=== PATIENT | male | born 1945 | race Caucasian/White ===

== ENCOUNTER → 2018-12-14 08:38 | Outpatient (CLI) | payer MEDICARE, SELFPAY ==
[2018-12-04 07:38] VITALS: BMI 25.2
--- NOTE | 2018-12-14 08:39 | AAAS_ITS ---
Reason For Study: Pulsatile abdominal mass Aorta Measurements Aorta Doppler Measurements Proximal aorta measures1.9 x 1.8cm. in cross- Peak systolic flow velocities within the proximal sectional axis. aorta measure 66.6 cm/sec. Proximal aorta measures1.8cm. in longitudinal Peak systolic flow velocities within the mid aorta axis. measure 66.6 cm/sec. Mid aorta measures2.4 x 2.6cm. in cross-sectional Peak systolic flow velocities within the distal axis. aorta measure 45.2 cm/sec. Mid aorta measures2.6cm. in longitudinal axis. Distal aorta measures1.7 x 1.7cm. in cross- sectional axis. Distal aorta measures1.7cm. in longitudinal axis. Left Iliac Artery Left iliac artery measures .90 cm. in the longitudinal axis. Left iliac artery measures .83 x .83 cm. in the cross-sectional axis. Peak systolic velocity in the left iliac artery measures 116.0 cm/sec. Right Iliac Artery Right iliac artery measures .85 cm. in the longitudinal axis. Right iliac artery measures .87 x .83 cm. in the cross-sectional axis. Peak systolic velocity in the right iliac artery measures 124.0 cm/sec. Procedure Aorta IVC Iliac vasculature or bypass grafts [id number]. Exam performed in department. Interpretation Summary Maximal aortic diameter in the mid aorta at 2.4 x 2.6cm with normal flow. Right common iliac 0.87 x 0.83cm Left common iliac 0.83 x 0.83cm Ordering Physician: Yohan Canela Referring Physician: Yohan Canela Performed By: Ml Heredia RVT
== END ==
PROVIDERS: Family Provider Student in an Organized Health Care Education/Training Program; PCP Student in an Organized Health Care Education/Training Program; Referring Provider Surgery; Visit Provider Surgery
DX: R19.00 Intra-abdominal and pelvic swelling, mass and lump, unspecified site (principal); I10 Essential (primary) hypertension
CPT/HCPCS: 76706

== ENCOUNTER → 2018-12-16 14:01 | Outpatient (CLI) | payer MEDICARE, SELFPAY ==
[2018-12-16 12:52] VITALS: BMI 24.6
[2018-12-16 15:48] LABS: Absolute Lymphocyte Count 1.26 X10^3/ul (0.83-4.51); Absolute Neutrophil Count 3.5 X10^3/uL (2.0-7.7); Basophil# 0.02 X10^3/uL; Basophil% 0.4 % (0-1); Eosinophil# 0.11 X10^3/uL; Hematocrit 46.5 % (40-54); Hemoglobin 15.2 g/dl (13.0-16.5); Lymphocyte # 1.26 X10^3/ul (4.0); Lymphocyte % 23.4 % (19-41); Mean Corp Hgb Conc 32.7 g/gl (32-36); Mean Corpuscular Hgb 31.9 pg (27.0-32.0); Mean Corpuscular Volume 97.5 fL (80-94); Mean Platelet Vol. 12.1 fl (6.2-12.0); Monocyte# 0.48 X10^3/uL; Monocyte% 8.9 % (0-10); Neutrophil # 3.49 X10^3/uL (2.7-7.7); Neutrophil % 64.9 % (47-70); Platelet Count 194 K/mm3 (150-450); RBC Distribution Width CV 13.8 % (11.6-14.6); RBC Distribution Width SD 49.3 fl (35.1-43.9); Red Blood Count 4.77 M/mm3 (4.6-6.2); White Blood Count 5.4 K/mm3 (4.4-11.0)
[2018-12-16 15:52] LABS: POSITIVE COUNT NO; POSITIVE DIFFERENTIAL NO; POSITIVE MORPHOLOGY NO
[2018-12-16 16:10] LABS: Anion Gap 9 (5-15); BUN 12 mg/dL (7-18); BUN/Creat Ratio 10.3 RATIO (10-20); Calcium,Total 8.8 mg/dL (8.5-10.1); Chloride 110 mmol/L (98-107); Creatinine, Serum 1.17 mg/dL (0.70-1.30); EST Glomerular Filtration Rate 65 mL/min (>60); Est Glom Filt Rate - Afr Amer 79 mL/min (>60); Glucose 93 mg/dL (74-106); Potassium 4.2 mmol/L (3.5-5.1); Sodium Level 144 mmol/L (136-145)
== END ==
PROVIDERS: Family Provider Student in an Organized Health Care Education/Training Program; PCP Student in an Organized Health Care Education/Training Program; Referring Provider Internal Medicine Cardiovascular Disease; Visit Provider Internal Medicine Cardiovascular Disease
DX: I25.10 Atherosclerotic heart disease of native coronary artery without angina pectoris (principal); R07.9 Chest pain, unspecified; Z95.5 Presence of coronary angioplasty implant and graft
CPT/HCPCS: 36415; 80048; 85025

== ENCOUNTER 2018-12-22 06:53 | Day surgery (SDC) | payer MEDICARE, SELFPAY ==
[2018-12-16 12:52] VITALS: BMI 24.6
--- NOTE | 2018-12-18 08:00 | RAD_ITS ---
STUDY: X-RAY CHEST REASON FOR EXAM: Male, 73 years old. Chest pain TECHNIQUE: PA and lateral views of the chest. COMPARISON: None. FINDINGS: The lungs are clear and expanded. There is no demonstrated pleural abnormality. Normal size heart. Normal mediastinum and bishop. Normal visualized pulmonary arteries. There is atherosclerotic tortuosity of the aortic arch and descending thoracic aorta. There are mild degenerative changes of the visualized thoracic spine. Normal visualized ribs, clavicles, and shoulders. There is no demonstrated abnormality of the visualized soft tissue structures of the upper abdomen. RAD/Chest PA and Lateral IMPRESSION: No acute cardiopulmonary process. Electronically Signed: Kody Conklin MD at 6:55 EST , Service support ,
[2018-12-21 11:05] VITALS: BMI 24.6
--- NOTE | 2018-12-22 08:43 | CL.D_ITS ---
Patient Name: PORFIRIO NOWAK Study Date: 12/22/2018 Performing: Lenin Galeas MD Ht: 68.11 inches 173 cm : 1945 Wt: 160.94 lbs 73 kg Age: 73 Gender: male BSA: 1.87 PROCEDURE(S) PERFORMED [id number]/COR/LV CLINICAL PROFILE AND INDICATIONS Indications: Suspected CAD Heart Failure: None Stress/Imaging Stress Test w/SPECT MPI: Yes Result: NegativeStress Test with SPECT MPI: Negative CAD Presentations: Unstable angina. CONCLUSIONS Left main coronary artery with severe right coronary artery stenosis and depressed left ventricular f unction. RECOMMENDATIONS Surgery consult for coronary revascularization DESCRIPTION OF PROCEDURE The patient arrived to the procedure lab. The risks and benefits of the procedure as well as a full d escription of our services here and current unavailability of surgical backup were fully explained to the patient and/or their significant other prior to the catheterization. The Timeout was completed, verifying the correct patient and procedure. The patient's procedural site was prepped and draped in the usual fashion. Local anesthetic was given subcutaneously to right groin region with Lidocaine 2%. Using a modified Seldinger technique, arterial access was obtained via the right femoral artery, a 5 Fr sheath was inserted. Left Coronary Artery selective angiography was performed in multiple views u sing a 5 Fr. JL4 catheter. Right Coronary Artery selective angiography was then performed in multiple views using a 5 Fr. 3DRC (Fidencio) catheter. Left Ventriculography was performed in GIL projection using a 5 Fr. Pigtail catheter. LV to AO pullback pressures were then recorded.The arterial sheath was pulled and manual compression applied until hemostasis is achieved. CORONARY ANGIOGRAPHY DOMINANCE: Right Dominant LEFT HEART ASSESSMENT Left Ventricular Ejection Fraction: by LV Gram 40 % Global Hypokinesis - Moderate Depressed Left Ventricular systolic function LEFT MAIN: 60-70 % Stenosis LEFT ANTERIOR DECENDING ARTERY: Mild luminal irregularities DIAGONAL 1: Ostial - 70 % Stenosis CIRCUMFLEX ARTERY: Mild luminal irregularities less than 30% RIGHT CORONARY ARTERY: Eccentric 70% proximal stenosis, moderate mid segment disease, high-grade 90% stenosis before the bifurcation of the posterolateral and posterior descending arteries and a 90% lauren nosis noted in the posterolateral vessel. COMPLICATIONS No Complications PROCEDURE MEDICATIONS Versed 1 mg IV Oxygen: 2 L/min via nasal cannula SUMMARY OF HEMODYNAMIC DATA Time AIR REST ECG 07:12:51 AO 153/67 (98) SA 08:12:43 LV 153/0, 8 08:20:34 LV 155/-1, 10 08:20:41 LV 150/0, 9 08:22:32 LV 156/0, 10 08:22:38 LVp 170/-1, 27 08:22:44 AOp 167/69 (103) 08:22:49 Signed By Lenin Galeas MD On 12/22/2018 08:41:42 Lenin Galeas MD
== END 2018-12-22 15:35 | disposition short-term general hospital (02) ==
LOC: CLSP 06:54
PROVIDERS: Family Provider Student in an Organized Health Care Education/Training Program; PCP Student in an Organized Health Care Education/Training Program; Referring Provider Internal Medicine Cardiovascular Disease; Visit Provider Internal Medicine Cardiovascular Disease
DX: I25.10 Atherosclerotic heart disease of native coronary artery without angina pectoris (principal); I77.9 Disorder of arteries and arterioles, unspecified; I10 Essential (primary) hypertension; E78.2 Mixed hyperlipidemia; Z95.5 Presence of coronary angioplasty implant and graft; I25.2 Old myocardial infarction; I65.23 Occlusion and stenosis of bilateral carotid arteries; I73.9 Peripheral vascular disease, unspecified; Z79.82 Long term (current) use of aspirin; Z79.899 Other long term (current) drug therapy; Z87.891 Personal history of nicotine dependence
CPT/HCPCS: 71046; 93458; 99152; 99153; J7040; Q9967

== ENCOUNTER → 2019-02-04 11:50 | Outpatient (CLI) | payer MEDICARE, SELFPAY ==
[2018-12-21 11:05] VITALS: BMI 24.6
--- NOTE | 2019-02-04 12:15 | PCM.CR.ITP ---
General Information - General Information Admitting Diagnosis: CABG 12/28/18 - Education/Goals Barriers to Learning: None Individual Counseling: Initial Assessment: Abnormal Cholesterol Levels, High Blood Pressure, Hypertension, Sedentary Lifestyle, Family History of Heart Disease (under 65 years) Cardiac Rehabilitation Goals: 1. Maintain the individual as the primary focus of care. 2. To improve the patient's quality of life. 3. Identification of cardiac risk factors and provide cardiac risk factor management. 4. Enhance the psychosocial status of the patient. 5. Reconditioning enough to allow the patient to resume customary activities. 6. Control symptoms of cardiac disease Scale for measuring improvement of personal goals: Enter appropriate number in Comments. 2 = Unchanged. 3 = Slightly Better. 4 = Moderate Improvement. 5 = Met my Goal Personal Goals: Initial Assessment: Improve energy level, Get back to work, or to resume activities faster, Improve muscle strength and endurance, Improve diet and eating habits (eat healthier), Control risk factors (learn risk factor modification) Exercise - Initial Assessment - Visit Date of Eval: 02/04/19 - Stages of Change Stages of Change:: Action - Physician Prescribed Exercise Modalities: Treadmill, Biodyne, Rower, Airdyne, NuStep, SciFit Frequency (days/week): 3x/week for 12 weeks [36 sessions] Duration (Minutes):: 30 - Hypertension Do any of the following apply?: Yes, Medication, Diet - Intervention Home Exercise/Activity Goal:: Moderate Exercise 30 min/day x 5 days/wk - Education Goals:: Warm-up, RPE JAS Scale, S/S, Safe Exercise, Self-Monitoring - Exercise Program Goals Exercise Program Goals: Aerobic Activity >30 min Nutrition - Initial Assessment - Program Goals Nutrition Program Goals: LDL <70. Total Cholesterol <200. HDL >45. Triglycerides <150. HgbA1C <7%. BMI <25 - Visit Date of Assessment:: 02/04/19 - Stages of Change Stages of Change:: Action - Diabetes Diabetes:: No - Weight Management Height: 5 ft 8 in Weight:: 162 lb Body Fat %:: 24.6 - Intervention Referral to dietitian:: No Referral to Diabetic Clinic:: No Will attend diet classes:: Yes - Education Gave educational materials for:: Healthy eating Tobacco - Initial Assessment - Program Goals Tobacco Program Goals: Complete smoking cessation. Attend education classes. Improve Knowledge Test score - Stage of Change Stages of Change:: Action - Learning Barriers Learning Barriers: Vision - wears glasses, Ready to Learn Total Score:: 17 - Family Support Do you have family support?: Yes - Tobacco Use Tobacco Use: Cigarettes - quit 6 weeks ago How long ago did you quit using tobacco products?: Less than 6 months ago How many cigarettes do you smoke per day?: 10 Years Smokin Do you use smokeless tobacco?: No - Intervention Smoking Cessation Referral:: Yes Individual Education/Counseling:: Yes Education Schedule Given:: Yes - Education Gave educational material for:: Tobacco triggers, Coronary artery disease, Risk factors, Sexuality, Medical compliance, Cardiac A&P, Angina signs & symptoms Psychosocial - Initial Assess - Target Goals Target Goals: Assess presence or absence of depression. Using a valid screening tool, maximizes coping skills. Positive support system - Stages of Change Stages of Change:: Maintenance - Psychosocial Test Tool Used:: HANDS Depression Questionnaire Self-reported stress:: no Tests Completed: SF - 36 survey completed, Mood Scale Test Total Mood Screening Score:: 2 Self-Efficacy Score:: 8 - Intervention PS - Interventions: Yes Attend Stress Management Classes, Yes Uses Stress Management Skills, No Referral to Mental Health, No Referral to [facility] Case Management, No Referral to Physician - Education Gave educational materials for:: Coping techniques, Signs & symptoms of depression, Stress management, Relaxation techniques - Patient/Program Goal Preventative Medication(s):: Aspirin, CHUY inhibitor, Clopidogrel, Beta patricia, Statin/lipid - Assistive Devices Assistive Devices:: None Fall Risk Assessed:: Yes Patient Health Questionnaire Initial Assessment 1. Little interest or pleasure in doing things: Not at all 2. Feeling down, depressed, or hopeless: Not at all 3. Trouble falling or staying asleep, or sleeping too much: Several days 4. Feeling tired or having little energy: Not at all 5. Poor appetite or overeating: Several days 6. Feeling bad about yourself -- or that you are a failure or have let yourself or your family down: Not at all 7. Trouble concentrating on things, such as reading the newspaper or watching television: Not at all 8. Moving or speaking so slowly that other people could have noticed. Or the opposite - being so fidgety or restless that you have been moving around a lot more than usual: Not at all 9. Thoughts that you would be better off , or of hurting yourself in some way: Not at all How difficult have these problems made it for you to do your work, take care of things at home, or get along with other people?: Not difficult at all Total Score: 2 CYDNEY-Q SV Test - Statements CAD is a disease of the arteries in the heart: False Examples of risk factors for heart disease: True Angina is chest pain or discomfort: I Don't Know The benefits of resistance training include: True Eating more meat and dairy products: False Anti-platelet medications such as aspirin are important: True The only effective way to manage stress: False An exercise warm-up slowly increases heart rate: True Prepared, processed foods usually have high sodium: True Depression is common after a heart attack: True The statin medications lower cholesterol: True To control blood pressure, lower the amount of sodium: True If someone gets chest discomfort during walking: False Transfats are partially hydrogenated vegetable oils: True Sleep apnea that is not treated increases the risk: I Don't Know To control cholesterol, one should become a vegetarian: True Someone knows if he/she is exercising at the right level: True Diabetes cannot be prevented with exercise & health eating: False Stress is a large risk for heart attack: True A diet that can help lower blood pressure is rich in: True - Total Score Total Correct Responses: 17 Self-Efficacy Initial Assessment We would like to know how confident you are in doing certain activities. Please select your confidence level for:: Select your confidence level for the following using the scale 1-10 where 1 is not at all confident and 10 is totally confident. Your score is the average of all 6 responses. Fatigue: How confident are you that you can keep the fatigue caused by your disease from interfering with the things you want to do? Select Number: 8 Physical Discomfort or Pain: How confident are you that you can keep the physical discomfort or pain of your disease from interfering with the things you want to do? Select Number: 8 Emotional Distress: How confident are you that you can keep the emotional distress caused by your disease from interfering with the things you want to do? Select Number: 9 Other Symptoms or Health Problems: How confident are you that you can keep other symptoms or health problems from interfering with the things you want to do? Select Number: 8 Different Tasks and Activities: How confident are you that you can do the different tasks and activities needed to manage your health condition so as to reduce your need to see a doctor? Select Number: 8 Medication: How confident are you that you can do things other than just taking medication to reduce how much your illness affects your everyday life? Select Number: 8 Total Score:: 8 Nutrition Survey - Nutrition Survey Instructions Scoring Instructions: Scoring is as follows: Yes = 1 points. No = 0 point. Patient score that is >/=12 is considered to be at potential nutritional risk and could benefit from a referral to a registered dietitian. - Nutrition Survey Initial Have you lost >10 lbs over the past 2 months without trying?: Yes Are you following a special diet at home for diabetes, low fat, or low salt?: No Are you interested in meeting with a dietitian for help understanding your diet?: Yes Do you eat less than 3 meals a day?: Yes Do you eat fatty meats (wheeler, sausage, ribs, etc), fried foods, desserts, large amounts of salad dressings, margarine, butter, or cheese most days?: Yes Do you have food allergies? [Enter types in comment field]: No Do you eat in restaurants more than 3 times a week?: No Do you season food with salt, seasoning salt, or garlic salt?: No Do you used canned, boxed, frozen meals, or soups, seasoning packets?: No Total Score:: 4
--- NOTE | 2019-02-04 12:54 | CR.HP_ITS ---
CR - History & Physical - General Arrival date:: 02/04/19 Arrival time:: 12:50 Date of Referral:: 02/04/19 Date of CR Evaluation:: 02/04/19 Referring Physician: Dr. Kadi Galeas Primary Diagnosis: CABG x 3 12/28/18 - History of Present Cardiac Event Onset Date: Enter Onset Date of cardiac illnesses in Comment field below Current stable Angina Pectoris:: No Acute Myocardial Infarction within 12 months:: No Coronary Artery Bypass Graft:: Yes - 12/28/18 Heart valve replacement or repair:: No PTCA or coronary stenting:: No Heart or Heart-Lung Transplant:: No Heart Failure EF <35%:: No Type of Symptoms:: some left chest pain. Interventions with present event:: CABG Were there any complications?: no - Medications Home Medications: Ambulatory Orders Medication Instructions Recorded aspirin 81 mg tablet,delayed 81 mg PO DAILY 12/04/18 release ezetimibe 10 mg tablet 10 mg PO DAILY 12/04/18 folic acid 400 mcg tablet 0.4 mg PO DAILY 12/04/18 metoprolol succinate ER 25 mg 25 mg PO DAILY 12/04/18 tablet,extended release 24 hr gndebhqx-wep-wwpbg acid 300 1 tab PO DAILY 12/04/18 mcg-lycopene 600 mcg-lutein 300 mcg tablet perflutren lipid microspheres 1.1 1.3 mg .ROUTE . ml 12/04/18 mg/mL intravenous suspension ramipril 10 mg capsule 20 mg PO DAILY cap 12/04/18 albuterol sulfate HFA 90 2 puff INHALATION Q4H PRN g 12/15/18 mcg/actuation aerosol inhaler clopidogrel 75 mg tablet 75 mg PO DAILY #30 tab 12/16/18 hydrochlorothiazide 25 mg tablet 25 mg PO DAILY #90 tab 12/16/18 nitroglycerin 0.4 mg sublingual 0.4 mg SUBLINGUAL Q5-15M PRN #25 12/16/18 tablet tab Acetaminophen [Tylenol] 325 mg PO Q6H PRN PRN 02/04/19 Lopressor 50 mg PO BID 02/04/19 Melatonin/Pyridoxine HCl (B6) 1 each PO QHS PRN PRN 02/04/19 [Melatonin 3 mg Tablet] Polyethylene Glycol 3350 [Miralax] 17 gm PO DAILY PRN 02/04/19 Pravastatin Sodium 5 mg PO QHS 02/04/19 Sennosides/Docusate Sodium 1 each PO PRN PRN 02/04/19 [Senna-Docusate Sodium Tablet] - Allergies Allergies/Adverse Reactions: Allergies Penicillins Allergy (Mild, Verified 12/16/18 08:40) rash amlodipine Adverse Reaction (Mild, Verified 12/16/18 08:40) ED exacerbation Ybvxcfh-Hko-Mok Reductase Inhibitor Adverse Reaction (Verified 12/16/18 08:40) myalgias - Sleep Disorder Evaluation Hx of Sleep Apnea: No Do you snore loudly (louder than talking or can be heard through closed doors)?: No Do you often feel tired/ fatigued/ sleepy during daytime?: No Has anyone observed you stop breathing during sleep?: Yes History of Hypertension (for STOP score): Yes STOP Results: Positive Advanced Directives - Advanced Directives Power of Doper Operator: No Living Will: No Advance Directives Information Provided: Yes Advance Directives on File: No DNR Order?:: No Past Medical History - Past Medical Illness Medical History: Past Medical History (Last Updated 01/28/19 @ 17:17 by Wanda Martinez) Premature ventricular beat (Chronic) I49.3 Claudication (Chronic) I73.9 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 Arie Scott Research And Evaluation Analyst Myocardial infarction I21.9 Bradycardia (Inactive) R00.1 - Past Surgical History Surgical History: Past Surgical History (Last Updated 01/28/19 @ 17:17 by Wanda Martinez) H/O coronary artery bypass surgery (Resolved) Z95.1 History of coronary artery stent placement (Resolved) Onset Date: 05/2003 Z95.5 BMS-Mid RCA w/ 3.5 x 20 mm Express II Stent 05/28/2003 History of left heart catheterization Onset Date: 12/22/18 Z98.890 History of amputation of finger Z89.029 History of appendectomy Z90.49 History of cataract extraction Onset Date: ~2015 Z98.49 History of colonoscopy Onset Date: ~2015 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 - Family History Summary Family History: Family History (Last Reviewed 12/16/18 @ 13:19 by Lenin Galeas MD) Father Heart disease Hypertension Mother CVA (cerebral vascular accident) Brother Heart disease Hypertension Myocardial infarction Brother Hypertension Myocardial infarction Brother Heart disease Myocardial infarction Social History - Smoking History Smoking Status: Former smoker Years Smokin Packs Smoked per Day: 0.5 Hx Smoking Cessation Date: quit 6 weeks ago Hx Tobacco Use: Yes Hx Smoking Exposure: Yes - Alcohol Use Alcohol Usage: No - Substance Abuse Hx Substance Use: No - Occupation Occupation (List type of work in comments):: Retired - Hobbies, Recreation, Social Activities Hobbies: Other - 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 Left click = Reports ([place]) Review of Present Symptoms: Reports: PVD, Operative Discomfort, Wound Healing - dry brown scab remains on chest and leg incisions, Appetite - Special Diet - Cardiac and protein, Sleep - Normal. Denies: Shortness of Breath at Rest, Shortness of Breath with Exertion, Angina, Dizziness/Lightheadedness, Fatigue, Heart Arrhythmia/Irregularities, Appetite - Normal - appetite not as good as usual, Sexual Changes - Pain Is Patient Pain Free?: No Pain Location: chest Pain Level: 0/10 - states discomfort is a .2 Previous experience dealing with pain?: took 3 pain pills since post op Risk Factor Assessment - Vital Signs Pulse Ox: 94 - Pulse Pulse Rate: 65 Pulse Rhythm: Regular - Hypertension How long have you been treated?: 4 years On medication(s)?: yes Blood Pressure Sitting - Right Arm: 162/82 Blood Pressure Sitting - Left Arm: 148/90 - Blood Cholesterol/Lipids Total Cholesterol (mg/dL) Goal = less than 200 mg/dL: 142 HDL Cholesterol (mg/dL) Goal = less than 40 mg/dL: 38 LDL Cholesterol (mg/dL) Goal = less than 70 mg/dL: 88 Triglycerides (mg/dL) Goal = less than 150 mg/dL: 78 - Diabetes Nutrition Referral for Diabetes: No - Obesity Height: 5 ft 8 in Weight:: 162 lb Weight in Pounds: 162.0 lbs Body Mass Index (BMI): 24.6 Nutritional Referral for Obesity: Yes - Pt would possibly like dietary referral for weight loss(14) since surg - Physical Inactivity Physical Inactivity: None - Risk Stratification Risk Guidelines: Lowest Risk: Risk Factor for Dyslipidemia, Risk Factor for Diabetes, Risk Factor for Obesity, Risk Factor for Depression, Moderate Risk: Risk Factor for Hypertension, Highest Risk: Risk Factor for Smoking, Risk Factor for Sedentary Lifestyle - For Smoking Smoking Risk Guidelines: Smoking Low Risk: None or quit greater than 6 months ago. Smoking Moderate Risk: Smoker or quit 6 months or less ago. Smoking High Risk: Smoker - For Dyslipidemia Dyslipidemia Risk Guidelines: Low Risk: Moderate Risk: High Risk: 15-25% fat 25.1-29% fat >/= 30% fat. <7% sat fat 7-9% sat fat >9% sat fat. <150 mg chol 150-299 mg chol >/= 300 mg chol. LDL <100 LDL 100-129 LDL >/= 130. Chol/HDL ratio <5.0 Chol/HDL ratio 5.0-6.0 Chol/HDL ratio >6.0. Triglycerides <100 Triglycerides 100-149 Triglycerides >/= 150 - For Diabetes Mellitus Diabetes Risk Guidelines: Diabetes Low Risk: HgA1c <6.5% and/or FBG <120. Diabetes Moderate Risk: HgA1c 6.6-7.9% and/or FBG 120-180. Diabetes High Risk: HgA1c >/= 8% and/or FBG >180 - For Obesity/Overweight Obesity/Overweight Risk Guidelines: Obesity Low Risk: BMI <25.0. Obesity Moderate Risk: BMI 25-29.9. Obesity High Risk: BMI >/= 30.0 - For Hypertension Hypertension Risk Guidelines: Hypertension Low Risk: Systolic <120 and Diastolic <80. Hypertension Moderate Risk: Systolic 120-139 and Diastolic 80-89. Hypertension High Risk: Systolic >/= 140 and Diastolic >/= 90 - For Sedentary Lifestyle Sedentary Lifestyle Risk Guidelines: Sedentary Lifestyle Low Risk: >/= 1,500 kcal/week. Sedentary Lifestyle Moderate Risk: 700-1,499 kcal/week. Sedentary Lifestyle High Risk: < 700 kcal/week - For Depression Depression Risk Guidelines: Depression Low Risk: Not clinically depressed. Depression Moderate Risk: Mildly depressed. Depression High Risk: Clinically depressed - Family History Family History: Family History (Last Reviewed 12/16/18 @ 13:19 by Lenin Galeas MD) Father Heart disease Hypertension Mother CVA (cerebral vascular accident) Brother Heart disease Hypertension Myocardial infarction Brother Hypertension Myocardial infarction Brother Heart disease Myocardial infarction Motivation - Motivation to Participate On a scale of 1 to 10, how prepared are you to commit to attending program?: 1
[2019-02-04 13:38] VITALS: BP 148/90; BP 162/82; PULSE 65; O2SAT 94; BMI 24.6
== END ==
PROVIDERS: Family Provider Student in an Organized Health Care Education/Training Program; PCP Student in an Organized Health Care Education/Training Program; Referring Provider Internal Medicine Cardiovascular Disease; Visit Provider Internal Medicine Cardiovascular Disease
DX: Z95.1 Presence of aortocoronary bypass graft (principal)

== ENCOUNTER 2019-02-12 14:15 | Outpatient (RCR) | payer MEDICARE, SELFPAY ==
[2019-02-04 12:58] VITALS: BMI 24.6
== END 2019-02-14 23:59 ==
LOC: CR 14:15
PROVIDERS: Family Provider Student in an Organized Health Care Education/Training Program; PCP Student in an Organized Health Care Education/Training Program; Referring Provider Internal Medicine Cardiovascular Disease; Visit Provider Internal Medicine Cardiovascular Disease
DX: I25.10 Atherosclerotic heart disease of native coronary artery without angina pectoris (principal); I10 Essential (primary) hypertension; I25.2 Old myocardial infarction; Z95.5 Presence of coronary angioplasty implant and graft; Z95.1 Presence of aortocoronary bypass graft
CPT/HCPCS: 93798

== ENCOUNTER 2019-03-15 14:15 | Outpatient (RCR) | payer MEDICARE, SELFPAY ==
[2019-02-04 13:38] VITALS: BMI 24.6
[2019-03-05 07:42] VITALS: BP 156/84; BP 188/102
--- NOTE | 2019-03-05 07:42 | CR.ITP_ITS ---
General Information - General Information Admitting Diagnosis: CABG - Education/Goals Barriers to Learning: None Cardiac Rehabilitation Goals: 1. Maintain the individual as the primary focus of care. 2. To improve the patient's quality of life. 3. Identification of cardiac risk factors and provide cardiac risk factor management. 4. Enhance the psychosocial status of the patient. 5. Reconditioning enough to allow the patient to resume customary activities. 6. Control symptoms of cardiac disease Scale for measuring improvement of personal goals: Enter appropriate number in Comments. 2 = Unchanged. 3 = Slightly Better. 4 = Moderate Improvement. 5 = Met my Goal Exercise - 30-day Assessment - Visit Date of Eval: 03/05/19 Session #:: 10 - Stages of Change Stages of Change:: Action - Physician Prescribed Exercise Modalities: Airdyne, NuStep, SciFit Frequency (days/week): 3 Duration (Minutes):: 30-45 Intensity: 60-80% age predicted maximum heart rate reserve METs - Progression: 0.5-1.0 MET, RPE 11-14 WEEK: 3.7 Target Heart Rate:: 104-119 Max HR 111 - Hypertension Resting Blood Pressure:: 156/84 Peak Exercise Blood Pressure:: 188/102 Medication Changes:: No - Intervention Home Exercise/Activity Goal:: Moderate Exercise 30 min/day x 5 days/wk - Education Goals:: Warm-up, RPE JAS Scale, S/S, Safe Exercise, Self-Monitoring - Exercise Program Goals Exercise Program Goals: Aerobic Activity >30 min, B/P <130/80 Nutrition - 30-Day Assessment - Program Goals Nutrition Program Goals: LDL <70. Total Cholesterol <200. HDL >45. Triglycerides <150. HgbA1C <7%. BMI <25 - Visit Date of Eval: 03/05/19 - Stages of Change Stages of Change:: Action - Weight Management Weight:: 73.482 kg - Intervention Referral to dietitian:: No Referral to Diabetic Clinic:: No Will attend diet classes:: Yes - Education Attended class for:: Signs & symptoms of hypoglycemia, Signs & symptoms of hyperglycemia, Relate diabetes to coronary artery disease, Healthy eating Tobacco - Initial Assessment - Program Goals Tobacco Program Goals: Complete smoking cessation. Attend education classes. Improve Knowledge Test score - Learning Barriers Learning Barriers: Vision - wears glasses, Ready to Learn Tobacco - 30-Day Assessment - Program Goals Tobacco Program Goals: Complete smoking cessation. Attend education classes. Improve Knowledge Test score - Stage of Change Stages of Change:: Action - Learning Barriers Learning Barriers: Participates in education - Family Support Do you have family support?: Yes - Tobacco Use Tobacco Use: Non-smoker Do you use smokeless tobacco?: No - Intervention Smoking Cessation Referral:: No Individual Education/Counseling:: No Education Schedule Given:: Yes - Education Attended class for:: Tobacco triggers, Coronary artery disease, Risk factors, Sexuality, Medical compliance, Cardiac A&P, Angina signs & symptoms Psychosocial - Initial Assess - Target Goals Target Goals: Assess presence or absence of depression. Using a valid screening tool, maximizes coping skills. Positive support system - Psychosocial Test Tool Used:: HANDS Depression Questionnaire - Assistive Devices Fall Risk Assessed:: Yes Psychosocial - 30-Day Assess - Target Goals Target Goals: Assess presence or absence of depression. Using a valid screening tool, maximizes coping skills. Positive support system - Stages of Change Stages of Change:: Action - Psychosocial Test Tool Used:: HANDS Depression Questionnaire - Intervention PS - Interventions: Yes Attend Stress Management Classes, Yes Uses Stress Management Skills, No Referral to Mental Health, No Referral to [facility] Case Management, No Referral to Physician - Education Attended classes for:: Coping techniques, Signs & symptoms of depression, Stress management, Relaxation techniques - Assistive Devices Assistive Devices:: None Fall Risk Assessed:: Yes Patient Health Questionnaire 30-Day Re-eval Assessment 1. Little interest or pleasure in doing things: Not at all 2. Feeling down, depressed, or hopeless: Not at all 3. Trouble falling or staying asleep, or sleeping too much: Several days 4. Feeling tired or having little energy: Not at all 5. Poor appetite or overeating: Several days 6. Feeling bad about yourself -- or that you are a failure or have let yourself or your family down: Not at all 7. Trouble concentrating on things, such as reading the newspaper or watching television: Not at all 8. Moving or speaking so slowly that other people could have noticed. Or the opposite - being so fidgety or restless that you have been moving around a lot more than usual: Not at all 9. Thoughts that you would be better off , or of hurting yourself in some way: Not at all Total Score: 2 Self-Efficacy 30-Day Re-eval Assessment We would like to know how confident you are in doing certain activities. Please select your confidence level for:: Select your confidence level for the following using the scale 1-10 where 1 is not at all confident and 10 is totally confident. Your score is the average of all 6 responses. Fatigue: How confident are you that you can keep the fatigue caused by your disease from interfering with the things you want to do? Select Number: 8 Physical Discomfort or Pain: How confident are you that you can keep the physical discomfort or pain of your disease from interfering with the things you want to do? Select Number: 8 Emotional Distress: How confident are you that you can keep the emotional distress caused by your disease from interfering with the things you want to do? Select Number: 9 Other Symptoms or Health Problems: How confident are you that you can keep other symptoms or health problems from interfering with the things you want to do? Select Number: 8 Different Tasks and Activities: How confident are you that you can do the different tasks and activities needed to manage your health condition so as to reduce your need to see a doctor? Select Number: 8 Medication: How confident are you that you can do things other than just taking medication to reduce how much your illness affects your everyday life? Select Number: 8 Total Score:: 8
== END 2019-03-16 23:59 ==
LOC: CR 14:15
PROVIDERS: Family Provider Student in an Organized Health Care Education/Training Program; PCP Student in an Organized Health Care Education/Training Program; Referring Provider Internal Medicine Cardiovascular Disease; Visit Provider Internal Medicine Cardiovascular Disease
DX: I25.10 Atherosclerotic heart disease of native coronary artery without angina pectoris (principal); I10 Essential (primary) hypertension; I25.2 Old myocardial infarction; Z95.5 Presence of coronary angioplasty implant and graft; Z95.1 Presence of aortocoronary bypass graft
CPT/HCPCS: 93798

== ENCOUNTER 2019-04-06 06:39 | Day surgery (SDC) | payer MEDICARE, SELFPAY ==
[2019-03-09 14:06] VITALS: BMI 24.3
--- NOTE | 2019-03-10 16:17 | HP_ITS ---
Intake Vital Signs 03/09/19 Body Mass Index (BMI) 24.3 03/09/19 Height 5 ft 8 in 03/09/19 Weight: 160 lb 03/09/19 Body Mass Index (BMI) 24.3 03/09/19 Blood Pressure 110/61 03/09/19 Blood Pressure Location Lt brachial 03/09/19 Blood Pressure Position Sitting 03/09/19 Respiratory Rate 18 03/09/19 Pulse Rate 65 03/09/19 Pulse Ox 94 03/09/19 Oxygen Delivery Method room air Intake Visit Reasons: Update H/P L APLL Adal will fax clearance Chief Complaint: Initial visit Manager Culinary Required: No Is patient in pain?: No Allergies Penicillins Allergy (Mild, Verified 03/09/19 14:05) rash amlodipine Adverse Reaction (Mild, Verified 03/09/19 14:05) ED exacerbation Drzbylm-Yfw-Tsy Reductase Inhibitor Adverse Reaction (Verified 03/09/19 14:05) myalgias Medications aspirin 81 mg tablet,delayed release 81 mg PO DAILY 12/04/18 [History Confirmed 03/09/19] ezetimibe 10 mg tablet 10 mg PO DAILY 12/04/18 [History Confirmed 03/09/19] ybvislzo-sou-qxefc acid 300 mcg-lycopene 600 mcg-lutein 300 mcg tablet 1 tab PO DAILY 12/04/18 [History Confirmed 03/09/19] nitroglycerin 0.4 mg sublingual tablet 0.4 mg SUBLINGUAL Q5-15M PRN #25 tab 12/16/18 [Rx Confirmed 03/09/19] Melatonin/Pyridoxine HCl (B6) [Melatonin 3 mg Tablet] 1 ea PO QHS PRN PRN 02/04/19 [History Confirmed 03/09/19] Sennosides/Docusate Sodium [Senna-Docusate Sodium Tablet] 1 ea PO PRN PRN 02/04/19 [History Confirmed 03/09/19] acetaminophen 325 mg capsule 650 mg PO Q6H PRN PRN cap 03/05/19 [History Confirmed 03/09/19] amlodipine 10 mg tablet 10 mg PO DAILY #90 tab 03/05/19 [Rx Confirmed 03/09/19] clopidogrel 75 mg tablet 75 mg PO DAILY #90 tab 03/05/19 [Rx Confirmed 03/09/19] metoprolol tartrate 100 mg tablet 50 mg PO BID 30 Days #30 tab 03/05/19 [History Confirmed 03/09/19] pravastatin 10 mg tablet 10 mg PO .COMPLEX tab 03/05/19 [History Confirmed 03/09/19] ramipril 10 mg capsule 10 mg PO DAILY cap 03/05/19 [History Confirmed 03/09/19] [facility] Medical History Premature ventricular beat (Chronic) Claudication (Chronic) Old inferior wall myocardial infarction (Chronic) Essential (primary) hypertension (Chronic) Mixed hyperlipidemia (Chronic) Atherosclerosis of [place] coronary artery of [place] heart without angina pectoris (Chronic) Carotid stenosis, bilateral (Chronic) Peripheral arterial occlusive disease (Chronic) Basal cell carcinoma (Chronic) Bilateral carotid artery stenosis (Chronic) Malignant melanoma (Chronic) Stenosis of both subclavian arteries (Chronic) Myocardial infarction (Resolved) Thrombocytopenia (Resolved) Bradycardia (Inactive) Palpitations (Inactive) Surgical History H/O coronary artery bypass surgery (Resolved 12/28/18) History of coronary artery stent placement (Resolved 05/2003) History of left heart catheterization (Chronic 12/22/18) History of amputation of finger (Resolved) History of appendectomy (Resolved) History of cataract extraction (Resolved ~2015) History of colonoscopy (Resolved ~2015) history of melanoma removal (Resolved) Family History Father Heart disease Hypertension Mother CVA (cerebral vascular accident) Brother Heart disease Hypertension Myocardial infarction Brother Hypertension Myocardial infarction Brother Heart disease Myocardial infarction Social History Smoking Status: Former smoker HPI HPI HPI: PORFIRIO NOWAK, is a 73 M who presents to the office today for HPI HPI Surgical H&P: Yes HPI: PORFIRIO NOWAK, is a 73 M who presents to the office today for an update history and physical for an upcoming procedure. He has recently had a triple bypass surgery at [place] in December 2018. Patient follows with Dr. 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 He has recently been cleared to have the vascular procedure. Patient is currently maintained on ASA and Plavix. Patient denies current chest pain or shortness of breath. he notes since his bypass surgery, his leg fatigue has improved, however still limiting. Patient had an aortic duplex on 12/14/18 which demonstrated maximal aortic diameter mid aorta at 2.4 x 2.6 cm with normal flow. Patient's previous history per Dr. Canela: PORFIRIO NOWAK, is a 73 M who presents to the office today for vascular surgical consultation regarding left lower recurrent extremity calf claudication. The patient is referred by his radio division lieutenant Dr Norbert Rehman because of his desire to stay in [place] to have treatment locally. A written copy of my surgical consult recommendations will be returned to and forwarded also to Dr Smiley.. Patient is 73 years of age. For the last 2-3 months he has had problems with left calf aching and pain with attempts to walk. He has a very long driveway of at least 50 yards. He has to stop 3 times within that. Because of extreme fatigue of the left calf. On November 25, 2018 at the [facility] the patient had PVRs. The right BRIAN was 1.04 and 1.09 for the DP and PT at rest. The left DP and PT ABIs were 0.59 and 0.65. Small vessel disease was also suspected. It is of additional note that November 25, 2018 carotid duplex imaging was performed because of left arm paresthesias the right internal carotid had peak systolic velocity of 98 cm second peak systolic flow felt to be consistent with 20-39% stenosis. The right subclavian artery has elevated velocity of 290 cm/s. [place] to be consistent with 50-99% stenosis. The left internal carotid artery has a peak systolic velocity of 204 cm/s with an end-diastolic velocity of 57. This was felt to be consistent with 60-79% stenosis. The left subclavian artery has an elevated peak systolic velocity of 323 cm/s felt to be consistent with 50-99% stenosis. The patient currently is not complaining of any arm pain. He denies chest pain. He denies previous history of stroke. On December 02, 2018 at the [facility] he had a nuclear medicine stress test. This was negative for inducible ischemia. There was a 10-20% fixed perfusion deficit in the right coronary artery distribution likely consistent with the patient's remote myocardial infarction. Patient also had an echocardiogram. Mild concentric left ventricular hypertrophy. Ejection fraction 48%. No significant valvular abnormalities Patient has been a long-term cigarette smoker. He quit approximately 1 year ago. He had a myocardial infarction in 2002 with what sounds like bare-metal stenting at that time. He was maintained on clopidogrel for multiple years. More recently he had that medication discontinued and he is maintained currently on low-dose aspirin. ROS General General: No weight change, appetite, fatigue, colon cancer, breast cancer or weakness HEENT HEENT: Yes eye surgery; no difficulty swallowing, eye injury, swollen glands or hoarseness Endo Endocrine: No thyroid disease, diabetes mellitus, thyroid cancer, Hair loss, heat intolerance or cold intolerance Musc Musculoskeletal: Yes arthritis; no back problems, rheumatoid arthritis, gout or joint pain Cardio Cardiovascular: Yes heart disease, high blood pressure, heart attack and heart stent; no murmur, pacemaker, atrial fibrillation, palpitations, shortness of breat with exertion or chest pain Resp Respiratory: No shortness of breath, No sleep apnea, Yes cough, No COPD, No asthma, No emphysema, No wheezing Gastro Gastrointestinal: No abdominal pain, No nausea or vomiting, No diarrhea, No constipation, No blood in stool, No acid reflux, No hemorrhoids, No ulcers, No gallbladder problem, No black,tarry stools Cecilio Hematologic: Yes blood thinners, No blood disorders, Yes bleeding, No anemia, No blood clots Additional Details: ASA Neuro Neurologic: No weakness Exam Const General: cooperative, healthy appearing, comfortable, no acute distress HENMT Head: normal to inspection Eyes General: appearance normal, both eyes and all related structures Neck Neck: normal visual inspection Neck mass: No Resp Effort & Inspection: normal respiratory effort Auscultation: clear to auscultation bilaterally Cardio Rate: regular rate Rhythm: regular rhythm Heart Sounds: no murmurs GI Inspection: normal to inspection Palpation: soft Auscultation: normal bowel sounds Musc Cervical Spine: normal cervical lordosis Skin General: no rashes or lesions noted Neuro General: no focal motor deficits Extrem Other: lower extremities- pulses: bilateral femoral- 3+, left popliteal, DP, and PT- 0. Right popliteal 3+, Right PT 3+. Psych Appearance: grossly normal Affect: normal affect Assessment & Plan Problems 1. Peripheral arterial occlusive disease I77.9 Left BRIAN 0.65 in November 2018; Plan Dr. Canela will plan to perform an abdominal pelvic left lower extremity arteriogram with possible endovascular intervention. Procedure details, risks and benefits have been explained to the patient. Patient and his have had the opportunity to ask and have questions answered. Patient verbally understands and agrees with the plan. Patient will obtain CBC and BMP today. Patient will continue on Plavix and ASA considering his very recent bypass surgery 3 months ago. Patient is to also have a short 6 month bilateral carotid duplex due to the left carotid velocity is close to 70%. Orders Orders: Basic Metabolic Profile (BMP) 03/09/19 I77.9 CBC W/Diff, Automated 03/09/19 I77.9 Coding Level of Care Code No Charge Diagnoses Peripheral arterial occlusive disease I77.9 Comment Update H&P
[2019-03-17 01:40] VITALS: BMI 24.6
[2019-03-29 13:32] LABS: Absolute Lymphocyte Count 1.18 X10^3/ul (0.83-4.51); Absolute Neutrophil Count 3.3 X10^3/uL (2.0-7.7); Basophil# 0.03 X10^3/uL; Basophil% 0.6 % (0-1); Eosinophil# 0.19 X10^3/uL; Eosinophils% 3.6 % (0-5); Hematocrit 40.4 % (40-54); Hemoglobin 13.2 g/dl (13.0-16.5); Lymphocyte # 1.18 X10^3/ul (4.0); Lymphocyte % 22.6 % (19-41); Mean Corp Hgb Conc 32.7 g/gl (32-36); Mean Corpuscular Hgb 30.1 pg (27.0-32.0); Mean Platelet Vol. 10.9 fl (6.2-12.0); Monocyte# 0.57 X10^3/uL; Monocyte% 10.9 % (0-10); Neutrophil # 3.25 X10^3/uL (2.7-7.7); Neutrophil % 62.1 % (47-70); POSITIVE COUNT NO; POSITIVE DIFFERENTIAL NO; POSITIVE MORPHOLOGY NO; Platelet Count 211 K/mm3 (150-450); RBC Distribution Width CV 14.1 % (11.6-14.6); RBC Distribution Width SD 47.6 fl (35.1-43.9); Red Blood Count 4.39 M/mm3 (4.6-6.2); White Blood Count 5.2 K/mm3 (4.4-11.0)
[2019-03-29 14:11] LABS: Anion Gap 4 (5-15); BUN 15 mg/dL (7-18); BUN/Creat Ratio 14.4 RATIO (10-20); Calcium,Total 8.5 mg/dL (8.5-10.1); Chloride 112 mmol/L (98-107); Creatinine, Serum 1.04 mg/dL (0.70-1.30); EST Glomerular Filtration Rate 75 mL/min (>60); Est Glom Filt Rate - Afr Amer 90 mL/min (>60); Glucose 80 mg/dL (74-106); Sodium Level 142 mmol/L (136-145)
[2019-04-05 14:01] VITALS: BMI 24.3
--- NOTE | 2019-04-06 06:12 | HP.PCM_ITS ---
Problem List (1) Peripheral arterial occlusive disease Status: Chronic Comment: Left BRIAN 0.65 in November 2018; History and Physical Date of Admission: 04/06/19 Intake Vital Signs 03/09/19 Body Mass Index (BMI) 24.3 03/09/19 Height 5 ft 8 in 03/09/19 Weight: 160 lb 03/09/19 Body Mass Index (BMI) 24.3 03/09/19 Blood Pressure 110/61 03/09/19 Blood Pressure Location Lt brachial 03/09/19 Blood Pressure Position Sitting 03/09/19 Respiratory Rate 18 03/09/19 Pulse Rate 65 03/09/19 Pulse Ox 94 03/09/19 Oxygen Delivery Method room air Intake Visit Reasons: Update H/P L APLL Adal will fax clearance Chief Complaint: Initial visit 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 Required: No Is patient in pain?: No Allergies Penicillins Allergy (Mild, Verified 03/09/19 14:05) rash amlodipine Adverse Reaction (Mild, Verified 03/09/19 14:05) ED exacerbation Fuozwvl-Wip-Krr Reductase Inhibitor Adverse Reaction (Verified 03/09/19 14:05) myalgias Medications aspirin 81 mg tablet,delayed release 81 mg PO DAILY 12/04/18 [History Confirmed 03/09/19] ezetimibe 10 mg tablet 10 mg PO DAILY 12/04/18 [History Confirmed 03/09/19] osjjzydu-pqz-ahmlb acid 300 mcg-lycopene 600 mcg-lutein 300 mcg tablet 1 tab PO DAILY 12/04/18 [History Confirmed 03/09/19] nitroglycerin 0.4 mg sublingual tablet 0.4 mg SUBLINGUAL Q5-15M PRN #25 tab 12/16/18 [Rx Confirmed 03/09/19] Melatonin/Pyridoxine HCl (B6) [Melatonin 3 mg Tablet] 1 ea PO QHS PRN PRN 02/04/19 [History Confirmed 03/09/19] Sennosides/Docusate Sodium [Senna-Docusate Sodium Tablet] 1 ea PO PRN PRN 02/04/19 [History Confirmed 03/09/19] acetaminophen 325 mg capsule 650 mg PO Q6H PRN PRN cap 03/05/19 [History Confirmed 03/09/19] amlodipine 10 mg tablet 10 mg PO DAILY #90 tab 03/05/19 [Rx Confirmed 03/09/19] clopidogrel 75 mg tablet 75 mg PO DAILY #90 tab 03/05/19 [Rx Confirmed 03/09/19] metoprolol tartrate 100 mg tablet 50 mg PO BID 30 Days #30 tab 03/05/19 [History Confirmed 03/09/19] pravastatin 10 mg tablet 10 mg PO .COMPLEX tab 03/05/19 [History Confirmed 03/09/19] ramipril 10 mg capsule 10 mg PO DAILY cap 03/05/19 [History Confirmed 03/09/19] [facility] Medical History Premature ventricular beat (Chronic) Claudication (Chronic) Old inferior wall myocardial infarction (Chronic) Essential (primary) hypertension (Chronic) Mixed hyperlipidemia (Chronic) Atherosclerosis of [place] coronary artery of [place] heart without angina pectoris (Chronic) Carotid stenosis, bilateral (Chronic) Peripheral arterial occlusive disease (Chronic) Basal cell carcinoma (Chronic) Bilateral carotid artery stenosis (Chronic) Malignant melanoma (Chronic) Stenosis of both subclavian arteries (Chronic) Myocardial infarction (Resolved) Thrombocytopenia (Resolved) Bradycardia (Inactive) Palpitations (Inactive) Surgical History H/O coronary artery bypass surgery (Resolved 12/28/18) History of coronary artery stent placement (Resolved 05/2003) History of left heart catheterization (Chronic 12/22/18) History of amputation of finger (Resolved) History of appendectomy (Resolved) History of cataract extraction (Resolved ~2015) History of colonoscopy (Resolved ~2015) history of melanoma removal (Resolved) Family History Father Heart disease Hypertension Mother CVA (cerebral vascular accident) Brother Heart disease Hypertension Myocardial infarction Brother Hypertension Myocardial infarction Brother Heart disease Myocardial infarction Social History Smoking Status: Former smoker HPI HPI HPI: PORFIRIO NOWAK, is a 73 M who presents to the office today for HPI HPI Surgical H&P: Yes HPI: PORFIRIO NOWAK, is a 73 M who presents to the office today for an update history and physical for an upcoming procedure. He has recently had a triple bypass surgery at [place] in December 2018. 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 He has recently been cleared to have the vascular procedure. Patient is currently maintained on ASA and Plavix. Patient denies current chest pain or shortness of breath. he notes since his bypass surgery, his leg fatigue has improved, however still limiting. Patient had an aortic duplex on 12/14/18 which demonstrated maximal aortic diameter mid aorta at 2.4 x 2.6 cm with normal flow. Patient's previous history per Dr. Canela: PORFIRIO NOWAK, is a 73 M who presents to the office today for vascular surgical consultation regarding left lower recurrent extremity calf claudication. The patient is referred by his gut carrier Dr Norbert Rehman because of his desire to [facility] to have treatment locally. A written copy of my surgical consult recommendations will be returned to and forwarded also to Dr Smiley.. Patient is 73 years of age. For the last 2-3 months he has had problems with left calf aching and pain with attempts to walk. He has a very long driveway of at least 50 yards. He has to stop 3 times within that. Because of extreme fatigue of the left calf. On November 25, 2018 at the [facility] the patient had PVRs. The right BRIAN was 1.04 and 1.09 for the DP and PT at rest. The left DP and PT ABIs were 0.59 and 0.65. Small vessel disease was also suspected. It is of additional note that November 25, 2018 carotid duplex imaging was performed because of left arm paresthesias the right internal carotid had peak systolic velocity of 98 cm second peak systolic flow felt to be consistent with 20-39% stenosis. The right subclavian artery has elevated velocity of 290 cm/s. [place] to be consistent with 50-99% stenosis. The left internal carotid artery has a peak systolic velocity of 204 cm/s with an end-diastolic velocity of 57. This was felt to be consistent with 60-79% stenosis. The left subclavian artery has an elevated peak systolic velocity of 323 cm/s felt to be consistent with 50-99% stenosis. The patient currently is not complaining of any arm pain. He denies chest pain. He denies previous history of stroke. On December 02, 2018 at the [facility] he had a nuclear medicine stress test. This was negative for inducible ischemia. There was a 10-20% fixed perfusion deficit in the right coronary artery distribution likely consistent with the patient's remote myocardial infarction. Patient also had an echocardiogram. Mild concentric left ventricular hypertrophy. Ejection fraction 48%. No significant valvular abnormalities Patient has been a long-term cigarette smoker. He quit approximately 1 year ago. He had a myocardial infarction in 2002 with what sounds like bare-metal stenting at that time. He was maintained on clopidogrel for multiple years. More recently he had that medication discontinued and he is maintained currently on low-dose aspirin. ROS General General: No weight change, appetite, fatigue, colon cancer, breast cancer or weakness HEENT HEENT: Yes eye surgery; no difficulty swallowing, eye injury, swollen glands or hoarseness Endo Endocrine: No thyroid disease, diabetes mellitus, thyroid cancer, Hair loss, heat intolerance or cold intolerance Musc Musculoskeletal: Yes arthritis; no back problems, rheumatoid arthritis, gout or joint pain Cardio Cardiovascular: Yes heart disease, high blood pressure, heart attack and heart stent; no murmur, pacemaker, atrial fibrillation, palpitations, shortness of breat with exertion or chest pain Resp Respiratory: No shortness of breath, No sleep apnea, Yes cough, No COPD, No asthma, No emphysema, No wheezing Gastro Gastrointestinal: No abdominal pain, No nausea or vomiting, No diarrhea, No con stipation, No blood in stool, No acid reflux, No hemorrhoids, No ulcers, No gallbladder problem, No black,tarry stools Cecilio Hematologic: Yes blood thinners, No blood disorders, Yes bleeding, No anemia, No blood clots Additional Details: ASA Neuro Neurologic: No weakness Exam Const General: cooperative, healthy appearing, comfortable, no acute distress [facility] Head: normal to inspection Eyes General: appearance normal, both eyes and all related structures Neck Neck: normal visual inspection Neck mass: No Resp Effort & Inspection: normal respiratory effort Auscultation: clear to auscultation bilaterally Cardio Rate: regular rate Rhythm: regular rhythm Heart Sounds: no murmurs GI Inspection: normal to inspection Palpation: soft Auscultation: normal bowel sounds Musc Cervical Spine: normal cervical lordosis Skin General: no rashes or lesions noted Neuro General: no focal motor deficits Extrem Other: lower extremities- pulses: bilateral femoral- 3+, left popliteal, DP, and PT- 0. Right popliteal 3+, Right PT 3+. Psych Appearance: grossly normal Affect: normal affect Assessment & Plan Problems 1. Peripheral arterial occlusive disease I77.9 Left BRIAN 0.65 in November 2018; Plan Dr. Canela will plan to perform an abdominal pelvic left lower extremity arteriogram with possible endovascular intervention. Procedure details, risks and benefits have been explained to the patient. Patient and his have had the opportunity to ask and have questions answered. Patient verbally understands and agrees with the plan. Patient will obtain CBC and BMP today. Patient will continue on Plavix and ASA considering his very recent bypass surgery 3 months ago. Patient is to also have a short 6 month bilateral carotid duplex due to the left carotid velocity is close to 70%. Orders Orders: Basic Metabolic Profile (BMP) 03/09/19 I77.9 CBC W/Diff, Automated 03/09/19 I77.9 Coding Level of Care Code No Charge Diagnoses Peripheral arterial occlusive disease I77.9 Comment Update H&P 03/16/19 1015 <Electronically signed by Laurel Youssef PA-C> Date: Time: I have re-examined the patient. There are no clinical changes since date of exam.
[2019-04-06 12:31] LABS: ACT Activated Clotting Time 136 sec (74-137)
[2019-04-06 12:31] LABS: ACT Activated Clotting Time 208 sec (74-137)
[2019-04-06 12:31] LABS: ACT Activated Clotting Time 213 sec (74-137)
[2019-04-06 12:31] LABS: ACT Activated Clotting Time 213 sec (74-137)
--- NOTE | 2019-04-06 12:34 | OP.PCM_ITS ---
Problem List (1) Peripheral arterial occlusive disease Status: Chronic Comment: Left BRIAN 0.65 in November 2018; Report of Operation Date of Procedure: 04/06/19 Pre-Operative Diagnosis: Clinically significant left lower extremity vascular cl audication Post-Operative Diagnosis: Long segment left superficial femoral artery occlusion. Infrarenal abdominal aortic aneurysm Surgery/Procedure Performed:: Abdominal pelvic left lower extremity arteriogram. Left superficial femoral 6 x 200 mm ever cross angioplasty. Left superficial femoral 7 x 200 mm protege stenting x2 Description of Surgical Findings:: Timeout and informed consent was obtained. 73-year-old gent was taken to the special procedure lab placed on the table. Throughout the procedure he received 100 mcg of fentanyl 3 mg of Versed as intravenous sedation. The lateral groins were sterilely prepped draped. Ultrasound was used to identify the right common femoral artery separate from the superficial femoral artery and profundofemoral artery. Under ultrasound guidance 2% lidocaine was instilled as a local anesthetic. Then under ultrasound guidance micropuncture neck needle used to gain access to the right common femoral artery. Micropuncture needle inserted micropuncture wire inserted then a micropuncture sheath inserted an 035 J-wire was inserted a 5 Tongan short sheath dilator was inserted. Using a 05 angled Glidewire 5 Tongan universal flush catheter placed into the abdominal aorta. Using Visipaque contrast a AP aortogram was obtained. The catheter was withdrawn the left common iliac and utilizing an 035 stiff angle Glidewire was able to gain access to the left profundofemoral artery. I then was able to exchange out and place an 035 quick cross catheter. Static views of the lower extremity were obtained of the left groin and far. I then placed an 035 Magic wire into the left profundofemoral artery. I remove the 5 Tongan sheath and placed a 7 Tongan destination sheath. At this time the patient received 7000 units of heparin. Based upon constant ACT measurements the patient and aliquots received an additional 2000 units of heparin throughout the procedure. With the destination sheath in place I was able to engage the stab of the left superficial femoral artery initially with a 018 quick cross catheter and a connect wire. However it became apparent the connect wire did not want to stay true lumen so I exchanged that equipment for an 035 quick cross catheter and an 035 stiff Glidewire gave some intimal access and was able to the gain access down to the refill of the superficial femoral artery at [facility]. Took some effort but I was able to get true lumen access back. Hand-injection view demonstrated true lumen had been achieved. I then reinserted the 035 angled stiff Glidewire. I performed balloon angioplasty of the entire length of the left superficial femoral artery and very superior portion of the popliteal with the 6 x 200 mm ever cross balloon. Completion views however failed to demonstrate complete resolution there were area of dissection. So then I placed a 7 x 200 mm prot?g? stent distally and after measurements I placed an additional 1 more proximally. I post treated those with the 6 x 200 mm ever cross balloon. Final imaging now demonstrates reestablishment of in-line flow. There are 2 areas of residual stenosis of approximately 20% in the mid thigh and the proximal thigh. I then remove the sheath and dilator I placed a minx device in the right groin hemostasis was nicely achieved. At this point the patient was complaining of some left lower quadrant pain. He was not able to urinate so we placed a Pratt catheter. He has had some trouble with constipation and gas pain. My anticipation was if his pain does not improve I will proceed with a noncontrasted CT. Vital signs the patient is very stable. I then gave the patient 20 mg of protamine IV as well. He was taken to a monitored recovery area. Imaging demonstrates a small distal infrarenal abdominal aortic aneurysm. Bilateral common iliac internal iliac and external iliacs are patent. There is complete occlusion of the left superficial femoral artery with a very small stab at the origin and there is a patent left profundofemoral artery. There is refill of the left superficial femoral artery just proximal to Ton's canal there is mild diffuse disease involving the left popliteal there is three-vessel runoff to the left lower extremity with the anterior tibial being dominant. Subsequent to the angioplasty and stenting there is now in-line flow throughout the entire length of the left superficial femoral artery with as noted 2 areas of mild residual 20% stenosis in the proximal and mid superficial femoral artery. There is mild diffuse disease of the left popliteal and three-vessel runoff. The small distal infrarenal abdominal aortic aneurysm noted Yohan Canela MD Type of Anesthesia:: IV Sedation, Local
== END 2019-04-06 16:15 | disposition home or self-care (01) ==
LOC: CLSP 06:40
PROVIDERS: Physician Assistant; Family Provider Student in an Organized Health Care Education/Training Program; PCP Student in an Organized Health Care Education/Training Program; Referring Provider Surgery; Visit Provider Surgery
DX: I74.3 Embolism and thrombosis of arteries of the lower extremities (principal); I71.4 Abdominal aortic aneurysm, without rupture; I73.9 Peripheral vascular disease, unspecified; I25.10 Atherosclerotic heart disease of native coronary artery without angina pectoris; I25.2 Old myocardial infarction; I10 Essential (primary) hypertension; I65.23 Occlusion and stenosis of bilateral carotid arteries; K59.00 Constipation, unspecified; E78.2 Mixed hyperlipidemia; Z95.1 Presence of aortocoronary bypass graft; Z79.02 Long term (current) use of antithrombotics/antiplatelets; Z79.82 Long term (current) use of aspirin; Z79.899 Other long term (current) drug therapy; Z87.891 Personal history of nicotine dependence
CPT/HCPCS: 36200; 36245; 36415; 37226; 75625; 75710; 76937; 80048; 85025; 85347; 99152; 99153; C1760; J7030; J7040; Q9967; C1725; C1769; C1876; C1887; C1894

== ENCOUNTER 2019-04-16 14:15 | Outpatient (RCR) | payer MEDICARE, SELFPAY ==
[2019-03-17 01:40] VITALS: BP 156/84; BP 188/102; BMI 24.6
[2019-04-05 08:11] VITALS: BP 150/90; BP 88/60
--- NOTE | 2019-04-05 08:12 | CR.ITP_ITS ---
Exercise - 60-Day Assessment - Visit Date of Eval: 04/05/19 Session #:: 22 - Stages of Change Stages of Change:: Action - Physician Prescribed Exercise Modalities: Treadmill, Airdyne, NuStep Frequency (days/week): 3 Duration (Minutes):: 30-45 Intensity: 60-80% age predicted maximum heart rate reserve METs - Progression: 0.5-1.0 MET, RPE 11-14 WEEK: 4.2 Target Heart Rate:: 104-119 - Hypertension Resting Blood Pressure:: 88/60 Peak Exercise Blood Pressure:: 150/90 Medication Changes:: No - Intervention Home Exercise/Activity Goal:: Moderate Exercise 30 min/day x 5 days/wk - Education Goals:: Warm-up, RPE JAS Scale, S/S, Safe Exercise, Self-Monitoring - Exercise Program Goals Exercise Program Goals: Aerobic Activity >30 min Nutrition - 60-Day Assessment - Program Goals Nutrition Program Goals: LDL <70. Total Cholesterol <200. HDL >45. Triglycerides <150. HgbA1C <7%. BMI <25 - Visit Date of Eval: 04/05/19 - Stages of Change Stages of Change:: Action - Lipids Has the patient seen the dietitian?: No - Diabetes Diabetes:: No - Weight Management Weight:: 162 lb - stable - Intervention Referral to dietitian:: No Referral to Diabetic Clinic:: No Will attend diet classes:: Yes - Education Attended class for:: Healthy eating Tobacco - Initial Assessment - Program Goals Tobacco Program Goals: Complete smoking cessation. Attend education classes. Improve Knowledge Test score - Learning Barriers Learning Barriers: Vision - wears glasses, Ready to Learn Tobacco - 60-Day Assessment - Program Goals Tobacco Program Goals: Complete smoking cessation. Attend education classes. Improve Knowledge Test score - Stage of Change Stages of Change:: Action - Learning Barriers Learning Barriers: Participates in education - Family Support Do you have family support?: Yes - Tobacco Use Tobacco Use: Non-smoker Do you use smokeless tobacco?: No - Intervention Smoking Cessation Referral:: No Individual Education/Counseling:: No Education Schedule Given:: Yes - Education Attended class for:: Coronary artery disease, Risk factors, Sexuality, Medical compliance, Cardiac A&P, Angina signs & symptoms Psychosocial - Initial Assess - Target Goals Target Goals: Assess presence or absence of depression. Using a valid screening tool, maximizes coping skills. Positive support system - Psychosocial Test Tool Used:: HANDS Depression Questionnaire - Assistive Devices Fall Risk Assessed:: Yes Psychosocial - 60-Day Assess - Target Goals Target Goals: Assess presence or absence of depression. Using a valid screening tool, maximizes coping skills. Positive support system - Stages of Change Stages of Change:: Action - Psychosocial Test Tool Used:: HANDS Depression Questionnaire - Intervention PS - Interventions: Yes Attend Stress Management Classes, Yes Uses Stress Management Skills, No Referral to Mental Health, No Referral to [facility] Case Management, No Referral to Physician - Education Attended classes for:: Coping techniques, Signs & symptoms of depression, Stress management, Relaxation techniques - Patient/Program Goal Preventative Medication(s):: Aspirin, Clopidogrel, Beta patricia, Statin/lipid - Assistive Devices Assistive Devices:: None Fall Risk Assessed:: Yes Patient Health Questionnaire 60-Day Re-eval Assessment 1. Little interest or pleasure in doing things: Not at all 2. Feeling down, depressed, or hopeless: Several days 3. Trouble falling or staying asleep, or sleeping too much: Several days 4. Feeling tired or having little energy: Not at all 5. Poor appetite or overeating: Not at all 6. Feeling bad about yourself -- or that you are a failure or have let yourself or your family down: Not at all 7. Trouble concentrating on things, such as reading the newspaper or watching television: Not at all 8. Moving or speaking so slowly that other people could have noticed. Or the opposite - being so fidgety or restless that you have been moving around a lot more than usual: Not at all 9. Thoughts that you would be better off , or of hurting yourself in some way: Not at all How difficult have these problems made it for you to do your work, take care of things at home, or get along with other people?: Not difficult at all Total Score: 2 Self-Efficacy 60-Day Re-eval Assessment We would like to know how confident you are in doing certain activities. Please select your confidence level for:: Select your confidence level for the following using the scale 1-10 where 1 is not at all confident and 10 is totally confident. Your score is the average of all 6 responses. Fatigue: How confident are you that you can keep the fatigue caused by your disease from interfering with the things you want to do? Select Number: 10 Physical Discomfort or Pain: How confident are you that you can keep the physical discomfort or pain of your disease from interfering with the things you want to do? Select Number: 9 Emotional Distress: How confident are you that you can keep the emotional distress caused by your disease from interfering with the things you want to do? Select Number: 10 Other Symptoms or Health Problems: How confident are you that you can keep other symptoms or health problems from interfering with the things you want to do? Select Number: 10 Different Tasks and Activities: How confident are you that you can do the different tasks and activities needed to manage your health condition so as to reduce your need to see a doctor? Select Number: 10 Medication: How confident are you that you can do things other than just taking medication to reduce how much your illness affects your everyday life? Select Number: 10 Total Score:: 9
== END 2019-04-16 23:59 ==
LOC: CR 14:15
PROVIDERS: Family Provider Student in an Organized Health Care Education/Training Program; PCP Student in an Organized Health Care Education/Training Program; Referring Provider Internal Medicine Cardiovascular Disease; Visit Provider Internal Medicine Cardiovascular Disease
DX: I25.10 Atherosclerotic heart disease of native coronary artery without angina pectoris (principal); I10 Essential (primary) hypertension; Z95.5 Presence of coronary angioplasty implant and graft; I25.2 Old myocardial infarction; Z95.1 Presence of aortocoronary bypass graft
CPT/HCPCS: 93798

== ENCOUNTER → 2019-05-03 12:52 | Outpatient (CLI) | payer MEDICARE, SELFPAY ==
[2019-04-05 14:01] VITALS: BMI 24.3
--- NOTE | 2019-05-03 12:54 | ART_ITS ---
Reason For Study: PVD Procedure A bilateral lower extremity continuous wave Doppler with analog waveform analysis,segmental pressures,and ankle brachial indexes with exercise. Left Segmental Pressures Left brachial= 116mmHg. Left posterior tibial artery = 122mmHg. Left dorsalis pedis artery = 126mmHg. Right Segmental Pressures Right brachial= 111mmHg. Right thigh = 104mmHg. Right calf = 135mmHg. Right posterior tibial artery = 121mmHg. Right dorsalis pedis artery = 112mmHg. Indices The right ankle brachial index by the posterior tibial artery is 1.04. The right ankle brachial index by the dorsalis pedis is 0.97. The right post exercise ankle brachial index is 0.92. The left ankle brachial index by the posterior tibial artery is 1.05. The left ankle brachial index by the dorsalis pedis is 1.09. The left post exercise ankle brachial index is 0.99. Interpretation Summary Normal bilateral lower extremity resting indices with findings suggestive of mild disease of the right anterior tibial artery. Exercise indices demonstrate brief decline bilaterally with recovery by 3 minutes suggesting mild disease in the range of early bilateral vascular claudication slightly worse on the right. Previous examinations are not available. Ordering Physician: Yohan Canela Referring Physician: Yohan Canela Performed By: Meryl Muniz RDCS/RVT
== END ==
PROVIDERS: Family Provider Student in an Organized Health Care Education/Training Program; PCP Student in an Organized Health Care Education/Training Program; Referring Provider Surgery; Visit Provider Surgery
DX: I73.9 Peripheral vascular disease, unspecified (principal)
CPT/HCPCS: 93924

== ENCOUNTER 2019-05-12 14:15 | Outpatient (RCR) | payer MEDICARE, SELFPAY ==
[2019-04-05 14:01] VITALS: BMI 24.3
[2019-04-17 01:03] VITALS: BP 150/90; BP 88/60
--- NOTE | 2019-05-05 09:48 | CR.ITP_ITS ---
Exercise - 90-Day Assessment - Visit Date of Eval: 05/05/19 Session #:: 32 - Stages of Change Stages of Change:: Action - Physician Prescribed Exercise Modalities: Treadmill, Rower, Airdyne, NuStep Frequency (days/week): 3 Duration (Minutes):: 30-45 Intensity: 60-80% age predicted maximum heart rate reserve METs - Progression: 0.5-1.0 MET, RPE 11-14 WEEK: 4.5 Target Heart Rate:: 104-119 - Hypertension Resting Blood Pressure:: 138/78 Peak Exercise Blood Pressure:: 138/78 Medication Changes:: No - Patient had procedure to open lower extremity blockage leg. - Intervention Home Exercise/Activity Goal:: Moderate Exercise 30 min/day x 5 days/wk - Education Goals:: Warm-up, RPE JAS Scale, S/S, Safe Exercise, Self-Monitoring - Exercise Program Goals Exercise Program Goals: Aerobic Activity >30 min Nutrition - 90-Day Assessment - Program Goals Nutrition Program Goals: LDL <70. Total Cholesterol <200. HDL >45. Triglycerides <150. HgbA1C <7%. BMI <25 - Visit Date of Eval: 05/05/19 - Stages of Change Stages of Change:: Action - Lipids Has the patient seen the dietitian?: No - Diabetes Diabetes:: No Insulin: No Non-Insulin Dependent?: No - Weight Management Weight:: 166 lb - Intervention Referral to dietitian:: No Referral to Diabetic Clinic:: No Will attend diet classes:: Yes - Education Attended class for:: Healthy eating Tobacco - Initial Assessment - Program Goals Tobacco Program Goals: Complete smoking cessation. Attend education classes. Improve Knowledge Test score - Learning Barriers Learning Barriers: Vision - wears glasses, Ready to Learn Tobacco - 90-Day Assessment - Program Goals Tobacco Program Goals: Complete smoking cessation. Attend education classes. Improve Knowledge Test score - Stage of Change Stages of Change:: Action - Learning Barriers Learning Barriers: Participates in education, Change in behavior - Family Support Do you have family support?: Yes - Tobacco Use Tobacco Use: Non-smoker Do you use smokeless tobacco?: No - Intervention Education Schedule Given:: Yes - Education Attended class for:: Coronary artery disease, Risk factors, Sexuality, Medical compliance, Cardiac A&P, Angina signs & symptoms Psychosocial - Initial Assess - Target Goals Target Goals: Assess presence or absence of depression. Using a valid screening tool, maximizes coping skills. Positive support system - Psychosocial Test Tool Used:: HANDS Depression Questionnaire - Assistive Devices Fall Risk Assessed:: Yes Psychosocial - 90-Day Assess - Target Goals Target Goals: Assess presence or absence of depression. Using a valid screening tool, maximizes coping skills. Positive support system - Stages of Change Stages of Change:: Action - Psychosocial Test Tool Used:: HANDS Depression Questionnaire - Intervention PS - Interventions: Yes Attend Stress Management Classes, Yes Uses Stress Management Skills, No Referral to Mental Health, No Referral to [facility] Case Management, No Referral to Physician - Education Attended classes for:: Coping techniques, Signs & symptoms of depression, Stress management, Relaxation techniques - Patient/Program Goal Preventative Medication(s):: Aspirin, Clopidogrel, Beta patricia, Statin/lipid - Assistive Devices Assistive Devices:: None Fall Risk Assessed:: Yes Patient Health Questionnaire 90-Day Re-eval Assessment 1. Little interest or pleasure in doing things: Not at all 2. Feeling down, depressed, or hopeless: Not at all 3. Trouble falling or staying asleep, or sleeping too much: Not at all 4. Feeling tired or having little energy: Not at all 5. Poor appetite or overeating: Not at all 6. Feeling bad about yourself -- or that you are a failure or have let yourself or your family down: Not at all 7. Trouble concentrating on things, such as reading the newspaper or watching television: Not at all 8. Moving or speaking so slowly that other people could have noticed. Or the opposite - being so fidgety or restless that you have been moving around a lot more than usual: Not at all 9. Thoughts that you would be better off , or of hurting yourself in some way: Not at all How difficult have these problems made it for you to do your work, take care of things at home, or get along with other people?: Not difficult at all Total Score: 0 Self-Efficacy 90-Day Re-eval Assessment We would like to know how confident you are in doing certain activities. Please select your confidence level for:: Select your confidence level for the following using the scale 1-10 where 1 is not at all confident and 10 is totally confident. Your score is the average of all 6 responses. Fatigue: How confident are you that you can keep the fatigue caused by your disease from interfering with the things you want to do? Select Number: 10 Physical Discomfort or Pain: How confident are you that you can keep the physical discomfort or pain of your disease from interfering with the things you want to do? Select Number: 10 Emotional Distress: How confident are you that you can keep the emotional distress caused by your disease from interfering with the things you want to do? Select Number: 10 Other Symptoms or Health Problems: How confident are you that you can keep other symptoms or health problems from interfering with the things you want to do? Select Number: 10 Different Tasks and Activities: How confident are you that you can do the different tasks and activities needed to manage your health condition so as to reduce your need to see a doctor? Select Number: 10 Medication: How confident are you that you can do things other than just taking medication to reduce how much your illness affects your everyday life? Select Number: 10 Total Score:: 10
[2019-05-05 09:51] VITALS: BP 138/78
== END 2019-05-16 23:59 ==
LOC: CR 14:15
PROVIDERS: Family Provider Student in an Organized Health Care Education/Training Program; PCP Student in an Organized Health Care Education/Training Program; Referring Provider Internal Medicine Cardiovascular Disease; Visit Provider Internal Medicine Cardiovascular Disease
DX: I25.10 Atherosclerotic heart disease of native coronary artery without angina pectoris (principal); I10 Essential (primary) hypertension; I25.5 Ischemic cardiomyopathy; Z95.5 Presence of coronary angioplasty implant and graft; Z95.1 Presence of aortocoronary bypass graft
CPT/HCPCS: 93798

== ENCOUNTER → 2019-06-28 08:58 | Outpatient (CLI) | payer MEDICARE, SELFPAY ==
[2019-04-05 14:01] VITALS: BMI 24.3
--- NOTE | 2019-06-28 09:03 | ADUL_ITS ---
Reason For Study: PAD Left Velocities Ext Iliac Artery, dist = 109.7 cm./sec. Common Femoral Artery, mid = 81.8 cm./sec. Supf. Femoral Artery, prox = 100.1 cm./sec. Supf. Femoral Artery, mid = 53.0 cm./sec. Supf. Femoral Artery, dist = 65.2 cm./sec. Profunda Femoral Artery = 205.8 cm./sec. Popliteal Artery, proximal, = 63.2 cm./sec. Popliteal Artery, mid = 65.2 cm./sec. Popliteal Artery, distal = 69.2 cm./sec. Post. Tibial Artery, prox = 57.0 cm./sec. Post Tibial Artery, mid = 49.8 cm./sec. Post Tibial Artery, dist. = 66.2 cm./sec. Peroneal Artery, prox = 73.3 cm./sec. Peroneal Artery, mid = 37.6 cm./sec. Peroneal Artery,dist. = 44.7 cm./sec. Ant.Tibial Artery, prox = 111.0 cm./sec. Ant Tibial Artery, mid = 52.0 cm./sec. Ant. Tibial Artery, distal = 58.3 cm./sec. Procedure Exam performed in department. Interpretation Summary Patent left external iliac and common femoral arteries. 50-99% stenosis left profunda femoral artery origin Patent left superficial femoral artery stent. 20-49% left proximal anterior tibial artery Patent left posterior tibial and peroneal arteries Ordering Physician: Yohan Canela Referring Physician: Andrea Lr Performed By: Essence Block, RDCS, RVT
--- NOTE | 2019-06-28 09:03 | ART_ITS ---
Reason For Study: PAOD Procedure A bilateral lower extremity continuous wave Doppler with analog waveform analysis,segmental pressures,and ankle brachial indexes with exercise. Left Segmental Pressures Left brachial= 151mmHg. Left posterior tibial artery = 149mmHg. Left dorsalis pedis artery = 150mmHg. Left digit = 138 mmHg. The left dorsalis pedis waveforms are triphasic. The left posterior tibial artery waveforms are triphasic. Right Segmental Pressures Right brachial= 150mmHg. Right calf = 160mmHg. Right posterior tibial artery = 138mmHg. Right dorsalis pedis artery = 138mmHg. Right digit = 105 mmHg. The right dorsalis pedis waveforms are triphasic. The right posterior tibial artery waveforms are triphasic. Indices The right ankle brachial index by the dorsalis pedis is 0.91. The right ankle brachial index by the posterior tibial artery is 0.91. The right post exercise ankle brachial index is 0.72. The left ankle brachial index by the dorsalis pedis is 0.99. The left ankle brachial index by the posterior tibial artery is 0.99. The left post exercise ankle brachial index is 1.01. Interpretation Summary PT exercised for 5 minutes at 2.7 MPH & 5% incline. NO complaints/sypmtoms. Minimal occlusive disease right lower extremity at rest and occlusive disease is highlighted with an abnormal exercise index. Minimal occlusvie disease left lower extremity at rest with normal response to exercise. Ordering Physician: Yohan Canela Referring Physician: Andrea Lr Performed By: Essence Block RVT, RDCS
--- NOTE | 2019-06-28 09:13 | CDU_ITS ---
Reason For Study: carotid stenosis Rt. Velocities/BP Lt. Velocities/BP Prox CCA 84.2/15.1 cm/sec. Prox CCA 62.9/15.7 cm/sec. Mid CCA 63.4/15.1 cm/sec. Mid CCA 59.1/14.7 cm/sec. Dist CCA 75.1/20.3 cm/sec. Dist CCA 76.1/22.3 cm/sec. Prox ICA 69.5/25.3 cm/sec. Prox ICA 147.1/44.9 cm/sec. Mid ICA 69.5/22.8 cm/sec. Mid ICA 103.8/21.7 cm/sec. Dist ICA 75.6/20.4 cm/sec. Dist ICA 87.4/29.0 cm/sec. Rt. ICA/CCA = 75.6/75.1=1.0. Lt. ICA/CCA = 147.1/76.1=1.9. Prox ECA 205.3/18.9 cm/sec. Prox ECA 124.7/15.2 cm/sec. Rt. Vert. 97.7/25.3 cm/sec. Lt. Vert. 39.2/10.9 cm/sec. Right Extracranial There is heterogeneous, irregular atherosclerotic plaque noted in the right common carotid artery. There is heterogeneous, irregular atherosclerotic plaque noted in the right internal carotid artery. The atherosclerotic plaque causes acoustic shadowing. There is heterogeneous, smooth atherosclerotic plaque noted in the right external carotid artery. Antegrade flow is noted in the right vertebral artery. There is heterogeneous, irregular atherosclerotic plaque noted in the right bulb. Left Extracranial There is heterogeneous, irregular atherosclerotic plaque noted in the left common carotid artery. There is homogeneous, smooth atherosclerotic plaque noted in the left internal carotid artery. There is homogeneous, smooth atherosclerotic plaque noted in the left external carotid artery. Antegrade flow is noted in the left vertebral artery. There is heterogeneous, irregular atherosclerotic plaque noted in the left bulb. Interpretation Summary Calcific plague with shadowing at the proximal right internal and external carotid arteries. <50% stenosis right internal carotid >50% stenosis right external carotid Calcific irregular plague at the proximal left internal and external carotids 50-69% stenosis left internal carotid <50% stenosis left external carotid Patent and antegrade vertebrals bilaterally with <50% stenosis. Ordering Physician: Yohan Canela Referring Physician: Andrea Lr Performed By: Essence Block RDCS, RVT
== END ==
PROVIDERS: Family Provider Student in an Organized Health Care Education/Training Program; PCP Student in an Organized Health Care Education/Training Program; Referring Provider Surgery; Visit Provider Surgery
DX: I65.23 Occlusion and stenosis of bilateral carotid arteries (principal); I73.9 Peripheral vascular disease, unspecified; I77.811 Abdominal aortic ectasia
CPT/HCPCS: 93880; 93924; 93926

== ENCOUNTER → 2019-08-23 11:45 | Outpatient (CLI) | payer MEDICARE, SELFPAY ==
[2019-08-20 11:51] VITALS: BMI 26.3
[2019-08-23 16:49] LABS: AST(SGOT) 23 U/L (15-37); Alanine Aminotransfer ALT/SGPT 35 U/L (16-61); Albumin, Serum 3.5 g/dL (3.2-5.0); Alkaline Phosphatase 58 U/L (45-117); Bilirubin, Direct < 0.05 mg/dL (0.00-0.30); Cholesterol 162 mg/dL (200); Globulin 3.3 g/dL (2.2-4.2); High Density Lipoprotein 41 mg/dL; Protein, Total 6.8 g/dL (6.4-8.2); Triglycerides 125 mg/dL; Very Low Density Lipoprotein 25 mg/dL (5-40)
== END ==
PROVIDERS: Family Provider Student in an Organized Health Care Education/Training Program; PCP Student in an Organized Health Care Education/Training Program; Referring Provider Internal Medicine Cardiovascular Disease; Visit Provider Internal Medicine Cardiovascular Disease
DX: I77.9 Disorder of arteries and arterioles, unspecified (principal); E78.2 Mixed hyperlipidemia; Z95.1 Presence of aortocoronary bypass graft
CPT/HCPCS: 36415; 80061; 80076

== ENCOUNTER → 2020-03-30 09:00 | Outpatient (CLI) | payer MEDICARE, SELFPAY ==
[2019-08-20 11:51] VITALS: BMI 26.3
--- NOTE | 2020-03-30 09:03 | ADUL_ITS ---
Reason For Study: PAOD Left Velocities Ext Iliac Artery, dist = 49.5 cm./sec. Common Femoral Artery, mid = 49.7. cm./sec. Left SFA prox, proximal stent, 123.5 cm/sec. Left SFA prox, distal to prox stent, no flow noted. Left SFA mid-distal, no flow noted. Profunda Femoral Artery = 453.3 cm./sec. Left Maria Eugenia prox-mid, no flow noted. Left Maria Eugenia distal, 4.8 cm/sec. Post. Tibial Artery, prox = 5.8 cm./sec. Post Tibial Artery, mid = 10.9 cm./sec. Post Tibial Artery, dist. = 12.5 cm./sec. Peroneal Artery, prox = 11.8 cm./sec. Peroneal Artery, mid = 9.3 cm./sec. Peroneal Artery,dist. = 6.2 cm./sec. Ant.Tibial Artery, prox = 13.1 cm./sec. Ant Tibial Artery, mid = 10.6 cm./sec. Ant. Tibial Artery, distal = 9.3 cm./sec. Procedure Prelim to Tracie. Exam performed in department. Interpretation Summary Irregular but patent left external iliac artery Calcific plaque with shadowing left common femoral artery 50 to 99% stenosis left profundofemoral artery Occlusion left superficial femoral artery Occluded left proximal to mid popliteal artery Diminished flow infrageniculate vessels Ordering Physician: Yohan Canela Referring Physician: Andrea Smiley Performed By: Delaney Hutson RVT
--- NOTE | 2020-03-30 09:03 | ART_ITS ---
Reason For Study: Claudication Procedure A bilateral lower extremity continuous wave Doppler with analog waveform analysis,segmental pressures,and ankle brachial indexes without exercise. Left Segmental Pressures Left brachial= 123mmHg. Left thigh = 62mmHg. Left calf = 62mmHg. Left posterior tibial artery = 59mmHg. Left dorsalis pedis artery = 57mmHg. The left dorsalis pedis waveforms are monophasic. The left posterior tibial artery waveforms are monophasic. Right Segmental Pressures Right brachial= 126mmHg. Right thigh = 113mmHg. Right calf = 77mmHg. Right posterior tibial artery = 81mmHg. Right dorsalis pedis artery = 75mmHg. The right dorsalis pedis waveforms are monophasic. The right posterior tibial artery waveforms are monophasic. Indices The right ankle brachial index by the dorsalis pedis is 0.60. The right ankle brachial index by the posterior tibial artery is 0.64. The left ankle brachial index by the dorsalis pedis is 0.45. The left ankle brachial index by the posterior tibial artery is 0.47. Interpretation Summary Moderately severe right lower extremity arterial occlusive disease with findings suggesting possible severe stenosis or occlusion of the right superficial femoral artery/popliteal Severe left lower extremity arterial occlusive disease with suspected occlusion of the superficial femoral artery. Ordering Physician: Yohan Canela Referring Physician: Andrea Smiley Performed By: Delaney Hutson RVT
== END ==
PROVIDERS: PCP Student in an Organized Health Care Education/Training Program; Referring Provider Surgery; Visit Provider Surgery
DX: I73.9 Peripheral vascular disease, unspecified (principal); I77.9 Disorder of arteries and arterioles, unspecified
CPT/HCPCS: 93923; 93926

== ENCOUNTER → 2020-03-31 08:20 | Outpatient (CLI) | payer MEDICARE, SELFPAY ==
[2020-03-31 07:43] VITALS: BMI 24.6
[2020-03-31 08:56] LABS: Anion Gap 6 (5-15); BUN 14 mg/dL (7-18); BUN/Creat Ratio 10.9 RATIO (10-20); Calcium,Total 8.8 mg/dL (8.5-10.1); Chloride 112 mmol/L (98-107); Creatinine, Serum 1.29 mg/dL (0.70-1.30); EST Glomerular Filtration Rate 58 mL/min (>60); Est Glom Filt Rate - Afr Amer 70 mL/min (>60); Glucose 111 mg/dL (74-106); Potassium 3.8 mmol/L (3.5-5.1); Sodium Level 141 mmol/L (136-145)
== END ==
PROVIDERS: PCP Student in an Organized Health Care Education/Training Program; Referring Provider Surgery; Visit Provider Surgery
DX: I77.9 Disorder of arteries and arterioles, unspecified (principal); M79.604 Pain in right leg; M79.605 Pain in left leg
CPT/HCPCS: 36415; 80048

== ENCOUNTER → 2020-04-04 13:51 | Outpatient (CLI) | payer MEDICARE, SELFPAY ==
[2020-03-31 07:43] VITALS: BMI 24.6
--- NOTE | 2020-04-04 13:56 | VDLE_ITS ---
Reason For Study: Leg pain RIGHT LEFT GSV prox thigh, 0.27 x 0.26 cm. GSV prox thigh, 0.39 x 0.36 cm. GSV mid thigh, 0.24 x 0.25 cm. GSV mid thigh, 0.30 x 0.31 cm. GSV distal thigh, 0.33 x 0.34 cm. GSV distal thigh, 0.31 x 0.30 cm. GSV knee, 0.24 x 0.24 cm. GSV knee, 0.18 x 0.17 cm. GSV prox calf, 0.22 x 0.22 cm. GSV prox calf, 0.10 x 0.10 cm. GSV mid calf, 0.27 x 0.30 cm. GSV mid calf, 0.16 x 0.17 cm. Branch mid calf, 0.20 x 0.19 cm. Branch mid calf, 0.15 x 0.17 cm. GSV distal calf, 0.27 x 0.31 cm. GSV distal calf, 0.18 x 0.18 cm. SSV prox, 0.29 x 0.33 cm. SSV prox, 0.22 x 0.24 cm. SSV mid, 0.31 x 0.32 cm. SSV mid, 0.19 x 0.19 cm. SSV distal, 0.21 x 0.23 cm. SSV distal, 0.22 x 0.26 cm. Procedure Exam performed in department. Interpretation Summary Patent and compressible right great saphenous vein throughout although borderline in dimension. Patent and compressible right small saphenous vein Patent and compressible left great saphenous vein of the thigh. Diminutive left great saphenous vein of the calf Borderline small left small saphenous vein Ordering Physician: Yohan Canela Referring Physician: Andrea Smiley Performed By: Delaney Hutson RVT
== END ==
PROVIDERS: PCP Student in an Organized Health Care Education/Training Program; Referring Provider Surgery; Visit Provider Surgery
DX: M79.604 Pain in right leg (principal); I73.9 Peripheral vascular disease, unspecified
CPT/HCPCS: 93970

== ENCOUNTER → 2020-04-05 07:51 | Outpatient (CLI) | payer MEDICARE, SELFPAY ==
[2020-03-31 07:43] VITALS: BMI 24.6
--- NOTE | 2020-04-05 07:52 | CT_ITS ---
ACR Level 3 findings have been noted. An addendum which confirms receipt of the report will follow. STUDY: CTA OF THE ABDOMINAL AORTA AND BILATERAL LOWER EXTREMITIES REASON FOR EXAM: Male, 74 years old. BILAT LOWER LEG PAIN -- SURG-LEFT FEMORAL ILIAC STENT, CABG X3 RADIATION DOSAGE (If Supplied By Facility): CTDIvol = ( 7.34 ) mGy, DLP = ( 1012.08 ) mGycm TECHNIQUE: Axial CT angiography multi-detector data acquisition was obtained from the upper abdomen to the ankles following intravenous administration of 100 mL of Isovue-370. Axial images and MIP images were reconstructed from the axial data set. Post-processing of the angiographic images was performed, with multiplanar reformation and 3D reconstruction. Individualized dose optimization techniques were used for this CT. TECHNICAL QUALITY: Good COMPARISON: None. Descriptors of Narrowing: None (0%) Mild (< 50%) Moderate (50-70%) Severe (70-90%) Subtotal/Total Occlusion (90-100%) Non-Evaluable (technically non-diagnostic FINDINGS: Abdominal aorta: Mild aneurysmal dilatation of the infrarenal abdominal aorta measuring 3 x 2.9 cm at the L3 vertebral body level. No demonstrated narrowing. There are calcified and noncalcified plaques. 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 Widely patent SMA. Inferior mesenteric artery: High-grade stenosis at its origin. Right renal arteries: Suspicious high-grade stenosis at the origins of the 2 renal arteries. Left renal arteries: Suspicious high-grade stenosis of the 2 left renal arteries appear Right common iliac artery: Nonocclusive calcified plaques. Right external iliac artery: Nonocclusive calcified plaques. Right internal iliac artery: Multiple calcified plaques with distal high-grade stenosis. Left common iliac artery: Nonocclusive calcified plaques. Left external iliac artery: Nonocclusive plaques. Left internal iliac artery: Minimal occlusive calcified plaques. RIGHT LOWER EXTREMITY Right common femoral artery: Minimal occlusive the calcified plaques and noncalcified plaques. Right profundus femoris: Minimal occlusive calcified and noncalcified plaques. This provides collateral flow down to the right lateral geniculate artery. Right superficial femoral: Multisegmental high-grade stenosis with complete occlusion distally. Right popliteal artery: Occluded. Right tibioperoneal trunk: Occluded. Right anterior tibial artery: Occluded. Right posterior tibial artery: Occluded. Right peroneal artery: Occluded. LEFT LOWER EXTREMITY Left common femoral artery: Nonocclusive calcified and noncalcified plaques. Occluded left common femoral artery bypass graft down to the popliteal artery. Left profundus femoris: Minimal occlusive calcified and noncalcified plaques. This provides collateral flow to the lateral geniculate artery and the popliteal artery distal to the occluded graft. Left superficial femoral: Occluded. Left popliteal artery: Occluded. Left tibioperoneal trunk: Occluded. Left anterior tibial artery: Multisegmental high-grade stenosis and occlusion. Left posterior tibial artery: Multisegmental high-grade stenosis and occlusion. Left peroneal artery: Multisegmental high-grade stenosis and occlusion. CT/CTA Abd w/Runoff W/WO Contrast IMPRESSION: 1. Mild aneurysmal dilatation of the infrarenal abdominal aorta measuring 3 x 2.9 cm at the L3 vertebral body level. 2. 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 3. Widely patent SMA. 4. Suspicious stenosis of the superior segment of bilateral renal arteries but the severity of the stenosis is difficult to determine due to the interslice gap in between the slices. 5. Complete occlusion of the entire left common femoral artery bypass graft. 6. Complete occlusion of the runoffs of the bilateral lower extremities. Only the bilateral profunda femoris provides minimal collateral flow reaching the lateral geniculate arteries. Electronically Signed: Raoul Dykes MD at 9:58 EDT , Service support ,
== END ==
PROVIDERS: PCP Student in an Organized Health Care Education/Training Program; Referring Provider Surgery; Visit Provider Surgery
DX: M79.604 Pain in right leg (principal); M79.605 Pain in left leg; I77.9 Disorder of arteries and arterioles, unspecified
CPT/HCPCS: 75635; Q9967

== ENCOUNTER → 2020-09-15 10:57 | Outpatient (CLI) | payer MEDICARE, SELFPAY ==
[2020-08-24 11:24] VITALS: BMI 25.8
--- NOTE | 2020-09-15 10:59 | ECHOD_ITS ---
Reason For Study: Isch CMP Procedure This was a 2D Doppler, Color Flow transthoracic echocardiogram. Exam performed in department. Left Ventricle Normal LV size. Left ventricular systolic function is lower limits of normal. The estimated ejection fraction is 50 %. Stage 1 diastolic dysfunction. Compared to previous study, the left ventricular systolic function has improved.. Mid-Inferior: Hypokinetic. Infero-Basal: Akinetic. Mid-Posterior: Akinetic. Right Ventricle Normal RV size. Normal systolic function. Atria The left atrium is mildly enlarged. Normal right atrium. Mitral Valve Normal mitral valve. Tricuspid Valve Normal tricuspid valve. Mild tricuspid valve insufficiency. Pulmonary artery systolic pressure is 26 mmHg. Aortic Valve Trisinus/trileaflet aortic valve. Mild focal aortic valve calcification. Pulmonic Valve The pulmonic valve is not well visualized. Great Vessels Mildly dilated aortic root. The pulmonary artery is normal size. Inferior vena cava collapse with respiration. Pericardium/Pleural No pericardial effusion. MMode/2D Measurements & Calculations LVIDd: 4.2 cm IVSd: 1.3 cm Ao root diam: 3.9 cm LVIDs: 3.2 cm LVPWd: 1.1 cm LA dimension: 4.2 cm FS: 25.4 % LAV(MOD-bp): 64.3 ml LA A4 area: 21.3 cm2 RA A4 area: 14.8 cm2 LAV(MOD-bp) Indexed: 34.2 ml/m2 LAV(MOD-sp2): 58.0 ml LAV(MOD-sp4): 64.2 ml Time Measurements MV dec time: 0.46 sec Doppler Measurements & Calculations MV E max ta: 49.5 cm/sec Lat Peak E' Ta: 11.7 cm/sec Med Peak E' Ta: 7.1 cm/sec MV A max ta: 62.4 cm/sec E/E' lat: 4.2 E/E' med: 7.0 MV E/A: 0.79 MV V2 max: 73.3 cm/sec MV P1/2t max ta: 62.6 cm/sec Ao V2 max: 120.8 cm/sec MV max P.2 mmHg MV P1/2t: 78.0 msec Ao max P.8 mmHg MV V2 mean: 37.6 cm/sec MV dec slope: 235.0 cm/sec2 MV mean P.67 mmHg MVA(P1/2t): 2.8 cm2 MV V2 VTI: 27.9 cm LV V1 max: 93.2 cm/sec PA V2 max: 74.2 cm/sec TR max ta: 236.6 cm/sec LV V1 max P.5 mmHg TR max P.4 mmHg Interpretation Summary Normal LV size. Left ventricular systolic function is lower limits of normal. The estimated ejection fraction is 50 %. Stage 1 diastolic dysfunction. Compared to previous study, the left ventricular systolic function has improved.. Ordering Physician: Lenin Galeas Referring Physician: Andrea Smiley Performed By: Cash Dinh RCS
== END ==
PROVIDERS: PCP Student in an Organized Health Care Education/Training Program; Referring Provider Internal Medicine Cardiovascular Disease; Visit Provider Internal Medicine Cardiovascular Disease
DX: I25.5 Ischemic cardiomyopathy (principal); I73.9 Peripheral vascular disease, unspecified; I25.10 Atherosclerotic heart disease of native coronary artery without angina pectoris; I25.2 Old myocardial infarction; I65.23 Occlusion and stenosis of bilateral carotid arteries; I70.8 Atherosclerosis of other arteries; I77.9 Disorder of arteries and arterioles, unspecified; I10 Essential (primary) hypertension; E78.2 Mixed hyperlipidemia; D69.6 Thrombocytopenia, unspecified; C43.9 Malignant melanoma of skin, unspecified; Z95.1 Presence of aortocoronary bypass graft; Z95.5 Presence of coronary angioplasty implant and graft
CPT/HCPCS: 93306

== ENCOUNTER 2021-01-18 16:27 | Outpatient (RCR) | payer MEDICARE, SELFPAY ==
[2020-08-24 11:24] VITALS: BMI 25.8
[2021-01-18] MEDS: COVID-19 VACC, MRNA(PFIZER)/PF 30 MCG/0.3 ML SYRINGE IM (08:58)
[2021-02-08] MEDS: COVID-19 VACC, MRNA(PFIZER)/PF 30 MCG/0.3 ML SYRINGE IM (09:00)
== END 2021-01-18 23:59 ==
LOC: IMMUN 16:27
PROVIDERS: PCP Student in an Organized Health Care Education/Training Program; Visit Provider Family Medicine
DX: Z23 Encounter for immunization (principal)
CPT/HCPCS: 0001A; 0002A

== ENCOUNTER → 2021-09-20 10:19 | Outpatient (CLI) | payer MEDICARE, SELFPAY ==
[2021-09-20 11:28] LABS: Hematocrit 43.9 % (40-54); Hemoglobin 14.4 g/dL (13.0-16.5); Mean Corp Hgb Conc 32.8 g/dL (32-36); Mean Corpuscular Hgb 32.1 pg (27.0-32.0); Mean Corpuscular Volume 97.8 fL (80-94); Mean Platelet Vol. 12.2 fl (6.2-12.0); Platelet Count 168 K/mm3 (150-450); RBC Distribution Width CV 13.9 % (11.6-14.6); RBC Distribution Width SD 49.6 fl (35.1-43.9); Red Blood Count 4.49 M/mm3 (4.6-6.2); White Blood Count 9.5 K/mm3 (4.4-11.0)
[2021-09-20 12:00] LABS: Anion Gap 7 (5-15); BUN 20 mg/dL (7-18); BUN/Creat Ratio 13.7 RATIO (10-20); Calcium,Total 8.5 mg/dL (8.5-10.1); Chloride 106 mmol/L (98-107); Creatinine, Serum 1.46 mg/dL (0.70-1.30); EST Glomerular Filtration Rate 50 mL/min (>60); Est Glom Filt Rate - Afr Amer 61 mL/min (>60); Glucose 106 mg/dL (74-106); Potassium 3.6 mmol/L (3.5-5.1); Sodium Level 139 mmol/L (136-145)
[2021-09-20 12:14] LABS: BNP,B-Type NATRIURETIC PEPTIDE 50.2 pg/mL (0-100)
== END ==
PROVIDERS: Nurse Practitioner Gerontology; PCP Student in an Organized Health Care Education/Training Program; Referring Provider Internal Medicine Cardiovascular Disease; Visit Provider Internal Medicine Cardiovascular Disease
DX: R06.02 Shortness of breath (principal); R60.9 Edema, unspecified; R05.8 Other specified cough; I25.5 Ischemic cardiomyopathy; I25.10 Atherosclerotic heart disease of native coronary artery without angina pectoris
CPT/HCPCS: 36415; 80048; 83880; 85027

== ENCOUNTER 2023-12-09 14:46 | Emergency (ER) | payer MEDICARE, SELFPAY ==
[2023-12-09 14:48] VITALS: BP 141/68; PULSE 83; RESP 24; TEMP 36.5; O2SAT 96; BMI 27.4
--- NOTE | 2023-12-09 15:23 | EX.ED.DYSGE1 ---
HPI History of Present Illness Chief Complaint: Weakness Informant: patient and spouse/S.O. Onset/Context/Timing Onset: Hours (2) Context: Sudden Onset Timing: - (one episode, lasted about 20 min) Quality: palpitations/skipping Location: chest Current Severity: Gone Maximum Severity: Moderate Worsened by: n/a Relieved by: n/a Associated Symptoms Associated Symptoms: none Narrative Narrative: Patient states she was at rest couple hours ago when he had about a 20-minute episode of significant palpitations. He has a history of stents and CABG in the past, he takes clopidogrel no anticoagulants or aspirin, has had no medication changes recently, and states he frequently has PVCs and feels them from time to time but they are relatively brief and do not give him any other symptoms. Today was different. He states it was skipping and rapid while beating hard. He did not feel lightheaded or have syncopal episode. He denies any chest discomfort otherwise or dyspnea. He denies sweating, nausea, or any other symptoms. He states he feels fine now. He states he is here out of precaution. 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) Palpitations Peripheral arterial occlusive disease Peripheral vascular disease of extremity with claudication Premature ventricular beat Stenosis of both subclavian arteries Thrombocytopenia Home Medications ezetimibe 10 mg tablet 10 mg PO DAILY 12/04/18 [History Last Taken Unknown] aclxyjpt-ff-hzjiz 300 mcg-K 60 mcg-lycop 600 mcg-lutein 300 mcg tablet (Centrum Silver Ultra Men's) 1 tab PO DAILY 12/04/18 [History Last Taken Unknown] clopidogrel 75 mg tablet 75 mg PO DAILY #90 tabs 04/03/20 [Rx Last Taken Unknown] amlodipine 10 mg tablet 10 mg PO DAILY #90 tabs 06/06/20 [Rx Last Taken Unknown] cilostazol 100 mg tablet 100 mg PO BID 08/24/20 [History Last Taken Unknown] pravastatin 10 mg tablet 10 mg PO QHS #90 tabs 05/03/21 [Rx Last Taken Unknown] nitroglycerin 0.4 mg sublingual tablet 0.4 mg sublingual Q5-15M PRN chest pain #25 tabs 02/10/23 [Rx Last Taken Unknown] metoprolol tartrate 100 mg tablet 25 mg PO BID 30 days #15 tabs 08/14/23 [History Last Taken Unknown] Allergy/AdvReac Type Severity Reaction Status Date / Time Penicillins Allergy Mild rash Verified 12/09/23 14:47 amlodipine AdvReac Mild ED Verified 12/09/23 14:47 exacerbation ramipril AdvReac cough Verified 12/09/23 14:47 Gdmqhjy-Ine-Cmz Reductase AdvReac myalgias Verified 12/09/23 14:47 Inhibitor Family History Father Heart disease Hypertension Mother CVA (cerebral vascular accident) Brother Heart disease Hypertension Myocardial infarction Brother Hypertension Myocardial infarction Brother Heart disease Myocardial infarction Surgical History H/O coronary artery bypass surgery (12/28/18) History of amputation of finger History of angioplasty of peripheral vessel (03/2019) History of appendectomy History of cataract extraction (2015) History of colonoscopy (2015) History of coronary artery stent placement (05/2003) History of left heart catheterization (12/22/18) history of melanoma removal hx of APLL Social History Smoking Status: Former smoker ROS ROS ED Constitutional Constitutional ED: Denies chills or fever(s) Eyes Eyes: Denies change in vision or diplopia ENT ENT ED: Denies rhinorrhea or sore throat Cardiovascular Cardiovascular: Reports palpitations; Denies chest pain Respiratory/Chest Respiratory/Chest: Denies cough or dyspnea Gastrointestinal Gastrointestinal: Denies abdominal pain, diarrhea, nausea or vomiting Genitourinary Genitourinary ED: Denies dysuria or hematuria Musculoskeletal Musculoskeletal: Denies back pain or neck pain Integumentary Denies abscess or rash Neurologic Neurologic: Denies headache(s), paresthesias or weakness Psychiatric Psychiatric: Denies anxiety or suicidal thoughts EXAM Physical Exam Const Vital Signs: 12/09/23 14:48 12/09/23 14:52 12/09/23 15:46 Temperature 97.7 F L Temperature Source Oral Pulse Rate 83 71 Respiratory Rate 24 H 16 Respiratory Effort Short of Breath Respiratory Pattern Normal Blood Pressure 141/68 H 116/76 Blood Pressure Mean 92 89 Pulse Ox 96 95 Oxygen Delivery Method Room Air Room Air Positive well nourished and well developed General Appearance ED: well developed and NAD HEENT Reports moist mucous membranes normocephalic and atraumatic Eyes PERRL and EOMs intact bilaterally Neck full ROM and supple Resp normal respiratory effort and clear to auscultation bilaterally Cardio regular rate, regular rhythm and no murmurs GI non-tender and non-distended Auscultation: normoactive bowel sounds Palpation: soft Back/Spine no CVA tenderness General Back: other FROM Extremity normal to inspection General Extremety ED: Negative for edema, pulses abnormal or tenderness General Extremity: Negative for edema or pulses abnormal Neuro oriented x3, CN's II-XII intact bilaterally and no sensory deficits noted Sensorium / Orientation: awake and alert Motor Exam: strength 5/5 throughout Skin no rashes or lesions noted and no wounds MDM MDM MDM Narrative Medical decision making narrative: Patient remained having sometimes occasional, other times frequent PVCs but asymptomatic with all of them. Symptoms suggest that he had a tachydysrhythmia for 20 minutes, but it did not recur while he was being observed in the emergency department on the monitor. Freq PVCs with tachycardia also in the DDx. His potassium is little low so we replaced that but otherwise I am comfortable with him being discharged, encouraged to return and call EMS if it happens again. Vital signs including BP are normal. I do not think he is having acute coronary syndrome or unstable angina, his EKG is normal except for the ectopy, so no need to check a troponin here. Although transient atrial fibrillation is in the differential, since we have no evidence of that I would not put him on anticoagulants at this time, but I do recommend discussing with cardiology as an outpatient. Lab Data Attestation: I reviewed the patient's lab results. Labs: Laboratory Results - last 24 hr 12/09/23 14:52 WBC 8.3 RBC 4.56 L Hgb 14.8 Hct 44.4 MCV 97.4 H MCH 32.5 H MCHC 33.3 RDW Std Deviation 46.5 H RDW Coeff of [place] 12.9 Plt Count 202 MPV 11.6 Immature Gran % (Auto) 0.400 Neut % (Auto) 67.0 Lymph % (Auto) 21.1 Miller % (Auto) 9.0 Eos % (Auto) 2.1 Baso % (Auto) 0.4 Absolute Neuts (auto) 5.6 Absolute Lymphs (auto) 1.74 Nucleated RBC % 0 Sodium 142 Potassium 3.3 L Chloride 112 H Carbon Dioxide 24.0 Anion Gap 6 BUN 15 Creatinine 1.33 H Estim Creat Clear Calc 46.20 Est GFR (MDRD) Af Amer 67 Est GFR (MDRD) Non-Af 56 L BUN/Creatinine Ratio 11.3 Glucose 129 H Calcium 9.1 Rhythm Strip Rhythm Strip: Sinus Rhythm Rate: 75 Ectopy: PVC(s) EKG Initial EKG: Attestation: I personally reviewed and interpreted this EKG as follows: Interpretation: Sinus Rhythm (71) and No Acute Injury Pattern Comments: Ventricular bigeminy on EKG. Same morphology as old EKG. Prior EKG tracings: available for review Prior: Unchanged Discharge Plan Triage Chief Complaint: Weakness ED Provider: Baldev Burch Dx/Rx/DC Orders Clinical Impression: Ventricular ectopy, Rapid palpitations, Hypokalemia Instructions: Premature Ventricular Contract Tx, ED Palpitations Prescriptions: No Action ezetimibe 10 mg tablet 10 mg PO DAILY Centrum Silver Ultra Men's 300-600-300 mcg tablet 1 tab PO DAILY metoprolol tartrate 100 mg tablet 25 mg PO BID 30 Days Qty: 15 cilostazol 100 mg tablet 100 mg PO BID Patient Comments: TAKE 1 TABLET BY MOUTH TWICE DAILY nitroglycerin 0.4 mg tablet, sublingual 0.4 mg SUBLINGUAL Q5-15M PRN (Reason: chest pain) Qty: 25 7RF Rx Instructions: one tablet under tongue every 5-15 minutes for chest pain up to 3 doses clopidogrel 75 mg tablet 75 mg PO DAILY Qty: 90 3RF amlodipine 10 mg tablet 10 mg PO DAILY Qty: 90 3RF pravastatin 10 mg tablet 10 mg PO QHS Qty: 90 3RF Primary Care Provider: Andrea Smiley Referrals: Andrea Smiley DO [Primary Care Provider] - 3-5 Days if not improving (Or your heart doctor) Disposition Disposition: Home, Self Care
[2023-12-09 15:41] LABS: Absolute Lymphocyte Count 1.74 X10^3/uL (0.83-4.51); Absolute Neutrophil Count 5.6 X10^3/uL (2.0-7.7); Basophil# 0.03 X10^3/uL; Basophil% 0.4 % (0-1); Eosinophil# 0.17 X10^3/uL; Eosinophils% 2.1 % (0-5); Hematocrit 44.4 % (40-54); Hemoglobin 14.8 g/dL (13.0-16.5); Lymphocyte # 1.74 X10^3/ul (0.83-4.51); Lymphocyte % 21.1 % (19-41); Mean Corp Hgb Conc 33.3 g/dL (32-36); Mean Corpuscular Hgb 32.5 pg (27.0-32.0); Mean Corpuscular Volume 97.4 fL (80-94); Mean Platelet Vol. 11.6 fl (6.2-12.0); Monocyte# 0.74 X10^3/uL; NRBC Flagged by Analyzer 0 % (0-5); Neutrophil # 5.55 X10^3/uL (2.7-7.7); Platelet Count 202 K/mm3 (150-450); RBC Distribution Width CV 12.9 % (11.6-14.6); RBC Distribution Width SD 46.5 fl (35.1-43.9); Red Blood Count 4.56 M/mm3 (4.6-6.2); White Blood Count 8.3 K/mm3 (4.4-11.0)
[2023-12-09 15:46] VITALS: BP 116/76; PULSE 71; RESP 16; O2SAT 95
--- OUTSIDE RECORDS SUMMARY | 2023-12-09 15:47 | XMS RPT_ITS | CCD ---
Author Name Unknown Address [address] [place] [address] Organization [facility] Care Team Providers Care Corrections Corporal Name Role Phone SUE ANDRADE Attending Unavailable SUE ANDRADE Referring Unavailable ANDREA BISHOP Primary Care Unavailable AARON HUIZAR Admitting Unavail able ADAL, LENIN S Referring Unavailable ANDREA BISHOP Primary Care Unavailable RANJAN LOPES Consulting Unavailable LORENZO SHIPLEY Attending Unavailable DANYA BLACKBURN Consulting Unavailable LORENZO SHIPLEY Consulting Unavailable CONNER CURRAN Consulting Unavailable LINETTE MCCLURE Attending Unavailable ANDREA BISHOP Referring Unavailable ANDREA BISHOP Primary Care Unavailable ANDREA BISHOP Referring Unavailable ANDREA BISHOP Primary Care Unavailable KAMRON HERNÁNDEZ Attending Unavailable LINETTE MCCLURE Referring Unavailable ANDREA BISHOP Primary Care Unavailable Andrea Bishop DO Primary Care Provider Adal, Lenin S Unavailable Yohan Canela MD Unavailable Andrea Bishop DO Primary Care Provider Adal, [place] S Unavailable Yohan Canela MD Unavailable Andrea Bishop DO Primary Care Provider Adal, Lenin S Unavailable Andrea Bishop DO Primary Care Provider Adal, [place] S Unavailable Yohan Canela MD Unavailable Adal, Lenin S Unavailable Lenin Galeas MD S Unavailable DANYA BLACKBURN Attending Unavailable BISHOP, ANDREA L Referring Unavailable BISHOP, ANDREA L Primary Care Unavailable BISHOP, ANDREA L Primary Care Unavailable BISHOP, ANDREA L Attending Unavailable BISHOP, ANDREA L Referring Unavailable BISHOP, ANDREA L Primary Care Unavailable BISHOP, ANDREA L Primary Care Unavailable ETHEL, NAIMA Referring Unavailable BISHOP, ANDREA L Primary Care Unavailable NAIMA LUU Attending Unavailable BISHOP, ANDREA L Primary Care Unavailable BISHOP, ANDREA L Attending Unavailable BISHOP, ANDREA L Primary Care Unavailable BISHOP, ANDREA L Referring Unavailable LYNCH, RA Referring Unavailable BISHOP, ANDREA L Primary Care Unavailable LYNCH, RA Referring Unavailable BISHOP, ANDREA L Primary Care Unavailable BISHOP, ANDREA L Primary Care Unavailable Allergies Allergy Classification Reported Allergen(s) Allergy Type Date of Onset Reaction(s) Facility (20 sources) atorvastatin; Translations: [ATORVASTATIN CALCIUM] Drug Allergy 8 Myalgia [facility] Repository (20 sources) Codeine; Translations: [CODEINE] Drug Allergy 7 Other: See Comments [facility] Repository (20 sources) Hmg-Coa Reductase Inhibitors (Statins); Translations: [[id number] A REDUCTASE INHIBITORS] Propensity to adverse reactions (disorder) 8 Myalgia [facility] Repository (20 sources) Penicillins; Translations: [PENICILLINS] Propensity to adverse reactions (disorder) 4 Hives, Itching [facility] Rep[facility] Medications Current Medications Medication Drug Class(es) Dates Sig (Normalized) Sig (Original) cephalexin 500 mg oral capsule (2 sources) Cephalosporin Antibacterial Start: 03-16-2022 End: 03-26-2022 take 1 capsule by mouth four times daily cephALEXin (KEFLEX) 500 mg capsule Take 1 capsule by mouth four times daily for 10 days. 40 capsule 0 03/16/2022 03/26/2022 Active Completed/Discontinued Medications Medication Drug Class(es) Dates Sig (Normalized) Sig (Original) acetaminophen 325 mg oral tablet (17 sources) Start: 01-02-2019 take 2 tablets by mouth every six hours as needed acetaminophen (TYLENOL) 325 mg tablet Take 2 tablets by mouth every 6 hours as needed. 0 01/02/2019 Active Problems Active Problems Problem Classification Problem Date Documented Date Episodic/Chronic Aortic; peripheral; and visceral artery aneurysms (11 sources) Abdominal aortic aneurysm without rupture; Translations: [Abdominal aortic aneurysm, without rupture] Onset: 10-24-2022 Chronic Coronary atherosclerosis and other heart disease (20 sources) Coronary arteriosclerosis; Translations: [Atherosclerotic heart disease of [place] coronary artery without angina pectoris] Onset: 12-22-2018 12-22-2018 Chronic Disorders of lipid metabolism (20 sources) Hypercholesterolemia; Translations: [Pure hypercholesterolemia, unspecified] Onset: 11-28-2014 11-28-2014 Chronic Essential hypertension (20 sources) Essential hypertension; Translations: [Essential (primary) hypertension] Onset: 12-05-2015 12-22-2018 Chronic Hyperplasia of prostate (18 sources) Benign prostatic hyperplasia; Translations: [Benign prostatic hyperplasia with lower urinary tract symptoms] Onset: 05-23-2014 05-29-2021 Chronic Nutritional deficiencies (20 sources) Vitamin D deficiency; Translations: [Vitamin D deficiency, unspecified] Onset: 11-28-2021 11-28-2021 Chronic Occlusion or stenosis of precerebral arteries (20 sources) Atherosclerosis of right carotid artery; Translations: [Occlusion and stenosis of right carotid artery] Onset: 11-27-2018 11-27-2018 Chronic Other circulatory disease (18 sources) Subclavian artery stenosis; Translations: [Stricture of artery] Onset: 11-27-2018 05-24-2020 Chronic Other lower respiratory disease (2 sources) Cough; Translations: [Acute cough] 05-27-2023 Episodic Other screening for suspected conditions (not mental disorders or infectious disease) (3 sources) Patient encounter status; Translations: [Encounter for screening for malignant neoplasm of prostate] Onset: 11-28-2023 Episodic Peripheral and visceral atherosclerosis (20 sources) Peripheral vascular disease, unspecified; Translations: [Peripheral vascular disease, unspecified] Onset: 11-28-2014 11-28-2021 Chronic Unclassified (2 sources) Atherosclerotic heart disease of [place] coronary artery with unspecified angina pectoris Onset: 12-22-2018 Unclassified (1 source) Abdominal aortic aneurysm (AAA) without rupture, unspecified part (HCC); Translations: [Abdominal aortic aneurysm (AAA) without rupture, unspecified part (HCC)] Onset: 10-24-2022 Unclassified (1 source) Acute cough; Translations: [Acute cough] Onset: 05-27-2023 Past or Other Problems Problem Classification Problem Date Documented Date Episodic/Chronic Coronary atherosclerosis and other heart disease (17 sources) Stent in branch of right coronary artery; Translations: [Presence of coronary angioplasty implant and graft] Onset: 11-28-2014 11-28-2014 Episodic Diabetes mellitus without complication (2 sources) Hyperglycemia; Translations: [Hyperglycemia, unspecified] Onset: 05-27-2023 Episodic Inflammatory conditions of male genital organs (17 sources) Epididymitis; Translations: [Epididymitis] Onset: 05-23-2014 05-23-2014 Episodic Malaise and fatigue (19 sources) Fatigue; Translations: [Other fatigue] Onset: 11-28-2021 11-28-2021 Episodic Melanomas of skin (17 sources) H/O Malignant melanoma; Translations: [Personal history of malignant melanoma of skin] Onset: 11-28-2014 05-24-2020 Episodic Other connective tissue disease (17 sources) Muscle pain; Translations: [Myalgia, unspecified site] Onset: 11-28-2017 11-28-2017 Episodic Other connective tissue disease (11 sources) Weakness of left leg; Translations: [Other symptoms and signs involving the musculoskeletal system] Onset: 05-29-2021 05-29-2021 Episodic Other connective tissue disease (7 sources) Other symptoms and signs involving the musculoskeletal system; Translations: [Other musculoskeletal symptoms referable to limbs] Onset: 05-29-2021 05-29-2021 Episodic Other male genital disorders (17 sources) Scrotal mass; Translations: [Other specified disorders of the male genital organs] Onset: 05-23-2014 05-23-2014 Episodic Other non-traumatic joint disorders (17 sources) Multiple joint pain; Translations: [Pain in unspecified joint] Onset: 11-28-2017 11-28-2017 Episodic Residual codes; unclassified (17 sources) Tobacco user; Translations: [Tobacco use] Onset: 11-28-2014 12-22-2018 Episodic Residual codes; unclassified (17 sources) Finding of systemic arterial pressure; Translations: [Other general symptoms and signs] Onset: 11-27-2018 11-27-2018 Episodic Residual codes; unclassified (17 sources) Edema of foot; Translations: [Localized edema] Onset: 11-28-2021 11-28-2021 Episodic Results Test Name Value Interpretation Reference Range Facil ity Vital Signs Date Time Vital Sign Value Performing Clinician Facility 06-05-2023 09:39-0400 Body height 170.2 cm Danya Blackburn MD Work Phone: [facility] 06-05-2023 09:39-0400 Body weight 73.48 kg Danya Blackburn MD Work Phone: [facility] 06-05-2023 09:39-0400 Diastolic blood pressure 64 mm[Hg] Danya Blackburn MD Work Phone: [facility] 06-05-2023 09:39-0400 Heart rate 62 /min Danya Blackburn MD Work Phone: [facility] 06-05-2023 09:39-0400 Respiratory rate 16 /min Danya Blackburn MD Work Phone: [facility] 06-05-2023 09:39-0400 Systolic blood pressure 104 mm[Hg] Danya Blackburn MD Work Phone: [facility] 06-02-2023 09:13-0400 Body temperature 97 [degF] Andrea Bishop DO Work Phone: [facility] 06-02-2023 09:13-0400 Body weight 74.39 kg Andrea Bishop DO Work Phone: [facility] 06-02-2023 09:13-0400 Diastolic blood pressure 60 mm[Hg] Andrea Bishop DO Work Phone: [facility] 06-02-2023 09:13-0400 Heart rate 56 /min Andrea Bishop DO Work Phone: [facility] 06-02-2023 09:13-0400 Respiratory rate 16 /min Andrea Bishop DO Work Phone: [facility] 06-02-2023 09:13-0400 Systolic blood pressure 100 mm[Hg] Andrea Bishop DO Work Phone: [facility] 05-27-2023 15:24-0400 Body temperature 98.49 [degF] Naima Haagen CUSTODIAL OFFICER.WAREHOUSE SUPERVISOR [employer] Work Phone: [facility] 05-27-2023 15:24-0400 Diastolic blood pressure 68 mm[Hg] Naima Haagen CUSTODIAL OFFICER.WAREHOUSE SUPERVISOR [employer] Work Phone: [facility] 05-27-2023 15:24-0400 Heart rate 60 /min Naima Haagen CUSTODIAL OFFICER.WAREHOUSE SUPERVISOR [employer]RD [employer] Work Phone: [facility] 05-27-2023 15:24-0400 Respiratory rate 18 /min Naima Haagen CUSTODIAL OFFICER.WAREHOUSE SUPERVISOR [employer]RD [employer] Work Phone: [facility] 05-27-2023 15:24-0400 SaO2% (BldA) [Mass fraction] 96 % Naima Haagen CUSTODIAL OFFICER.WAREHOUSE SUPERVISOR [employer]RD [employer] Work Phone: [facility] 05-27-2023 15:24-0400 Systolic blood pressure 110 mm[Hg] Naima Haagen CUSTODIAL OFFICER.WAREHOUSE SUPERVISOR [employer]RD [employer] Work Phone: [facility] 11-29-2022 09:01-0500 Body temperature 98.01 [degF] Andrea Bishop DO Work Phone: [facility] 11-29-2022 09:01-0500 Body weight 74.84 kg Andrea Bishop DO Work Phone: [facility] 11-29-2022 09:01-0500 Diastolic blood pressure 60 mm[Hg] Andrea Bishop DO Work Phone: [facility] 11-29-2022 09:01-0500 Heart rate 60 /min Andrea Bishop DO Work Phone: [facility] 11-29-2022 09:01-0500 Respiratory rate 16 /min Andrea Bishop DO Work Phone: [facility] 11-29-2022 09:01-0500 Systolic blood pressure 110 mm[Hg] Andrea Bishop DO Work Phone: [facility] 10-24-2022 09:41-0500 Body height 167.6 cm Danya Blackburn MD Work Phone: [facility] 10-24-2022 09:41-0500 Body weight 73.75 kg Danya Blackburn MD Work Phone: [facility] 10-24-2022 09:41-0500 Diastolic blood pressure 68 mm[Hg] Danya Blackburn MD Work Phone: [facility] 10-24-2022 09:41-0500 Heart rate 66 /min Danya Blackburn MD Work Phone: [facility] 10-24-2022 09:41-0500 Respiratory rate 16 /min Danya Blackburn MD Work Phone: [facility] 10-24-2022 09:41-0500 Systolic blood pressure 112 mm[Hg] Danya Blackburn MD Work Phone: [facility] 05-28-2022 09:18-0400 Body temperature 96.4 [degF] Andrea Bishop DO Work Phone: [facility] 05-28-2022 09:18-0400 Body weight 75.75 kg Andrea Bishop DO Work Phone: [facility] 05-28-2022 09:18-0400 Diastolic blood pressure 78 mm[Hg] Andrea Bishop DO Work Phone: [facility] 05-28-2022 09:18-0400 Heart rate 60 /min Andrea Bishop DO Work Phone: [facility] 05-28-2022 09:18-0400 Respiratory rate 16 /min Andrea Bishop DO Work Phone: [facility] 05-28-2022 09:18-0400 Systolic blood pressure 106 mm[Hg] Andrea Bishop DO Work Phone: [facility] 04-11-2022 10:28-0400 Body height 167.6 cm Danya Blackburn MD Work Phone: [facility] 04-11-2022 10:28-0400 Body weight 73.48 kg Danya Blackburn MD Work Phone: [facility] 04-11-2022 10:28-0400 Diastolic blood pressure 70 mm[Hg] Danya Blackburn MD Work Phone: [facility] 04-11-2022 [id number] Heart rate 68 /min Danya Blackburn MD Work Phone: [facility] 04-11-2022 [id number] Respiratory rate 16 /min Danya Blackburn MD Work Phone: [facility] 04-11-2022 10:28-0400 Systolic blood pressure 112 mm[Hg] Danya Blackburn MD Work Phone: [facility] 12-28-2018 17:24-0500 Body temperature 36.0 SUE ANDRADE [facility] Encounters Encounter Date Encounter Type Care Provider Facility Start: 12-02-2023 End: 12-02-2023 ambulatory ANDREA L BISHOP Facility:[facility] Start: 11-28-2023 End: 11-29-2023 ambulatory ANDREA L BISHOP Facility:[facility] Start: 10-04-2023 Refphuong tamayo CUSTODIAL OFFICER.WAREHOUSE SUPERVISOR 3RD [employer] Work Phone: [facility] Procedures Date Procedure Procedure Detail Performing Clinician Start: 08-21-2022 INFLUENZA SEASONAL QUADRIVALENT HIGH DOSE AGE 65+ Andrea L Bishop DO Work Phone: Start: 05-29-2021 Adult depression scr eening assessment Andrea Bishop DO Work Phone: Start: 03-20-2021 Colonoscopy Andrea Gar rison DO Work Phone: Start: 01-01-2019 History of coronary artery bypass grafting S/P CABG x 3 Andrea Bishop DO Work Phone: Start: 12-26-2018 Antibody screen SUE ANDRADE Plan of Treatment Date Care Activity Detail Author Start: 11-21-2027 LIPID SCREEN LIPID SCREEN [facility] Start: 11-28-2026 LIPID SCREEN LIPID SCREEN [facility] Start: 05-27-2026 DIABETES SCREEN DIABETES SCREEN [facility] Start: 05-27-2026 Diabetes Screening Diabetes Screenin g [facility] Start: 03-20-2026 Colonoscopy COLONOSCOPY [facility] Start: 03-20-2026 COLORECTAL CANCER SCREENING COLORECTAL CANCER SCREENING [facility] Start: 11-21-2025 DIABETES SCREEN DIABETES SCREEN [facility] Start: 04-11-2025 US ABD AORTA COMPLET E VAS LAB US ABD AORTA COMPLETE VAS LAB Vascular Lab Routine AAA (abdominal aortic aneurysm) without rupture (HCC) Expected: 04/11/2025 [facility] Work Phone: Immunizations Immunization Date Immunization Notes Care Provider Yrn whitman 08-15-2023 influenza (HD-IIV4) vaccine, age 65+ yr, high dose, quadrivalent, PF (FLUZONE HIGH-DOSE) aR Lynch CUSTODIAL OFFICER.WAREHOUSE SUPERVISOR 3RD SHIFT Work Phone: [facility] Work Phone: 08-21-2022 influenza, high-dose , quadrivalent vaccine (FLUZONE HIGH DOSE QUADRIVALENT) Mi Nurse Work Phone: [facility] Work Phone: 08-11-2021 influenza, high-dose , quadrivalent vaccine (FLUZONE HIGH DOSE QUADRIVALENT) Andrea Bishop DO Work Phone: [facility] 09-09-2020 influenza, high-dose , quadrivalent vaccine (FLUZONE HIGH DOSE QUADRIVALENT) Andrea Bishop DO Work Phone: [facility] 11-05-2019 influenza, high dose seasonal, preservative-free Andrea Bishop DO Work Phone: [facility] Work Phone: 09-28-2018 influenza, high dose seasonal, preservative-free Andrea Bishop DO Work Phone: [facility] Work Phone: 01-07-2018 influenza, high dose seasonal, preservative-free Andrea Bishop DO Work Phone: [facility] Work Phone: 05-26-2017 pneumococcal polysaccharide vaccine, 23 valent Andrea Bishop DO Work Phone: [facility] 08-17-2016 influenza, injectabl e, quadrivalent, contains preservative Andrea Bishop DO Work Phone: [facility] 11-15-2015 pneumococcal conjuga te vaccine, 13 valent Andrea Bishop DO Work Phone: [facility] Work Phone: 08-31-2015 influenza, high dose seasonal, preservative-free Andrea Bishop DO Work Phone: [facility] Work Phone: 09-05-2014 influenza, seasonal, injectable Andrea Bishop DO Work Phone: [facility] Work Phone: 08-31-2010 pneumococcal polysaccharide vaccine, 23 valent Andrea Bishop DO Work Phone: [facility] Work Phone: Payers Date Payer Category Payer Medicare [id number] 2016 Medicare MEDICARE MEDICAR E A AND B [id number] 2016-Present [phone] [place] [address] Medicare [id number] 2016 Medicare MEDICARE MEDICAR E A AND B [id number] 2016-Present [phone] [place] [address] Medicare [id number] 1945 Unknown [id number] 1945 Unknown [id number] 1945 Unknown [id number] 1945 Unknown [id number] 1945 Unknown [id number] Medicare [id number] Social History Date Type Detail Facility Start: 11-28-2017 End: 10-24-2022 Tobacco smoking status NHIS Ex-smoker [facility] Work Phone: End: 04-17-2017 History of tobacco use Current smoker [facility] Work Phone: End: 04-17-2017 History of tobacco use Cigarette Smoker [facility] Work Phone: Start: 11-28-2017 End: 06-02-2023 Cigarettes smoked current (pack per day) - Reported 1 [facility] Start: 11-28-2017 End: 10-24-2022 Tobacco use and exposure Smokeless tobacco non-user [facility] Work Phone: Start: 01-28-2022 End: 06-05-2023 Alcohol intake Current non-drinker of alcohol (finding) [facility] Start: 11-27-2020 History SDOH Housing Unable to Pay 3 [facility] Start: 1945 Sex Assigned At Not on file C [facility] Start: 04-01-2022 End: 08-19-2022 Exposure to SARS-CoV-2 (event) Not sure [facility] Start: 11-27-2020 End: 06-02-2023 Social connection and isolation panel [facility] In a typical week, h ow many times do you talk on the telephone with family, friends, or neighbors? Patient refused [facility] Are you now , , , , never or living with a partner? Refused [facility] (I/We) worried lucia er (my/our) food would run out before (I/we) got money to buy more. DK or Refused [facility] Clinical Notes 05-10-2019 to 12-02-2023 Danya Blackburn MD - 06/05/2023 9:39 AM Andrea Stevens DO - 06/03/2023 6:01 AM EDTPatient InstructionsPatient Naima Maciel APRN.WAREHOUSE SUPERVISOR 3RD SHIFT - 05/27/2023 3:30 PM EDT Note Date & Type Note Facility 12-02-2023 Note HNO ID: [id number] Author: EDNA ANDREA, DO Service: ? Author Type: Physician Type: Progress Notes Filed: 12/02/2023 09:40 Note Text: CC: Porfirio Devi is a 78 year old male who presents to the office for follow up HPI: Significant peripheral arterial disease. Has been seen in the past by Dr. Canela for stent procedure to left leg (more significant disease than right leg) and also been seen by Dr. Blackburn, whom is a vascular surgeon at [facility] and is seeing her upcoming in May for further follow up She states that he doesn't currently have a lot of surgical options to help with the distal occlusive disease in his left leg arteries since the stent was placed above the bifurcation of the lower limb arteries. She started him on Pletal for his leg cramping with ambulation and he is taking plavix. Medications have been tolerated and he does feel the Pletal has helped his leg cramping with exertional symptoms. 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 Blackburn CAD, no recent chest pressure or pain or dyspnea or palpitations, taking his medications as prescribed Dyslipidemia, tolerating statin therapy Will have follow up dermatology appt with Dr. Scott PAST MEDICAL HISTORY Diagnosis Date AAA (abdominal aortic aneurysm) (HCC) Arthritis Basal cell carcinoma of neck Dr. Arie Scott [employer] Carotid artery stenosis Coronary artery disease stent, Dr. Andrade Lifestyle Director Heart attack ([facility]) Hyperlipemia Hypertension Malignant melanoma of chest wall (HCC) Dr. Arie Scott [employer] Peripheral arterial disease (HCC) S/P CABG x 3 12/28/2018 Sleep apnea PAST SURGICAL HISTORY Procedure Laterality Date APPENDECTOMY APPENDECTOMY HX CABG (3) VEIN GRAFTS AND ARTERIAL GRAFT(S) 12/28/2018 COLONOSCOPY 11/2016 tubulovillous adenoma- Dr. Canela COLONOSCOPY FLX DX W/COLLJ SPEC WHEN PFRMD 12/26/2017 Colonoscopy COLONOSCOPY FLX DX W/COLLJ SPEC WHEN PFRMD 03/20/2021 EYE SURGERY HX cataracts bilateral eyes HEART SURGERY HX PAST SURGICAL HISTORY OF 2009 malignant tumor pectoral muscle left side PAST SURGICAL HISTORY OF 2009 Basal cell right neck PAST SURGICAL HISTORY OF 1977 amputated index finger left hand PAST SURGICAL HISTORY OF Left 04/06/2019 Dr. Pam Canela; Abd pelvic LLE arteriogram. L superficial femoral cros angioplasty. L superficial femoral stenting x2 SKIN BIOPSY HX STENT PLACEMENT 2003 heart VASCULAR SURGERY PROCEDURE Current Outpatient Medications Medication Sig cilostazol (PLETAL) 100 mg tablet Take 1 tablet by mouth two times a day. amLODIPine (NORVASC) 10 mg tablet Take 1 tablet by mouth once daily. clopidogrel (PLAVIX) 75 mg tablet Take 1 tablet by mouth once daily. ezetimibe (ZETIA) 10 mg tablet Take 1 tablet by mouth once daily. pravastatin (PRAVACHOL) 10 mg tablet Take 1 tablet by mouth daily at bedtime. metoprolol tartrate, short acting, (LOPRESSOR) 50 mg tablet Take 0.5 tablets by mouth twice daily. acetaminophen (TYLENOL) 325 mg tablet Take 2 tablets by mouth every 6 hours as needed. MULTIVITAMIN/IRON/FOLIC ACID (CENTRUM COMPLETE ORAL) Take by mouth. aspirin, enteric coated (ASPIRIN, ENTERIC COATED) 81 mg EC tablet Take 81 mg by mouth once daily. No current facility-administered medications for this visit. ALLERGIES Allergen Reactions Codeine Other: See Comments Disturbing dreams Lipitor [Atorvastat* Myalgia Severe arthralgias or myalgia Penicillins Hives, Itching Sweats-severe Vpztcvl-Qht-Luy Red* Myalgia Severe myalgia Social History Tobacco Use Smoking status: Former Packs/day: 1 Types: Cigarettes Quit date: 04/17/2017 Years since quittin.6 Smokeless tobacco: Never Vaping Use Vaping Use: Never used Substance Use Topics Alcohol use: No Drug use: No ROS: See HPI PE: BP 120/70 Pulse 64 Temp (Src) 96.7 (Left Tympanic) Resp 16 Wt 169 lb (76.7kg) Gen: AANDO, NAD, non-toxic appearing, Pleasant, cooperative HEENT: NT/AC, PERRLA, EOMs intact b/l, wearing mask secondary to covid 19 pandemic, EACs without erythema or debris. TMs pearly magana with intact landmarks b/l. Neck: supple, No cervical LAD, no thyromegaly, no carotid bruits CV: RRR, normal S1 and S2, no murmurs, no gallops, no rubs, Pulses diminished to 1+ and symmetric in UE and LE b/l Lungs: normal respiratory effort, CTA b/l, no wheezing or rhonchi or rales Abd: soft, NT, ND, +BS, no (more content not included)... [facility] 06-05-2023 Note HNO ID: [id number] Author: Danya Blackburn MD Service: ? Author Type: Physician Type: Progress Notes Filed: 06/05/2023 9:58 AM Note Text: Porfirio Devi is a 78 year old male here for follow up evaluation of his peripheral vascular disease. He was last seen 10/2022. He is also seen for carotid stenosis and AAA. Pts history includes: Dr Canela placed 7x200 stents x 2 from the L [employer] through the L popliteal artery on 03/2019. This was done for claudication. The pt had a pre-procedure RITA of 0.65. While this initially improved his symptoms and he was able to walk his normal 1-3 miles at a time, his stents have gone down within a year and his symptoms have returned. unfortunately his L stent covers both his profunda as well as his popliteal. He understands that if the profunda occludes, he could be at risk for limb loss. The pt has had his L gsv harvested for a CABG. He does have claudication symptoms that have been stable. 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 He states he can walk 1/4-3/8 mile before his claudication forces him to stop for 2-3 min. We again reviewed that as long as he has claudication alone, there is really no indication for surgery and intervention now would increase risk of subsequent amputation. Discussed indications including rest pain, non healing wounds, and severe claudication that is lifestyle limiting. He states he still heals wounds fairly quickly. He is due for all of his screening tests (carotid, and PVR) the end of 2022. And his AAA US the end of 2023. He is on asa, statin, pletal, plavix. He states that his renal function is declining. 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 His only CT A/P was from 2019. There isn't significant stenosis at that scan. 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 He has low BP. If there is concern, renal artery US would be the initial step to consider. His symptoms include: Claudication Yes: Location: Distance: Rest pain No Tissue loss No Location: The patient is following the walking program. We again reviewed the walking program and the importance of it. The pt was instructed to walk at least 30-50 min 3-5 times a week, to walk until the pain is too severe, to rest, and then to continue. They understand that following this can significantly increase their walking distance. We discussed the importance of good foot care, examining feet, keeping them clean and dry, and wearing good shoes. The patient understands that development of sores or lesions could put the limb at risk for amputation. We again discussed the nature of the disease, natural history, risk of amputation, and importance of preventative measures. His prior surgery includes: PAST SURGICAL HISTORY Procedure Laterality Date APPENDECTOMY APPENDECTOMY HX CABG (3) VEIN GRAFTS AND ARTERIAL GRAFT(S) 12/28/2018 COLONOSCOPY 11/2016 tubulovillous adenoma- Dr. Canela COLONOSCOPY FLX DX W/COLLJ SPEC WHEN PFRMD 12/26/2017 Colonoscopy COLONOSCOPY FLX DX W/COLLJ SPEC WHEN PFRMD 03/20/2021 EYE SURGERY HX cataracts bilateral eyes HEART SURGERY HX PAST SURGICAL HISTORY OF 2009 malignant tumor pectoral muscle left side PAST SURGICAL HISTORY OF 2009 Basal cell right neck PAST SURGICAL HISTORY OF 1977 amputated index finger left hand PAST SURGICAL HISTORY OF Left 04/06/2019 Dr. Pam Canela; Abd pelvic LLE arteriogram. L superficial femoral cros angioplasty. L superficial femoral stenting x2 SKIN BIOPSY HX STENT PLACEMENT 2003 heart VASCULAR SURGERY PROCEDURE HISTORIES: PAST MEDICAL HISTORY Diagnosis Date AAA (abdominal aortic aneurysm) (HCC) Arthritis Basal cell carcinoma of neck Dr. Arie Scott [employer] Carotid artery stenosis Coronary artery disease stent, Dr. Andrade Lifestyle Director Heart attack (HCC) Hyperlipemia Hypertension Malignant melanoma of chest wall (HCC) Dr. Arie Scott [employer] Peripheral arterial disease (HCC) S/P CABG x 3 12/28/2018 Sleep apnea PAST SURGICAL HISTORY Procedure Laterality Date APPENDECTOMY APPENDECTOMY HX CABG (3) VEIN GRAFTS AND ARTERIAL GRAFT(S) 12/28/2018 COLONOSCOPY 11/2016 tubulovillous adenoma- Dr. Canela COLONOSCOPY FLX DX W/COLLJ SPEC WHEN PFRMD 12/26/2017 Colonoscopy COLONOSCOPY FLX DX W/COLLJ SPEC WHEN PFRMD 03/20/2021 EYE SURGERY HX cataracts bilateral eyes HEART SURGERY HX PAST SURGICAL HISTORY OF 2009 malignant tumor pectoral muscle left side PAST SURGICAL HISTORY OF 2009 Basal cell right neck PAST SURGICAL HISTORY OF 1977 amputated index finger left hand PAST SURGICAL HISTORY OF Left 04/06/2019 Dr. Pam Canela; Abd pelvic LLE arteriogram. L superficial femoral cros angioplasty. L superficial femoral stenting x2 SKIN BIOPSY HX STENT PLACEMENT 2003 heart VASCULAR SURGERY PROCEDURE Social History Tobacco Use Smoking status: Former Packs/day: 1.00 (more content not included)... [facility] 06-05-2023 History of Present illness Narrative Porfirio Devi is a 78 year old male here for follow up evaluation of his peripheral vascular disease. He was last seen 10/2022. He is also seen for carotid stenosis and AAA. Pts history includes: Dr Canela placed 7x200 stents x 2 from the L [employer] through the L popliteal artery on 03/2019. This was done for claudication. The pt had a pre-procedure RITA of 0.65. While this initially improved his symptoms and he was able to walk his normal 1-3 miles at a time, his stents have gone down within a year and his symptoms have returned. unfortunately his L stent covers both his profunda as well as his popliteal. He understands that if the profunda occludes, he could be at risk for limb loss. The pt has had his L gsv harvested for a CABG. He does have claudication symptoms that have been stable. 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 He states he can walk 1/4-3/8 mile before his claudication forces him to stop for 2-3 min. We again reviewed that as long as he has claudication alone, there is really no indication for surgery and intervention now would increase risk of subsequent amputation. Discussed indications including rest pain, non healing wounds, and severe claudication that is lifestyle limiting. He states he still heals wounds fairly quickly. He is due for all of his screening tests (carotid, and PVR) the end of 2022. And his AAA US the end of 2023. He is on asa, statin, pletal, plavix. He states that his renal function is declining. 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 His only CT A/P was from 2019. There isn't significant stenosis at that scan. 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 He has low BP. If there is concern, renal artery US would be the initial step to consider. His symptoms include: Claudication Yes: Location: Distance: Rest pain No Tissue loss No Location: The patient is following the walking program. We again reviewed the walking program and the importance of it. The pt was instructed to walk at least 30-50 min 3-5 times a week, to walk until the pain is too severe, to rest, and then to continue. They understand that following this can significantly increase their walking distance. We discussed the importance of good foot care, examining feet, keeping them clean and dry, and wearing good shoes. The patient understands that development of sores or lesions could put the limb at risk for amputation. We again discussed the nature of the disease, natural history, risk of amputation, and importance of preventative measures. His prior surgery includes: PAST SURGICAL HISTORY Procedure Laterality Date APPENDECTOMY APPENDECTOMY HX CABG (3) VEIN GRAFTS & ARTERIAL GRAFT(S) 12/28/2018 COLONOSCOPY 11/2016 tubulovillous adenoma- Dr. Canela COLONOSCOPY FLX DX W/COLLJ SPEC WHEN PFRMD 12/26/2017 Colonoscopy COLONOSCOPY FLX DX W/COLLJ SPEC WHEN PFRMD 03/20/2021 EYE SURGERY HX cataracts bilateral eyes HEART SURGERY HX PAST SURGICAL HISTORY OF 2009 malignant tumor pectoral muscle left side PAST SURGICAL HISTORY OF 2009 Basal cell right neck PAST SURGICAL HISTORY OF 1977 amputated index finger left hand PAST SURGICAL HISTORY OF Left 04/06/2019 Dr. Pam Canela; Abd pelvic LLE arteriogram. L superficial femoral cros angioplasty. L superficial femoral stenting x2 SKIN BIOPSY HX STENT PLACEMENT 2003 heart VASCULAR SURGERY PROCEDURE HISTORIES: PAST MEDICAL HISTORY Diagnosis Date AAA (abdominal aortic aneurysm) (HCC) Arthritis Basal cell carcinoma of neck Dr. Arie Scott [employer] Carotid artery stenosis Coronary artery disease stent, Dr. Andrade Lifestyle Director Heart attack (HCC) Hyperlipemia Hypertension Malignant melanoma of chest wall (HCC) Dr. Arei Scott [employer] Peripheral arterial disease (HCC) S/P CABG x 3 12/28/2018 Sleep apnea PAST SURGICAL HISTORY Procedure Laterality Date APPENDECTOMY APPENDECTOMY HX CABG (3) VEIN GRAFTS & ARTERIAL GRAFT(S) 12/28/2018 COLONOSCOPY 11/2016 tubulovillous adenoma- Dr. Canela COLONOSCOPY FLX DX W/COLLJ SPEC WHEN PFRMD 12/26/2017 Colonoscopy COLONOSCOPY FLX DX W/COLLJ SPEC WHEN PFRMD 03/20/2021 EYE SURGERY HX cataracts bilateral eyes HEART SURGERY HX PAST SURGICAL HISTORY OF 2009 malignant tumor pectoral muscle left side PAST SURGICAL HISTORY OF 2009 Basal cell right neck PAST SURGICAL HISTORY OF 1977 amputated index finger left hand PAST SURGICAL HISTORY OF Left 04/06/2019 Dr. Pam Canela; Abd pelvic LLE arteriogram. L superficial femoral cros angioplasty. L superficial femoral stenting x2 SKIN BIOPSY HX STENT PLACEMENT 2003 heart VASCULAR SURGERY PROCEDURE Social History Tobacco Use Smoking status: Former Packs/day: 1.00 Types: Cigarettes Quit date: 04/17/2017 Years since quittin.1 Smokeless tobacco: Never Vaping Use Vaping Use: Never used Substance Use Topics Alcohol use: No Drug use: No MEDICATIONS: Current Outpatient Medications Medication Sig Dispense Refill clopidogrel (PLAVIX) 75 mg tablet Take 1 tablet by mouth once daily. 90 tablet 3 ezetimibe (ZETIA) 10 mg tablet Take 1 tablet by mouth once daily. 90 tablet 3 pravastatin (PRAVACHOL) 10 mg tablet Take 1 tablet by mouth daily at bedtime. 90 tablet 3 amLODIPine (NORVASC) 10 mg tablet Take 1 tablet by mouth once daily. 90 tablet 3 metoprolol tartrate, short acting, (LOPRESSOR) 50 mg tablet Take 0.5 tablets by mouth twice daily. 60 tablet 5 doxycycline (VIBRA-TABS) 100 mg tablet Take 1 tablet by mouth twice daily for 10 days. 20 tablet 0 predniSONE (DELTASONE) 20 mg tablet Take 2 tablets by mouth once daily for 7 days. 14 tablet 0 cilostazol (PLETAL) 100 mg tablet Take 1 tablet by mouth twice daily. 60 tablet 5 aspirin, enteric coated (ASPIRIN, ENTERIC COATED) 81 mg EC tablet Take 81 mg by mouth once daily. acetaminophen (TYLENOL) 325 mg tablet Take 2 tablets by mouth every 6 hours as needed. MULTIVITAMIN/IRON/FOLIC ACID (CENTRUM COMPLETE ORAL) Take by mouth. No current facility-administered medications for this visit. ALLERGIES: ALLERGIES Allergen Reactions Codeine Other: See Comments Disturbing dreams Lipitor [Atorvastat* Myalgia Severe arthralgias or myalgia Penicillins Hives, Itching Sweats-severe Pbrrodx-Zpl-Cai Red* Myalgia Severe myalgia PHYSICAL EXAM: PHYSICAL EXAMINATION: General appearance: Well appearing, alert, in no acute distress, well-hydrated, well nourished. Skin: Skin color, texture, turgor normal, no suspicious rashes or lesions Head: Normocephalic, no abnormalities Lungs: Breathing unlabored on RA Heart: Abdomen: Negative Extremities: No deformities, edema, skin discoloration, clubbing or cyanosis. Good capillary refill. Musculoskeletal: No joint swelling, deformity, or tenderness Peripheral pulses: not palpable B Neuro: Gait normal, sensation grossly in tact Tissue loss: none ASSESSMENT: Peripheral Vascular Occlusive Disease, FCO, AAA: Porfirio is having optimal management of their atherosclerotic disease including antiplatelet therapy and statin therapy and if he is not we are recommending that he be seen by his primary care doctor for addition of appropriate therapy. The patient has a full discussion of the risks, benefits, and alternatives, as well as medical management versus interventional management versus open surgical management of their disease. At this point in time, given Porfirio's symptoms all of these are discussed with regard to their appropriateness in this setting. R.The patient and his family were asked if they had any questions and the questions were answered to the patient and his family's satisfaction. PLAN: Continue asa, statin, pletal, plavix Carotid US and pvr with exercise in 6 months Aortic US end of 2023 The pt will continue to practice good foot care. The patient will attempt to adhere to an exercise program. Could consider Renal artery US if there is significant concern for VISH. FOLLOW UP: 6 months Danya Blackburn MD I spent 25 minutes in the visit, with more than 50% of the total [id number] time of the visit in counseling / coordination of care. documented in this encounter [facility] 06-03-2023 Note HNO ID: [id number] Author: Andrea Bishop, DO Service: ? Author Type: Physician Type: Progress Notes Filed: 06/03/2023 6:07 AM Note Text: CC: Porfirio Devi is a 78 year old male who presents to the office for follow up HPI: Significant peripheral arterial disease. Has been seen in the past by Dr. Canela for stent procedure to left leg (more significant disease than right leg) and also been seen by Dr. Blackburn, whom is a vascular surgeon at [facility] and is seeing her upcoming in May for further follow up She states that he doesn't currently have a lot of surgical options to help with the distal occlusive disease in his left leg arteries since the stent was placed above the bifurcation of the lower limb arteries. She started him on Pletal for his leg cramping with ambulation and he is taking plavix. Medications have been tolerated and he does feel the Pletal has helped his leg cramping with exertional symptoms. 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 Blackburn vascular surgeon Recently had covid 19 and influenza infection back to back in Oct, symptoms mostly resolved. Again with cough and chest congestion symptoms that started in early May. Was seen by VIDEO PRODUCTION ASSISTANT, started on antibiotic medication. Feels the symptoms are improving and mostly resolved Will have follow up dermatology appt with Dr. Scott upcoming PAST MEDICAL HISTORY Diagnosis Date AAA (abdominal aortic aneurysm) (HCC) Arthritis Basal cell carcinoma of neck Dr. Arie Scott [employer] Carotid artery stenosis Coronary artery disease stent, Dr. Andrade Lifestyle Director Heart attack ([facility]) Hyperlipemia Hypertension Malignant melanoma of chest wall ([facility]) Dr. Arie Scott [employer] Peripheral arterial disease ([facility]) S/P CABG x 3 12/28/2018 Sleep apnea PAST SURGICAL HISTORY Procedure Laterality Date APPENDECTOMY APPENDECTOMY HX CABG (3) VEIN GRAFTS AND ARTERIAL GRAFT(S) 12/28/2018 COLONOSCOPY 11/2016 tubulovillous adenoma- Dr. Canela COLONOSCOPY FLX DX W/COLLJ SPEC WHEN PFRMD 12/26/2017 Colonoscopy COLONOSCOPY FLX DX W/COLLJ SPEC WHEN PFRMD 03/20/2021 EYE SURGERY HX cataracts bilateral eyes HEART SURGERY HX PAST SURGICAL HISTORY OF 2009 malignant tumor pectoral muscle left side PAST SURGICAL HISTORY OF 2009 Basal cell right neck PAST SURGICAL HISTORY OF 1977 amputated index finger left hand PAST SURGICAL HISTORY OF Left 04/06/2019 Dr. Pam Canela; Abd pelvic LLE arteriogram. L superficial femoral cros angioplasty. L superficial femoral stenting x2 SKIN BIOPSY HX STENT PLACEMENT 2003 heart VASCULAR SURGERY PROCEDURE Current Outpatient Medications Medication Sig cilostazol (PLETAL) 100 mg tablet Take 1 tablet by mouth twice daily. acetaminophen (TYLENOL) 325 mg tablet Take 2 tablets by mouth every 6 hours as needed. MULTIVITAMIN/IRON/FOLIC ACID (CENTRUM COMPLETE ORAL) Take by mouth. clopidogrel (PLAVIX) 75 mg tablet Take 1 tablet by mouth once daily. ezetimibe (ZETIA) 10 mg tablet Take 1 tablet by mouth once daily. pravastatin (PRAVACHOL) 10 mg tablet Take 1 tablet by mouth daily at bedtime. amLODIPine (NORVASC) 10 mg tablet Take 1 tablet by mouth once daily. metoprolol tartrate, short acting, (LOPRESSOR) 50 mg tablet Take 0.5 tablets by mouth twice daily. doxycycline (VIBRA-TABS) 100 mg tablet Take 1 tablet by mouth twice daily for 10 days. predniSONE (DELTASONE) 20 mg tablet Take 2 tablets by mouth once daily for 7 days. aspirin, enteric coated (ASPIRIN, ENTERIC COATED) 81 mg EC tablet Take 81 mg by mouth once daily. No current facility-administered medications for this visit. ALLERGIES Allergen Reactions Codeine Other: See Comments Disturbing dreams Lipitor [Atorvastat* Myalgia Severe arthralgias or myalgia Penicillins Hives, Itching Sweats-severe Ozqszac-Hwc-Ihq Red* Myalgia Severe myalgia Social History Tobacco Use Smoking status: Former Packs/day: 1.00 Types: Cigarettes Quit date: 04/17/2017 Years since quittin.1 Smokeless tobacco: Never Vaping Use Vaping Use: Never used Substance Use Topics Alcohol use: No Drug use: No ROS: See HPI. PE: BP 100/60 Pulse 56 Temp (Src) 97 (Left Tympanic) Resp 16 Wt 164 lb (74.4kg) Gen: AANDO, NAD, non-toxic appearing, Pleasant, cooperative HEENT: NT/AC, PERRLA, EOMs intact b/l, wearing mask secondary to covid 19 pandemic, EACs without erythema or debris. TM (more content not included)... [facility] 06-03-2023 History of Present illness Narrative CC: Porfirio Devi is a 78 year old male who presents to the office for follow up HPI: Significant peripheral arterial disease. Has been seen in the past by Dr. Canela for stent procedure to left leg (more significant disease than right leg) and also been seen by Dr. Blackburn, whom is a vascular surgeon at [facility] and is seeing her upcoming in May for further follow up She states that he doesn't currently have a lot of surgical options to help with the distal occlusive disease in his left leg arteries since the stent was placed above the bifurcation of the lower limb arteries. She started him on Pletal for his leg cramping with ambulation and he is taking plavix. Medications have been tolerated and he does feel the Pletal has helped his leg cramping with exertional symptoms. 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 Blackburn vascular surgeon Recently had covid 19 and influenza infection back to back in Oct, symptoms mostly resolved. Again with cough and chest congestion symptoms that started in early May. Was seen by VIDEO PRODUCTION ASSISTANT, started on antibiotic medication. Feels the symptoms are improving and mostly resolved Will have follow up dermatology appt with Dr. Scott upcoming PAST MEDICAL HISTORY Diagnosis Date AAA (abdominal aortic aneurysm) (HCC) Arthritis Basal cell carcinoma of neck Dr. Arie Scott [employer] Carotid artery stenosis Coronary artery disease stent, Dr. Andrade Lifestyle Director Heart attack ([facility]) Hyperlipemia Hypertension Malignant melanoma of chest wall (HCC) Dr. 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 Canela COLONOSCOPY FLX DX W/COLLJ SPEC WHEN PFRMD 12/26/2017 Colonoscopy COLONOSCOPY FLX DX W/COLLJ SPEC WHEN PFRMD 03/20/2021 EYE SURGERY HX cataracts bilateral eyes HEART SURGERY HX PAST SURGICAL HISTORY OF 2009 malignant tumor pectoral muscle left side PAST SURGICAL HISTORY OF 2009 Basal cell right neck PAST SURGICAL HISTORY OF 1977 amputated index finger left hand PAST SURGICAL HISTORY OF Left 04/06/2019 Dr. Pam Canela; Abd pelvic LLE arteriogram. L superficial femoral cros angioplasty. L superficial femoral stenting x2 SKIN BIOPSY HX STENT PLACEMENT 2003 heart VASCULAR SURGERY PROCEDURE Current Outpatient Medications Medication Sig cilostazol (PLETAL) 100 mg tablet Take 1 tablet by mouth twice daily. acetaminophen (TYLENOL) 325 mg tablet Take 2 tablets by mouth every 6 hours as needed. MULTIVITAMIN/IRON/FOLIC ACID (CENTRUM COMPLETE ORAL) Take by mouth. clopidogrel (PLAVIX) 75 mg tablet Take 1 tablet by mouth once daily. ezetimibe (ZETIA) 10 mg tablet Take 1 tablet by mouth once daily. pravastatin (PRAVACHOL) 10 mg tablet Take 1 tablet by mouth daily at bedtime. amLODIPine (NORVASC) 10 mg tablet Take 1 tablet by mouth once daily. metoprolol tartrate, short acting, (LOPRESSOR) 50 mg tablet Take 0.5 tablets by mouth twice daily. doxycycline (VIBRA-TABS) 100 mg tablet Take 1 tablet by mouth twice daily for 10 days. predniSONE (DELTASONE) 20 mg tablet Take 2 tablets by mouth once daily for 7 days. aspirin, enteric coated (ASPIRIN, ENTERIC COATED) 81 mg EC tablet Take 81 mg by mouth once daily. No current facility-administered medications for this visit. ALLERGIES Allergen Reactions Codeine Other: See Comments Disturbing dreams Lipitor [Atorvastat* Myalgia Severe arthralgias or myalgia Penicillins Hives, Itching Sweats-severe Mcvamyb-Fqx-Dtk Red* Myalgia Severe myalgia Social History Tobacco Use Smoking status: Former Packs/day: 1.00 Types: Cigarettes Quit date: 04/17/2017 Years since quittin.1 Smokeless tobacco: Never Vaping Use Vaping Use: Never used Substance Use Topics Alcohol use: No Drug use: No ROS: See HPI. PE: BP 100/60 Pulse 56 Temp (Src) 97 (Left Tympanic) Resp 16 Wt 164 lb (74.4kg) Gen: A&O, NAD, non-toxic appearing, Pleasant, cooperative HEENT: NT/AC, PERRLA, EOMs intact b/l, wearing mask secondary to covid 19 pandemic, EACs without erythema or debris. TMs pearly magana with intact landmarks b/l. Neck: supple, No cervical LAD, no thyromegaly, no carotid bruits CV: RRR, normal S1 and S2, no murmurs, no gallops, no rubs, Pulses diminished to 1+ and symmetric in UE and LE b/l Lungs: normal respiratory effort, CTA b/l, no wheezing or rhonchi or rales Abd: soft, NT, ND, +BS, no hepatosplenomegaly MS: FROM all 4 extremities Neuro: CN II-XII intact b/l, strength 5/5 b/l UE and LE, DTRs 2/4 UE and LE, sensation intact. Skin: warm, dry, intact, No rashes or lesions on exposed skin. No edema ASSESSMENT/PLAN: 1. Dyslipidemia - ICD9: 272.4, ICD10: E78.5 (primary diagnosis) - Controlled - Continue current medications - Counseled on healthy diet and regular exercise - LIPID PANEL BASIC 2. PAD (peripheral artery disease) (HCC) - ICD9: 443.9, ICD10: I73.9 Stable symptoms, f/u with vascular surgery Consider renal artery testing due to slightly elevated serum creatinine - EZETIMIBE 10 MG TABLET 3. Hypercholesterolemia - ICD9: 272.0, ICD10: E78.00 Stable symptoms, f/u with vascular surgery Consider renal artery testing due to slightly elevated serum creatinine - EZETIMIBE 10 MG TABLET - LIPID PANEL BASIC 4. Atherosclerosis of [place] coronary artery of [place] heart with angina pectoris (HCC) - ICD9: 414.01, 413.9, ICD10: I25.119 Stable, no new symptoms, f/u with vascular specaislit - EZETIMIBE 10 MG TABLET 5. Acute cough - ICD9: 786.2, ICD10: R05.1 rx refilled in case residual symptoms don't resolve, seem to be improving. No distress in office - DOXYCYCLINE HYCLATE 100 MG TABLET 6. Essential hypertension - ICD9: 401.9, ICD10: I10 - Controlled - Decrease metoprolol tartrate - Recommend home blood pressure monitoring, to bring results to next visit - Encouraged sodium restriction, DASH or Mediterranean diet - Recommend regular aerobic exercise 7. Peripheral artery disease (HCC) - ICD9: 443.9, ICD10: I73.9 Stable symptoms, f/u with vascular surgery Consider renal artery testing due to slightly elevated serum creatinine 8. Vitamin D deficiency - ICD9: 268.9, ICD10: E55.9 Continue supplement, stable 9. Screening for prostate cancer - ICD9: V76.44, ICD10: Z12.5 - Counseled on healthy diet and regular exercise - PSA/PROSTSPECAG SCRN 10. Fatigue, unspecified type - ICD9: 780.79, ICD10: R53.83 - COMP METABOLIC PANEL - CBC - VITAMIN B12 BLOOD Andrea Bishop DO Return if no improvement. Follow up with Andrea Bishop DO. To ER if develops chest pain, shortness of breath Discussed risks, benefits, alternatives, and potential side effects of medications. Patient/Guardian expressed understanding and agreed with the plan. See patient instructions. Andrea Bishop DO [address] [place] [address] documented in this encounter [facility] 06-02-2023 Instructions Andrea Bishop DO - 06/02/2023 9:39 AM EDT Ask about if need to do any kidney artery testing due to slightly elevated serum creatinine Ask Dr. Blackburn about the possibility of stopping statin Pravastatin documented in this encounter [facility] 05-27-2023 Note HNO ID: [id number] Author: RT Evangelista(R) Service: Nuclear Medicine Author Type: Technologist Type: Progress Notes Filed: 05/27/2023 3:51 PM Note Text: Radiology Service Progress Note PATIENT NAME: Porfirio Devi DATE OF SERVICE: May 27, 2023 TIME: 3:45 PM PATIENT IDENTITY VERIFICATION COMPLETED USING TWO (2) IDENTIFIERS: Name and Date of confirmed by patient verbally. FALL SCREENING: Has the patient had 2 falls in the last year or 1 fall with injury or currently using an Ambulatory Assistive Device (Walker, Cane, Wheelchair, Crutches, etc.)? No PATIENT GENDER DATA: Male PATIENT RELEVANT IMPLANT DATA REVIEWED: Not Applicable RADIOLOGY DEPARTMENT: General X-ray: Exam(s) Completed: Chest X-Ray PERIPHERAL IV DATA: Not applicable SIGNED BY: RT Evangelista(R) May 27, 2023 3:45 PM [facility] 05-27-2023 Note HNO ID: [id number] Author: Naima Luu APRN.WAREHOUSE SUPERVISOR 3RD SHIFT Service: ? Author Type: Nurse Practitioner Type: Progress Notes Filed: 05/27/2023 3:43 PM Note Text: 78 year old male with c/o URI sx over the last 3 days with: Sore throat: Yes. Runny/stuffy nose: No. Postnasal drip: No. Throat clearing: Yes. Sinus pain/ pressure: No. Teeth pain: No. Headache occasionally. Body aches No. Ear pain: No. Cough: Yes. Production: Yes. -- yellow-green. Fever: No. Hx asthma No. Hx pneumonia Yes. Smoker: Yes. OTC meds tried: coricidin. ACTIVE PROBLEM LIST Scrotal Mass Benign Prostatic Hyperplasia With Lower Urinary Tract Symptoms Epididymitis Presence of Bare Metal Stent in Right Coronary Artery Pad (Peripheral Artery Disease) (Hcc) Hypercholesterolemia Tobacco Abuse History of Melanoma Essential Hypertension Pain, Joint, Multiple Sites Myalgia Abnormal Ankle Brachial Index (Rita) Subclavian Artery Stenosis (Hcc) Atherosclerosis of Right Carotid Artery Atherosclerosis of Left Carotid Artery Cad (Coronary Artery Disease) S/P Cabg X 3 Bilateral Carotid Artery Stenosis Atherosclerosis of [place] Coronary Artery of [place] Heart With Angina Pectoris (Hcc) Peripheral Artery Disease (Hcc) Mild Atherosclerosis of Carotid Artery, Bilateral Weakness of Left Leg Edema of Foot Fatigue Vitamin D Deficiency Dyslipidemia Abdominal Aortic Aneurysm (Aaa) Without Rupture (Hcc) Current Outpatient Medications Medication Sig Dispense Refill cilostazol (PLETAL) 100 mg tablet Take 1 tablet by mouth twice daily. 60 tablet 5 metoprolol tartrate, short acting, (LOPRESSOR) 100 mg tablet Take 0.5 tablets by mouth twice daily. 60 tablet 3 pravastatin (PRAVACHOL) 10 mg tablet Take 1 tablet by mouth daily at bedtime. 90 tablet 2 clopidogrel (PLAVIX) 75 mg tablet Take 1 tablet by mouth once daily. 90 tablet 3 ezetimibe (ZETIA) 10 mg tablet Take 1 tablet by mouth once daily. 90 tablet 3 amLODIPine (NORVASC) 10 mg tablet Take 1 tablet by mouth once daily. 90 tablet 3 aspirin, enteric coated (ASPIRIN, ENTERIC COATED) 81 mg EC tablet Take 81 mg by mouth once daily. acetaminophen (TYLENOL) 325 mg tablet Take 2 tablets by mouth every 6 hours as needed. MULTIVITAMIN/IRON/FOLIC ACID (CENTRUM COMPLETE ORAL) Take by mouth. No current facility-administered medications for this visit. OBJECTIVE: BP 110/68 Pulse 60 Temp 36.9 ?C (98.5 ?F) Resp 18 SpO2 96% General Appearance: Well appearing, alert, in no acute distress, well-hydrated, well nourished.. Skin: Skin color, texture, turgor normal, no suspicious rashes or lesions. Head: Normocephalic, no masses, lesions, tenderness or abnormalities. Eyes: Anicteric sclera. Pupils are equally round and reactive to light. Extraocular movements are intact. . Ears: External ears normal, canals clear. Normal TMs bilaterally. Nose/Sinuses: Nares normal, septum midline, mucosa normal, no drainage or sinus tenderness. Oropharynx: Lips, mucosa, and tongue normal, teeth and gums normal, oropharynx normal. Neck: Supple, no adenopathy; thyroid symmetric, normal size, no bruits. Lungs: coarse rales left base. Heart: RRR without murmur, gallop, or rubs. No ectopy. Neurologic: Gait normal. ASSESSMENT/PLAN: 1. Acute cough - ICD9: 786.2, ICD10: R05.1 Concern for possible LLL pneumonia. Will start doxy and get chest xray. Continue coricidin or mucinex. Stay well hydrated. - XR CHEST 2V FRONTAL/LAT - DOXYCYCLINE HYCLATE 100 MG TABLET Discussed treatment plan and patient voices understanding. Patient's questions answered appropriately. Medications and potential side effects were discussed and patient voices understanding. Return to the office as scheduled or as needed for worsening/no improvement. Naima Luu APRN.JOHN [facility] 05-27-2023 Instructions Naima Luu APRN.JOHN - 05/27/2023 3:40 PM EDT Get the xray. Start the doxycycline -- one pill twice daily X 10 days. Stay well hydrated. Home going instructions for Viral Upper Respiratory Infections In General: - Drink lots of fluids - at least one gallon of non-caffeinated liquids per day - Make sure you are eating well - Get plenty of rest - at least 8 hours of sleep per night for adults - ibuprofen 600mg every 8 hours as needed for discomfort - acetaminophen 500mg every 4-6 hours as needed for fever and discomfort. - may alternate ibuprofen and acetaminophen For nasal congestion try: -Vaporizers, Neti Pot, humidifiers, hot showers, and hot fluids help open respiratory and sinus passages. - [place] Nasal [place] may offer relief of nasal and head congestion 2-3 times per day as needed. - Sudafed is a safe and effective decongestant for people who do not have high blood pressure. Do not take Sudafed if you have ever been told that you have high blood pressure or hypertension. General dosing guidelines: Immediate release: 60 mg every 4-6 hours; Extended release: 120 mg every 12 hours or 240 mg every 24 hours; maximum: 240 mg/24 hours. For Sore Throat try: - Salt water gargles every 2-3 hours as needed for discomfort - Chloraceptic spray or throat lozenges (Cepacol) For Cough and chest congestion try one of the following: - Mucinex or Robitussin are expectorants. You may take 200-400 mg every 4 hours to a not to exceed 2,400 mg/day OR Extended release tablet: 600-1200 mg every 12 hours, not to exceed 2,400 mg/day - Delsym is a cough suppressant: Oral: 10-20 mg every 4 hours or 30 mg every 6-8 hours OR Extended release: 60 mg twice daily; maximum: 120 mg/day - If you have high blood pressure or hypertension it is safe to take Coricidin HBP Cough & Cold. If you smoke it is advised that you quit smoking. CONTACT YOUR DOCTOR IF: You have fevers for longer than five days or a fever more than 102 degrees You are still sick after 10 days After several days you are getting worse rather than better 4. You develop nausea, vomiting, diarrhea, or a rash. Go to the ER if you - experience pressure or pain in your chest - experience difficulty swallowing - experience difficulty breathing Follow up in 7-10 days or before if your symptoms get worse. documented in this encounter [facility] 05-27-2023 History of Present illness Narrative 78 year old male with c/o URI sx over the last 3 days with: Sore throat: Yes. Runny/stuffy nose: No. Postnasal drip: No. Throat clearing: Yes. Sinus pain/ pressure: No. Teeth pain: No. Headache occasionally. Body aches No. Ear pain: No. Cough: Yes. Production: Yes. -- yellow-green. Fever: No. Hx asthma No. Hx pneumonia Yes. Smoker: Yes. OTC meds tried: coricidin. ACTIVE PROBLEM LIST Scrotal Mass Benign Prostatic Hyperplasia With Lower Urinary Tract Symptoms Epididymitis Presence of Bare Metal Stent in Right Coronary Artery Pad (Peripheral Artery Disease) (Hcc) Hypercholesterolemia Tobacco Abuse History of Melanoma Essential Hypertension Pain, Joint, Multiple Sites Myalgia Abnormal Ankle Brachial Index (Rita) Subclavian Artery Stenosis (Hcc) Atherosclerosis of Right Carotid Artery Atherosclerosis of Left Carotid Artery Cad (Coronary Artery Disease) S/P Cabg X 3 Bilateral Carotid Artery Stenosis Atherosclerosis of [place] Coronary Artery of [place] Heart With Angina Pectoris (Hcc) Peripheral Artery Disease (Hcc) Mild Atherosclerosis of Carotid Artery, Bilateral Weakness of Left Leg Edema of Foot Fatigue Vitamin D Deficiency Dyslipidemia Abdominal Aortic Aneurysm (Aaa) Without Rupture (Hcc) Current Outpatient Medications Medication Sig Dispense Refill cilostazol (PLETAL) 100 mg tablet Take 1 tablet by mouth twice daily. 60 tablet 5 metoprolol tartrate, short acting, (LOPRESSOR) 100 mg tablet Take 0.5 tablets by mouth twice daily. 60 tablet 3 pravastatin (PRAVACHOL) 10 mg tablet Take 1 tablet by mouth daily at bedtime. 90 tablet 2 clopidogrel (PLAVIX) 75 mg tablet Take 1 tablet by mouth once daily. 90 tablet 3 ezetimibe (ZETIA) 10 mg tablet Take 1 tablet by mouth once daily. 90 tablet 3 amLODIPine (NORVASC) 10 mg tablet Take 1 tablet by mouth once daily. 90 tablet 3 aspirin, enteric coated (ASPIRIN, ENTERIC COATED) 81 mg EC tablet Take 81 mg by mouth once daily. acetaminophen (TYLENOL) 325 mg tablet Take 2 tablets by mouth every 6 hours as needed. MULTIVITAMIN/IRON/FOLIC ACID (CENTRUM COMPLETE ORAL) Take by mouth. No current facility-administered medications for this visit. OBJECTIVE: BP 110/68 Pulse 60 Temp 36.9 C (98.5 F) Resp 18 SpO2 96% General Appearance: Well appearing, alert, in no acute distress, well-hydrated, well nourished.. Skin: Skin color, texture, turgor normal, no suspicious rashes or lesions. Head: Normocephalic, no masses, lesions, tenderness or abnormalities. Eyes: Anicteric sclera. Pupils are equally round and reactive to light. Extraocular movements are intact. . Ears: External ears normal, canals clear. Normal TMs bilaterally. Nose/Sinuses: Nares normal, septum midline, mucosa normal, no drainage or sinus tenderness. Oropharynx: Lips, mucosa, and tongue normal, teeth and gums normal, oropharynx normal. Neck: Supple, no adenopathy; thyroid symmetric, normal size, no bruits. Lungs: coarse rales left base. Heart: RRR without murmur, gallop, or rubs. No ectopy. Neurologic: Gait normal. ASSESSMENT/PLAN: 1. Acute cough - ICD9: 786.2, ICD10: R05.1 Concern for possible LLL pneumonia. Will start doxy and get chest xray. Continue coricidin or mucinex. Stay well hydrated. - XR CHEST 2V FRONTAL/LAT - DOXYCYCLINE HYCLATE 100 MG TABLET Discussed treatment plan and patient voices understanding. Patient's questions answered appropriately. Medications and potential side effects were discussed and patient voices understanding. Return to the office as scheduled or as needed for worsening/no improvement. Naima Luu APRN.JOHN documented in this encounter [facility] 04-24-2023 Miscellaneous Notes Left VM to re-schedule. Offer to move appt from 07/03/23 back to 06/05/23. 9:30 am if agreeable. documented in this encounter [facility] 01-14-2023 Miscellaneous Notes Patient has been identified by name and date of : Yes Requested Prescriptions Pending Prescriptions Disp Refills metoprolol tartrate, short acting, (LOPRESSOR) 100 mg tablet 60 tablet 3 Sig: Take 0.5 tablets by mouth twice daily. pravastatin (PRAVACHOL) 10 mg tablet 90 tablet 2 Sig: Take 1 tablet by mouth daily at bedtime. LAMAR-11/29/22 Labs-11/21/22 NOV-06/02/23 Patient asking for 90 days refill. RX INSTRUCTIONS: Patient aware RX will be sent to pharmacy. No need to notify patient. Adriane Fernandes documented in this encounter [facility] 11-29-2022 History of Present illness Narrative CC: Porfirio Devi is a 77 year old male who presents to the office for 6 months follow up HPI: Significant peripheral arterial disease. Has been seen in the past by Dr. Canela for stent procedure to left leg (more significant disease than right leg) and also been seen by Dr. Blackburn, whom is a vascular surgeon at [facility] and is seeing her every 3-6 months for testing and follow up- recently seen in Oct 2022 and had repeat US testing- no changes made. She states that he doesn't currently have a lot of surgical options to help with the distal occlusive disease in his left leg arteries since the stent was placed above the bifurcation of the lower limb arteries. She started him on Pletal for his leg cramping with ambulation and he is taking plavix. Medications have been tolerated and he does feel the Pletal has helped his leg cramping with exertional symptoms. 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 Blackburn vascular surgeon Recently had covid 19 and influenza infection back to back in Oct, symptoms mostly resolved other than mild fatigue and mild clear sputum production. No fevers or chills, no new dyspnea. PAST MEDICAL HISTORY Diagnosis Date AAA (abdominal aortic aneurysm) Arthritis Basal cell carcinoma of neck Dr. Arie Scott [employer] Operator Carotid artery stenosis Coronary artery disease stent, Dr. Andrade Lifestyle Director Heart attack (HCC) Hyperlipemia Hypertension Malignant melanoma of chest wall (HCC) Dr. 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 Canela COLONOSCOPY FLX DX W/COLLJ SPEC WHEN PFRMD 12/26/2017 Colonoscopy COLONOSCOPY FLX DX W/COLLJ SPEC WHEN PFRMD 03/20/2021 EYE SURGERY HX cataracts bilateral eyes HEART SURGERY HX PAST SURGICAL HISTORY OF 2009 malignant tumor pectoral muscle left side PAST SURGICAL HISTORY OF 2010 Basal cell right neck PAST SURGICAL HISTORY OF 1977 amputated index finger left hand PAST SURGICAL HISTORY OF Left 04/06/2019 Dr. Pam Canela; Abd pelvic LLE arteriogram. L superficial femoral cros angioplasty. L superficial femoral stenting x2 SKIN BIOPSY HX STENT PLACEMENT 2003 heart VASCULAR SURGERY PROCEDURE Current Outpatient Medications Medication Sig cilostazol (PLETAL) 100 mg tablet Take 1 tablet by mouth twice daily. clopidogrel (PLAVIX) 75 mg tablet Take 1 tablet by mouth once daily. ezetimibe (ZETIA) 10 mg tablet Take 1 tablet by mouth once daily. amLODIPine (NORVASC) 10 mg tablet Take 1 tablet by mouth once daily. pravastatin (PRAVACHOL) 10 mg tablet Take 1 tablet by mouth daily at bedtime. metoprolol tartrate, short acting, (LOPRESSOR) 100 mg tablet Take 0.5 tablets by mouth twice daily. acetaminophen (TYLENOL) 325 mg tablet Take 2 tablets by mouth every 6 hours as needed. MULTIVITAMIN/IRON/FOLIC ACID (CENTRUM COMPLETE ORAL) Take by mouth. aspirin, enteric coated (ASPIRIN, ENTERIC COATED) 81 mg EC tablet Take 81 mg by mouth once daily. No current facility-administered medications for this visit. ALLERGIES Allergen Reactions Codeine Other: See Comments Disturbing dreams Lipitor [Atorvastat* Myalgia Severe arthralgias or myalgia Penicillins Hives, Itching Sweats-severe Bhqfwkv-Kvw-Vgl Red* Myalgia Severe myalgia Social History Tobacco Use Smoking status: Former Packs/day: 1.00 Types: Cigarettes Quit date: 04/17/2017 Years since quittin.6 Smokeless tobacco: Never Vaping Use Vaping Use: Never used Substance Use Topics Alcohol use: No Drug use: No ROS: See HPI PE: BP 110/60 Pulse 60 Temp (Src) 98 (Left Tympanic) Resp 16 Wt 165 lb (74.8kg) Gen: A&O, NAD, non-toxic appearing, Pleasant, cooperative HEENT: NT/AC, PERRLA, EOMs intact b/l, wearing mask secondary to covid 19 pandemic, EACs without erythema or debris. TMs pearly magana with intact landmarks b/l. Neck: supple, No cervical LAD, no thyromegaly, no carotid bruits CV: RRR, normal S1 and S2, no murmurs, no gallops, no rubs, Pulses diminished to 1+ and symmetric in UE and LE b/l Lungs: normal respiratory effort, CTA b/l, no wheezing or rhonchi or rales Abd: soft, NT, ND, +BS, no hepatosplenomegaly MS: FROM all 4 extremities Neuro: CN II-XII intact b/l, strength 5/5 b/l UE and LE, DTRs 2/4 UE and LE, sensation intact. Skin: warm, dry, intact, No rashes or lesions on exposed skin. No edema ASSESSMENT/PLAN: 1. PAD (peripheral artery disease) (HCC) - ICD9: 443.9, ICD10: I73.9 (primary diagnosis) Stable, lipids are much improved with zetia and statin therapy, continue same exercise and follow up with Vascular it operations specialist 2. Subclavian artery stenosis (HCC) - ICD9: 447.1, ICD10: I77.1 Stable, lipids are much improved with zetia and statin therapy, continue same exercise and follow up with Vascular it operations specialist 3. Peripheral artery disease (HCC) - ICD9: 443.9, ICD10: I73.9 Stable, lipids are much improved with zetia and statin therapy, continue same exercise and follow up with Vascular it operations specialist 4. Atherosclerosis of [place] coronary artery of [place] heart with angina pectoris (HCC) - ICD9: 414.01, 413.9, ICD10: I25.119 Stable, lipids are much improved with zetia and statin therapy, continue same exercise and follow up with Vascular it operations specialist 5. Hypercholesterolemia - ICD9: 272.0, ICD10: E78.00 Stable, lipids are much improved with zetia and statin therapy, continue same exercise and follow up with Vascular it operations specialist 6. Dyslipidemia - ICD9: 272.4, ICD10: E78.5 - good control - Continue current medication. - Encouraged following a low fat, low cholesterol diet. - Discussed the benefits of regular aerobic exercise and weight loss. 7. Essential hypertension - ICD9: 401.9, ICD10: I10 - good control - Continue current medication(s) - Encouraged dietary sodium restriction/DASH diet - Recommended regular aerobic exercise. - Recommend home blood pressure monitoring, to bring results in on next visit - Goal of BP <130/80 8. Vitamin D deficiency - ICD9: 268.9, ICD10: E55.9 Continue supplement Andrea Bishop DO Return if no improvement. Follow up with Andrea Bishop DO. To ER if develops chest pain, shortness of breath Discussed risks, benefits, alternatives, and potential side effects of medications. Patient/Guardian expressed understanding and agreed with the plan. See patient instructions. Andrea Bishop DO [address] [place] [address] documented in this encounter [facility] 10-24-2022 History of Present illness Narrative Porfirio Devi is a 77 year old male here for follow up evaluation of his peripheral vascular disease. He was last seen 04/11/2022. He is also seen for carotid stenosis and AAA. Pts history includes: Dr Canela placed 7x200 stents x 2 from the L [employer] through the L popliteal artery on 03/2019. This was done for claudication. The pt had a pre-procedure RITA of 0.65. While this initially improved his symptoms and he was able to walk his normal 1-3 miles at a time, his stents have gone down within a year and his symptoms have returned. unfortunately his L stent covers both his profunda as well as his popliteal. He understands that if the profunda occludes, he could be at risk for limb loss. The pt has had his L gsv harvested for a CABG. He had a pvr 10/16/22 that showed: R 0.69 that drops to 0.42 with exercise and L 0.66 that drops to 0 with exercise. A year ago his R was 0.82 that dropped to 0.34 with exercise and his L was essentially the same. He continues to have symptoms of claudication, but they are relatively unchanged. He denies rest pain and tissue loss. 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 He recently had covid and then the flu, so he hasn't been out much, but plans to resume soon. He did not have a repeat US, but his last US showed AAA to be 3.2 cm, so he doesn't need one for another year or two. His carotid US showed R 40-59% stenosis and L 60-79% stenosis. This is similar to the year prior. He denies sx of tia or stroke which were again reviewed. He knows to call or go to the ED should he develop these, or it could lead to stroke. The patient is following the walking program. We again reviewed the walking program and the importance of it. The pt was instructed to walk at least 30-50 min 3-5 times a week, to walk until the pain is too severe, to rest, and then to continue. They understand that following this can significantly increase their walking distance. We discussed the importance of good foot care, examining feet, keeping them clean and dry, and wearing good shoes. The patient understands that development of sores or lesions could put the limb at risk for amputation. We again discussed the nature of the disease, natural history, risk of amputation, and importance of preventative measures. His prior surgery includes: PAST SURGICAL HISTORY Procedure Laterality Date APPENDECTOMY APPENDECTOMY HX CABG (3) VEIN GRAFTS & ARTERIAL GRAFT(S) 12/28/2018 COLONOSCOPY 11/2016 tubulovillous adenoma- Dr. Canela COLONOSCOPY FLX DX W/COLLJ SPEC WHEN PFRMD 12/26/2017 Colonoscopy COLONOSCOPY FLX DX W/COLLJ SPEC WHEN PFRMD 03/20/2021 EYE SURGERY HX cataracts bilateral eyes HEART SURGERY HX PAST SURGICAL HISTORY OF 2009 malignant tumor pectoral muscle left side PAST SURGICAL HISTORY OF 2009 Basal cell right neck PAST SURGICAL HISTORY OF 1977 amputated index finger left hand PAST SURGICAL HISTORY OF Left 04/06/2019 Dr. Pam Canela; Abd pelvic LLE arteriogram. L superficial femoral cros angioplasty. L superficial femoral stenting x2 SKIN BIOPSY HX STENT PLACEMENT 2003 heart VASCULAR SURGERY PROCEDURE HISTORIES: PAST MEDICAL HISTORY Diagnosis Date AAA (abdominal aortic aneurysm) Arthritis Basal cell carcinoma of neck Dr. Arie Scott [employer] Press Operator Carotid artery stenosis Coronary artery disease stent, Dr. Andrade Lifestyle Director Heart attack (HCC) Hyperlipemia Hypertension Malignant melanoma of chest wall (HCC) Dr. Arie Scott [employer] Press Operator Peripheral arterial disease (HCC) S/P CABG x 3 12/28/2018 Sleep apnea PAST SURGICAL HISTORY Procedure Laterality Date APPENDECTOMY APPENDECTOMY HX CABG (3) VEIN GRAFTS & ARTERIAL GRAFT(S) 12/28/2018 COLONOSCOPY 11/2016 tubulovillous adenoma- Dr. Canela COLONOSCOPY FLX DX W/COLLJ SPEC WHEN PFRMD 12/26/2017 Colonoscopy COLONOSCOPY FLX DX W/COLLJ SPEC WHEN PFRMD 03/20/2021 EYE SURGERY HX cataracts bilateral eyes HEART SURGERY HX PAST SURGICAL HISTORY OF 2009 malignant tumor pectoral muscle left side PAST SURGICAL HISTORY OF 2009 Basal cell right neck PAST SURGICAL HISTORY OF 1977 amputated index finger left hand PAST SURGICAL HISTORY OF Left 04/06/2019 Dr. Pam Canela; Abd pelvic LLE arteriogram. L superficial femoral cros angioplasty. L superficial femoral stenting x2 SKIN BIOPSY HX STENT PLACEMENT 2004 heart VASCULAR SURGERY PROCEDURE Social History Tobacco Use Smoking status: Former Packs/day: 1.00 Types: Cigarettes Quit date: 04/17/2017 Years since quittin.5 Smokeless tobacco: Never Vaping Use Vaping Use: Never used Substance Use Topics Alcohol use: No Drug use: No MEDICATIONS: Current Outpatient Medications Medication Sig Dispense Refill cilostazol (PLETAL) 100 mg tablet Take 1 tablet by mouth twice daily. 60 tablet 5 clopidogrel (PLAVIX) 75 mg tablet Take 1 tablet by mouth once daily. 90 tablet 3 ezetimibe (ZETIA) 10 mg tablet Take 1 tablet by mouth once daily. 90 tablet 3 amLODIPine (NORVASC) 10 mg tablet Take 1 tablet by mouth once daily. 90 tablet 3 pravastatin (PRAVACHOL) 10 mg tablet Take 1 tablet by mouth daily at bedtime. 90 tablet 2 metoprolol tartrate, short acting, (LOPRESSOR) 100 mg tablet Take 0.5 tablets by mouth twice daily. 60 tablet 3 aspirin, enteric coated (ASPIRIN, ENTERIC COATED) 81 mg EC tablet Take 81 mg by mouth once daily. acetaminophen (TYLENOL) 325 mg tablet Take 2 tablets by mouth every 6 hours as needed. MULTIVITAMIN/IRON/FOLIC ACID (CENTRUM COMPLETE ORAL) Take by mouth. No current facility-administered medications for this visit. ALLERGIES: ALLERGIES Allergen Reactions Codeine Other: See Comments Disturbing dreams Lipitor [Atorvastat* Myalgia Severe arthralgias or myalgia Penicillins Hives, Itching Sweats-severe Szltujr-Htj-Tfy Red* Myalgia Severe myalgia PHYSICAL EXAM: PHYSICAL EXAMINATION: General appearance: Well appearing, alert, in no acute distress, well-hydrated, well nourished. Skin: Skin color, texture, turgor normal, no suspicious rashes or lesions Head: Normocephalic, no abnormalities Lungs: Breathing unlabored on RA Heart: Abdomen: Extremities: No deformities, edema, skin discoloration, clubbing or cyanosis. No palpable mass or aneurysm in popliteal fossa. Good capillary refill. Musculoskeletal: No joint swelling, deformity, or tenderness Peripheral pulses: not palpable Neuro: Gait normal, sensation grossly in tact Tissue loss: none ASSESSMENT: Peripheral Vascular Occlusive Disease: Porfirio is having optimal management of their atherosclerotic disease including antiplatelet therapy and statin therapy and if he is not we are recommending that he be seen by his primary care doctor for addition of appropriate therapy. The patient and his family were asked if they had any questions and the questions were answered to the patient and his family's satisfaction. PLAN: Asa, statin, pletal, plavix Repeat carotid US in 1 year Repeat aortic US in 2 years. The pt will continue to practice good foot care. The patient will attempt to adhere to an exercise program. FOLLOW UP: 6 months Danya Blackburn MD I spent 25 minutes in the visit, with more than 50% of the total cqrl-fb-rauc time of the visit in counseling / coordination of care. documented in this encounter [facility] 05-29-2022 History of Present illness Narrative CC: Porfirio Devi is a 77 year old male who presents to the office for follow up HPI: Significant peripheral arterial disease. Has been seen by Dr. Canela for stent procedure to left leg (more significant disease than right leg) and also been seen by Dr. Blackburn, whom is a vascular surgeon at [facility] and is seeing her every 3-6 months for testing and follow up. She states that he doesn't currently have a lot of surgical options to help with the distal occlusive disease in his left leg arteries since the stent was placed above the bifurcation of the lower limb arteries. She started him on Pletal for his leg cramping with ambulation and he is taking plavix. Has had some mild bruising of skin of forearms, otherwise no large bruises or bleeding episodes. Medications have been tolerated and he does feel the Pletal has helped his leg cramping with exertional symptoms. 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 CAD, no recent chest pressure or pain or dyspnea or palpitations, taking his medications as prescribed Dyslipidemia, tolerating statin therapy Carotid artery stenosis, continues follow up with Dr. Blackburn vascular surgeon PAST MEDICAL HISTORY Diagnosis Date Arthritis Basal cell carcinoma of neck Dr. Arie Scott [employer] Carotid artery stenosis Coronary artery disease stent, Dr. Andrade Lifestyle Director Heart attack (HCC) Hyperlipemia Hypertension Malignant melanoma of chest wall (HCC) Dr. Arie Scott [employer] Operator Peripheral arterial disease (HCC) S/P CABG x 3 12/28/2018 Sleep apnea PAST SURGICAL HISTORY Procedure Laterality Date APPENDECTOMY APPENDECTOMY HX CABG (3) VEIN GRAFTS & ARTERIAL GRAFT(S) 12/28/2018 COLONOSCOPY 11/2016 tubulovillous adenoma- Dr. Canela COLONOSCOPY FLX DX W/COLLJ SPEC WHEN PFRMD 12/26/2017 Colonoscopy COLONOSCOPY FLX DX W/COLLJ SPEC WHEN PFRMD 03/20/2021 EYE SURGERY HX cataracts bilateral eyes HEART SURGERY HX PAST SURGICAL HISTORY OF 2009 malignant tumor pectoral muscle left side PAST SURGICAL HISTORY OF 2009 Basal cell right neck PAST SURGICAL HISTORY OF 1977 amputated index finger left hand PAST SURGICAL HISTORY OF Left 04/06/2019 Dr. Pam Canela; Abd pelvic LLE arteriogram. L superficial femoral cros angioplasty. L superficial femoral stenting x2 SKIN BIOPSY HX STENT PLACEMENT 2003 heart VASCULAR SURGERY PROCEDURE Current Outpatient Medications Medication Sig clopidogrel (PLAVIX) 75 mg tablet Take 1 tablet by mouth once daily. ezetimibe (ZETIA) 10 mg tablet Take 1 tablet by mouth once daily. amLODIPine (NORVASC) 10 mg tablet Take 1 tablet by mouth once daily. pravastatin (PRAVACHOL) 10 mg tablet Take 1 tablet by mouth daily at bedtime. metoprolol tartrate, short acting, (LOPRESSOR) 100 mg tablet Take 0.5 tablets by mouth twice daily. aspirin, enteric coated (ASPIRIN, ENTERIC COATED) 81 mg EC tablet Take 81 mg by mouth once daily. cilostazol (PLETAL) 100 mg tablet Take 1 tablet by mouth twice daily. acetaminophen (TYLENOL) 325 mg tablet Take 2 tablets by mouth every 6 hours as needed. MULTIVITAMIN/IRON/FOLIC ACID (CENTRUM COMPLETE ORAL) Take by mouth. No current facility-administered medications for this visit. ALLERGIES Allergen Reactions Codeine Other: See Comments Disturbing dreams Lipitor [Atorvastat* Myalgia Severe arthralgias or myalgia Penicillins Hives, Itching Sweats-severe Qengdjb-Cgi-Bal Red* Myalgia Severe myalgia Social History Tobacco Use Smoking status: Former Smoker Packs/day: 1.00 Types: Cigarettes Quit date: 04/17/2017 Years since quittin.1 Smokeless tobacco: Never Used Vaping Use Vaping Use: Never used Substance Use Topics Alcohol use: No Drug use: No ROS: See HPI PE: BP 106/78 Pulse 60 Temp (Src) 96.4 (Left Tympanic) Resp 16 Wt 167 lb (75.8kg) Gen: A&O, NAD, non-toxic appearing, Pleasant, cooperative HEENT: NT/AC, PERRLA, EOMs intact b/l, wearing mask secondary to covid 19 pandemic, EACs without erythema or debris. TMs pearly magana with intact landmarks b/l. Neck: supple, No cervical LAD, no thyromegaly, no carotid bruits CV: RRR, normal S1 and S2, no murmurs, no gallops, no rubs, Pulses diminished to 1+ and symmetric in UE and LE b/l Lungs: normal respiratory effort, CTA b/l, no wheezing or rhonchi or rales Abd: soft, NT, ND, +BS, no hepatosplenomegaly MS: FROM all 4 extremities Neuro: CN II-XII intact b/l, strength 5/5 b/l UE and LE, DTRs 2/4 UE and LE, sensation intact. Skin: warm, dry, intact, No rashes or lesions on exposed skin. No edema ASSESSMENT/PLAN: 1. Dyslipidemia - ICD9: 272.4, ICD10: E78.5 (primary diagnosis) - to be determined upon return of lab results - Continue current medication. - Encouraged following a low fat, low cholesterol diet. - Discussed the benefits of regular aerobic exercise and weight loss. - LIPID PANEL BASIC - COMP METABOLIC PANEL - CBC 2. PAD (peripheral artery disease) (HCC) - ICD9: 443.9, ICD10: I73.9 - rx refilled, stable - EZETIMIBE 10 MG TABLET - PARKING FOR HANDICAPPED 3. Hypercholesterolemia - ICD9: 272.0, ICD10: E78.00 - rx refilled, stable, recheck labs as ordered, f/u with vascular surgeon - EZETIMIBE 10 MG TABLET - PARKING FOR HANDICAPPED 4. Atherosclerosis of [place] coronary artery of [place] heart with angina pectoris (HCC) - ICD9: 414.01, 413.9, ICD10: I25.119 - rx refilled, stable, recheck labs as ordered, f/u with vascular surgeon - EZETIMIBE 10 MG TABLET - PARKING FOR HANDICAPPED 5. Weakness of left leg - ICD9: 729.89, ICD10: R29.898 - rx refilled, stable, recheck labs as ordered, f/u with vascular surgeon - EZETIMIBE 10 MG TABLET - PARKING FOR HANDICAPPED 6. Vitamin D deficiency - ICD9: 268.9, ICD10: E55.9 Continue supplement - VITAMIN D 25 HYDROXY 7. Essential hypertension - ICD9: 401.9, ICD10: I10 - good control - Continue current medication(s) - Encouraged dietary sodium restriction/DASH diet - Recommended regular aerobic exercise. - Recommend home blood pressure monitoring, to bring results in on next visit - Goal of BP <130/80 - COMP METABOLIC PANEL - CBC 8. Screening for prostate cancer - ICD9: V76.44, ICD10: Z12.5 - Counseled on healthy diet and regular exercise - PSA/PROSTSPECAG SCRN 9. Benign prostatic hyperplasia with lower urinary tract symptoms, symptom details unspecified - ICD9: 600.01, ICD10: N40.1 - PSA/PROSTSPECAG SCRN Andrea Bishop DO Return if no improvement. Follow up with Andrea Bishop DO. To ER if develops chest pain, shortness of breath Discussed risks, benefits, alternatives, and potential side effects of medications. Patient/Guardian expressed understanding and agreed with the plan. See patient instructions. Andrea Bishop DO [address] [place] [address] documented in this encounter [facility] 05-21-2022 Miscellaneous Notes Patient has been identified by name and date of : Yes Pending Prescriptions Disp Refills PRAVASTATIN 10 MG TABLET Sig: Take 1 tablet by mouth daily at bedtime. DARA: No LAMAR-11/28/21 Labs-11/28/21 NOV-05/28/22 RX INSTRUCTIONS: patient completely out last dose 05/19 Patient aware RX will be sent to pharmacy. No need to notify patient. Maryam Mcgowan Pss documented in this encounter [facility] 05-16-2022 Miscellaneous Notes Patient has been identified by name and date of : Yes Pending Prescriptions Disp Refills METOPROLOL TARTRATE 100 MG TABLET 60 tablet 3 Sig: Take 0.5 tablets by mouth twice daily. DARA: No LAMAR-11/28/21 Labs-11/28/21 NOV-05/28/22 RX INSTRUCTIONS: Patient aware RX will be sent to pharmacy. No need to notify patient. Airam Sánchez Pss documented in this encounter [facility] 04-11-2022 History of Present illness Narrative Porfirio Devi is a 76 year old male here for follow up evaluation of his peripheral vascular disease. He was last seen 09/28/2021. He is also seen for carotid disease. Pts history includes: Dr Canela placed 7x200 stents x 2 from the L [employer] through the L popliteal artery on 03/2019. This was done for claudication. The pt had a pre-procedure RITA of 0.65. While this initially improved his symptoms and he was able to walk his normal 1-3 miles at a time, his stents have gone down within a year and his symptoms have returned. unfortunately his L stent covers both his profunda as well as his popliteal. He understands that if the profunda occludes, he could be at risk for limb loss. The pt has had his L gsv harvested for a CABG. The pt is referred back for claudication. 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 He doesn't smoke. The plan at our last visit was for PVR, pletal, asa, statin, carotid US and abdominal US. He had a carotid US done 10/10/21 that showed: R 40-59% stenosis, L 60-79% stenosis His abdominal US showed aorta of 3.2 cm done on 10/10/21. His PVR done 10/10/21 showed: R 0.82 that dropped to 0.34 and L 0.66 that dropped to 0. Today, he is doing about the same. 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 He is still on the pletal. His symptoms haven't changed a ton since the initial improvement. He still has claudication in his L calf at 50-75 yards that resolves relatively quickly in a few minutes. He has no wounds or rest pain. I am seeing his tomorrow for an iliac stent. We again reviewed the walking program and the importance of it. The pt was instructed to walk at least 30-50 min 3-5 times a week, to walk until the pain is too severe, to rest, and then to continue. They understand that following this can significantly increase their walking distance. We discussed the importance of good foot care, examining feet, keeping them clean and dry, and wearing good shoes. The patient understands that development of sores or lesions could put the limb at risk for amputation. We again discussed the nature of the disease, natural history, risk of amputation, and importance of preventative measures. In addition, he denies s/sx of tia or stroke which were reviewed. He understands he should call or go to the ED should he develop s/sx of tia or stroke. His prior surgery includes: PAST SURGICAL HISTORY Procedure Laterality Date APPENDECTOMY APPENDECTOMY HX CABG (3) VEIN GRAFTS & ARTERIAL GRAFT(S) 12/28/2018 COLONOSCOPY 11/2016 tubulovillous adenoma- Dr. Canela COLONOSCOPY FLX DX W/COLLJ SPEC WHEN PFRMD 12/26/2017 Colonoscopy COLONOSCOPY FLX DX W/COLLJ SPEC WHEN PFRMD 03/20/2021 EYE SURGERY HX cataracts bilateral eyes HEART SURGERY HX PAST SURGICAL HISTORY OF 2009 malignant tumor pectoral muscle left side PAST SURGICAL HISTORY OF 2009 Basal cell right neck PAST SURGICAL HISTORY OF 1977 amputated index finger left hand PAST SURGICAL HISTORY OF Left 04/06/2019 Dr. aPm Canela; Abd pelvic LLE arteriogram. L superficial femoral cros angioplasty. L superficial femoral stenting x2 SKIN BIOPSY HX STENT PLACEMENT 2003 heart VASCULAR SURGERY PROCEDURE HISTORIES: PAST MEDICAL HISTORY Diagnosis Date Arthritis Basal cell carcinoma of neck Dr. Arie Scott [employer] Carotid artery stenosis Coronary artery disease stent, Dr. Andrade Lifestyle Director Heart attack (HCC) Hyperlipemia Hypertension Malignant melanoma of chest wall (HCC) Dr. Arie Scott [employer] Operator Peripheral arterial disease (HCC) S/P CABG x 3 12/28/2018 Sleep apnea PAST SURGICAL HISTORY Procedure Laterality Date APPENDECTOMY APPENDECTOMY HX CABG (3) VEIN GRAFTS & ARTERIAL GRAFT(S) 12/28/2018 COLONOSCOPY 11/2016 tubulovillous adenoma- Dr. Canela COLONOSCOPY FLX DX W/COLLJ SPEC WHEN PFRMD 12/26/2017 Colonoscopy COLONOSCOPY FLX DX W/COLLJ SPEC WHEN PFRMD 03/20/2021 EYE SURGERY HX cataracts bilateral eyes HEART SURGERY HX PAST SURGICAL HISTORY OF 2009 malignant tumor pectoral muscle left side PAST SURGICAL HISTORY OF 2009 Basal cell right neck PAST SURGICAL HISTORY OF 1977 amputated index finger left hand PAST SURGICAL HISTORY OF Left 04/06/2019 Dr. Pam Canela; Abd pelvic LLE arteriogram. L superficial femoral cros angioplasty. L superficial femoral stenting x2 SKIN BIOPSY HX STENT PLACEMENT 2003 heart VASCULAR SURGERY PROCEDURE Social History Tobacco Use Smoking status: Former Smoker Packs/day: 1.00 Types: Cigarettes Quit date: 04/17/2017 Years since quittin.9 Smokeless tobacco: Never Used Vaping Use Vaping Use: Never used Substance Use Topics Alcohol use: No Drug use: No MEDICATIONS: Current Outpatient Medications Medication Sig Dispense Refill aspirin, enteric coated (ASPIRIN, ENTERIC COATED) 81 mg EC tablet Take 81 mg by mouth once daily. cilostazol (PLETAL) 100 mg tablet Take 1 tablet by mouth twice daily. 180 tablet 3 metoprolol tartrate, short acting, (LOPRESSOR) 100 mg tablet Take 0.5 tablets by mouth twice daily. 60 tablet 3 clopidogrel (PLAVIX) 75 mg tablet Take 1 tablet by mouth once daily. 90 tablet 3 ezetimibe (ZETIA) 10 mg tablet Take 1 tablet by mouth once daily. 90 tablet 3 amLODIPine (NORVASC) 10 mg tablet Take 1 tablet by mouth once daily. 90 tablet 3 pravastatin (PRAVACHOL) 10 mg tablet Take 1 tablet by mouth daily at bedtime. acetaminophen (TYLENOL) 325 mg tablet Take 2 tablets by mouth every 6 hours as needed. MULTIVITAMIN/IRON/FOLIC ACID (CENTRUM COMPLETE ORAL) Take by mouth. No current facility-administered medications for this visit. ALLERGIES: ALLERGIES Allergen Reactions Codeine Other: See Comments Disturbing dreams Lipitor [Atorvastat* Myalgia Severe arthralgias or myalgia Penicillins Hives, Itching Sweats-severe Kafbrvh-Eyg-Mda Red* Myalgia Severe myalgia PHYSICAL EXAM: PHYSICAL EXAMINATION: General appearance: Well appearing, alert, in no acute distress, well-hydrated, well nourished. Skin: Skin color, texture, turgor normal, no suspicious rashes or lesions Head: Normocephalic, no abnormalities Lungs: Breathing unlabored on RA Heart: RRR Abdomen: Extremities: No deformities, edema, skin discoloration, clubbing or cyanosis. Good capillary refill. Musculoskeletal: No joint swelling, deformity, or tenderness Peripheral pulses: decreased Neuro: Gait normal, sensation grossly in tact Pulses: R DP weakly audible PT audible L DP audible PT very weakly audible Tissue loss: none ASSESSMENT: Peripheral Vascular Occlusive Disease, AAA, carotid senosis: Porfirio is having optimal management of their atherosclerotic disease including antiplatelet therapy and statin therapy and if he is not we are recommending that he be seen by his primary care doctor for addition of appropriate therapy. The patient has a full discussion of the risks, benefits, and alternatives, as well as medical management versus interventional management versus open surgical management of their disease. At this point in time, given Porfirio's symptoms all of these are discussed with regard to their appropriateness in this setting. The patient and his family were asked if they had any questions and the questions were answered to the patient and his family's satisfaction. PLAN: Continue asa, statin, pletal Walking program The pt will continue to practice good foot care. The patient will attempt to adhere to an exercise program. Repeat carotid US in 6 months with office visit Repeat aortic US in 3-5 years Will follow pvr based on sx at this time Call or return if a wound develops FOLLOW UP: 6 months Danya Blackburn MD The patient is currently taking a statin: Yes The patient is currently taking aspirin: Yes I spent 25 minutes in the visit, with more than 50% of the total eyke-hp-rcnt time of the visit in counseling / coordination of care. documented in this encounter [facility] 03-16-2022 Miscellaneous Notes Pt notified and verbalized understanding. Dominique Read Ma Please have him start on Keflex as below, if pain worsens or redness worsens or loses sensation to toe etc, he needs to go to the EMERGENCY DEPARTMENT Andrea Bishop DO The following approved medication requests have been transmitted electronically. Signed Prescriptions Disp Refills cephALEXin (KEFLEX) 500 mg capsule 40 capsule 0 Sig: Take 1 capsule by mouth four times daily for 10 days. DARA: No Authorizing Provider: ANDREA BISHOP DO Patient calling he said he has PAD and having issues with his left great toe red, swollen and tender. got on the phone and said his PCP usually gives him an antibiotic rx to clear this up. Patient [facility] his [facility]. Please advise documented in this encounter [facility] documented as of this encounter (statuses as of 03/16/2022) [facility] History of Past illness Narrative* Problem Noted Date Resolved Date Acute renal insufficiency 05/10/20192021 Atherosclerosis of [place] co ronary artery of [place] heart with angina pectoris 05/10/2019 05/24/2020 Malnutrition of moderate degree 12/29/2018 05/24/2020 Peripheral artery disease 11/27/20182019 Atherosclerosis of coronary artery of [place] heart with angina pectoris 11/28/2017 05/24/2020 Hypertension 11/28/2014 12/05/2015 documented as of this encounter (statuses as of 03/20/2022) [facility] History of Past illness Narrative* Problem Noted Date Resolved Date Acute renal insufficiency 05/10/20192021 Atherosclerosis of [place] co ronary artery of [place] heart with angina pectoris 05/10/2019 05/24/2020 Malnutrition of moderate degree 12/29/2018 05/24/2020 Peripheral artery disease 11/27/20182019 Atherosclerosis of coronary artery of [place] heart with angina pectoris 11/28/2017 05/24/2020 Hypertension 11/28/2014 12/05/2015 documented as of this encounter (statuses as of 04/11/2022) [facility] History of Past illness Narrative* Problem Noted Date Resolved Date Acute renal insufficiency 05/10/20192021 Atherosclerosis of [place] co ronary artery of [place] heart with angina pectoris 05/10/2019 05/24/2020 Malnutrition of moderate degree 12/29/2018 05/24/2020 Peripheral artery disease 11/27/20182019 Atherosclerosis of coronary artery of [place] heart with angina pectoris 11/28/2017 05/24/2020 Hypertension 11/28/2014 12/05/2015 documented as of this encounter (statuses as of 05/16/2022) [facility] History of Past illness Narrative* Problem Noted Date Resolved Date Acute renal insufficiency 05/10/20192021 Atherosclerosis of [place] co ronary artery of [place] heart with angina pectoris 05/10/2019 05/24/2020 Malnutrition of moderate degree 12/29/2018 05/24/2020 Peripheral artery disease 11/27/20182019 Atherosclerosis of coronary artery of [place] heart with angina pectoris 11/28/2017 05/24/2020 Hypertension 11/28/2014 12/05/2015 documented as of this encounter (statuses as of 05/22/2022) [facility] of Past illness Narrative* Problem Noted Date Resolved Date Acute renal insufficiency 05/10/20192021 Atherosclerosis of [place] co ronary artery of [place] heart with angina pectoris 05/10/2019 05/24/2020 Malnutrition of moderate degree 12/29/2018 05/24/2020 Peripheral artery disease 11/27/20182019 Atherosclerosis of coronary artery of [place] heart with angina pectoris 11/28/2017 05/24/2020 Hypertension 11/28/2014 12/05/2015 documented as of this encounter (statuses as of 05/29/2022) [facility] of Past illness Narrative* Problem Noted Date Resolved Date Acute renal insufficiency 05/10/20192021 Atherosclerosis of [place] co ronary artery of [place] heart with angina pectoris 05/10/2019 05/24/2020 Malnutrition of moderate degree 12/29/2018 05/24/2020 Peripheral artery disease 11/27/20182019 Atherosclerosis of coronary artery of [place] heart with angina pectoris 11/28/2017 05/24/2020 Hypertension 11/28/2014 12/05/2015 documented as of this encounter (statuses as of 08/01/2022) [facility] of Past illness Narrative* Problem Noted Date Resolved Date Acute renal insufficiency 05/10/20192021 Atherosclerosis of [place] co ronary artery of [place] heart with angina pectoris 05/10/2019 05/24/2020 Malnutrition of moderate degree 12/29/2018 05/24/2020 Peripheral artery disease 11/27/20182019 Atherosclerosis of coronary artery of [place] heart with angina pectoris 11/28/2017 05/24/2020 Hypertension 11/28/2014 12/05/2015 documented as of this encounter (statuses as of 08/21/2022) [facility] of Past illness Narrative* Problem Noted Date Resolved Date Acute renal insufficiency 05/10/20192021 Atherosclerosis of [place] co ronary artery of [place] heart with angina pectoris 05/10/2019 05/24/2020 Malnutrition of moderate degree 12/29/2018 05/24/2020 Peripheral artery disease 11/27/20182019 Atherosclerosis of coronary artery of [place] heart with angina pectoris 11/28/2017 05/24/2020 Hypertension 11/28/2014 12/05/2015 documented as of this encounter (statuses as of 10/01/2022) [facility] History of Past illness Narrative* Problem Noted Date Resolved Date Acute renal insufficiency 05/10/20192021 Atherosclerosis of [place] co ronary artery of [place] heart with angina pectoris 05/10/2019 05/24/2020 Malnutrition of moderate degree 12/29/2018 05/24/2020 Peripheral artery disease 11/27/20182019 Atherosclerosis of coronary artery of [place] heart with angina pectoris 11/28/2017 05/24/2020 Hypertension 11/28/2014 12/05/2015 documented as of this encounter (statuses as of 10/24/2022) [facility] History of Past illness Narrative* Problem Noted Date Resolved Date Acute renal insufficiency 05/10/20192021 Atherosclerosis of [place] co ronary artery of [place] heart with angina pectoris 05/10/2019 05/24/2020 Malnutrition of moderate degree 12/29/2018 05/24/2020 Peripheral artery disease 11/27/20182019 Atherosclerosis of coronary artery of [place] heart with angina pectoris 11/28/2017 05/24/2020 Hypertension 11/28/2014 12/05/2015 documented as of this encounter (statuses as of 11/29/2022) [facility] History of Past illness Narrative* Problem Noted Date Resolved Date Acute renal insufficiency 05/10/20192021 Atherosclerosis of [place] co ronary artery of [place] heart with angina pectoris 05/10/2019 05/24/2020 Malnutrition of moderate degree 12/29/2018 05/24/2020 Peripheral artery disease 11/27/20182019 Atherosclerosis of coronary artery of [place] heart with angina pectoris 11/28/2017 05/24/2020 Hypertension 11/28/2014 12/05/2015 documented as of this encounter (statuses as of 01/15/2023) [facility] History of Past illness Narrative* Problem Noted Date Resolved Date Acute renal insufficiency 05/10/20192021 Atherosclerosis of [place] co ronary artery of [place] heart with angina pectoris 05/10/2019 05/24/2020 Malnutrition of moderate degree 12/29/2018 05/24/2020 Peripheral artery disease 11/27/20182019 Atherosclerosis of coronary artery of [place] heart with angina pectoris 11/28/2017 05/24/2020 Hypertension 11/28/2014 12/05/2015 documented as of this encounter (statuses as of 04/24/2023) [facility] of Past illness Narrative* Problem Noted Date Diagnosed Date Resolved Date Acute renal insufficiency 05/10/2019 Atherosclerosis of [place] co ronary artery of [place] heart with angina pectoris 05/10/20192019 Malnutrition of moderate degree 12/29/2018 05/24/2020 Peripheral artery disease 11/27/2018 Atherosclerosis of coronary artery of [place] heart with angina pectoris 11/28/2017 05/24/2020 Hypertension 11/28/2014 12/05/2015 documented as of this encounter (statuses as of 05/28/2023) [facility] of Past illness Narrative* Problem Noted Date Diagnosed Date Resolved Date Acute renal insufficiency 05/10/2019 Atherosclerosis of [place] co ronary artery of [place] heart with angina pectoris 05/10/20192019 Malnutrition of moderate degree 12/29/2018 05/24/2020 Peripheral artery disease 11/27/2018 Atherosclerosis of coronary artery of [place] heart with angina pectoris 11/28/2017 05/24/2020 Hypertension 11/28/2014 12/05/2015 documented as of this encounter (statuses as of 06/03/2023) [facility] of Past illness Narrative* Problem Noted Date Diagnosed Date Resolved Date Acute renal insufficiency 05/10/2019 Atherosclerosis of [place] co ronary artery of [place] heart with angina pectoris 05/10/20192019 Malnutrition of moderate degree 12/29/2018 05/24/2020 Peripheral artery disease 11/27/2018 Atherosclerosis of coronary artery of [place] heart with angina pectoris 11/28/2017 05/24/2020 Hypertension 11/28/2014 12/05/2015 documented as of this encounter (statuses as of 06/05/2023) [facility] of Past illness Narrative* Problem Noted Date Diagnosed Date Resolved Date Acute renal insufficiency 05/10/2019 Atherosclerosis of [place] co ronary artery of [place] heart with angina pectoris 05/10/20192019 Malnutrition of moderate degree 12/29/2018 05/24/2020 Peripheral artery disease 11/27/2018 Atherosclerosis of coronary artery of [place] heart with angina pectoris 11/28/2017 05/24/2020 Hypertension 11/28/2014 12/05/2015 documented as of this encounter (statuses as of 10/06/2023) [facility] Diagnosis PAD (peripheral artery disease) (HCC)- Primary Peripheral vascular disease, unspecified Atherosclerosis of [place] artery of both lower extremities with intermittent claudication (HCC) Atherosclerosis of [place] arteries of the extremities with intermittent claudication Carotid stenosis, asymptomatic, bilateral AAA (abdominal aortic aneurysm) without rupture (HCC) Abdominal aneurysm without mention of rupture [facility] Diagnosis Dyslipidemia- Primary Other and unspecified hyperlipidemia PAD (peripheral artery disease) (HCC) Peripheral vascular disease, unspecified Hypercholesterolemia Pure hypercholesterolemia Atherosclerosis of [place] coronary artery of [place] heart with angina pectoris (HCC) Weakness of left leg Other musculoskeletal symptoms referable to limbs Vitamin D deficiency Unspecified vitamin D deficiency Essential hypertension Unspecified essential hypertension Screening for prostate cancer Special screening for malignant neoplasm of prostate Benign prostatic hyperplasia with lower urinary tract symptoms, symptom details unspecified [facility] Diagnosis PAD (peripheral artery disease) (HCC)- Primary Peripheral vascular disease, unspecified Atherosclerosis of [place] artery of both lower extremities with intermittent claudication (HCC) Atherosclerosis of [place] arteries of the extremities with intermittent claudication [facility] Diagnosis PAD (peripheral artery disease) (HCC)- Primary Peripheral vascular disease, unspecified Atherosclerosis of [place] artery of both lower extremities with intermittent claudication (HCC) Atherosclerosis of [place] arteries of the extremities with intermittent claudication [facility] Diagnosis PVD (peripheral vascular disease) (HCC)- Primary Peripheral vascular disease, unspecified Abdominal aortic aneurysm (AAA) without rupture, unspecified part Carotid stenosis, asymptomatic, bilateral [facility] Diagnosis PAD (peripheral artery disease) (HCC)- Primary Peripheral vascular disease, unspecified Subclavian artery stenosis (HCC) Stricture of artery Peripheral artery disease (HCC) Peripheral vascular disease, unspecified Atherosclerosis of [place] coronary artery of [place] heart with angina pectoris (HCC) Hypercholesterolemia Pure hypercholesterolemia Dyslipidemia Other and unspecified hyperlipidemia Essential hypertension Unspecified essential hypertension Vitamin D deficiency Unspecified vitamin D deficiency Hyperglycemia Other abnormal glucose [facility] Acute cough- Primary [facility] Diagnosis Dyslipidemia- Primary Other and unspecified hyperlipidemia PAD (peripheral artery disease) (HCC) Peripheral vascular disease, unspecified Hypercholesterolemia Pure hypercholesterolemia Atherosclerosis of [place] coronary artery of [place] heart with angina pectoris (HCC) Acute cough Essential hypertension Unspecified essential hypertension Peripheral artery disease (HCC) Peripheral vascular disease, unspecified Vitamin D deficiency Unspecified vitamin D deficiency Screening for prostate cancer Special screening for malignant neoplasm of prostate Fatigue, unspecified type [facility] Diagnosis Atherosclerosis of [place] artery of both lower extremities with intermittent claudication (HCC)- Primary Atherosclerosis of [place] arteries of the extremities with intermittent claudication Abdominal aortic aneurysm (AAA) without rupture, unspecified part (HCC) PVD (peripheral vascular disease) (HCC) Peripheral vascular disease, unspecified Carotid stenosis, asymptomatic, bilateral PAD (peripheral artery disease) (HCC) Peripheral vascular disease, unspecified documented in this encounter [facility] for referral (narrative)* Outpatient Procedure (Routine) - Pending Review Specialty Diagnoses / Procedures Referred By Contac t Referred To Contact [facility] Diagnoses Carotid stenosis, asymptomatic, bilateral Procedures US CAROTID ARTERIES MEÑO VAS LAB DUPLEX SCAN EXTRACRANIAL ART COMPL BI STUDY Danya Blackburn MD [address] [facility] [address] [place] [address] [facility] [address] [address] Referral ID Status Reason Start Date Expiration Date Visits Requested Visits Authorized [id number] Pending Review Auto-Generat ed Referral 04/11/2023 1 1 * Outpatient Procedure (Routine) - Pending Review Specialty Diagnoses / Procedures Referred By Contac t Referred To Contact [facility] Diagnoses AAA (abdominal aortic aneurysm) without rupture ([facility]) Procedures US ABD AORTA COMPLETE VAS LAB DUP-SCAN AORTA IVC ILIAC VASCL/BPGS COMPLETE Danya Blackburn MD [facility] [address] [place] [address] [facility] [address] [address] Referral ID Status Reason Start Date Expiration Date Visits Requested Visits Authorized [id number] Pending Review Auto-Generat ed Referral 04/11/2022 04/11/2023 1 1 [facility] for referral (narrative)* Outpatient Procedure (Routine) - Pending Review Specialty Diagnoses / Procedures Referred By Contac t Referred To Contact [facility] Diagnoses PAD (peripheral artery disease) (HCC) Atherosclerosis of [place] artery of both lower extremities with intermittent claudication (HCC) Procedures PVR LEG MEÑO VAS LAB NON-INVASIVE PHYSIOLOGIC STUDY EXTREMITY 3 Ra 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 [address] [place] [address] [facility] [place] [address] Referral ID Status Reason Start Date Expiration Date Visits Requested Visits Authorized [id number] Pending Review Auto-Generat ed Referral 2 09/30/2023 1 1 [facility] Summary Purpose Family History No Family History Records FoundNo Family History Records FoundNo Family History Records Found Advance Directives No Advanced Directives Records FoundDocuments on File Type Date Recorded Patient Education Manager Expl anation Advance Directive(s) 03/20/2021 6:52 AM Advance Directive(s) 03/06/2021 9:27 AM Advance Directive(s) 12/24/2018 2:41 PM Advance Directive(s) 12/26/2017 9:08 AM Advance Directive(s) 12/11/2016 12:56 PM Latest Code Status on File Code Status Date Activated Date Inactivated Comments Full Code 12/28/2018 3:38 PM 01/02/2019 3:17 PM Full Code Order Discussed With: Patient Full Code 12/22/2018 8:18 PM 12/28/2018 3:09 PM Documents on File Type Date Recorded Patient Education Manager Expl anation Advance Directive(s) 03/20/2021 6:52 AM Advance Directive(s) 03/06/2021 9:27 AM Advance Directive(s) 12/24/2018 2:41 PM Advance Directive(s) 12/26/2017 9:08 AM Advance Directive(s) 12/11/2016 12:56 PM Latest Code Status on File Code Status Date Activated Date Inactivated Comments Full Code 12/28/2018 3:38 PM 01/02/2019 3:17 PM Full Code 12/22/2018 8:18 PM 12/28/2018 3:09 PM Latest Code Status on File Code Status Date Activated Date Inactivated Comments Full Code 12/28/2018 3:38 PM 01/02/2019 3:17 PM Question Answer Comments Full Code Order Discussed With: Patient Code Status History Code Status Date Activated Date Inactivated Comments Full Code 12/22/2018 8:18 PM 12/28/2018 3:09 PM Question Answer Comments Full Code Order Discussed With: Patient Additional Source Comments (unrecognized sect ion and content) No Status Records FoundNo Status Records FoundNo Status Records Found INFORMATION SOURCE (unrecogn ized section and content) DATE CREATED AUTHOR AUTHOR'S ORGANIZ ATION 10/26/2023 [facility] DATE CREATED AUTHOR AUTHOR'S ORGANIZ ATION 12/03/2023 [facility] Source Comments (unrecognize d section and content) In the event this informatio n is protected by the Federal Confidentiality of Alcohol and Drug Abuse Patient Records regulations: The Federal rules restrict any use of the information to criminally investigate or prosecute any alcohol or drug abuse patient.[facility] the event this information is protected by the Federal Confidentiality of Alcohol and Drug Abuse Patient Records regulations: The Federal rules restrict any use of the information to criminally investigate or prosecute any alcohol or drug abuse patient.[facility] the event this information is protected by the Federal Confidentiality of Alcohol and Drug Abuse Patient Records regulations: The Federal rules restrict any use of the information to criminally investigate or prosecute any alcohol or drug abuse patient.[facility] the event this information is protected by the Federal Confidentiality of Alcohol and Drug Abuse Patient Records regulations: The Federal rules restrict any use of the information to criminally investigate or prosecute any alcohol or drug abuse patient.[facility] the event this information is protected by the Federal Confidentiality of Alcohol and Drug Abuse Patient Records regulations: The Federal rules restrict any use of the information to criminally investigate or prosecute any alcohol or drug abuse patient.[facility] the event this information is protected by the Federal Confidentiality of Alcohol and Drug Abuse Patient Records regulations: The Federal rules restrict any use of the information to criminally investigate or prosecute any alcohol or drug abuse patient.[facility] the event this information is protected by the Federal Confidentiality of Alcohol and Drug Abuse Patient Records regulations: The Federal rules restrict any use of the information to criminally investigate or prosecute any alcohol or drug abuse patient.[facility] the event this information is protected by the Federal Confidentiality of Alcohol and Drug Abuse Patient Records regulations: The Federal rules restrict any use of the information to criminally investigate or prosecute any alcohol or drug abuse patient.[facility] the event this information is protected by the Federal Confidentiality of Alcohol and Drug Abuse Patient Records regulations: The Federal rules restrict any use of the information to criminally investigate or prosecute any alcohol or drug abuse patient.[facility] the event this information is protected by the Federal Confidentiality of Alcohol and Drug Abuse Patient Records regulations: The Federal rules restrict any use of the information to criminally investigate or prosecute any alcohol or drug abuse patient.[facility] the event this information is protected by the Federal Confidentiality of Alcohol and Drug Abuse Patient Records regulations: The Federal rules restrict any use of the information to criminally investigate or prosecute any alcohol or drug abuse patient.[facility] the event this information is protected by the Federal Confidentiality of Alcohol and Drug Abuse Patient Records regulations: The Federal rules restrict any use of the information to criminally investigate or prosecute any alcohol or drug abuse patient.[facility] Center[facility] the event this information is protected by the Federal Confidentiality of Alcohol and Drug Abuse Patient Records regulations: The Federal rules restrict any use of the information to criminally investigate or prosecute any alcohol or drug abuse patient.[facility] the event this information is protected by the Federal Confidentiality of Alcohol and Drug Abuse Patient Records regulations: The Federal rules restrict any use of the information to criminally investigate or prosecute any alcohol or drug abuse patient.[facility] the event this information is protected by the Federal Confidentiality of Alcohol and Drug Abuse Patient Records regulations: The Federal rules restrict any use of the information to criminally investigate or prosecute any alcohol or drug abuse patient.[facility] the event this information is protected by the Federal Confidentiality of Alcohol and Drug Abuse Patient Records regulations: The Federal rules restrict any use of the information to criminally investigate or prosecute any alcohol or drug abuse patient.[facility] Center[facility] the event this information is protected by the Federal Confidentiality of Alcohol and Drug Abuse Patient Records regulations: The Federal rules restrict any use of the information to criminally investigate or prosecute any alcohol or drug abuse patient.[facility] Reason for Visit (unrecogniz ed section and content) Reason Comments Peripheral Vascular Disease (PVD) Porfirio is here for 3 month follow up Carotid artery stenosis Reason Onset Date Comments Refill Request 05/16/2022 Reason Onset Date Comments Refill Request 05/21/2022 Reason Comments 6 Month Exam Reason Comments Peripheral Vascular Disease (PVD) Aneurysm Carotid artery stenosis Don is here to r eview testing Reason Onset Date Comments Refill Request 01/14/2023 Reason Comments Appointment Appointment Reason Comments Acute Visit Sore throat, chest c ongestion, productive cough, chills (no fever per pt) x2-3 days Reason Comments Peripheral Vascular Disease (PVD) Porfirio is here for follow up Reason Onset Date Comments Refill Request 10/04/2023 Care Teams (unrecognized sec tion and content) Corrections Corporal Relationship Specialty Start Date End Date Andrea Bishop DO [address] [place] [address] PCP - General Family Practice 11/16/14 Adal, Lenin S [address] [place] [address] Cardiology 01/07/19 Yohan Canela MD [address] [place] [address] General Surgery 04/14/20 Corrections Corporal Relationship Specialty Start Date End Date Andrea Bishop, DO [address] [place] [address] PCP - General Family Practice 11/16/14 Adal, Lenin S [address] [place] [address] Cardiology 01/07/19 Yohan Canela MD [address] [place] [address] General Surgery 04/14/20 Corrections Corporal Relationship Specialty Start Date End Date Andrea Bishop, DO [address] [place] [address] PCP - General Family Practice 11/16/14 Adal, Smithton S [address] [place] [address] Cardiology 01/07/19 Yohan Canela MD [address] [place] [address] General Surgery 04/14/20 Corrections Corporal Relationship Specialty Start Date End Date Andrea iBshop, DO [address] [place] [address] PCP - General Family Practice 11/16/14 Adal, Lenin S [address] [place] [address] Cardiology 01/07/19 Yohan Canela MD [address] [place] [address] General Surgery 04/14/20 Corrections Corporal Relationship Specialty Start Date End Date Andrea Bishop, DO [address] [place] [address] PCP - General Family Practice 11/16/14 Adal, Lenin S [address] [place] [address] Cardiology 01/07/19 Yohan Canela MD [address] [place] [address] General Surgery 04/14/20 Corrections Corporal Relationship Specialty Start Date End Date Andrea Bishop, DO [address] [place] [address] PCP - General Family Medicine 11/16/14 Adal, Smith[place] S [address] [place] [address] Cardiology 01/07/19 Yohan Canela MD [address] [place] [address] General Surgery 04/14/20 Corrections Corporal Relationship Specialty Start Date End Date Andrea Bishop, DO [address] [place] [address] PCP - General Family Medicine 11/16/14 Adal, Lenin S [address] [place] [address] Cardiology 01/07/19 Yohan Canela MD [address] [place] [address] General Surgery 04/14/20 Corrections Corporal Relationship Specialty Start Date End Date Andrea Bishop, DO [address] [place] [address] PCP - General Family Medicine 11/16/14 Adal, Smith[place] S [address] [place] [address] Cardiology 01/07/19 Yohan Canela MD [address] [place] [address] General Surgery 04/14/20 Corrections Corporal Relationship Specialty Start Date End Date Andrea Bishop, DO [address] [place] [address] PCP - General Family Medicine 11/16/14 Adal, Lenin S [address] [place] [address] Cardiology 01/07/19 Yohan Canela MD [address] [place] [address] General Surgery 04/14/20 Corrections Corporal Relationship Specialty Start Date End Date Andrea Bishop, DO [address] [place] [address] PCP - General Family Medicine 11/16/14 Adal, Smith[place] S [address] [place] [address] Cardiology 01/07/19 Yohan Canela MD [address] [place] [address] General Surgery 04/14/20 Corrections Corporal Relationship Specialty Start Date End Date Andrea Bishop DO [address] [facility] [place] [address] PCP - General Family Medicine 11/16/14 Lenin Galeas [address] [place] [address] Cardiology 01/07/19 Yohan Canela MD [address] [place] [address] General Surgery 04/14/20 Corrections Corporal Relationship Specialty Start Date End Date Andrea Bishop DO [address] [facility] [place] [address] PCP - General Family Medicine 11/16/14 Lenin Galeas [address] [place] [address] Cardiology 01/07/19 Yohan Canela MD [address] [place] [address] General Surgery 04/14/20 Corrections Corporal Relationship Specialty Start Date End Date Andrea Bishop DO [address] [facility] [place] [address] PCP - General Family Medicine 11/16/14 Lenin Galeas MD [address] [place] [address] Cardiology 01/07/19 Yohan Canela MD [address] [place] [address] General Surgery 04/14/20 FOR RECORDS PERTAINING TO PATIENTS WHO ARE OR HAVE BEEN ENROLLED IN A CHEMICAL DEPENDENCY/SUBSTANCEABUSE PROGRAM, SOME INFORMATION MAY BE OMITTED. This clinical summary was aggregated from multiple sources. Caution should be exercised in using it in the provision of clinical care. This summary normalizes information from multiple sources, and as a consequence, information in this document may materially change the coding, format and clinical context of patient data. In addition, data may be omitted in some cases. CLINICAL DECISIONS SHOULD BE BASED ON THE PRIMARY CLINICAL RECORDS. [employer] provides no warranty or guarantee of the accuracy or completeness of information in this document.
[2023-12-09 15:51] LABS: Anion Gap 6 (5-15); BUN 15 mg/dL (7-18); BUN/Creat Ratio 11.3 RATIO (10-20); Calcium,Total 9.1 mg/dL (8.5-10.1); Chloride 112 mmol/L (98-107); Creatinine, Serum 1.33 mg/dL (0.70-1.30); EST Glomerular Filtration Rate 56 mL/min (>60); Est Glom Filt Rate - Afr Amer 67 mL/min (>60); Glucose 129 mg/dL (74-106); Potassium 3.3 mmol/L (3.5-5.1); Sodium Level 142 mmol/L (136-145)
[2023-12-09] MEDS: Potassium Chloride Oral Tablet 20 MEQ 40 MEQ PO (16:17)
[2023-12-09 16:29] VITALS: BP 121/74; PULSE 73; RESP 16; O2SAT 97
== END 2023-12-09 16:30 | disposition home or self-care (01) ==
PROVIDERS: Emergency Provider Emergency Medicine; PCP Student in an Organized Health Care Education/Training Program; Visit Provider Emergency Medicine
DX: R00.2 Palpitations (principal); E87.6 Hypokalemia; I25.2 Old myocardial infarction; Z87.891 Personal history of nicotine dependence; Z95.5 Presence of coronary angioplasty implant and graft; Z95.1 Presence of aortocoronary bypass graft
CPT/HCPCS: 80048; 85025; 93005; 99284; A4216

== ENCOUNTER → 2024-08-25 | Outpatient (CLI) | payer MEDICARE, SELFPAY ==
--- NOTE | 2024-08-25 16:24 | STRESSREP ---
Stress Test Report Pharmacologic myocardial perfusion stress test. 79-year-old man with a history of coronary artery disease Resting EKG demonstrates sinus bradycardia with a rate of 58 bpm. Resting blood pressure is 118/70 mmHg. 0.4 mg of regadenoson was infused per usual protocol followed by rapid intravenous saline flush injection. Continuous EKG monitoring was performed. The maximum heart rate was 85 bpm which was 59% of max impacted heart rate the maximum workload was 1 metabolic equivalent. At rest there were no ST or T wave changes noted to suggest ischemia and at peak infusion nonspecific ST changes were noted which did not meet the criteria for ischemia. No clinical angina is noted. The final blood pressure was 112/62 mmHg. Myocardial perfusion protocol. 11.3 mCi of technetium 99m sestamibi was injected at rest. 0.4 mg of regadenoson was infused per usual protocol. At peak infusion 33.9 mCi of technetium 99m sestamibi was injected stress images were obtained stress and rest images were reconstructed and compared in the short axis vertical long and horizontal long axis. Gated images were also obtained. Perfusion SPECT analysis: Review of the stress images demonstrate normal uptake of tracer noted in all areas of the myocardium. The resting images similar demonstrated normal uptake of tracer noted in all areas of the myocardium. No areas of reversibility are noted to suggest ischemia and no previous infarct is noted. Gated SPECT analysis: The gated ejection fraction is 62%. Conclusion: Normal pharmacologic myocardial perfusion stress test. Preserved ejection fraction.
== END | disposition home or self-care (01) ==
PROVIDERS: PCP Student in an Organized Health Care Education/Training Program; Referring Provider Nurse Practitioner Gerontology; Visit Provider Nurse Practitioner Gerontology
DX: I25.10 Atherosclerotic heart disease of native coronary artery without angina pectoris (principal); Z95.1 Presence of aortocoronary bypass graft
CPT/HCPCS: 78452; 93017; A9500; A4216; J2785

== ENCOUNTER 2024-09-17 11:02 | Emergency (ER) | payer MEDICARE, SELFPAY ==
[2024-09-17] VITALS (9 sets, daily range): BP systolic 117–140; BP diastolic 68–85; PULSE 63–73; RESP 16–42; TEMP 35.9–36.6; O2SAT 92–99; BMI 26.1
--- NOTE | 2024-09-17 11:16 | EKG12_ITS ---
Test Reason : SOB Blood Pressure : */* mmHG Vent. Rate : 59 BPM Atrial Rate : 59 BPM P-R Int : 164 ms QRS Dur : 78 ms QT Int : 424 ms P-R-T Axes : 28 10 60 degrees QTcB Int : 419 ms Sinus bradycardia with occasional Premature ventricular complexes Otherwise normal ECG Confirmed by ANABELA SIDDIQUI MD ([id number]), staff editor KAREL HASSAN ([id number]) on 09/20/2024 9:28:22 AM Also confirmed by ANABELA SIDDIQUI MD ([id number]), staff editor KAREL HASSAN ([id number]) on 09/20/2024 9:33:03 AM Referred By: Dakota Sheridan Confirmed By: ANABELA SIDDIQUI MD
--- NOTE | 2024-09-17 11:16 | RAD_ITS ---
STUDY: X-RAY CHEST REASON FOR EXAM: Male, 79 years old. Cough and shortness of breath. TECHNIQUE: PA and lateral views of the chest. COMPARISON: Comparison is made with prior study of December 18, 2018. FINDINGS: EKG electrodes are seen. Hyperinflation. There is no demonstrated pleural abnormality. Sternal cerclage wires and vascular clips are present from a prior sternotomy and coronary artery bypass graft procedure (CABG). Normal mediastinum and bishop. Normal visualized pulmonary arteries. Normal visualized aortic arch and descending thoracic aorta. Normal visualized thoracic spine. There is degenerative osteoarthritis of the bilateral shoulders. There is no demonstrated abnormality of the visualized soft tissue structures of the upper abdomen. RAD/Chest PA and Lateral IMPRESSION: Hyperinflation. The lungs are clear. Electronically Signed: Saad Rosenberg MD at 12:36 EDT ,
--- NOTE | 2024-09-17 11:18 | EX.ED.DYSGE1 ---
HPI <FREDIS Pennington - Last Filed: 09/17/24 14:07> History of Present Illness Chief Complaint: Shortness of Breath Narrative Narrative: Patient is a 79-year-old male with history of CAD, history of SD who presents to the emergency department for 7 days of worsening cough and shortness of breath. Patient states over the last 2 to 3 days, has been fevered, chilled, he states that he went to the clinic today, and secondary to his tachypnea, he was referred to the emergency department. Patient states that he does bring up some white foamy sputum. Patient complains of pain all over. 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) Essential (primary) hypertension Bradycardia Mixed hyperlipidemia Atherosclerosis of [place] coronary artery of [place] heart without angina pectoris Palpitations Peripheral arterial occlusive disease Malignant melanoma Basal cell carcinoma Home Medications ?Medication ?Instructions ?Recorded ?Last Taken ?Type ezetimibe 10 mg tablet 10 mg PO DAILY 12/04/18 Unknown History safyaqoa-ea-roiyw 300 mcg-K 60 1 tab PO DAILY 12/04/18 Unknown History mcg-lycop 600 mcg-lutein 300 mcg tablet (Centrum Silver Ultra Men's) clopidogrel 75 mg tablet 75 mg PO DAILY #90 tabs 04/03/20 Unknown Rx amlodipine 10 mg tablet 10 mg PO DAILY #90 tabs 06/06/20 Unknown Rx cilostazol 100 mg tablet 100 mg PO BID 08/24/20 Unknown History pravastatin 10 mg tablet 10 mg PO QHS #90 tabs 05/03/21 Unknown Rx metoprolol tartrate 100 mg tablet 25 mg PO BID 30 days #15 tabs 08/14/23 Unknown History nitroglycerin 0.4 mg sublingual 0.4 mg sublingual Q5-15M PRN chest 08/12/24 Unknown Rx tablet pain #25 tabs albuterol sulfate 2.5 mg/0.5 mL 2.5 mg (0.5 mL) inhalation Q4H PRN 09/17/24 Unknown Rx solution for nebulization shortness of breath or wheezing #30 ea albuterol sulfate 90 mcg/actuation 1 - 2 puff inhalation Q4H PRN PRN 09/17/24 Unknown Rx aerosol inhaler (Ventolin HFA) Wheezing 2 weeks #6.7 grams Allergy/AdvReac Type Severity Reaction Status Date / Time Penicillins Allergy Mild rash Verified 08/12/24 10:15 amlodipine AdvReac Mild ED Verified 08/12/24 10:15 exacerbation ramipril AdvReac cough Verified 08/12/24 10:15 [id number]-RUN-[id number] Reductase AdvReac myalgias Verified 08/12/24 10:15 Inhibitor (Jvlynrm-Txe-Ubv Reductase Inhibitor) Family History (Reviewed 08/12/24 @ 10:11 by Radha Ruiz FOREIGN COLLECTION CLERK, FOREIGN COLLECTION CLERK-C) Father Heart disease Hypertension Mother CVA (cerebral vascular accident) Brother Heart disease Hypertension Myocardial infarction Brother Hypertension Myocardial infarction Brother Heart disease Myocardial infarction Surgical History History of angioplasty of peripheral vessel (03/2019) hx of APLL H/O coronary artery bypass surgery (12/28/18) History of left heart catheterization (12/22/18) History of coronary artery stent placement (05/2003) History of cataract extraction (2015) history of melanoma removal History of amputation of finger History of colonoscopy (2015) History of appendectomy Social History Smoking Status: Former smoker ROS <RFEDIS Pennington - Last Filed: 09/17/24 14:07> ROS ED ROS Narrative Constitutional: Negative for weight loss, weakness. Positive fever and chills Eyes: Negative for vision loss, vision change, double vision ENT: Negative for any sore throat, ear pain, congestion Cardiovascular: Negative for any chest pain, tightness, palpitations Respiratory: Negative for any hemoptysis. Positive for cough, white sputum production, dyspnea, dyspnea on exertion, Gastrointestinal: Negative for any abdominal pain, nausea, vomiting, diarrhea, constipation, blood in stool, blood in vomit : Negative for any urinary frequency, dysuria, retention, blood in urine Muscle skeletal: Negative for any neck pain, back pain Neurological: Negative for any headache, syncope, dizziness Skin: Negative for any rashes, itching, abrasions, lacerations Psychiatric: Negative for any depression, anxiety, stress, suicidal ideation, homicidal ideation Hematologic: Negative for any excessive bruising, easy bleeding EXAM <FREDIS Pennington - Last Filed: 09/17/24 14:07> Physical Exam Narrative Exam Narrative: Vital signs reviewed. Patient looks slightly uncomfortable, tachypneic, harsh cough. Patient is nontoxic looking, vital signs are stable. HEET: Head normocephalic atraumatic, TMs clear bilaterally. Posterior pharynx is clear, dry mucous membranes. Nares clear bilaterally. Neck: Supple with no lymphadenopathy or tenderness. No signs of meningismus. Cardiac: Regular rate and rhythm no murmurs gallops or rubs, equal peripheral pulses bilaterally. Respiratory: Patient has diminished lung sounds of the right lower lobe, rhonchorous breath sounds the left lower lobe.. No chest tenderness. Abdomen: Soft, nontender, nondistended. No abdominal bruit or pulsatile masses. No hepatosplenomegaly Extremities: No peripheral edema, no signs of gross trauma or deformity. Active full range of motion of all extremities. Neuro: Cranial nerves II through XII intact, no focal neurological deficits. Skin: Clean dry and intact with no rash, purpura, petechiae, vesicles or pustules. Backs/flank: No CVA tenderness, no midline spinal tenderness, no deformity. Psych: Normal mood and affect. No SI, HI or acute psychosis. Const Vital Signs: 09/17/24 11:03 09/17/24 11:05 09/17/24 11:13 Temperature 96.6 F L 97.8 F Temperature Source Temporal Oral Pulse Rate 66 68 Respiratory Rate 42 H 25 H Respiratory Effort Short of Breath Respiratory Depth Shallow Respiratory Pattern Tachypnea Blood Pressure 140/68 H 131/71 H Blood Pressure Mean 92 91 Pulse Ox 94 94 Oxygen Delivery Method Room Air Room Air Room Air 09/17/24 11:16 09/17/24 11:37 09/17/24 12:03 Temperature Temperature Source Pulse Rate 63 73 Respiratory Rate 36 H 20 H Respiratory Effort Respiratory Depth Respiratory Pattern Blood Pressure 117/76 Blood Pressure Mean 89 Pulse Ox 96 93 Oxygen Delivery Method Room Air Room Air 09/17/24 14:00 09/17/24 14:13 Temperature 98 F Temperature Source Pulse Rate 73 64 Respiratory Rate 20 H 16 Respiratory Effort Respiratory Depth Respiratory Pattern Blood Pressure 128/72 H 140/85 H Blood Pressure Mean 90 103 Pulse Ox 93 99 Oxygen Delivery Method Room Air <Dr. Dakota Sheridan MD - Last Filed: 09/17/24 16:12> Physical Exam Const Vital Signs: 09/17/24 11:03 09/17/24 11:05 09/17/24 11:13 Temperature 96.6 F L 97.8 F Temperature Source Temporal Oral Pulse Rate 66 68 Respiratory Rate 42 H 25 H Respiratory Effort Short of Breath Respiratory Depth Shallow Respiratory Pattern Tachypnea Blood Pressure 140/68 H 131/71 H Blood Pressure Mean 92 91 Pulse Ox 94 94 Oxygen Delivery Method Room Air Room Air Room Air 09/17/24 11:16 09/17/24 11:37 09/17/24 12:03 Temperature Temperature Source Pulse Rate 63 73 Respiratory Rate 36 H 20 H Respiratory Effort Respiratory Depth Respiratory Pattern Blood Pressure 117/76 Blood Pressure Mean 89 Pulse Ox 96 93 Oxygen Delivery Method Room Air Room Air 09/17/24 14:00 09/17/24 14:13 Temperature 98 F Temperature Source Pulse Rate 73 64 Respiratory Rate 20 H 16 Respiratory Effort Respiratory Depth Respiratory Pattern Blood Pressure 128/72 H 140/85 H Blood Pressure Mean 90 103 Pulse Ox 93 99 Oxygen Delivery Method Room Air [facility] <FREDIS Pennington - Last Filed: 09/17/24 14:07> [facility] Lab Data Labs: Laboratory Results - last 24 hr 09/17/24 11:10 WBC 4.2 L RBC 4.35 L Hgb 13.8 Hct 42.0 MCV 96.6 H MCH 31.7 MCHC 32.9 RDW Std Deviation 46.9 H RDW Coeff of [place] 13.1 Plt Count 191 MPV 10.9 Immature Gran % (Auto) 0.500 Neut % (Auto) 56.5 Lymph % (Auto) 26.6 [place] % (Auto) 13.3 H Eos % (Auto) 2.9 Baso % (Auto) 0.2 Absolute Neuts (auto) 2.4 Absolute Lymphs (auto) 1.12 Nucleated RBC % 0 Sodium 142 Potassium 3.7 Chloride 113 H Carbon Dioxide 24.0 Anion Gap 5 BUN 15 Creatinine 1.26 Estim Creat Clear Calc 44.31 Est GFR (MDRD) Af Amer 71 Est GFR (MDRD) Non-Af 59 L BUN/Creatinine Ratio 11.9 Glucose 101 Calcium 8.9 Troponin I High Sens 12 B-Natriuretic Peptide 49.2 Radiography Diagnostic Testing: Clinical Impression(s) from Imaging Studies Chest X-Ray 09/17/24 11:16 IMPRESSION: Hyperinflation. The lungs are clear. Electronically Signed: Saad Rosenberg MD at 12:36 EDT , Treatment and Re-Evaluation :: Differential diagnosis includes however is not limited to: COVID-19, influenza, RSV, community-acquired pneumonia, CHF Patient appears slight tachypnea, however his vital signs are stable, he is nontoxic-appearing. Presenting to the emergency department for cough, shortness of breath has been ongoing for the last 6 to 7 days. Physical examination does show some adventitious lung sounds, two-view chest x-ray will be obtained. Patient received basic laboratory values include troponin, BNP. Breathing treatments will be administered. Patient will be reevaluated. All radiologic examinations were read, reviewed by the emergency department attending. From these reads, a plan of care will be put in place. Patient's CBC shows a leukopenia with a white blood cell count of 4.2, hemoglobin 13.8 which is stable. Patient's chemistries show chloride at 113, kidney function 1.26 which is baseline. Troponin was negative, BNP was negative. Patient's chest x-ray shows hyperinflation, the lungs are clear. Patient's COVID-19 influenza RSV was negative. Patient only took one of the treatments, he did not want all 3 of them. Patient respiratory is now 20, he is 93% on room air. Patient will need to ambulate with a heart rate and pulse ox. Patient was able to ambulate, patient did well, patient's heart rate was 80, the patient got to 90% on room air, patient merely went back up to 94%. I spoke with the patient regarding admission discharge, patient like to be discharged. Patient at this time shows no signs or symptoms of any pneumonia, patient likely have another viral like illness. Patient will be given albuterol inhaler as well as a butyryl nebulizers. He will follow-up closely with his PCP. All questions were answered, patient stable for discharge. <Dr. Dakota Sheridan MD - Last Filed: 09/17/24 16:12> MDM MDM Narrative Medical decision making narrative: I have personally performed a face to face assessment of the patient and have reviewed the BISHOP Note. I performed a substantive portion of the visit including all aspects of the following. My rock findings include: History is remarkable for respiratory distress. Patient was seen at [facility] facility and sent to ER because of tachypnea. He refused ambulance transport. Patient normally has a heart rate in the 70s. His heart rate is in the 50s which concerned the practitioner at [facility]. Patient and became ill this past Friday. He endorses congestion, cough which is productive. He denies chest discomfort. [place] history of VTE. Has no risk factors for VTE. He does have known coronary artery disease with ischemic cardiomyopathy. He has multiple stents. There is also history of abdominal aortic aneurysm. Patient does endorse increased shortness of breath with walking compared to normal. Patient denies orthopnea or PND. Patient [place] black or maroon-colored stool. Exam is vital signs were remarkable initially for respirate 42. He was not hypoxic on room air. He is not febrile. His voice is slightly hoarse. HEENT exam is otherwise unremarkable. There is no tenderness over the maxillary, frontal or ethmoid sinuses. Neck is supple. Trachea is midline. There is no inspiratory stridor. Lungs reveal abnormal breath sounds right compared to left. Heart is regular without murmur, gallop or rub. As benign. Lower extremity exam reveals no abnormality. Insert lower extremity exam alert oriented x 3. Medical Decision Making patient had slight wheezing on my exam. Patient initially refused aerosol treatments. Differential is viral illness, bronchitis with bronchospasm, pneumonia with bronchospasm. Other additions or changes: Patient is neutropenic which raises concern for viral infection. Rapid antigen for influenza, RSV and COVID were all negative. Patient's vital signs improved with respirate of 16. He was discharged to home with prescription for albuterol MDI. Lab Data Attestation: I reviewed the patient's lab results. Lab results narrative: Patient is neutropenic. Differential is unremarkable. Basic metabolic panel is unremarkable. First troponin is 12. BNP is 49.2, which is normal. Labs: Laboratory Results - last 24 hr 09/17/24 11:10 WBC 4.2 L RBC 4.35 L Hgb 13.8 Hct 42.0 MCV 96.6 H MCH 31.7 MCHC 32.9 RDW Std Deviation 46.9 H RDW Coeff of [place] 13.1 Plt Count 191 MPV 10.9 Immature Gran % (Auto) 0.500 Neut % (Auto) 56.5 Lymph % (Auto) 26.6 [place] % (Auto) 13.3 H Eos % (Auto) 2.9 Baso % (Auto) 0.2 Absolute Neuts (auto) 2.4 Absolute Lymphs (auto) 1.12 Nucleated RBC % 0 Sodium 142 Potassium 3.7 Chloride 113 H Carbon Dioxide 24.0 Anion Gap 5 BUN 15 Creatinine 1.26 Estim Creat Clear Calc 44.31 Est GFR (MDRD) Af Amer 71 Est GFR (MDRD) Non-Af 59 L BUN/Creatinine Ratio 11.9 Glucose 101 Calcium 8.9 Troponin I High Sens 12 B-Natriuretic Peptide 49.2 Radiography Chest X-Ray - ED: 1 View and Read by ED Physician (Independently reviewed interpreted by me at 1234 is negative for acute process. Patient does have evidence of hyperaeration. Cardiac silhouette and size normal. Lung parenchyma reveals minimal chronic changes. [place] is normal. [place] structures are unremarkable.) Diagnostic Testing: Clinical Impression(s) from Imaging Studies Chest X-Ray 09/17/24 11:16 IMPRESSION: Hyperinflation. The lungs are clear. Electronically Signed: Saad Rosenberg MD at 12:36 EDT Reading Location ID and State: [facility] / [place] , Service support , Discharge Plan Triage Chief Complaint: Shortness of Breath ED Midlevel Provider: Popeye Hernandez ED Provider: Dakota Sheridan Dx/Rx/DC Orders Clinical Impression: Viral syndrome, Cough, Atherosclerosis of [place] coronary artery of [place] heart without angina pectoris, Mixed hyperlipidemia, Essential (primary) hypertension, AAA (abdominal aortic aneurysm), Acute bronchospasm, Acute respiratory distress Instructions: ED Cough Chronic Uncertain Cause Adult, ED URI, Viral, No Abx (Adult) Prescriptions: New albuterol sulfate [Ventolin HFA] 90 mcg/actuation HFA aerosol inhaler 1 - 2 puff inhalation Q4H PRN PRN (Reason: Wheezing) 14 Days Qty: 6.7 0RF albuterol sulfate 2.5 mg/0.5 mL solution for nebulization 2.5 mg inhalation Q4H PRN (Reason: shortness of breath or wheezing) Qty: 30 0RF Rx Instructions: for up to 3 doses No Action ezetimibe 10 mg tablet 10 mg PO DAILY Centrum Silver Ultra Men's 300-600-300 mcg tablet 1 tab PO DAILY metoprolol tartrate 100 mg tablet 25 mg PO BID 30 Days Qty: 15 cilostazol 100 mg tablet 100 mg PO BID Patient Comments: TAKE 1 TABLET BY MOUTH TWICE DAILY nitroglycerin 0.4 mg tablet, sublingual 0.4 mg SUBLINGUAL Q5-15M PRN (Reason: chest pain) Qty: 25 7RF Rx Instructions: one tablet under tongue every 5-15 minutes for chest pain up to 3 doses clopidogrel 75 mg tablet 75 mg PO DAILY Qty: 90 3RF amlodipine 10 mg tablet 10 mg PO DAILY Qty: 90 3RF pravastatin 10 mg tablet 10 mg PO QHS Qty: 90 3RF Primary Care Provider: Andrea Smiley Referrals: Andrea Smiley DO [Primary Care Provider] - Print Language: Mosotho Disposition Disposition: Home, Self Care Discharge Date/Time: 09/17/24 14:20
[2024-09-17 11:33] LABS: Absolute Lymphocyte Count 1.12 X10^3/uL (0.83-4.51); Absolute Neutrophil Count 2.4 X10^3/uL (2.0-7.7); Basophil# 0.01 X10^3/uL; Basophil% 0.2 % (0-1); Eosinophil# 0.12 X10^3/uL; Eosinophils% 2.9 % (0-5); Hemoglobin 13.8 g/dL (13.0-16.5); Lymphocyte # 1.12 X10^3/ul (0.83-4.51); Lymphocyte % 26.6 % (19-41); Mean Corp Hgb Conc 32.9 g/dL (32-36); Mean Corpuscular Hgb 31.7 pg (27.0-32.0); Mean Corpuscular Volume 96.6 fL (80-94); Mean Platelet Vol. 10.9 fl (6.2-12.0); Monocyte# 0.56 X10^3/uL; Monocyte% 13.3 % (0-10); NRBC Flagged by Analyzer 0 % (0-5); Neutrophil # 2.38 X10^3/uL (2.7-7.7); Neutrophil % 56.5 % (47-70); Platelet Count 191 K/mm3 (150-450); RBC Distribution Width CV 13.1 % (11.6-14.6); RBC Distribution Width SD 46.9 fl (35.1-43.9); Red Blood Count 4.35 M/mm3 (4.6-6.2); White Blood Count 4.2 K/mm3 (4.4-11.0)
[2024-09-17] MEDS: Ipratropium/Albuterol Sulfate 3 ML AMPUL.NEB INHALATION (11:34)
[2024-09-17 11:49] LABS: Anion Gap 5 (5-15); BUN 15 mg/dL (7-18); BUN/Creat Ratio 11.9 RATIO (10-20); Calcium,Total 8.9 mg/dL (8.5-10.1); Chloride 113 mmol/L (98-107); Creatinine, Serum 1.26 mg/dL (0.70-1.30); EST Glomerular Filtration Rate 59 mL/min (>60); Est Glom Filt Rate - Afr Amer 71 mL/min (>60); Estimated Creatinine Clearance 44.31 ml/min; Glucose 101 mg/dL (74-106); Potassium 3.7 mmol/L (3.5-5.1); Sodium Level 142 mmol/L (136-145); Troponin-I HS 12 pg/mL (3.0-78.0)
[2024-09-17 11:58] LABS: BNP,B-Type NATRIURETIC PEPTIDE 49.2 pg/mL (0-100)
== END 2024-09-17 14:20 | disposition home or self-care (01) ==
PROVIDERS: Nurse Practitioner; Emergency Provider Emergency Medicine; PCP Student in an Organized Health Care Education/Training Program; Referring Provider Emergency Medicine; Visit Provider Emergency Medicine
DX: B34.9 Viral infection, unspecified (principal); I71.40 Abdominal aortic aneurysm, without rupture, unspecified; E78.2 Mixed hyperlipidemia; I25.10 Atherosclerotic heart disease of native coronary artery without angina pectoris; J98.01 Acute bronchospasm; R06.03 Acute respiratory distress; I10 Essential (primary) hypertension; I25.2 Old myocardial infarction; Z95.1 Presence of aortocoronary bypass graft; Z95.5 Presence of coronary angioplasty implant and graft; Z79.02 Long term (current) use of antithrombotics/antiplatelets; Z79.899 Other long term (current) drug therapy; Z87.891 Personal history of nicotine dependence
CPT/HCPCS: 71046; 80048; 83880; 84484; 85025; 87631; 93005; 94640; 94668; 99284

== ENCOUNTER 2024-09-20 14:26 | Emergency (ER) | payer MEDICARE, SELFPAY ==
[2024-09-20] VITALS (8 sets, daily range): BP systolic 117–124; BP diastolic 69–71; PULSE 68–78; RESP 26–40; TEMP 36.6; O2SAT 92–95; BMI 25.6
--- NOTE | 2024-09-20 14:40 | ED.RN ---
Mary WALKER bedside
--- NOTE | 2024-09-20 14:49 | EDS_ITS ---
HPI <DENISE Arellano - Last Filed: 09/20/24 15:47> History of Present Illness Chief Complaint: Shortness of Breath Narrative Narrative: 79-year-old male with past medical history of HTN, HLD, CAD, CABG presents with 1 week of productive cough. He states he had chills at the onset and has been coughing all week long. His was sick with similar symptoms. He was seen here on September 17 and had a normal chest x-ray and a negative viral swab. He was prescribed an inhaler and medication for nebulizer machine. He states he tries to use the nebulizer treatments but he coughed so much during it that he ends up taking it off. He states his chest feels tight with coughing but he is not having exertional chest pain. He does feel short of breath with walking. He denies a history of asthma or COPD and states he has a nebulizer that his primary care doctor gave him a couple years ago when he had pneumonia. He is a former smoker and quit in 2002. 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) Essential (primary) hypertension Bradycardia Mixed hyperlipidemia Atherosclerosis of [place] coronary artery of [place] heart without angina pectoris Palpitations Peripheral arterial occlusive disease Malignant melanoma Basal cell carcinoma Home Medications ?Medication ?Instructions ?Recorded ?Last Taken ?Type ezetimibe 10 mg tablet 10 mg PO DAILY 12/04/18 Unknown History emnjpkle-lo-[id number] 300 mcg-K 60 1 tab PO DAILY 12/04/18 Unknown History mcg-lycop 600 mcg-lutein 300 mcg tablet (Centrum Silver Ultra Men's) clopidogrel 75 mg tablet 75 mg PO DAILY #90 tabs 04/03/20 Unknown Rx amlodipine 10 mg tablet 10 mg PO DAILY #90 tabs 06/06/20 Unknown Rx cilostazol 100 mg tablet 100 mg PO BID 08/24/20 Unknown History pravastatin 10 mg tablet 10 mg PO QHS #90 tabs 05/03/21 Unknown Rx nitroglycerin 0.4 mg sublingual 0.4 mg sublingual Q5-15M PRN chest 08/12/24 Unknown Rx tablet pain #25 tabs albuterol sulfate 2.5 mg/0.5 mL 2.5 mg (0.5 mL) inhalation Q4H PRN 09/17/24 Unknown Rx solution for nebulization shortness of breath or wheezing #30 ea albuterol sulfate 90 mcg/actuation 1 - 2 puff inhalation Q4H PRN PRN 09/17/24 Unknown Rx aerosol inhaler (Ventolin HFA) Wheezing 2 weeks #6.7 grams albuterol sulfate 2.5 mg/3 mL 1 inhalation wheezing 09/20/24 Unknown History (0.083 %) solution for nebulization levofloxacin 750 mg tablet 750 mg PO DAILY 5 days #5 tabs 09/20/24 Unknown Rx metoprolol tartrate 50 mg tablet 25 mg PO BID 09/20/24 Unknown History prednisone 20 mg tablet 40 mg (2 x 20 mg) PO DAILY 5 days 09/20/24 Unknown Rx #10 tabs Allergy/AdvReac Type Severity Reaction Status Date / Time Penicillins Allergy Mild rash Verified 09/20/24 14:26 amlodipine AdvReac Mild ED Verified 09/20/24 14:26 exacerbation ramipril AdvReac cough Verified 09/20/24 14:26 Iyhwqnr-GVN-IhD Reductase AdvReac myalgias Verified 09/20/24 14:26 Inhibitor (Qawmoot-Bqt-Cvp Reductase Inhibitor) Family History Father Heart disease Hypertension Mother CVA (cerebral vascular accident) Brother Heart disease Hypertension Myocardial infarction Brother Hypertension Myocardial infarction Brother Heart disease Myocardial infarction Surgical History History of angioplasty of peripheral vessel (03/2019) hx of APLL H/O coronary artery bypass surgery (12/28/18) History of left heart catheterization (12/22/18) History of coronary artery stent placement (05/2003) History of cataract extraction (2015) history of melanoma removal History of amputation of finger History of colonoscopy (2015) History of appendectomy Social History Smoking Status: Former smoker ROS <DENISE Arellano - Last Filed: 09/20/24 15:47> ROS ED ROS Narrative Constitutional: Positive for chills. Negative for fever.. CVS: Negative for chest pain. Respiratory: Positive for shortness of breath, cough. GI: Negative for abdominal pain, nausea, vomiting, diarrhea. EXAM <DENISE Arellano - Last Filed: 09/20/24 15:47> Physical Exam Narrative Exam Narrative: CONST: Patient sitting in no acute distress. EYES: Normal inspection. ENT: Normal inspection, moist mucous membranes. NECK: Normal inspection. RESP: Tachypneic at 30/minute, significant cough with breathing, expiratory wheezing in both bases. CVS: Regular rate and rhythm, no murmur, no gallop. ABD: Soft and nontender, no guarding or rebound, nondistended. SKIN: Color normal, no rash, warm, dry, intact. EXTREMITIES: Normal appearance, no pedal edema. NEURO: Alert and answering questions appropriately. PSYCH: Normal affect. Const Vital Signs: 09/20/24 14:26 09/20/24 14:36 09/20/24 14:37 Temperature 97.8 F Temperature Source Temporal Pulse Rate 73 77 78 Respiratory Rate 28 H 40 H Respiratory Effort Respiratory Depth Respiratory Pattern Blood Pressure 124/69 H Blood Pressure Mean 87 Pulse Ox 95 92 95 Oxygen Delivery Method Room Air Room Air Nasal Cannula Oxygen Flow Rate (L/min) 2 09/20/24 14:39 09/20/24 14:46 09/20/24 15:00 Temperature Temperature Source Pulse Rate 68 Respiratory Rate 34 H Respiratory Effort Short of Breath Labored Respiratory Depth Shallow Respiratory Pattern Tachypnea Blood Pressure 117/71 Blood Pressure Mean 86 Pulse Ox 95 92 Oxygen Delivery Method Nasal Cannula Nasal Cannula Nasal Cannula Oxygen Flow Rate (L/min) 2 2 1 09/20/24 15:00 Temperature Temperature Source Pulse Rate 72 Respiratory Rate 26 H Respiratory Effort Respiratory Depth Respiratory Pattern Blood Pressure Blood Pressure Mean Pulse Ox Oxygen Delivery Method Oxygen Flow Rate (L/min) <Dr. Negro Tavares DO - Last Filed: 09/20/24 15:44> Physical Exam Const Vital Signs: 09/20/24 14:26 09/20/24 14:36 09/20/24 14:37 Temperature 97.8 F Temperature Source Temporal Pulse Rate 73 77 78 Respiratory Rate 28 H 40 H Respiratory Effort Respiratory Depth Respiratory Pattern Blood Pressure 124/69 H Blood Pressure Mean 87 Pulse Ox 95 92 95 Oxygen Delivery Method Room Air Room Air Nasal Cannula Oxygen Flow Rate (L/min) 2 09/20/24 14:39 09/20/24 14:46 09/20/24 15:00 Temperature Temperature Source Pulse Rate 68 Respiratory Rate 34 H Respiratory Effort Short of Breath Labored Respiratory Depth Shallow Respiratory Pattern Tachypnea Blood Pressure 117/71 Blood Pressure Mean 86 Pulse Ox 95 92 Oxygen Delivery Method Nasal Cannula Nasal Cannula Nasal Cannula Oxygen Flow Rate (L/min) 2 2 1 09/20/24 15:00 Temperature Temperature Source Pulse Rate 72 Respiratory Rate 26 H Respiratory Effort Respiratory Depth Respiratory Pattern Blood Pressure Blood Pressure Mean Pulse Ox Oxygen Delivery Method Oxygen Flow Rate (L/min) MDM <DENISE Arellano - Last Filed: 09/20/24 15:47> [facility] Narrative Medical decision making narrative: History gathered from: Patient and spouse Differential included but not limited to viral upper respiratory infection, asthma exacerbation, pneumonia I have personally performed a face to face assessment of the patient and have reviewed the BISHPO Note. I performed a substantive portion of the visit including all aspects of the following. My rock findings include: History is [patient presents with cough and shortness of breath that started about 8 days ago. He was seen in the emergency department 3 days ago and sent home with nebulizers. Patient states that he and his got sick about the same time and she is feeling better but she got antibiotics and he did not. He continues to bring up some white to torres-colored phlegm. He complains of feeling short of breath with activity and exertion. Denies recent travel or surgery. He has history of coronary artery disease as well as peripheral artery disease with prior CABG. He denies any significant chest pain.] Exam is [HEENT-PERRLA, EOMI. Cranial nerves II through XII grossly intact. TMs clear. Mucous membranes moist. No adenopathy. Cardiovascular-regular rate and rhythm without murmur or ectopy Lungs-coarse breath sounds with rales in both bases. Expiratory wheezes bilaterally and tachypnea. Mild conversational dyspnea. Abdomen-normoactive bowel sounds, soft, nontender, no rebound or rigidity, no peritoneal signs. Extremities-intact ?4, normal range of motion, normal pulses, atraumatic] Medical Decison Making patient presents with ongoing cough and shortness of breath. Patient seen recently in the emergency department and started on nebulizers but no steroids and no antibiotics. His got sick about the same time was placed on antibiotics apparently and she is better. EKG obtained arrival showed a sinus rhythm with PACs and nonspecific ST changes. CBC with differential showed a white count 4.9 with hemoglobin 13.5 and platelet count of of 205. Chemistries unremarkable. Troponin normal at 9. Chest x-ray without evidence of pneumonia or acute infiltrate. While in the department he received DuoNeb aerosol and steroids. Ambulated in department without oxygen and maintained above 92% on room air. On repeat exam he has decreased wheezing and is feeling improved. Respiratory rates improved. He is comfortable going home. Will discharge to home with prescription for prednisone and Levaquin. Advised to return if increasing shortness of breath or condition should worsen anyway. [ ] Other additions or changes: [None] Lab Data Labs: Laboratory Results - last 24 hr 09/20/24 15:00 WBC 4.9 RBC 4.19 L Hgb 13.5 Hct 39.7 L MCV 94.7 H MCH 32.2 H MCHC 34.0 RDW Std Deviation 45.4 H RDW Coeff of [place] 13.1 Plt Count 205 MPV 11.0 Immature Gran % (Auto) 0.400 Neut % (Auto) 62.2 Lymph % (Auto) 22.7 Campbell % (Auto) 11.5 H Eos % (Auto) 2.8 Baso % (Auto) 0.4 Absolute Neuts (auto) 3.1 Absolute Lymphs (auto) 1.12 Nucleated RBC % 0 Sodium 144 Potassium 3.7 Chloride 113 H Carbon Dioxide 23.0 Anion Gap 8 BUN 14 Creatinine 1.38 H Estim Creat Clear Calc 41.91 Est GFR (MDRD) Af Amer 64 Est GFR (MDRD) Non-Af 53 L BUN/Creatinine Ratio 10.1 Glucose 92 Calcium 8.9 Troponin I High Sens 9 Radiography Diagnostic Testing: Clinical Impression(s) from Imaging Studies Chest X-Ray 09/20/24 15:05 IMPRESSION: No acute abnormality is seen. Hyperinflation. Electronically Signed: Saad Rosenberg MD at 15:32 EST , EKG Initial EKG: Attestation: I personally reviewed and interpreted this EKG as follows: Interpretation: Sinus Rhythm and No Acute Injury Pattern Comments: Sinus rhythm at 69 bpm Premature atrial complexes with variable induction Nonspecific T wave abnormality <Dr. Negro Tavares, DO - Last Filed: 09/20/24 15:44> [facility] MDM Narrative Medical decision making narrative: I have personally performed a face to face assessment of the patient and have re viewed the BISHOP Note. I performed a substantive portion of the visit including all aspects of the following. My rock findings include: History is [patient presents with cough and shortness of breath that started about 8 days ago. He was seen in the emergency department 3 days ago and sent home with nebulizers. Patient states that he and his got sick about the same time and she is feeling better but she got antibiotics and he did not. He continues to bring up some white to torres-colored phlegm. He complains of feeling short of breath with activity and exertion. Denies recent travel or surgery. He has history of coronary artery disease as well as peripheral artery disease with prior CABG. He denies any significant chest pain.] Exam is [HEENT-PERRLA, EOMI. Cranial nerves II through XII grossly intact. TMs clear. Mucous membranes moist. No adenopathy. Cardiovascular-regular rate and rhythm without murmur or ectopy Lungs-coarse breath sounds with rales in both bases. Expiratory wheezes bilaterally and tachypnea. Mild conversational dyspnea. Abdomen-normoactive bowel sounds, soft, nontender, no rebound or rigidity, no peritoneal signs. Extremities-intact ?4, normal range of motion, normal pulses, atraumatic] Medical Decison Making patient presents with ongoing cough and shortness of breath. Patient seen recently in the emergency department and started on nebulizers but no steroids and no antibiotics. His got sick about the same time was placed on antibiotics apparently and she is better. EKG obtained arrival showed a sinus rhythm with PACs and nonspecific ST changes. CBC with differential showed a white count 4.9 with hemoglobin 13.5 and platelet count of of 205. Chemistries unremarkable. Troponin normal at 9. Chest x-ray without evidence of pneumonia or acute infiltrate. While in the department he received DuoNeb aerosol and steroids. Ambulated in department without oxygen and maintained above 92% on room air. On repeat exam he has decreased wheezing and is feeling improved. Respiratory rates improved. He is comfortable going home. Will discharge to home with prescription for prednisone and Levaquin. Advised to return if increasing shortness of breath or condition should worsen anyway. [ ] Other additions or changes: [None] Lab Data Attestation: I reviewed the patient's lab results. Labs: Laboratory Results - last 24 hr 09/20/24 15:00 WBC 4.9 RBC 4.19 L Hgb 13.5 Hct 39.7 L MCV 94.7 H MCH 32.2 H MCHC 34.0 RDW Std Deviation 45.4 H RDW Coeff of [place] 13.1 Plt Count 205 MPV 11.0 Immature Gran % (Auto) 0.400 Neut % (Auto) 62.2 Lymph % (Auto) 22.7 Campbell % (Auto) 11.5 H Eos % (Auto) 2.8 Baso % (Auto) 0.4 Absolute Neuts (auto) 3.1 Absolute Lymphs (auto) 1.12 Nucleated RBC % 0 Sodium 144 Potassium 3.7 Chloride 113 H Carbon Dioxide 23.0 Anion Gap 8 BUN 14 Creatinine 1.38 H Estim Creat Clear Calc 41.91 Est GFR (MDRD) Af Amer 64 Est GFR (MDRD) Non-Af 53 L BUN/Creatinine Ratio 10.1 Glucose 92 Calcium 8.9 Troponin I High Sens 9 Radiography Diagnostic Testing: Clinical Impression(s) from Imaging Studies Chest X-Ray 09/20/24 15:05 IMPRESSION: No acute abnormality is seen. Hyperinflation. Electronically Signed: Saad Rosenberg MD at 15:32 EST , Discharge Plan Triage Chief Complaint: Shortness of Breath ED Midlevel Provider: Mary Muller ED Provider: Negro Tavares Dx/Rx/DC Orders Clinical Impression: URI (upper respiratory infection), Acute asthmatic bronchitis, Asthmatic bronchitis Instructions: ED URI, Viral W/ Wheezing (Adult) Prescriptions: New prednisone 20 mg tablet 40 mg PO DAILY 5 Days Qty: 10 0RF levofloxacin 750 mg tablet 750 mg PO DAILY 5 Days Qty: 5 0RF No Action ezetimibe 10 mg tablet 10 mg PO DAILY Centrum Silver Ultra Men's 300-600-300 mcg tablet 1 tab PO DAILY cilostazol 100 mg tablet 100 mg PO BID Patient Comments: TAKE 1 TABLET BY MOUTH TWICE DAILY nitroglycerin 0.4 mg tablet, sublingual 0.4 mg SUBLINGUAL Q5-15M PRN (Reason: chest pain) Qty: 25 7RF Rx Instructions: one tablet under tongue every 5-15 minutes for chest pain up to 3 doses albuterol sulfate [Ventolin HFA] 90 mcg/actuation HFA aerosol inhaler 1 - 2 puff inhalation Q4H PRN PRN (Reason: Wheezing) 14 Days Qty: 6.7 0RF albuterol sulfate 2.5 mg/0.5 mL solution for nebulization 2.5 mg inhalation Q4H PRN (Reason: shortness of breath or wheezing) Qty: 30 0RF Rx Instructions: for up to 3 doses albuterol sulfate 2.5 mg /3 mL (0.083 %) solution for nebulization 1 inhalation metoprolol tartrate 50 mg tablet 25 mg PO BID clopidogrel 75 mg tablet 75 mg PO DAILY Qty: 90 3RF amlodipine 10 mg tablet 10 mg PO DAILY Qty: 90 3RF pravastatin 10 mg tablet 10 mg PO QHS Qty: 90 3RF Primary Care Provider: Andrea Smiley Referrals: Andrea Smiley DO [Primary Care Provider] - Activity Restrictions/Additional Instructions: Continue nebulizer treatments as needed as well as the new prescriptions for steroids and antibiotics. Return to ER if symptoms worsen. Print Language: Japanese Disposition Disposition: Home, Self Care
--- NOTE | 2024-09-20 14:50 | EKG12_ITS ---
Test Reason : SOB Blood Pressure : */* mmHG Vent. Rate : 69 BPM Atrial Rate : 69 BPM P-R Int : 168 ms QRS Dur : 80 ms QT Int : 408 ms P-R-T Axes : 24 26 46 degrees QTcB Int : 437 ms Sinus rhythm with Premature atrial complexes with Aberrant conduction Nonspecific T wave abnormality Abnormal ECG Confirmed by Oskar Huff ([id number]), commercial production editor KAREL HASSAN ([id number]) on 09/21/2024 9:19:04 AM Referred By: Negro Tavares Confirmed By: Oskar Huff
[2024-09-20] MEDS: Ipratropium/Albuterol Sulfate 3 ML AMPUL.NEB INHALATION (14:59)
[2024-09-20] MEDS: MethylPREDNISolone 125 MG/2 ML Vial IV (14:59)
--- NOTE | 2024-09-20 15:05 | RAD_ITS ---
STUDY: X-RAY CHEST REASON FOR EXAM: Male, 79 years old. One-week history of cough and shortness of breath. TECHNIQUE: PA and lateral views of the chest. COMPARISON: Comparison is made with prior study September 17, 2024. FINDINGS: EKG electrodes are seen. There is hyperinflation of the lungs consistent with chronic obstructive lung disease (COPD). There is no demonstrated pleural abnormality. Sternal cerclage wires and vascular clips are present from a prior sternotomy and coronary artery bypass graft procedure (CABG). Normal mediastinum and bishop. Normal visualized pulmonary arteries. There is atherosclerotic tortuosity of the aortic arch and descending thoracic aorta. Normal visualized thoracic spine. Normal visualized ribs, clavicles, and shoulders. There is no demonstrated abnormality of the visualized soft tissue structures of the upper abdomen. RAD/Chest PA and Lateral IMPRESSION: No acute abnormality is seen. Hyperinflation. Electronically Signed: Saad Rosenberg MD at 15:32 EST ,
--- NOTE | 2024-09-20 15:07 | ED.RN ---
Patient transported to radiology
[2024-09-20 15:17] LABS: Absolute Lymphocyte Count 1.12 X10^3/uL (0.83-4.51); Absolute Neutrophil Count 3.1 X10^3/uL (2.0-7.7); Basophil# 0.02 X10^3/uL; Basophil% 0.4 % (0-1); Eosinophil# 0.14 X10^3/uL; Eosinophils% 2.8 % (0-5); Hematocrit 39.7 % (40-54); Hemoglobin 13.5 g/dL (13.0-16.5); Lymphocyte # 1.12 X10^3/ul (0.83-4.51); Lymphocyte % 22.7 % (19-41); Mean Corpuscular Hgb 32.2 pg (27.0-32.0); Mean Corpuscular Volume 94.7 fL (80-94); Monocyte# 0.57 X10^3/uL; Monocyte% 11.5 % (0-10); NRBC Flagged by Analyzer 0 % (0-5); Neutrophil # 3.07 X10^3/uL (2.7-7.7); Neutrophil % 62.2 % (47-70); Platelet Count 205 K/mm3 (150-450); RBC Distribution Width CV 13.1 % (11.6-14.6); RBC Distribution Width SD 45.4 fl (35.1-43.9); Red Blood Count 4.19 M/mm3 (4.6-6.2); White Blood Count 4.9 K/mm3 (4.4-11.0)
[2024-09-20 15:39] LABS: Anion Gap 8 (5-15); BUN 14 mg/dL (7-18); BUN/Creat Ratio 10.1 RATIO (10-20); Calcium,Total 8.9 mg/dL (8.5-10.1); Chloride 113 mmol/L (98-107); Creatinine, Serum 1.38 mg/dL (0.70-1.30); EST Glomerular Filtration Rate 53 mL/min (>60); Est Glom Filt Rate - Afr Amer 64 mL/min (>60); Estimated Creatinine Clearance 41.91 ml/min; Glucose 92 mg/dL (74-106); Potassium 3.7 mmol/L (3.5-5.1); Sodium Level 144 mmol/L (136-145); Troponin-I HS 9 pg/mL (3.0-78.0)
== END 2024-09-20 15:53 | disposition home or self-care (01) ==
PROVIDERS: Physician Assistant; Emergency Provider Emergency Medicine; PCP Student in an Organized Health Care Education/Training Program; Referring Provider Emergency Medicine; Visit Provider Emergency Medicine
DX: J06.9 Acute upper respiratory infection, unspecified (principal); J45.909 Unspecified asthma, uncomplicated; I25.10 Atherosclerotic heart disease of native coronary artery without angina pectoris; I10 Essential (primary) hypertension; I25.2 Old myocardial infarction; Z95.1 Presence of aortocoronary bypass graft; Z95.5 Presence of coronary angioplasty implant and graft; Z79.02 Long term (current) use of antithrombotics/antiplatelets; Z79.899 Other long term (current) drug therapy; Z87.891 Personal history of nicotine dependence
CPT/HCPCS: 71046; 80048; 84484; 85025; 93005; 94640; 96374; 99282; A4216

== ENCOUNTER 2025-08-06 17:12 | Emergency (ER) | payer MEDICARE, SELFPAY ==
[2025-08-06 17:13] VITALS: BP 158/82; PULSE 83; RESP 20; TEMP 36.8; O2SAT 95
[2025-08-06] MEDS: Lidocaine 1% (20 ml mdv) 20 ML Vial INFILT (17:46)
--- NOTE | 2025-08-06 17:46 | EX.ED.GENINJ ---
HPI History of Present Illness Chief Complaint: Laceration Detail of Chief Complaint: Laceration dorsum left hand over the extensor commonness tendon of the left Informant: patient Onset/Context/Timing Onset: Today and Hours Mechanism/Context: Work Related (Cut with saw) Location of pain/injuries: Left hand (Dorsal surface over the extensor commonness tendon of the left long finger.) Quality of Pain: - (Not applicable) Current Severity: Gone Maximum Severity: Mild Worsened by: Initial injury Relieved by: Not applicable Associated Symptoms Associated Symptoms: Negative for Parasthesias, Weakness, Loss of function, Inability to ambulate, Loss of consciousness or Amnesia Narrative Narrative: Patient is a 80-year-old [id number]-wyjhwlhi male who presents with laceration dorsum of the left hand. This occurred over the extensor, tendon of the left long finger. He denies paresthesia, anesthesia or inability to move his fingers. 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 He had a crush injury that is remote. Had multiple stitches placed. Developed gangrene and resultant amputation. 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) Essential (primary) hypertension Bradycardia Mixed hyperlipidemia Atherosclerosis of [place] coronary artery of [place] heart without angina pectoris Palpitations Peripheral arterial occlusive disease Malignant melanoma Basal cell carcinoma Home Medications ?Medication ?Instructions ?Recorded ?Last Taken ?Type ezetimibe 10 mg tablet 10 mg PO DAILY 12/04/18 Unknown History [id number]-[id number] 300 mcg-K 60 1 tab PO DAILY 12/04/18 Unknown History mcg-lycop 600 mcg-lutein 300 mcg tablet (Centrum Silver Ultra Men's) clopidogrel 75 mg tablet 75 mg PO DAILY #90 tabs 04/03/20 Unknown Rx amlodipine 10 mg tablet 10 mg PO DAILY #90 tabs 06/06/20 Unknown Rx cilostazol 100 mg tablet 100 mg PO BID 08/24/20 Unknown History pravastatin 10 mg tablet 10 mg PO QHS #90 tabs 05/03/21 Unknown Rx nitroglycerin 0.4 mg sublingual 0.4 mg sublingual Q5-15M PRN chest 08/12/24 Unknown Rx tablet pain #25 tabs albuterol sulfate 2.5 mg/0.5 mL 2.5 mg (0.5 mL) inhalation Q4H PRN 09/17/24 Unknown Rx solution for nebulization shortness of breath or wheezing #30 ea albuterol sulfate 90 mcg/actuation 1 - 2 puff inhalation Q4H PRN PRN 09/17/24 Unknown Rx aerosol inhaler (Ventolin HFA) Wheezing 2 weeks #6.7 grams albuterol sulfate 2.5 mg/3 mL 1 inhalation wheezing 09/20/24 Unknown History (0.083 %) solution for nebulization levofloxacin 750 mg tablet 750 mg PO DAILY 5 days #5 tabs 09/20/24 Unknown Rx metoprolol tartrate 50 mg tablet 25 mg PO BID 09/20/24 Unknown History prednisone 20 mg tablet 40 mg (2 x 20 mg) PO DAILY 5 days 09/20/24 Unknown Rx #10 tabs Allergy/AdvReac Type Severity Reaction Status Date / Time Penicillins Allergy Mild rash Verified 08/06/25 17:14 amlodipine AdvReac Mild ED Verified 08/06/25 17:14 exacerbation ramipril AdvReac cough Verified 08/06/25 17:14 Gdyerfz-[id number] Reductase AdvReac myalgias Verified 08/06/25 17:14 Inhibitor (Gmcwjqa-Sts-Dlu Reductase Inhibitor) Family History Father Heart disease Hypertension Mother CVA (cerebral vascular accident) Brother Heart disease Hypertension Myocardial infarction Brother Hypertension Myocardial infarction Brother Heart disease Myocardial infarction Surgical History History of angioplasty of peripheral vessel (03/2019) hx of APLL H/O coronary artery bypass surgery (12/28/18) History of left heart catheterization (12/22/18) History of coronary artery stent placement (05/2003) History of cataract extraction (2015) history of melanoma removal History of amputation of finger History of colonoscopy (2015) History of appendectomy Social History Smoking Status: Former smoker ROS ROS ED Constitutional Constitutional ED: Denies chills, fever(s) or subjective Neurologic Neurologic: Denies paresthesias or weakness Psychiatric Psychiatric: Denies anxiety or depression Hematologic/Lymphatic Hematologic/Lymphatic: Denies easy bleeding or easy bruising EXAM Physical Exam Const Vital Signs: 08/06/25 17:13 Temperature 98.2 F Temperature Source Oral Pulse Rate 83 Respiratory Rate 20 H Blood Pressure 158/82 H Blood Pressure Mean 107 Pulse Ox 95 Oxygen Delivery Method Room Air Positive well nourished and well developed General Appearance ED: well developed and NAD HEENT atraumatic Eyes PERRL and EOMs intact bilaterally Resp normal respiratory effort Cardio regular rhythm Rate: regular rate Extremity full ROM; Negative for normal to inspection Extremity Narrative: Laceration as previously described dorsum of left hand. The extensor, tendon is functionally intact. Normal sensation. Normal cap refill. Will describe wound after the areas been anesthetized and cleaned Neuro oriented x3, CN's II-XII intact bilaterally, moves all extremities, no focal motor deficits and no sensory deficits noted Psych mental status grossly normal and thought process normal Skin Skin Narrative: Laceration dorsum left hand MDM MDM MDM Narrative Medical decision making narrative: Patient's laceration is 3 send meters length. The extensor tendon was not seen. Patient was prepped. Sterile manner. The area anesthetized 1% lidocaine. Wound was irrigated with 2 and 50 cc of normal saline. Using 5-0 Ethilon a total of 6 stitches placed with good cosmesis hemostasis. There is a area of devitalized tissue that was removed. Patient also had injury to the nail of his thumb. It does not appear to involve the nailbed and did not get the tip of the thumb. There was no suture needed. Discharge Plan Triage Chief Complaint: Laceration ED Provider: Dakota Sheridan Dx/Rx/DC Orders Clinical Impression: Laceration of hand, left, Essential (primary) hypertension, Mixed hyperlipidemia, Peripheral arterial occlusive disease Instructions: ED Laceration Extremity Prescriptions: No Action ezetimibe 10 mg tablet 10 mg PO DAILY Centrum Silver Ultra Men's 300-600-300 mcg tablet 1 tab PO DAILY cilostazol 100 mg tablet 100 mg PO BID Patient Comments: TAKE 1 TABLET BY MOUTH TWICE DAILY nitroglycerin 0.4 mg tablet, sublingual 0.4 mg SUBLINGUAL Q5-15M PRN (Reason: chest pain) Qty: 25 7RF Rx Instructions: one tablet under tongue every 5-15 minutes for chest pain up to 3 doses albuterol sulfate [Ventolin HFA] 90 mcg/actuation HFA aerosol inhaler 1 - 2 puff inhalation Q4H PRN PRN (Reason: Wheezing) 14 Days Qty: 6.7 0RF albuterol sulfate 2.5 mg/0.5 mL solution for nebulization 2.5 mg inhalation Q4H PRN (Reason: shortness of breath or wheezing) Qty: 30 0RF Rx Instructions: for up to 3 doses albuterol sulfate 2.5 mg /3 mL (0.083 %) solution for nebulization 1 inhalation metoprolol tartrate 50 mg tablet 25 mg PO BID prednisone 20 mg tablet 40 mg PO DAILY 5 Days Qty: 10 0RF levofloxacin 750 mg tablet 750 mg PO DAILY 5 Days Qty: 5 0RF clopidogrel 75 mg tablet 75 mg PO DAILY Qty: 90 3RF amlodipine 10 mg tablet 10 mg PO DAILY Qty: 90 3RF pravastatin 10 mg tablet 10 mg PO QHS Qty: 90 3RF Primary Care Provider: Andrea Smiley Referrals: Andrea Smiley DO [Primary Care Provider, Medical] - 1 Week Activity Restrictions/Additional Instructions: 1. Keep wound clean and dry for the next 48 hours. 2. Apply bacitracin ointment 3 times a day Print Language: [place]ian Disposition Disposition: Home, Self Care
--- OUTSIDE RECORDS SUMMARY | 2025-08-06 17:51 | XMS RPT_ITS | CCD ---
Author Organization [facility] Care Team Providers Care Electronics Research Engineer Name Role Phone SUE ANDRADE Attending Unavailable SUE ANDRADE Referring Unavailable ANDREA SMILEY Primary Care Unavailable AARON HUIZAR Admitting Unavail able ADAL, LENIN S Referring Unavailable BALJIT, ANDREA Deon Primary Care Unavailable RANJAN LOPES Consulting Unavailable LORENZO SHIPLEY Attending Unavailable DANYA IRVING Consulting Unavailable LORENZO SHIPLEY Consulting Unavailable CONNER CURRAN Consulting Unavailable LINETTE MCCLURE Attending Unavailable BALJIT ANDREA L Referring Unavailable SMILEY, ANDREA L Primary Care Unavailable SMILEY, ANDREA L Referring Unavailable SMILEY, ANDREA L Primary Care Unavailable KAMRON HERNÁNDEZ Attending Unavailable LINETTE MCCLURE Referring Unavailable SMILEYANDREA Primary Care Unavailable Baljit GALINDO Andrea Deon Primary Care Provider Adal, Golden S Unavailable Yohan Canela MD Unavailable Andrea Smiley DO Primary Care Provider Adal, Lenin S Unavailable Yoahn Canela MD Unavailable Andrea Smiley DO Primary Care Provider Adal, Golden S Unavailable Andrea Smiley DO Primary Care Provider Adal, Golden S Unavailable Yohan Canela MD Unavailable Adal, Golden S Unavailable Kj Galeas MDril S Unavailable Dr. Andrea Smiley Primary Care Provider Dr. Andrea Smiley Referring Provider Dr. Lenin Galeas Attending Provider Andrea Smiley DO L Primary Care Provider Joseph ENGLISH ADJUNCT FACULTY, Radha Referring Unavailable Smiley, Andrea Primary Care Unavailable Joseph ENGLISH ADJUNCT FACULTY, Radha Attending Unavailable Baldev Burch Attending Unavailable Smiley, Andrea Primary Care Unavailable Ungur, Remus Attending Unavailable Ungur, Remus Referring Unavailable Smiley, Andrea Primary Care Unavailable Smiley, Andrea Primary Care Unavailable Sheridan, Dakota Attending Unavailable Sheridan, Dakota Referring Unavailable Smiley, Andrea Primary Care Unavailable Joseph ENGLISH ADJUNCT FACULTY, Radha Attending Unavailable Joseph ENGLISH ADJUNCT FACULTY, Radha Referring Unavailable Lenin Galeas Attending Unavailable Smiley, Andrea Primary Care Unavailable Joseph ENGLISH ADJUNCT FACULTY, Radha Consulting Unavailable Joseph ENGLISH ADJUNCT FACULTY, Radha Attending Unavailable Smiley, Andrea Primary Care Unavailable Smiley, Andrea Referring Unavailable Chneg MONORAIL HOOKER.LOSS PREVENTION AND SAFETY MANAGER, Mami Weir Unavailable Alysia MONORAIL HOOKER.LOSS PREVENTION AND SAFETY MANAGER, Chelsea Unavailable MAGGIE YOUNG Attending Unavailable SMILEY, ANDREA L Primary Care Unavailable Shalom MONORAIL HOOKER.LOSS PREVENTION AND SAFETY MANAGER, Saige Ramirez Unavailable SMILEY, ANDREA L Attending Unavailable SMILEY, ANDREA L Primary Care Unavailable SMILEY, ANDREA L Referring Unavailable SMILEY, ANDREA L Primary Care Unavailable SMILEY, ANDREA L Attending Unavailable SMILEY, ANDREA L Primary Care Unavailable SMILEY, ANDREA L Attending Unavailable SMILEY, ANDREA L Primary Care Unavailable SMILEY, ANDREA L Referring Unavailable SMILEY, ANDREA L Primary Care Unavailable SMILEY, ANDREA L Attending Unavailable SMILEY, ANDREA L Primary Care Unavailable SMILEY, ANDREA L Primary Care Unavailable CRIS, MAGGIE Referring Unavailable SMILEY, ANDREA L Primary Care Unavailable CRIS, MAGGIE Referring Unavailable SMILEY, ANDREA L Primary Care Unavailable YOUNG, MAGGIE Referring Unavailable SMILEY, ANDREA L Referring Unavailable SMILEY, ANDREA L Primary Care Unavailable SMILEY, ANDREA L Primary Care Unavailable SMILEY, ANDREA L Attending Unavailable SMILEY, ANDREA L Primary Care Unavailable SMILEY, ANDREA L Primary Care Unavailable DERICK YUEN Attending Unavailable Allergies Allergy Classification Reported Allergen(s) Allergy Type Date of Onset Reaction(s) Facility (20 sources) atorvastatin; Translations: [ATORVASTATIN CALCIUM] Drug Allergy 8 Myalgia [facility] (20 sources) Codeine; Translations: [CODEINE] Drug Allergy 7 Other: See Comments [facility] (20 sources) Hmg-Coa Reductase Inhibitors (Statins); Translations: [[id number] A REDUCTASE INHIBITORS] Propensity to adverse reactions (disorder) 8 Myalgia [facility] (20 sources) Penicillins; Translations: [PENICILLINS] Propensity to adverse reactions (disorder) 4 Hives, Itching [facility] (1 source) amLODIPine Drug Allergy 4 ED exacerbation [facility] (1 source) Ramipril Drug Allergy 4 cough [facility] (1 source) Anfzvax-Ypc-Xfa Reductase Inhibitor Propensity to adverse reactions 4 myalgias [facility] (1 source) amLODIPine Drug Allergy 4 [facility] (1 source) Ramipril Drug Allergy 4 [facility] (1 source) Eeniqof-Fyp-Mke Reductase Inhibitor Drug allergy (disorder) 4 [facility] Rep[facility] Medications Current Medications Medication Drug Class(es) Dates Sig (Normalized) Sig (Original) [id number] 200 actuat albuterol 0.09 mg/actuat metered dose inhaler (20 sources) beta2-Adrenergic Agonist Start: 11-01-2024 End: 05-31-2025 take 2 puff(s) by inhalation every four hours as needed for wheezing albuterol HFA (PROVENTIL HFA, VENTOLIN HFA) 90 mcg/actuation inhaler Inhale 2 puffs as instructed every 4 hours as needed for wheezing/shortnes s of breath. 2 each 3 05/31/2025 Active Start: 09-28-2024 End: 10-19-2024 albuterol (PROVENTIL) 2.5 mg /3 mL (0.083 %) nebulizer solution Indications: Community acquired bacterial pneumonia , Rhonchi at left lung base Use 3 mL via nebulizer every 4 hours as needed for wheezing/shortness of breath. Use over 5-15minutes. 90 mL 2 10/19/2024 Active Start: 09-21-2021 End: 08-14-2023 Albuterol Sulfate Discontinu ed 2 INH INHALATION EVERY 6 HOURS September 20, 2021 11:00pm August 14, 2023 9:38am Start: 09-05-2021 End: 01-28-2022 take 2 puff(s) by inhalation every four hours as needed for wheezing albuterol HFA (PROVENTIL HFA, VENTOLIN HFA) 90 mcg/actuation inhaler Indications: Cough , SOB (shortness of breath) , Tachypnea Inhale 2 Puffs as instructed every 4 hours as needed for wheezing/shortness of breath. 8 g 1 09/05/2021 01/28/2022 Discontinued Start: 12-15-2018 End: 03-05-2019 take 1 puff(s) by inhalation every four hours Albuterol Sulfate (Ventolin Hfa) 90 mcg/actuation HFA aerosol inhaler Discontinued 2 PUFF INHALATION Q4H December 15, 2018 12:00am March 05, 2019 12:16pm amLODIPine 10 mg oral tablet (20 sources) Dihydropyridine Calcium Channel Robert Start: 06-16-2023 End: 05-31-2025 take 1 tablet by mouth once daily amLODIPine (NORVASC) 10 mg tablet Take 1 tablet by mouth once daily. 90 tablet 3 05/31/2025 Active Start: 03-05-2019 End: 06-02-2023 take 1 tablet by mouth once daily amLODIPine (NORVASC) 10 mg tablet Take 1 tablet by mouth once daily. 90 tablet 3 05/29/2021 05/28/2022 Discontinued Comment on above: Take 1 tablet by beni once daily. budesonide 0.25 mg/ml inhalation suspension (12 sources) Corticosteroid Start: 4 End: budesonide (PULMICORT) 0.5 mg/2 mL nebulizer solution Indications: Community acquired bacterial pneumonia , Rhonchi at left lung base Use 2 mL via nebulizer once daily. 60 mL 10/19/2024 Active cefdinir 300 mg oral capsule (5 sources) Cephalosporin Antibacterial Start: 4 End: take 1 capsule by mouth twice daily cefdinir (OMNICEF) 300 mg capsule Indications: Community acquired bacterial pneumonia , Rhonchi at left lung base Take 1 capsule by mouth two times a day for 14 days. 28 capsule 10/19/2024 11/02/2024 Active Start: 09-28-2024 End: 10-08-2024 take 1 capsule by mouth twice daily cefdinir (OMNICEF) 300 mg capsule Indications: Rhonchi at both lung bases , Community acquired bacterial pneumonia Take 1 capsule by mouth two times a day for 10 days. 20 capsule 09/28/2024 10/08/2024 Active cephalexin 500 mg oral capsule (2 sources) Cephalosporin Antibacterial Start: 03-16-2022 End: 03-26-2022 take 1 capsule by mouth four times daily cephALEXin (KEFLEX) 500 mg capsule Take 1 capsule by mouth four times daily for 10 days. 40 capsule 0 03/16/2022 03/26/2022 Active Comment on above: Take 1 capsule by mo [facility] four times daily for 10 days. cilostazol 100 mg oral tablet (20 sources) Phosphodiesterase 3 Inhibitor Start: 11-18-2024 End: 11-18-2025 take 1 tablet by mouth twice daily cilostazol (PLETAL) 100 mg tablet Take 1 tablet by mouth two times a day. 180 tablet 3 11/18/2024 11/18/2025 Active Start: 08-24-2020 End: 10-13-2024 take 1 tablet by mouth twice daily cilostazol (PLETAL) 100 mg tablet Take 1 tablet by mouth two times a day. 180 tablet 3 10/14/2023 10/13/2024 Active Comment on above: Take 1 tablet by beni th twice daily. Take 1 tablet by beni th two times a day. clopidogrel 75 mg oral tablet (20 sources) P2Y12 Platelet Inhibitor Start: End: take 1 tablet by mouth once daily clopidogrel (PLAVIX) 75 mg tablet Take 1 tablet by mouth once daily. 90 tablet 3 05/31/2025 05/26/2026 Active Comment on above: Take 1 tablet by beni th once daily. ezetimibe 10 mg oral tablet (20 sources) Dietary Cholesterol Absorption Inhibitor Start: End: take 1 tablet by mouth once daily ezetimibe (ZETIA) 10 mg tablet Indications: PAD (peripheral artery disease) , Hypercholesterolemia , Atherosclerosis of [place] coronary artery of [place] heart with angina pectoris Take 1 tablet by mouth once daily. 90 tablet 3 05/31/2025 Active Comment on above: Take 1 tablet by beni th once daily. levoFLOXacin 500 mg oral tablet (8 sources) Quinolone Antimicrobial Start: End: take 1 tablet by mouth once daily levoFLOXacin (LEVAQUIN) 500 mg tablet Take 1 tablet by mouth once daily for 14 days. 14 tablet 05/31/2025 06/14/2025 Active Start: 11-30-2024 End: 12-14-2024 take 1 tablet by mouth once daily levoFLOXacin (LEVAQUIN) 500 mg tablet Take 1 tablet by mouth once daily for 14 days. 14 tablet 11/30/2024 12/14/2024 Active Start: 10-19-2024 End: 11-15-2024 take 1 tablet by mouth once daily levoFLOXacin (LEVAQUIN) 500 mg tablet Indications: Community acquired bacterial pneumonia , Rhonchi at left lung base Take 1 tablet by mouth once daily for 14 days. 14 tablet 11/01/2024 11/15/2024 Active Start: 09-28-2024 End: 10-08-2024 take 1 tablet by mouth once daily levoFLOXacin (LEVAQUIN) 500 mg tablet Indications: Rhonchi at both lung bases , Community acquired bacterial pneumonia Take 1 tablet by mouth once daily for 10 days. 10 tablet 09/28/2024 10/08/2024 Active metoprolol tartrate 50 mg oral tablet (20 sources) beta-Adrenergic Robert Start: 08-14-2023 take 25 mg by mouth twice daily Metoprolol Tartrate Active 25 MG PO TWICE A DAY August 14, 2023 9:39am Start: 06-02-2023 End: 05-31-2025 take 0.5 tablet by mouth twice daily metoprolol tartrate, short acting, (LOPRESSOR) 50 mg tablet Take 0.5 tablets by mouth two times a day. 60 tablet 5 05/31/2025 Active Start: 09-03-2021 End: 06-02-2023 take 0.5 tablet by mouth twice daily metoprolol tartrate, short acting, (LOPRESSOR) 100 mg tablet Take 0.5 tablets by mouth twice daily. 60 tablet 3 09/03/2021 05/16/2022 Discontinued Start: 03-05-2019 End: 08-14-2023 take 50 mg by mouth twice daily Metoprolol Tartrate Di scontinued 50 MG PO TWICE A DAY March 04, 2019 11:00pm August 14, 2023 9:39am Start: 02-04-2019 End: 03-05-2019 take 50 mg by mouth twice daily Metoprolol Tartrate Di scontinued 50 MG PO TWICE A DAY March 04, 2019 11:00pm March 05, 2019 12:14pm Start: 12-04-2018 End: 03-05-2019 take 25 mg by mouth once daily Metoprolol Succinate Di scontinued 25 MG PO DAILY December 04, 2018 12:00am March 05, 2019 8:05am Comment on above: Take 0.5 tablets by mouth twice daily. MULTIVITAMIN/IRON/FOLIC ACID (CENTRUM COMPLETE ORAL) (20 sources) MULTIVITAMIN/IRO N/FOLIC ACID (CENTRUM COMPLETE ORAL) Take by mouth. Active MULTIVITAMIN/IRO N/FOLIC ACID (CENTRUM COMPLETE ORAL) Take by mouth. 0 Active Comment on above: Take by mouth. Ln-Pjp-Qofrk-K1-Lycope n-Lutein (Centrum Silver Ultra Men's) 300-600-300 mcg tablet (1 source) Start: 12-04-19 take 300-600 tablets by mouth once daily Vs-Diy-Fcwlx-K1-Lycop en-Lutein (Centrum Silver Ultra Men's) 300-600-300 mcg tablet Active 1 TABLET PO DAILY December 04, 2018 12:00am nitroglycerin 0.4 mg sublingual tablet (3 sources) Nitrate Vasodilator Start: 12-04-19 End: 02-11-20 Nitroglycerin Active 0.4 MG SL every 5 to 15 minutes February 10, 2023 8:09am one tablet under tongue every 5-15 minutes for chest pain up to 3 doses pravastatin sodium 10 mg oral tablet (20 sources) HMG-CoA Reductase Inhibitor Start: 11-05-20 End: 05-26-20 take 1 tablet by mouth once daily at bedtime pravastatin (PRAVACHOL) 10 mg tablet Take 1 tablet by mouth daily at bedtime. 90 tablet 3 05/31/2025 05/26/2026 Active Start: 03-05-2019 End: 05-09-2020 take 0.5 tablet by mouth at bedtime Pravastatin Discontinued 10 MG PO AT BEDTIME 90 April 29, 2019 3:42pm May 09, 2020 9:35am 10 mg PO 0.5 tablet (5 mg) at bedtime; Start: 02-04-2019 End: 03-05-2019 take 5 mg by mouth at bedtime Pravastatin Discontinued 5 MG PO AT BEDTIME February 03, 2019 11:00pm March 05, 2019 8:10am Comment on above: Take 1 tablet by beni daily at bedtime. predniSONE 20 mg oral tablet (4 sources) Start: 05-31-2025 End: 06-07-2025 take 2 tablets by mouth once daily predniSONE (DELTASONE) 20 mg tablet Take 2 tablets by mouth once daily for 7 days. 14 tablet 05/31/2025 06/07/2025 Active Start: 11-30-2024 End: 12-07-2024 take 2 tablets by mouth once daily predniSONE (DELTASONE) 20 mg tablet Take 2 tablets by mouth once daily for 7 days. 14 tablet 11/30/2024 12/07/2024 Active Start: 06-02-2023 End: 06-09-2023 take 2 tablets by mouth once daily predniSONE (DELTASONE) 20 mg tablet Take 2 tablets by mouth once daily for 7 days. 14 tablet 0 06/02/2023 06/09/2023 Active Comment on above: Take 2 tablets by mo [facility] once daily for 7 days. Completed/Discontinued Medications Medication Drug Class(es) Dates Sig (Normalized) Sig (Original) acetaminophen 325 mg oral capsule (20 sources) Start: 03-05-2019 End: 09-21-2021 take 650 mg by mouth every six hours as needed Acetaminophen Discontinued 650 MG PO EVERY 6 HOURS NEEDED March 05, 2019 8:05am September 21, 2021 9:35am Start: 02-04-2019 End: 03-05-2019 take 325 mg by mouth every six hours as needed Acetaminophen Discontinued 325 MG PO EVERY 6 HOURS NEEDED February 03, 2019 11:00pm March 05, 2019 8:10am Start: 01-02-2019 take 2 tablets by mo uth every six hours as needed acetaminophen (TYLENOL) 325 mg tablet Take 2 tablets by mouth every 6 hours as needed. 01/02/2019 Active Comment on above: Take 2 tablets by [facility] every 6 hours as needed. aspirin 81 mg delayed release oral tablet (19 sources) Platelet Aggregation Inhibitor, Nonsteroidal Anti-inflammatory Drug Start: 9 End: 4 take 1 tablet by mouth once daily Aspirin (Adult Aspirin Regimen) 81 mg tablet,delayed release (DR/EC) Discontinued 81 MG PO DAILY December 04, 2018 12:00am August 13, 2022 8:09am Comment on above: Take 81 mg by mouth once daily. benzonatate 100 mg oral capsule (2 sources) Non-narcotic Antitussive Start: 1 End: 2 take 100 mg by mouth twice daily Benzonatate Discontinued 100 MG PO TWICE A DAY September 20, 2021 11:00pm January 31, 2022 9:37am Start: 09-05-2021 End: 01-28-2022 take 1 capsule by mouth three times daily as needed for cough benzonatate (TESSALON PERLES) 100 mg capsule Indications: Cough , SOB (shortness of breath) , Tachypnea Take 1 capsule by mouth three times daily as needed for cough. Mild to moderate cough. 30 capsule 1 09/05/2021 01/28/2022 Discontinued dexamethasone 6 mg oral tablet (1 source) Corticosteroid Start: 09-05-2021 End: 01-28-2022 take 1 tablet by mouth once daily at breakfast dexAMETHasone (DECADRON) 6 mg tablet Indications: Cough , SOB (shortness of breath) , Tachypnea Take 1 tablet by mouth daily with breakfast. 10 tablet 09/05/2021 01/28/2022 Discontinued docusate sodium 50 mg / sennosides, assisted 8.6 mg oral tablet (2 sources) Start: 02-04-2019 End: 09-21-2021 Sennosides-Docusate Sodium Discontinued 1 EACH PO NEEDED February 03, 2019 11:00pm September 21, 2021 9:35am Start: 01-02-2019 End: 01-28-2022 take 1 tablet by mouth twice daily senna-docusate (SENNA-S) 8.6-50 mg per tablet Take 1 tablet by mouth twice daily. Take daily while taking oxycodone pain medication. 60 tablet 01/02/2019 01/28/2022 Discontinued doxycycline hyclate 100 mg oral tablet (5 sources) Tetracycline-class Drug Start: 05-27-2023 End: 06-12-2023 take 1 tablet by mouth twice daily doxycycline (VIBRA-TABS) 100 mg tablet Indications: Acute cough Take 1 tablet by mouth twice daily for 10 days. 20 tablet 05/27/2023 06/02/2023 Discontinued Comment on above: Take 1 tablet by beni twice daily for 10 days. folic acid 0.4 mg oral tablet (1 source) Start: 12-04-2018 End: 03-05-2019 take 0.4 mg by mouth once daily Folic Acid Discontinued 0.4 MG PO DAILY December 04, 2018 12:00am March 05, 2019 12:15pm 12 hr guaiFENesin 600 mg extended release oral tablet (2 sources) Start: 09-05-2021 End: 01-31-2022 take 1 tablet by mouth twice daily, then take 1 tablet by mouth every twelve hours Guaifenesin (Mucinex) 600 mg tablet extended release 12hr Discontinued 600 MG PO TWICE A DAY September 20, 2021 11:00pm January 31, 2022 9:38am hydroCHLOROthiazide 25 mg oral tablet (1 source) Thiazide Diuretic Start: 12-16-2018 End: 03-05-2019 take 25 mg by mouth once daily Hydrochlorothiazide Discontinued 25 MG PO DAILY 90 December 16, 2018 12:00am March 05, 2019 8:10am Inhalational Spacing Device (1 source) Start: 09-05-2021 End: 09-05-2021 Inhalational Spacing Device Indications: Cough , SOB (shortness of breath) , Tachypnea 1 Device one time only for 1 dose. 1 Each 09/05/2021 09/05/2021 loratadine 10 mg oral tablet (1 source) End: 01-28-2022 take 1 tablet by mouth once daily loratadine (CLARITIN) 10 mg tablet Take 10 mg by mouth once daily. 01/28/2022 Discontinued melatonin 3 mg oral tablet (1 source) Start: 01-02-2019 End: 01-28-2022 take 1 tablet by mouth every twenty-fo ur hours as needed melatonin 3 mg tablet Take 1 tablet by mouth at bedtime as needed (insomnia). 01/02/2019 01/28/2022 Discontinued melatonin 3 mg / vitamin b6 10 mg oral tablet (1 source) Start: 02-04-2019 End: 08-20-2019 Melatonin-Pyridoxine Hcl (B6) Discontinued 1 EACH PO AT BEDTIME NEEDED February 03, 2019 11:00pm August 20, 2019 10:57am oxyCODONE hydrochloride 5 mg oral tablet (1 source) Opioid Agonist Start: 03-05-2019 End: 03-05-2019 take 1 tablet by mouth every six hours Oxycodone (Roxicodone) 5 mg tablet Discontinued 5 MG PO .every 6 hours March 04, 2019 11:00pm March 05, 2019 12:15pm Perflutren Lipid Microspheres (Definity) 1.1 mg/mL suspension (1 source) Start: 12-04-2018 End: 03-05-2019 Perflutren Lipid Microspheres (Definity) 1.1 mg/mL suspension Discontinued 1.3 MG .Route . December 04, 2018 12:00am March 05, 2019 8:10am as directed polyethylene glycol 3350 17451 mg powder for oral solution (2 sources) Osmotic Laxative Start: 01-02-2019 End: 01-28-2022 take 17 g by mouth once daily Polyethylene Glycol 3350 Discontinued 17 GM PO DAILY February 03, 2019 11:00pm March 05, 2019 12:15pm ramipril 10 mg oral capsule (3 sources) Angiotensin Converting Enzyme Inhibitor Start: 03-05-2019 End: 01-28-2022 take 1 capsule by mouth once daily ramipril (ALTACE) 10 mg capsule Indications: Essential hypertension Take 1 capsule by mouth once daily. 180 capsule 3 07/10/2020 01/28/2022 Discontinued Start: 12-04-2018 End: 03-05-2019 take 20 mg by mouth once daily Ramipril Discontinued 2 0 MG PO DAILY December 04, 2018 12:00am March 05, 2019 8:10am triamcinolone acetonide 1 mg/ml topical cream (1 source) Corticosteroid Start: 05-29-2021 End: 01-28-2022 triamcinolone acetonide (KENALOG) 0.1 % cream Apply 1 application to affected area three times daily. On scar incision rash, Apply sparingly to area for rash/itching. 30 g 1 05/29/2021 01/28/2022 Discontinued Problems Active Problems Problem Classification Problem Date Documented Date Episodic/Chronic Aortic; peripheral; and visceral artery aneurysms (20 sources) Abdominal aortic aneurysm without rupture; Translations: [Abdominal aortic aneurysm, without rupture] Onset: 10-24-2022 Chronic Cardiac dysrhythmias (1 source) Ventricular arrhythmia; Translations: [Ventricular premature depolarization] 12-09-2023 Chronic Cardiac dysrhythmias (3 sources) Palpitations; Translations: [Palpitations] 04-06-2019 Episodic Coagulation and hemorrhagic disorders (1 source) Thrombocytopenic disorder; Translations: [Thrombocytopenia, unspecified] 05-31-2021 Chronic Conditions associated with dizziness or vertigo (1 source) Lightheadedness; Translations: [Dizziness and giddiness] 04-06-2019 Episodic Coronary atherosclerosis and other heart disease (20 sources) Coronary arteriosclerosis; Translations: [Atherosclerotic heart disease of [place] coronary artery without angina pectoris] Onset: 05-17-2003 Resolved: 05-24-2020 12-22-2018 Chronic Diabetes mellitus without complication (4 sources) Hyperglycemia; Translations: [Hyperglycemia, unspecified] Onset: 05-26-2025 Episodic Disorders of lipid metabolism (20 sources) Hypercholesterolemia; Translations: [Pure hypercholesterolemia, unspecified] Onset: 11-28-2014 11-28-2014 Chronic Essential hypertension (20 sources) Essential hypertension; Translations: [Essential (primary) hypertension] Onset: 11-28-2014 Resolved: 12-05-2015 12-22-2018 Chronic Fluid and electrolyte disorders (1 source) Hypokalemia; Translations: [Hypokalemia] 12-09-2023 Episodic Hyperplasia of prostate (20 sources) Benign prostatic hyperplasia; Translations: [Benign prostatic hyperplasia with lower urinary tract symptoms] Onset: 05-23-2014 05-29-2021 Chronic Melanomas of skin (1 source) Malignant melanoma; Translations: [Malignant melanoma of skin, unspecified] 04-15-2019 Chronic Nutritional deficiencies (20 sources) Vitamin D deficiency; Translations: [Vitamin D deficiency, unspecified] Onset: 12-29-2018 Resolved: 05-24-2020 11-28-2021 Chronic Occlusion or stenosis of precerebral arteries (20 sources) Atherosclerosis of right carotid artery; Translations: [Occlusion and stenosis of right carotid artery] Onset: 11-27-2018 11-27-2018 Chronic Other circulatory disease (20 sources) Subclavian artery stenosis; Translations: [Stricture of artery] Onset: 11-27-2018 05-24-2020 Chronic Other circulatory disease (1 source) Bilateral subclavian artery stenosis; Translations: [Stricture of artery] 04-15-2019 Chronic Other circulatory disease (1 source) Peripheral arterial occlusive disease; Translations: [Disorder of arteries and arterioles, unspecified] 09-21-2021 Chronic Other circulatory disease (1 source) Disorder of arteries and arterioles, unspecified; Translations: [Arterial embolism and thrombosis of lower extremity] 08-14-2023 Chronic Other circulatory disease (3 sources) Wheeze - rhonchi; Translations: [Other specified symptoms and signs involving the circulatory and respiratory systems] 09-28-2024 Episodic Other lower respiratory disease (4 sources) Cough; Translations: [Acute cough] 05-27-2023 Episodic Other lower respiratory disease (4 sources) Dyspnea; Translations: [Shortness of breath] 09-20-2021 Episodic Other lower respiratory disease (3 sources) Tachypnea; Translations: [Tachypnea, not elsewhere classified] 09-21-2021 Episodic Other lower respiratory disease (1 source) Productive cough -clear sputum; Translations: [Cough productive of clear sputum] 01-30-2022 Episodic Other lower respiratory disease (1 source) Cough; Translations: [Acute cough] 09-17-2024 Episodic Peripheral and visceral atherosclerosis (20 sources) Peripheral vascular disease, unspecified; Translations: [Peripheral vascular disease, unspecified] Onset: 11-28-2014 Resolved: 05-24-2020 11-28-2021 Chronic Residual codes; unclassified (1 source) Edema; Translations: [Edema, unspecified] 09-20-2021 Episodic Unclassified (2 sources) Atherosclerotic heart disease of [place] coronary artery with unspecified angina pectoris Onset: 12-22-2018 Unclassified (1 source) Abdominal aortic aneurysm (AAA) without rupture, unspecified part (HCC); Translations: [Abdominal aortic aneurysm (AAA) without rupture, unspecified part (HCC)] Onset: 10-24-2022 Unclassified (1 source) Infrarenal abdominal aortic aneurysm (AAA) without rupture (HCC); Translations: [Infrarenal abdominal aortic aneurysm (AAA) without rupture (HCC)] Onset: 10-24-2022 Unclassified (1 source) Acute cough; Translations: [Acute cough] Onset: 09-17-2024 Past or Other Problems Problem Classification Problem Date Documented Date Episodic/Chronic Coronary atherosclerosis and other heart disease (20 sources) Stent in branch of right coronary artery; Translations: [Presence of coronary angioplasty implant and graft] Onset: 11-28-2014 11-28-2014 Episodic Inflammatory conditions of male genital organs (20 sources) Epididymitis; Translations: [Epididymitis] Onset: 05-23-2014 05-23-2014 Episodic Malaise and fatigue (20 sources) Fatigue; Translations: [Other fatigue] Onset: 11-28-2021 11-28-2021 Episodic Melanomas of skin (20 sources) H/O Malignant melanoma; Translations: [Personal history of malignant melanoma of skin] Onset: 11-28-2014 05-24-2020 Episodic Nutritional deficiencies (4 sources) Cobalamin deficiency; Translations: [Deficiency of other specified B group vitamins] Onset: 11-23-2024 06-02-2024 Episodic Other circulatory disease (2 sources) Other specified symptoms and signs involving the circulatory and respiratory systems; Translations: [Rhonchi at left lung base] Onset: 09-28-2024 Episodic Other connective tissue disease (20 sources) Muscle pain; Translations: [Myalgia, unspecified site] Onset: 11-28-2017 11-28-2017 Episodic Other connective tissue disease (11 sources) Weakness of left leg; Translations: [Other symptoms and signs involving the musculoskeletal system] Onset: 05-29-2021 05-29-2021 Episodic Other connective tissue disease (20 sources) Other symptoms and signs involving the musculoskeletal system; Translations: [Other musculoskeletal symptoms referable to limbs] Onset: 05-29-2021 05-29-2021 Episodic Other diseases of kidney and ureters (17 sources) Acute renal insufficiency; Translations: [Disorder of kidney and ureter, unspecified] Onset: 05-10-2019 Resolved: 11-26-2021 11-26-2021 Episodic Other lower respiratory disease (2 sources) Shortness of breath; Translations: [Shortness of breath] Onset: 09-17-2024 Episodic Other lower respiratory disease (1 source) Tachypnea, not elsewhere classified; Translations: [Tachypnea] Onset: 09-17-2024 Episodic Other male genital disorders (20 sources) Scrotal mass; Translations: [Other specified disorders of the male genital organs] Onset: 05-23-2014 05-23-2014 Episodic Other non-traumatic joint disorders (20 sources) Multiple joint pain; Translations: [Pain in unspecified joint] Onset: 11-28-2017 11-28-2017 Episodic Other screening for suspected conditions (not mental disorders or infectious disease) (5 sources) Patient encounter status; Translations: [Encounter for screening for malignant neoplasm of prostate] Onset: 11-23-2024 Episodic Pneumonia (except that caused by tuberculosis or sexually transmitted disease) (3 sources) Community acquired pneumonia; Translations: [Unspecified bacterial pneumonia] Onset: 10-19-2024 09-28-2024 Episodic Residual codes; unclassified (20 sources) Tobacco user; Translations: [Tobacco use] Onset: 11-28-2014 12-22-2018 Episodic Residual codes; unclassified (20 sources) Finding of systemic arterial pressure; Translations: [Other general symptoms and signs] Onset: 11-27-2018 11-27-2018 Episodic Residual codes; unclassified (20 sources) Edema of foot; Translations: [Localized edema] Onset: 11-28-2021 11-28-2021 Episodic Unclassified (1 source) PAD (peripheral artery disease) ([facility]) 01-14-2025 Results Test Name Value Interpretation Reference Range Facility [facility] 05-31-2025 CNOV Office Visit (FAMPWS ) PORFIRIO DEVI ([id number]) 1945 M Date Time Provider Department 05/31/25 9:20 [facility] During your visit today, we recorded the following information about you: Temperature Pulse Respiration Blood pressure 97 degrees 56/minute 20/minute 100/60 Weight 73 kg Andrea Smiley DO 06/01/2025 7:13 AM Signed CC: Porfirio Devi is a 80 year old male who presents to the office for follow up HPI: Patient was seen on 09/17/24 in the office by Derick Yuen CNP, at that time Patient presents for chest congestion, headache, fever x6 days. Reports SOB at rest, worse with exertion. Reports use of mucinex and ibuprofen at home. He was sent to the EMERGENCY DEPARTMENT per her recommendations in the office EMERGENCY DEPARTMENT visit on 09/17 at [facility] he was diagnosed with acute bronchitis and started on 5 days of levaquin once a day and prn use of albuterol by nebulizer He thought symptoms were improving, but 3 days ago felt that his symptoms were worsening again At follow up in the office on 09/28/24 as below He is struggling with increasing fatigue, coughing to the point of cough spasms that are consistent. + fatigue, chills, no fever. Some shortness of breath with coughing episodes. Took all the levaquin rx and has been using the albuterol by nebulizer as well. He is wanting to avoid going to the hospital again for care. Wondering what he needs to do next. is present during OFFICE VISIT He was treated with budesoide by nebulizer and mucinex twice a day as well as cefdinir and levaquin and albuterol prn At follow up on 10/19/2024 He feels that his cough symptoms and chest congestion and sputum production were improving with treatment as above. Then symptoms recently after having completed the course of antibiotics and budesonide by Nebulizer have started to return. Having some chest congestion and wheezing. Fatigue symptoms. No fevers or chills. Pulse ox at home in the low 90s typically No chest pressure At OFFICE VISIT on 11/01/2024 At his last appointment He was continued otn albuterol and budesonide nebulized as well as cefdinir and levaquin He states that he is feeling better. Only symptoms that remain are fatigue, decreased appetite and he is still struggling with a dry cough. Now this cough is unproductive. No fevers or chills. No hemoptysis. Bowel function is overall stable. He is taking a probiotic. Took last rx of antibiotic today At last OFFICE VISIT 11/30/2024 Cough, chest congestion, mostly resolved. Rare cough at night when laying to go to sleep. No new respiratory distress. No fevers or chills. CAD, no recent chest pressure or pain or dyspnea or palpitations, taking his medications as prescribed. Seeing [place] [facility] specialists. Dyslipidemia, tolerating statin therapy PAD, seeing Vascular specialist in Dec. No new symptoms in legs or cardiac or neurologic Currently CAD, no recent chest pressure or pain or dyspnea or palpitations, taking his medications as prescribed. Seeing [place] [facility] specialists. Dyslipidemia, tolerating statin therapy PAD, seeing Vascular specialist in Dec. 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 Symptoms of PAD are the worst in the AM when waking up. Seems to be improved a little from previous and improves every morning after his coffee intake. PAST MEDICAL HISTORY Diagnosis Date AAA (abdominal aortic aneurysm) Arthritis Basal cell carcinoma of neck Dr. Arie Scott Food Clerk Carotid artery stenosis Coronary artery disease stent, Dr. [facility] Heart attack (HCC) Hyperlipemia Hypertension Malignant melanoma of chest wall (HCC) Dr. Arie Scott Food Clerk Peripheral arterial disease S/P CABG x 3 12/28/2018 Sleep apnea [...] Take 1 tablet by mouth once daily. me (more content not included)... Normal [facility] 25(OH)D3 [facility] 2024 25-hydroxyvitamin D3 [Mass/Vol] 35.6 ng/mL Normal 31.0-80.0 [facility] Comment on above: Order Comment: Speci men Type: BLOOD SPECIMENOrdering Facility: [facility] Address: [address] [place] [address] Performed By: #### 1 989-3 ####[facility] LABCLIA [id number] [place] [id number] [place] CBC panel Auto (Bld)on 05-26 Erythrocyte distribution width (RBC) [Ratio] 13.3 % Normal 11.5-15.0 [facility] Comment on above: Order Comment: Speci men Type: BLOOD SPECIMENOrdering Facility: [facility] Address: [address] [place] [address] Performed By: #### 5 8410-2 ####[facility] LABIA [id number] [address] [place] Hematocrit (Bld) [Volume fraction] 41.9 % Normal 39.0-51.0 [facility] Comment on above: Order Comment: Speci men Type: BLOOD SPECIMENOrdering Facility: [facility] Address: [address] [place] [address] Performed By: #### 5 8410-2 ####[facility] LABIA [id number] [address] [place] Hemoglobin (Bld) [Mass/Vol] 14.0 g/dL Normal 13.0-17.0 [facility] Comment on above: Order Comment: Speci men Type: BLOOD SPECIMENOrdering Facility: [facility] Address: [address] [place] [address] Performed By: #### 5 8410-2 ####[facility] LABIA [id number] [place] [id number] [place] MCH (RBC) [Entitic mass] 32.3 pg Normal 26.0-34.0 [facility] Comment on above: Order Comment: Speci men Type: BLOOD SPECIMENOrdering Facility: [facility] Address: [address] [place] [address] Performed By: #### 5 8410-2 ####[facility] LABCLIA [id number] [place] [address] [place] MCHC (RBC) [Mass/Vol] 33.4 g/dL Normal 30.5-36.0 [facility] Comment on above: Order Comment: Speci men Type: BLOOD SPECIMENOrdering Facility: [facility] Address: [address] [place] [address] Performed By: #### 5 8410-2 ####[facility] LABIA [id number] [place] [address] [place] MCV (RBC) [Entitic vol] 96.8 fL Normal 80.0-100.0 [facility] Comment on above: Order Comment: Speci men Type: BLOOD SPECIMENOrdering Facility: [facility] Address: [address] [place] [address] Performed By: #### 5 8410-2 ####[facility] LABIA [id number] [place] [address] [place] Nucleated RBC (Bld) [#/Vol] 10*3/uL Normal <0.01 [facility] Comment on above: Order Comment: Speci men Type: BLOOD SPECIMENOrdering Facility: [facility] Address: [address] [place] [address] Performed By: #### 5 8410-2 ####[facility] LABIA [id number] [place] [address] [place] Platelet mean volume (Bld) [Entitic vol] 11.9 fL Normal 9.0-12.7 [facility] Comment on above: Order Comment: Speci men Type: BLOOD SPECIMENOrdering Facility: [facility] Address: [address] [place] [address] Performed By: #### 5 8410-2 ####[facility] LABCLIA [id number] [address] [place] [address] [place] Platelets (Bld) [#/Vol] 171 10*3/uL Normal 150-400 [facility] Comment on above: Order Comment: Speci men Type: BLOOD SPECIMENOrdering Facility: [facility] Address: [address] [place] [address] Performed By: #### 5 8410-2 ####[facility] LABIA [id number] [address], [facility] [place] RBC (Bld) [#/Vol] 4.33 10*6/uL Normal 4.20-6.00 [facility] Comment on above: Order Comment: Speci men Type: BLOOD SPECIMENOrdering Facility: [facility] Address: [address] [place] [address] Performed By: #### 5 8410-2 ####[facility] LABIA [id number] [place] [address] [place] WBC (Bld) [#/Vol] 6.70 10*3/uL Normal 3.70-11.00 [facility] Comment on above: Order Comment: Speci men Type: BLOOD SPECIMENOrdering Facility: [facility] Address: [address] [place] [address] Performed By: #### 5 8410-2 ####[facility] LABIA [id number] [place] [id number] [place] Comprehensive metabolic 2000 panelon 05-26-2025 Albumin [Mass/Vol] 4.1 g/dL Normal 3.9-4.9 [facility] Comment on above: Order Comment: Speci men Type: BLOOD SPECIMENOrdering Facility: [facility] Address: [address] [place] [address] Performed By: #### 3 016-3, 2132-9, 56069-7, 28783-8 ####[facility] LABIA [id number] [place] [id number] [place] ALP [Catalytic activity/Vol] 51 U/L Normal 38-113 [facility] Comment on above: Order Comment: Speci men Type: BLOOD SPECIMENOrdering Facility: [facility] Address: [address] [place] [address] Performed By: #### 3 016-3, 2132-07, 90705-8, 79994-7 ####[facility] LABCLIA [id number] [place] [address] [place] ALT [Catalytic activity/Vol] 29 U/L Normal 10-54 [facility] Comment on above: Order Comment: Speci men Type: BLOOD SPECIMENOrdering Facility: [facility] Address: [address] [place] [address] Performed By: #### 3 016-3, 2132-07, 09236-4, 57556-7 ####[facility] LABCLIA [id number] [place] [address] [place] Anion gap [Moles/Vol] 11 mmol/L Normal 8-15 [facility] Comment on above: Order Comment: Speci men Type: BLOOD SPECIMENOrdering Facility: [facility] Address: [address] [place] [address] Performed By: #### 3 016-3, 2132-07, 77196-7, 15740-6 ####[facility] LABCLIA [id number] [place] [address] [place] AST [Catalytic activity/Vol] 30 U/L Normal 14-40 [facility] Comment on above: Order Comment: Speci men Type: BLOOD SPECIMENOrdering Facility: [facility] Address: [address] [place] [address] Performed By: #### 3 016-3, 9, 24711-0, 39477-6 ####[facility] LABCLIA [id number] [place] [id number] [place] Bilirubin [Mass/Vol] 0.2 mg/dL Normal 0.2-1.3 [facility] Comment on above: Order Comment: Speci men Type: BLOOD SPECIMENOrdering Facility: [facility] Address: [address] [place] [address] Performed By: #### 3 016-3, 2132-07, 29697-4, 88125-2 ####[facility] LABCLIA [id number] [place] [address] [place] Calcium [Mass/Vol] 9.1 mg/dL Normal 8.5-10.2 [facility] Comment on above: Order Comment: Speci men Type: BLOOD SPECIMENOrdering Facility: [facility] Address: [address] [place] [address] Performed By: #### 3 016-3, 2132-07, , 45890-9 ####[facility] LABCLIA [id number] [place] [address] [place] Chloride [Moles/Vol] 109 mmol/L High 98-107 [facility] Comment on above: Order Comment: Speci men Type: BLOOD SPECIMENOrdering Facility: [facility] Address: [address] [place] [address] Performed By: #### 3 016-3, 2132-07, , 44121-4 ####[facility] LABCLIA [id number] [place] [address] [place] CO2 [Moles/Vol] 21 mmol/L Low 22-30 [facility] Comment on above: Order Comment: Speci men Type: BLOOD SPECIMENOrdering Facility: [facility] Address: [address] [place] [address] Performed By: #### 3 016-3, 2132-07, , 81925-4 ####[facility] LABCLIA [id number] [facility] [place] [id number] [place] Creatinine [Mass/Vol] 1.15 mg/dL Normal 0.73-1.22 [facility] Comment on above: Order Comment: Angélica harrison Type: BLOOD SPECIMENOrdering Facility: [facility] Address: [address] [place] [address] Performed By: #### 3 016-3, 2132-07, 08015-1, 34018-7 ####[facility] LABCLIA [id number] [place] [address] [place] Creatinine and Glomerular filtration rate.predicted panel (S/P/Bld) 65 mL/min/1.73m??? Normal >=60 [facility] Comment on above: Order Comment: Angélica harrison Type: BLOOD SPECIMENOrdering Facility: [facility] Address: [address] [place] [address] Result Comment: Madisyn mated Glomerular Filtration Rate (eGFR) is calculated using the 2020 CKD-EPI creatinine equation. This equation utilizes serum creatinine, sex, and age as parameters. The creatinine assay has traceable calibration to isotope dilution-mass spectrometry. Refer to KDIGO guidelines for clinical interpretation. In patients with unstable renal function, e.g. those with acute kidney injury, the eGFR may not accurately reflect actual GFR. Performed By: #### 3 016-3, 2132-07, , ####[facility] LABCLIA [id number] [place] [address] [place] Glucose [Mass/Vol] 102 mg/dL High 74-99 [facility] Comment on above: Order Comment: Angélica harrison Type: BLOOD SPECIMENOrdering Facility: [facility] Address: [address] [place] [address] Result Comment: The [place] Diabetes Association (ADA) provides guidance for cutoff values for fasting glucose and random glucose. The ADA defines fasting as no caloric intake for at least 8 hours. Fasting plasma glucose results between 100 to 125 mg/dL indicate increased risk for diabetes (prediabetes). Fasting plasma glucose results greater than or equal to 126 mg/dL meet the criteria for diagnosis of diabetes. In the absence of unequivocal hyperglycemia, results should be confirmed by repeat testing. In a patient with classic symptoms of hyperglycemia or hyperglycemic crisis, random plasma glucose results greater than or equal to 200 mg/dL meet the criteria for diagnosis of diabetes. Reference: Standards of Medical Care in Diabetes 2016, [place] Diabetes Association. Diabetes Care. 2016.39(Suppl 1). Performed By: #### 3 016-3, 2132-07, , 94851-7 ####[facility] LABCLIA [id number] [address] [address] [place] Potassium [Moles/Vol] 4.0 mmol/L Normal 3.7-5.1 [facility] Comment on above: Order Comment: Speci men Type: BLOOD SPECIMENOrdering Facility: [facility] Address: [address] [place] [address] Performed By: #### 3 016-3, 2132-07, , 87439-7 ####[facility] LABIA [id number] [place] [address] [place] Protein [Mass/Vol] 6.4 g/dL Normal 6.3-8.0 [facility] Comment on above: Order Comment: Speci men Type: BLOOD SPECIMENOrdering Facility: [facility] Address: [address] [place] [address] Performed By: #### 3 016-3, 2132-07, , ####[facility] LABIA [id number] [place] [id number] [place] Sodium [Moles/Vol] 141 mmol/L Normal 136-144 [facility] Comment on above: Order Comment: Speci men Type: BLOOD SPECIMENOrdering Facility: [facility] Address: [address] [place] [address] Performed By: #### 3 016-3, 2132-07, , 93778-1 ####[facility] LABIA [id number] [address] [address] [place] Urea nitrogen [Mass/Vol] 16 mg/dL Normal 9-24 [facility] Comment on above: Order Comment: Angélica harrison Type: BLOOD SPECIMENOrdering Facility: [facility] Address: [address] [place] [address] Performed By: #### 3 016-3, 2132-9, 41522-2, 70878-8 ####[facility] LABCLIA [id number] [place] [address] [place] HbA1c (Bld)on 05-26-2025 Average glucose Estimated from glycated hemoglobin (Bld) [Mass/Vol] 111 mg/dL Normal [facility] Comment on above: Order Comment: Angélica harrison Type: BLOOD SPECIMENOrdering Facility: [facility] Address: [address] [place] [address] Result Comment: eAG: (Estimated average glucose) is a calculated value from HgbA1c and is environmental marketing representative of the average blood glucose level in the last 2-3 month period. Performed By: #### 5 5454-3 ####[facility] LABCLIA [id number] [place] [id number] [place] HbA1c (Bld) [Mass fraction] 5.5 % Normal 4.3-5.6 [facility] Comment on above: Order Comment: Angélica harrison Type: BLOOD SPECIMENOrdering Facility: [facility] Address: [address] [place] [address] Result Comment: [place] Diabetes Association guidelines indicate that patients with HgbA1c in the range 5.7-6.4% are at increased risk for development of diabetes, and intervention by lifestyle modification may be beneficial. HgbA1c greater or equal to 6.5% is considered diagnostic of diabetes. Performed By: #### 5 5454-3 ####[facility] LABCLIA [id number] [place] [id number] [place] Lipid 1996 panelon 5 Cholesterol [Mass/Vol] 156 mg/dL Normal <200 [facility] Comment on above: Order Comment: Angélica harrison Type: BLOOD SPECIMENOrdering Facility: [facility] Address: [address] [place] [address] Result Comment: <200 mg/dL, Desirable 200-239 mg/dL, Borderline high >239 mg/dL, High Performed By: #### 3 016-3, 2132-07, , ####[facility] LABCLIA [id number] [facility] [id number] [place] [address] [place] Cholesterol in HDL [Mass/Vol] 38 mg/dL Low >39 [facility] Comment on above: Order Comment: Speci men Type: BLOOD SPECIMENOrdering Facility: [facility] Address: [address] [place] [address] Result Comment: 40-5 9 mg/dL, Acceptable >59 mg/dL, High: Negative risk factor for coronary heart disease <40 mg/dL, Low: Positive risk factor for coronary heart disease Performed By: #### 3 016-3, 2132-07, , ####[facility] LABCLIA [id number] [address], [place] [id number] [place] [address] [place] Cholesterol in LDL [Mass/Vol] 103 mg/dL High <100 [facility] Comment on above: Order Comment: Speci men Type: BLOOD SPECIMENOrdering Facility: [facility] Address: [address] [place] [address] Result Comment: <100 mg/dL, Optimal 100-129 mg/dL, Near optimal/above optimal 130-159 mg/dL, Borderline high 160-189 mg/dL, High >189 mg/dL, Very high Secondary prevention optimal LDL Cholesterol levels are recommended to be <70 mg/dL LDL cholesterol is calculated using the Chou-NIH equation. Performed By: #### 3 016-3, 2132-07, , ####[facility] LABCLIA [id number] [facility] [address] [place] [address] [place] Cholesterol in LDL/Cholesterol in HDL [Mass ratio] 2.71 {ratio} High <2.54 [facility] Comment on above: Order Comment: Speci men Type: BLOOD SPECIMENOrdering Facility: [facility] Address: [address] [place] [address] Result Comment: Denny dobbs: 1. National Cholesterol Education Program ATP III Guideline At-A-Glance Quick Desk Reference: National Heart, Lung, and Blood [place]. National Institutes of Health. 2001: NIH Publication No. 01-3305. 2. An International Atherosclerosis Society position paper: global recommendations for the management of dyslipidemia: executive summary, Atherosclerosis. 2014: 232(2):410-413. Performed By: #### 3 016-3, 2132-07, , 24936-8 ####[facility] LABCLIA [id number] [place] [address] [place] Cholesterol in VLDL [Mass/Vol] 13 mg/dL Normal <30 [facility] Comment on above: Order Comment: Speci men Type: BLOOD SPECIMENOrdering Facility: [facility] Address: [address] [place] [address] Performed By: #### 3 016-3, 2132-07, , 20693-3 ####[facility] LABCLIA [id number] [place] [address] [place] Cholesterol non HDL [Mass/Vol] 118 mg/dL Normal <130 [facility] Comment on above: Order Comment: Speci men Type: BLOOD SPECIMENOrdering Facility: [facility] Address: [address] [place] [address] Result Comment: <130 mg/dL, Optimal 130-159 mg/dL, Near optimal/above optimal 160-189 mg/dL, Borderline high 190-219 mg/dL, High >219 mg/dL, Very high Secondary prevention optimal non HDL Cholesterol levels are recommended to be <100 mg/dL Performed By: #### 3 016-3, 9, 12383-9, 67715-5 ####[facility] LABCLIA [id number] [address] [address] [place] Cholesterol.total/Cho lesterol in HDL [Mass ratio] 4.11 {ratio} Normal <5.10 [facility] Comment on above: Order Comment: Speci men Type: BLOOD SPECIMENOrdering Facility: [facility] Address: [address] [place] [address] Performed By: #### 3 016-3, 2132-07, , 17139-6 ####[facility] LABCLIA [id number] [place] [address] [place] FASTING TIME 12 hrs Normal [facility] Comment on above: Order Comment: Speci men Type: BLOOD SPECIMENOrdering Facility: [facility] Address: [address] [place] [address] Performed By: #### 3 016-3, 2132-07, , ####[facility] LABCLIA [id number] [place] [address] [place] Triglyceride [Mass/Vol] 78 mg/dL Normal <150 [facility] Comment on above: Order Comment: Speci men Type: BLOOD SPECIMENOrdering Facility: [facility] Address: [address] [place] [address] Result Comment: <150 mg/dL, Normal 150-199 mg/dL, Borderline high 200-499 mg/dL, High >499 mg/dL, Very high Performed By: #### 3 016-3, 2132-07, , ####[facility] LABCLIA [id number] [place] [address] [place] TSH SerPl-aCncon 05-26-2025 TSH Qn 3.290 m[IU]/L Normal 0.270-4.200 [facility] Comment on above: Order Comment: Speci men Type: BLOOD SPECIMENOrdering Facility: [facility] Address: [address] [place] [address] Performed By: #### 3 016-3, 9, , 09379-4 ####[facility] LABCLIA [id number] [place] [id number] [place] Vit B12 [facility] 07-10-2 025 Cobalamin (Vitamin B12) [Mass/Vol] 460 pg/mL Normal 232-1245 [facility] Comment on above: Order Comment: Speci men Type: BLOOD SPECIMENOrdering Facility: [facility] Address: [address] [place] [address] Performed By: #### 3 016-3, 2132-9, 77651-6, 38952-8 ####[facility] LABCLIA [id number] [place] [id number] [facility] [place] CNOVon 01-06-2025 CNOV Office Visit (SHEELA RAMOS) PORFIRIO DEVI ([id number]) 1945 M Date Time Provider Department 01/06/25 10:30 AM MAGGIE YOUNG During your visit today, we recorded the following information about you: Pulse Blood pressure Weight Height 69/minute 102/60 71.2 kg 1.702 m Maggie Young APRN.LOSS PREVENTION AND SAFETY MANAGER 01/14/2025 3:09 PM Signed Porfirio Devi is a 79 year old male here for follow up evaluation of his peripheral vascular disease. He was last seen 12/12/23, and by Dr. Irving 06/05/23. He is also seen for carotid stenosis and AAA. Pts history includes: Dr Canela placed 7x200 stents x 2 from the L SLEEPING ROOM CLEANER through the L popliteal artery on for claudication. The pt had a pre-procedure RITA of 0.65. While this initially improved his symptoms and he was able to walk his normal 1-3 miles at a time, his stents went down within a year and his symptoms returned. Per Dr. Irving, his L stent covers both his profunda as well as his popliteal. He understands that if the profunda occludes, he could be at risk for limb loss. The pt has had his L gsv harvested for a CABG done in 2019. Today, Mr. Devi reports that he does have claudication symptoms that have been stable for quite some time. 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 He takes the cart out now to the [place], but still walks a lot with the dogs. We again reviewed that as long as he has claudication alone - no tissue loss or rest pain - there is really no indication for surgery and intervention now would increase risk of subsequent amputation. Discussed indications including rest pain, non healing wounds, and severe claudication that is lifestyle limiting. He states he still heals wounds fairly quickly. TESTING: PVR done 12/31/24: R RITA is 0.79, L RITA is 0.68, with drop in R to 0.38 and L to 0.00. Carotid US done 12/31/24: R ICA <50% L ICA 50-69% stenosis. Abd US done 12/31/24: infrarenal AAA 3.3cm He is on plavix, statin, pletal. He is a former smoker - quit in 2017. His symptoms include: Claudication: Yes Location: B Calves Distance: not quite 1/2 mile Rest pain: No Tissue loss: No The patient is following the walking program as much as possible. We again reviewed the walking program and [...] of amputation, and importance of preventative measures. HISTORIES: PAST MEDICAL HISTORY Diagnosis Date AAA (abdominal aortic aneurysm) ([facility]) Arthritis Basal cell carcinoma of neck Dr. Arie Scott Food Clerk Carotid artery stenosis Coronary artery disease stent, Dr. Andrade Vice President Regulatory Heart attack ([facility]) Hyperlipemia Hypertension Malignant melanoma of chest wall ([facility]) Dr. Arie Scott Food Clerk Peripheral arterial disease (HCC) S/P CABG x [...] Social History Tobacco Use Smoking status: Former Current packs/day: 0.00 Types: Cigarettes Quit date: 04/17/2017 Years since quittin.7 Smokeless tobacco: Never Vaping Use Vaping status: Never Used Substance Use Topics Alcohol use: No Drug use: No MEDICATIONS: Current Outpatient Medications Medication Sig Dispense Refill cilostazol (PLETAL) 100 mg tablet Take 1 tablet by mouth two times a day. 180 tablet 3 amLODIPine (NORVASC) 10 mg tablet Take 1 tablet by mouth once daily. 90 tablet 3 clopidogrel (PLAVIX) 75 mg tablet Take 1 tablet by mouth once daily. 90 tablet 3 ezetimibe (ZETIA) 10 mg tablet Take 1 tablet by mouth once daily. 90 tablet 3 pravastatin (PRAVACHOL) 10 mg tablet Take 1 tablet by mouth daily (more content not included)... Normal [facility] PVR ANK/GARCÍA/TOE MEÑO VAS LAB on 12-31-2024 PVR ANK/GARCÍA/TOE MEÑO VAS LAB Non-Invasive Vascular Laboratory [facility] Lower Extremity Arterial Physiology Study Bilateral/Complete Date of service/time: 12/31/2024 8:49:52 AM Name: MR. PORFIRIO DEVI Date of : 1945 Age: 79 years Gender: M Clinical Indication Claudication and peripheral arterial disease. TECHNIQUE -------- An arterial physiological examination was performed, including measurement of blood pressures using continuous wave Doppler and recording of plethysmographic with or without Doppler waveforms at the below-mentioned limb segments. FINDINGS -------- RIGHT SIDE AT REST Right Doppler Waveforms Dorsalis pedis: Multiphasic. Post tibial: Monophasic. Right Pressures Brachial: 124 mmHg Ankle dorsalis pedis: 91 mmHg RITA: 0.73 Ankle posterior tibial: 98 mmHg RITA: 0.79 Right PVR Waveforms Ankle: Mildly dampened. Transmetatarsal: Mildly dampened. Digit: Mildly dampened. LEFT SIDE AT REST Left Doppler Waveforms Dorsalis pedis: Monophasic. Post tibial: Multiphasic. Left Pressures Brachial: 112 mmHg Ankle dorsalis pedis: 70 mmHg RITA: 0.56 Ankle posterior tibial: 84 mmHg RITA: 0.68 Left PVR Waveforms Ankle: Moderately dampened. Transmetatarsal: Moderately dampened. Digit: Moderately dampened. POST EXERCISE Toe raises. Onset of claudication: 0 min 0 sec Maximal walking time: 5 min 0 sec No symptoms with exercise. -generalized tightness Reason test was terminated: end of protocol. Post Exercise: Immediate Right Pressures and Waveform Brachial: 146 mmHg Ankle: 55 mmHg RITA: 0.38 Ankle waveform: Mildly dampened. Left Pressures and Waveform Ankle: 0 mmHg RITA: 0.00 Ankle waveform: Severely dampened. Post Exercise: 5 minutes Right Pressures and Waveform Brachial: 135 mmHg Ankle: 68 mmHg RITA: 0.50 Ankle waveform: Mildly dampened. Left Pressures and Waveform Ankle: 51 mmHg RITA: 0.38 Ankle waveform: Moderately dampened. IMPRESSION Compared to prior study of 11/28/2023, Right ankle brachial index was 0.73 and left was 0.63. RIGHT SIDE Resting right ankle brachial index: 0.79 Post exercise right ankle brachial index: 0.38 Abnormal ankle brachial index at rest diagnostic of peripheral artery disease. Right ankle: Mild disease at rest. Note drop in pressure and/or ankle-brachial index after exercise. LEFT SIDE Resting left ankle brachial index: 0.68 Post exercise left ankle brachial index: 0.00 Abnormal ankle brachial index at rest diagnostic of peripheral artery disease. Left ankle: Moderate disease at rest. Note drop in pressure and/or ankle-brachial index after exercise. Technologist: Maritza Sanders RVT, RDMS Ordering physician: MAGGIE YOUNG Interpreting physician: Rob Holloway MD Final CC [employer] [facility] Image : [id number] 3[employer]SISUID See Link below for Image Normal [facility] ABD AORTA COMPLETE VAS LA Bon 12-31-2024 US ABD AORTA COMPLETE VAS LAB Non-Invasive Vascular Laboratory [facility] Abdominal Aorta Bilateral/Complete Date of service/time: 12/31/2024 9:21:47 AM Name: MR. PORFIRIO DEVI Date of : 1945 Age: 79 years Gender: M Clinical Indication Abdominal aortic aneurysm. TECHNIQUE -------- An aortic duplex ultrasound examination was performed, including grayscale imaging and color Doppler and spectral Doppler examination of abdominal aorta as well as the below mentioned arteries. FINDINGS -------- AORTA Proximal: PSV: 59 cm/s. EDV: 9 cm/s. 2.27 cm x 2.27 cm At renal: PSV: 44 cm/s. EDV: 0 cm/s. 2.14 cm x 2.14 cm Mid: PSV: 45 cm/s. EDV: 10 cm/s. 3.30 cm x 3.30 cm Distal: PSV: 34 cm/s. EDV: 8 cm/s. 2.26 cm x 2.26 cm Calcified plaque in the abdominal aorta throughout. RIGHT VESSELS Common iliac origin: PSV: 69 cm/s. EDV: 0 cm/s. 1.02 cm x 1.02 cm Common iliac proximal: PSV: 106 cm/s. EDV: 0 cm/s. 1.20 cm x 1.20 cm Common iliac mid: PSV: 102 cm/s. EDV: 0 cm/s. 1.35 cm x 1.35 cm Common iliac distal: PSV: 80 cm/s. EDV: 0 cm/s. 1.03 cm x 1.03 cm External iliac proximal: PSV: 102 cm/s. EDV: 0 cm/s. 0.90 cm x 0.90 cm Internal iliac proximal: PSV: 119 cm/s. EDV: 0 cm/s. 0.59 cm Calcified plaque in the common iliac artery throughout. LEFT VESSELS Common iliac origin: PSV: 58 cm/s. EDV: 0 cm/s. 1.06 cm x 1.06 cm Common iliac proximal: PSV: 142 cm/s. EDV: 0 cm/s. 1.24 cm x 1.24 cm Common iliac mid: PSV: 143 cm/s. EDV: 0 cm/s. 1.38 cm x 1.36 cm Common iliac distal: PSV: 118 cm/s. EDV: 0 cm/s. 1.36 cm x 1.27 cm External iliac proximal: PSV: 77 cm/s. EDV: 0 cm/s. 1.04 cm x 0.95 cm Internal iliac proximal: PSV: 69 cm/s. EDV: 0 cm/s. 0.50 cm Calcified plaque in the common iliac artery throughout. Calcified plaque in the external iliac artery at proximal. IMPRESSION Compared to prior study of 10/10/2021, Aorta measured 3.2 cm mid vessel. AORTA Infrarenal abdominal aortic aneurysm measuring 3.3 x 3.3 cm at mid. Aorta plaque noted without evidence of hemodynamically significant stenosis . RIGHT VESSELS Common iliac artery patent without evidence of aneurysm . Common iliac artery plaque noted without evidence of hemodynamically significant stenosis throughout. External iliac artery patent without evidence of aneurysm at proximal. Internal iliac artery patent without evidence of aneurysm at proximal. LEFT VESSELS Common iliac artery patent without evidence of aneurysm . Common iliac artery plaque noted without evidence of hemodynamically significant stenosis throughout. External iliac artery patent without evidence of aneurysm at proximal. Internal iliac artery patent without evidence of aneurysm at proximal. Technologist: Maritza Sanders RVT, RDMS Ordering physician: MAGGIE YOUNG Interpreting physician: Rob Holloway MD Final CC [employer] [facility] Image : [id number] [employer] See Link below for Image Normal [facility] US CAROTID ARTERIES MEÑO VAS LABon 12-31-2024 US CAROTID ARTERIES MEÑO VAS LAB Non-Invasive Vascular Laboratory [facility] Carotid Duplex Bilateral/Complete Date of service/time: 12/31/2024 8:50:29 AM Name: MR. PORFIRIO DEVI Date of : 1945 Age: 79 years Gender: M Clinical Indication Follow-up study on a patient with known carotid disease. TECHNIQUE -------- A carotid duplex ultrasound examination was performed, including grayscale imaging and color Doppler and spectral Doppler examination of the below mentioned arteries. FINDINGS -------- RIGHT SIDE Common carotid artery: Origin: PSV: 62 cm/s. EDV: 11 cm/s. Proximal: PSV: 86 cm/s. EDV: 18 cm/s. Mid: PSV: 80 cm/s. EDV: 18 cm/s. Distal: PSV: 97 cm/s. EDV: 17 cm/s. Mild heterogeneous plaque from proximal to distal. Internal carotid artery: Origin: PSV: 139 cm/s. EDV: 32 cm/s. Proximal: PSV: 62 cm/s. EDV: 19 cm/s. Mid: PSV: 62 cm/s. EDV: 18 cm/s. Distal: PSV: 60 cm/s. EDV: 18 cm/s. Moderate heterogeneous plaque at origin. ICA/CCA Ratio: 1.4 External carotid artery: Proximal: PSV: 189 cm/s. EDV: 30 cm/s. Moderate heterogeneous plaque at origin. Subclavian artery: Origin: PSV: 138 cm/s. EDV: 0 cm/s. Mild/moderate heterogeneous plaque at origin. Innominate artery: PSV: 87 cm/s. EDV: 0 cm/s. Mild heterogeneous plaque at distal. Vertebral artery: PSV: 64 cm/s. EDV: 23 cm/s. LEFT SIDE Common carotid artery: Proximal: PSV: 103 cm/s. EDV: 19 cm/s. Mid: PSV: 72 cm/s. EDV: 21 cm/s. Distal: PSV: 88 cm/s. EDV: 23 cm/s. Mild heterogeneous plaque from proximal to distal. Internal carotid artery: Origin: PSV: 187 cm/s. EDV: 52 cm/s. Proximal: PSV: 109 cm/s. EDV: 35 cm/s. Mid: PSV: 114 cm/s. EDV: 32 cm/s. Distal: PSV: 54 cm/s. EDV: 18 cm/s. Moderate heterogeneous plaque at origin. ICA/CCA Ratio: 2.1 External carotid artery: Origin: PSV: 140 cm/s. EDV: 18 cm/s. Mild heterogeneous plaque at origin. Subclavian artery: Proximal: PSV: 323 cm/s. EDV: 0 cm/s. Mild/moderate heterogeneous plaque at proximal. Vertebral artery: PSV: 34 cm/s. EDV: 10 cm/s. IMPRESSION Please note: the new carotid interpretation criteria are used as recommended by [employer]. Irregular cardiac rhythm noted. When compared with the prior study, of 11/28/2023 no significant change is noted on the right side and no significant change is noted on the left side. RIGHT SIDE Common carotid artery: Plaque visualized without evidence of hemodynamically significant stenosis. Internal carotid artery: <50% stenosis consistent with mild carotid artery disease. -Moderate plaque noted; however, velocities and ICA/CCA Ratio do not meet criteria for >50% category stenosis. Vertebral artery: Patent and antegrade flow noted. Innominate artery: Plaque visualized without evidence of hemodynamically significant stenosis. Subclavian artery: Plaque visualized without evidence of hemodynamically significant stenosis. LEFT SIDE Common carotid artery: Plaque visualized without evidence of hemodynamically significant stenosis. Internal carotid artery: 50-69% stenosis consistent with moderate carotid artery disease. Vertebral artery: Patent and antegrade flow noted. Subclavian artery: 50-99% stenosis. Technologist: Maritza Sanders RVT, [facility] Ordering physician: MAGGIE YOUNG Interpreting physician: Rob Holloway MD Final CC [employer] [facility] Image : [id number] [employer]IS[employer] See Link below for Image Normal [facility] CNOVon 11-30-2024 CNOV Office Visit (FAMPWS ) PORFIRIO DEVI ([id number]) 1945 M Date Time Provider Department 11/30/24 8:40 [facility] your visit today, we recorded the following information about you: Temperature Pulse Respiration Blood pressure 97 degrees 72/minute 24/minute 110/60 Weight 71.2 kg Andrea Smiley, 11/30/2024 9:33 AM Signed CC: Porfirio Devi is a 79 year old male who presents to the office for 6 months follow up HPI: Patient was seen on 09/17/24 in the office by Derick Yuen CNP, at that time Patient presents for chest congestion, headache, fever x6 days. Reports SOB at rest, worse with exertion. Reports use of mucinex and ibuprofen at home. He was sent to the EMERGENCY DEPARTMENT per her recommendations in the office EMERGENCY DEPARTMENT visit on 09/17 at [facility] he was diagnosed with acute bronchitis and started on 5 days of levaquin once a day and prn use of albuterol by nebulizer He thought symptoms were improving, but 3 days ago felt that his symptoms were worsening again At follow up in the office on 09/28/24 as below He is struggling with increasing fatigue, coughing to the point of cough spasms that are consistent. + fatigue, chills, no fever. Some shortness of breath with coughing episodes. Took all the levaquin rx and has been using the albuterol by nebulizer as well. He is wanting to avoid going to the hospital again for care. Wondering what he needs to do next. is present during OFFICE VISIT He was treated with budesoide by nebulizer and mucinex twice a day as well as cefdinir and levaquin and albuterol prn At follow up on 10/19/2024 He feels that his cough symptoms and chest congestion and sputum production were improving with treatment as above. Then symptoms recently after having completed the course of antibiotics and budesonide by Nebulizer have started to return. Having some chest congestion and wheezing. Fatigue symptoms. No fevers or chills. Pulse ox at home in the low 90s typically No chest pressure At last OFFICE VISIT on 11/01/2024 At his last appointment He was continued otn albuterol and budesonide nebulized as well as cefdinir and levaquin He states that he is feeling better. Only symptoms that remain are fatigue, decreased appetite and he is still struggling with a dry cough. Now this cough is unproductive. No fevers or chills. No hemoptysis. Bowel function is overall stable. He is taking a probiotic. Took last rx of antibiotic today Currently Cough, chest congestion, mostly resolved. Rare cough at night when laying to go to sleep. No new respiratory distress. No fevers or chills. CAD, no recent chest pressure or pain or dyspnea or palpitations, taking his medications as prescribed. Seeing Noelle Vice President Regulatory office specialists. Dyslipidemia, tolerating statin therapy PAD, seeing Vascular specialist in Dec. No new symptoms in legs or cardiac or neurologic PAST MEDICAL HISTORY Diagnosis Date AAA (abdominal aortic aneurysm) (HCC) Arthritis Basal cell carcinoma of neck Dr. Arie Scott Food Clerk Carotid artery stenosis Coronary artery disease stent, Dr. Andrade Vice President Regulatory Heart attack (HCC) Hyperlipemia Hypertension Malignant melanoma of chest wall (HCC) Dr. Arie Scott Food Clerk Peripheral arterial disease (HCC) S/P CABG x [...] SURGERY PROCEDURE Current Outpatient Medications Medication Sig levoFLOXacin (LEVAQUIN) 500 mg tablet Take 1 tablet by mouth once daily for 14 days. predniSONE (DELTASONE) 20 mg tablet Take 2 tablets by mouth once daily for 7 days. cilostazol (PLETAL) 100 mg tablet Take 1 tablet by mouth two times a day. albuterol HFA (PROVENTIL HFA, VENTOLIN HFA) 90 mcg/actuation inhaler Inhale 2 Puffs as instructed every 4 hours as needed for wheezing/shortness of breath. albuterol (PROVENTIL) 2.5 mg /3 mL (0.083 %) nebulizer solution Use 3 mL via nebulizer every 4 hours as needed for wheezing/shortness of breath. Use over 5-15minutes. budesonide (PULMICORT) 0.5 mg/2 mL nebulizer s (more content not included)... Normal [facility] CBC panel Auto (Bld)on 11-23 Erythrocyte distribution width (RBC) [Ratio] 13.2 % Normal 11.5-15.0 [facility] Comment on above: Order Comment: Speci men Type: BLOOD SPECIMENOrdering Facility: [facility] Address: [address] [place] [address] Performed By: #### 5 8410-2 ####[facility] LABCLIA [id number] [place] [address] [place] Hematocrit (Bld) [Volume fraction] 42.5 % Normal 39.0-51.0 [facility] Comment on above: Order Comment: Speci men Type: BLOOD SPECIMENOrdering Facility: [facility] Address: [address] [place] [address] Performed By: #### 5 8410-2 ####[facility] LABIA [id number] [place] [address] [place] Hemoglobin (Bld) [Mass/Vol] 14.0 g/dL Normal 13.0-17.0 [facility] Comment on above: Order Comment: Speci men Type: BLOOD SPECIMENOrdering Facility: [facility] Address: [address] [place] [address] Performed By: #### 5 8410-2 ####[facility] LABIA [id number] [place] [address] [place] MCH (RBC) [Entitic mass] 32.3 pg Normal 26.0-34.0 [facility] Comment on above: Order Comment: Speci men Type: BLOOD SPECIMENOrdering Facility: [facility] Address: [address] [place] [address] Performed By: #### 5 8410-2 ####[facility] [id number] [place] [address] [place] MCHC (RBC) [Mass/Vol] 32.9 g/dL Normal 30.5-36.0 [facility] Comment on above: Order Comment: Speci men Type: BLOOD SPECIMENOrdering Facility: [facility] Address: [address] [place] [address] Performed By: #### 5 8410-2 ####[facility] [id number] [place] [address] [place] MCV (RBC) [Entitic vol] 98.2 fL Normal 80.0-100.0 [facility] Comment on above: Order Comment: Speci men Type: BLOOD SPECIMENOrdering Facility: [facility] Address: [address] [place] [address] Performed By: #### 5 8410-2 ####[facility] [id number] [place] [address] [place] Nucleated RBC (Bld) [#/Vol] 10*3/uL Normal <0.01 [facility] Comment on above: Order Comment: Speci men Type: BLOOD SPECIMENOrdering Facility: [facility] Address: [address] [place] [address] Performed By: #### 5 8410-2 ####[facility] LABCLIA [id number] [place] [address] [place] Platelet mean volume (Bld) [Entitic vol] 12.2 fL Normal 9.0-12.7 [facility] Comment on above: Order Comment: Speci men Type: BLOOD SPECIMENOrdering Facility: [facility] Address: [address] [place] [address] Performed By: #### 5 8410-2 ####[facility] LABCLIA [id number] [place] [address] [place] Platelets (Bld) [#/Vol] 182 10*3/uL Normal 150-400 [facility] Comment on above: Order Comment: Speci men Type: BLOOD SPECIMENOrdering Facility: [facility] Address: [address] [place] [address] Performed By: #### 5 8410-2 ####[facility] LABIA [id number] [place] [address] [place] RBC (Bld) [#/Vol] 4.33 10*6/uL Normal 4.20-6.00 [facility] Comment on above: Order Comment: Speci men Type: BLOOD SPECIMENOrdering Facility: [facility] Address: [address] [place] [address] Performed By: #### 5 8410-2 ####[facility] LABCLIA [id number] [place] [address] [place] WBC (Bld) [#/Vol] 6.16 10*3/uL Normal 3.70-11.00 [facility] Comment on above: Order Comment: Speci men Type: BLOOD SPECIMENOrdering Facility: [facility] Address: [address] [place] [address] Performed By: #### 5 8410-2 ####[facility] LABCLIA [id number] [place] [address] [place] Comprehensive metabolic 2000 panelon 11-23-2024 Albumin [Mass/Vol] 4.1 g/dL Normal 3.9-4.9 [facility] Comment on above: Order Comment: Speci men Type: BLOOD SPECIMENOrdering Facility: [facility] Address: [address] [place] [address] Performed By: #### 2 132-9, 66421-7, 92692-3 ####[facility] LABCLIA [id number] [place] [address] [place] ALP [Catalytic activity/Vol] 50 U/L Normal 38-113 [facility] Comment on above: Order Comment: Speci men Type: BLOOD SPECIMENOrdering Facility: [facility] Address: [address] [place] [address] Performed By: #### 2 132-9, 99513-3, 98186-5 ####[facility] LABIA [id number] [place] [address] [place] ALT [Catalytic activity/Vol] 27 U/L Normal 10-54 [facility] Comment on above: Order Comment: Speci men Type: BLOOD SPECIMENOrdering Facility: [facility] Address: [address] [place] [address] Performed By: #### 2 132-9, 23666-4, 37659-0 ####[facility] LABIA [id number] [place] [address] [place] Anion gap [Moles/Vol] 13 mmol/L Normal 8-15 [facility] Comment on above: Order Comment: Speci men Type: BLOOD SPECIMENOrdering Facility: [facility] Address: [address] [place] [address] Performed By: #### 2 132-9, 46216-6, 04490-8 ####[facility] LABCLIA [id number] [place] [address] [place] AST [Catalytic activity/Vol] 31 U/L Normal 14-40 [facility] Comment on above: Order Comment: Speci men Type: BLOOD SPECIMENOrdering Facility: [facility] Address: [address] [place] [address] Performed By: #### 2 132-9, 01154-8, 16031-2 ####[facility] LABIA [id number] [place] [address] [place] Bilirubin [Mass/Vol] 0.2 mg/dL Normal 0.2-1.3 [facility] Comment on above: Order Comment: Speci men Type: BLOOD SPECIMENOrdering Facility: [facility] Address: [address] [place] [address] Performed By: #### 2 132-9, 33353-5, 33278-5 ####[facility] [id number] [place] [address] [place] Calcium [Mass/Vol] 9.1 mg/dL Normal 8.5-10.2 [facility] Comment on above: Order Comment: Speci men Type: BLOOD SPECIMENOrdering Facility: [facility] Address: [address] [place] [address] Performed By: #### 2 132-9, 19862-2, 13329-8 ####[facility] LABIA [id number] [place] [address] [place] Chloride [Moles/Vol] 111 mmol/L High 98-107 [facility] Comment on above: Order Comment: Speci men Type: BLOOD SPECIMENOrdering Facility: [facility] Address: [address] [place] [address] Performed By: #### 2 132-9, 40297-4, 44067-7 ####[facility] LABIA [id number] [place] [address] [place] CO2 [Moles/Vol] 21 mmol/L Low 22-30 [facility] Comment on above: Order Comment: Speci men Type: BLOOD SPECIMENOrdering Facility: [facility] Address: [address] [place] [address] Performed By: #### 2 132-9, 61144-5, 43828-2 ####[facility] LABIA [id number] [place] [address] [place] Creatinine [Mass/Vol] 1.09 mg/dL Normal 0.73-1.22 [facility] Comment on above: Order Comment: Speci men Type: BLOOD SPECIMENOrdering Facility: [facility] Address: [address] [place] [address] Performed By: #### 2 132-9, , ####[facility] [id number] [place] [address] [place] Creatinine and Glomerular filtration rate.predicted panel (S/P/Bld) 70 mL/min/1.73m??? Normal >=60 [facility] Comment on above: Order Comment: Speci men Type: BLOOD SPECIMENOrdering Facility: [facility] Address: [address] [place] [address] Result Comment: Madisyn mated Glomerular Filtration Rate (eGFR) is calculated using the 2020 CKD-EPI creatinine equation. This equation utilizes serum creatinine, sex, and age as parameters. The creatinine assay has traceable calibration to isotope dilution-mass spectrometry. Refer to KDIGO guidelines for clinical interpretation. In patients with unstable renal function, e.g. those with acute kidney injury, the eGFR may not accurately reflect actual GFR. Performed By: #### 2 132-9, 05874-4, 91750-4 ####[facility] LABIA [id number] [place] [id number] [place] Glucose [Mass/Vol] 88 mg/dL Normal 74-99 [facility] Comment on above: Order Comment: Speci men Type: BLOOD SPECIMENOrdering Facility: [facility] Address: [address] [place] [address] Result Comment: The [place] Diabetes Association (ADA) provides guidance for cutoff values for fasting glucose and random glucose. The ADA defines fasting as no caloric intake for at least 8 hours. Fasting plasma glucose results between 100 to 125 mg/dL indicate increased risk for diabetes (prediabetes). Fasting plasma glucose results greater than or equal to 126 mg/dL meet the criteria for diagnosis of diabetes. In the absence of unequivocal hyperglycemia, results should be confirmed by repeat testing. In a patient with classic symptoms of hyperglycemia or hyperglycemic crisis, random plasma glucose results greater than or equal to 200 mg/dL meet the criteria for diagnosis of diabetes. Reference: Standards of Medical Care in Diabetes 2016, [place] [employer] Association. Diabetes Care. 2016.39(Suppl 1). Performed By: #### 2 132-9, 51317-0, 07873-5 ####[facility] LABCLIA [id number] [place] [address] [place] Potassium [Moles/Vol] 3.8 mmol/L Normal 3.7-5.1 [facility] Comment on above: Order Comment: Speci men Type: BLOOD SPECIMENOrdering Facility: [facility] Address: [address] [place] [address] Performed By: #### 2 132-9, 59904-5, 08802-3 ####[facility] LABCLIA [id number] [place] [address] [place] Protein [Mass/Vol] 6.6 g/dL Normal 6.3-8.0 [facility] Comment on above: Order Comment: Speci men Type: BLOOD SPECIMENOrdering Facility: [facility] Address: [address] [place] [address] Performed By: #### 2 132-9, 53930-5, 01446-7 ####[facility] LABCLIA [id number] [place] [address] [place] Sodium [Moles/Vol] 145 mmol/L High 136-144 [facility] Comment on above: Order Comment: Speci men Type: BLOOD SPECIMENOrdering Facility: [facility] Address: [address] [place] [address] Performed By: #### 2 132-9, 05213-5, 57008-4 ####[facility] LABCLIA [id number] [place] [address] [place] Urea nitrogen [Mass/Vol] 24 mg/dL Normal 9-24 [facility] Comment on above: Order Comment: Speci men Type: BLOOD SPECIMENOrdering Facility: [facility] Address: [address] [place] [address] Performed By: #### 2 132-9, 50636-3, 86651-4 ####[facility] LABCLIA [id number] [place] [address] [place] Lipid 1996 panelon 5 Cholesterol [Mass/Vol] 156 mg/dL Normal <200 [facility] Comment on above: Order Comment: Speci men Type: BLOOD SPECIMENOrdering Facility: [facility] Address: [address] [place] [address] Result Comment: <200 mg/dL, Desirable 200-239 mg/dL, Borderline high >239 mg/dL, High Performed By: #### 2 132-9, 02635-4, 80510-3 ####[facility] LABCLIA [id number] [place] [address] [place] Cholesterol in HDL [Mass/Vol] 45 mg/dL Normal >39 [facility] Comment on above: Order Comment: Speci men Type: BLOOD SPECIMENOrdering Facility: [facility] Address: [address] [place] [address] Result Comment: 40-5 9 mg/dL, Acceptable >59 mg/dL, High: Negative risk factor for coronary heart disease <40 mg/dL, Low: Positive risk factor for coronary heart disease Performed By: #### 2 132-9, 09113-7, 10076-2 ####[facility] LABCLIA [id number] [place] [address] [place] Cholesterol in LDL [Mass/Vol] 94 mg/dL Normal <100 [facility] Comment on above: Order Comment: Speci men Type: BLOOD SPECIMENOrdering Facility: [facility] Address: [address] [place] [address] Result Comment: <100 mg/dL, Optimal 100-129 mg/dL, Near optimal/above optimal 130-159 mg/dL, Borderline high 160-189 mg/dL, High >189 mg/dL, Very high Secondary prevention optimal LDL Cholesterol levels are recommended to be < 70 mg/dL Performed By: #### 2 132-9, 68878-2, 17481-9 ####[facility] LABCLIA [id number] [place] [address] [place] Cholesterol in LDL/Cholesterol in HDL [Mass ratio] 2.09 {ratio} Normal <2.54 [facility] Comment on above: Order Comment: Speci men Type: BLOOD SPECIMENOrdering Facility: [facility] Address: [address] [place] [address] Result Comment: Denny dobbs: 1. National Cholesterol Education Program ATP III Guideline At-A-Glance Quick Desk Reference: National Heart, Lung, and Blood [place]. National Institutes of Health. 2001: NIH Publication No. 01-3305. 2. An International Atherosclerosis Society position paper: global recommendations for the management of dyslipidemia: executive summary, Atherosclerosis. 2014: 232(2):410-413. Performed By: #### 2 132-9, 16057-4, 53649-6 ####[facility] LABCLIA [id number] [place] [address] [place] Cholesterol in VLDL [Mass/Vol] 17 mg/dL Normal <30 [facility] Comment on above: Order Comment: Speci men Type: BLOOD SPECIMENOrdering Facility: [facility] Address: [address] [place] [address] Performed By: #### 2 132-9, 32841-8, 42132-9 ####[facility] LABCLIA [id number] [address] [address] [place] Cholesterol non HDL [Mass/Vol] 111 mg/dL Normal <130 [facility] Comment on above: Order Comment: Speci men Type: BLOOD SPECIMENOrdering Facility: [facility] Address: [address] [place] [address] Result Comment: <130 mg/dL, Optimal 130-159 mg/dL, Near optimal/above optimal 160-189 mg/dL, Borderline high 190-219 mg/dL, High >219 mg/dL, Very high Secondary prevention optimal non HDL Cholesterol levels are recommended to be <100 mg/dL Performed By: #### 2 132-9, 28665-9, 28265-4 ####[facility] LABCLIA [id number] [place] [address] [place] Cholesterol.total/Cho lesterol in HDL [Mass ratio] 3.47 {ratio} Normal <5.10 [facility] Comment on above: Order Comment: Speci men Type: BLOOD SPECIMENOrdering Facility: [facility] Address: [address] [place] [address] Performed By: #### 2 132-9, 27461-9, 96592-6 ####[facility] LABCLIA [id number] [place] [address] [place] FASTING TIME 12 hrs Normal [facility] Comment on above: Order Comment: Speci men Type: BLOOD SPECIMENOrdering Facility: [facility] Address: [address] [place] [address] Performed By: #### 2 132-9, 76670-8, 71703-6 ####[facility] LABCLIA [id number] [place] [address] [place] Triglyceride [Mass/Vol] 85 mg/dL Normal <150 [facility] Comment on above: Order Comment: Speci men Type: BLOOD SPECIMENOrdering Facility: [facility] Address: [address] [place] [address] Result Comment: <150 mg/dL, Normal 150-199 mg/dL, Borderline high 200-499 mg/dL, High >499 mg/dL, Very high Performed By: #### 2 132-9, 95619-5, 09156-3 ####[facility] LABCLIA [id number] [place] [address] [place] PSA/PROSTATE SPECIFIC ANTIGE N SCREENINGon 11-23-2024 Prostate specific Ag [Mass/Vol] 2.90 ng/mL High <2.60 [facility] Comment on above: Order Comment: Speci men Type: BLOOD SPECIMENOrdering Facility: [facility] Address: [address] [place] [address] Result Comment: Tota l PSA test methodology used is the Electrochemiluminescence Immunoassay by [employer]. Total PSA values by differing methodologies cannot be interchanged. For an individual patient, the significance of a PSA level should be interpreted in a broad clinical context, including age, race, family history, digital rectal exam, prostate size, results of prior testing (prostate biopsy, free PSA, PCA3), and use of 5-alpha reductase inhibitors. Considering the high incidence of asymptomatic cancer in the general population that may not pose an ultimate risk to a patient, the decision to recommend urological evaluation or prostate biopsy should be individualized after consideration of all these factors. REFERENCE: Estephania Gonzalez M.D., M.P.H., Guero Pepe M.D., Ph.D., Giovani Mckenzie M.D., Jeanne Stahl, M.P.H., Cathleen Gamino, Sc.D. Effect of Verification Bias on Screening for Prostate Cancer by Measurement of Prostatic Specific Antigen. N Engl J Med 2003,349:335-42. Performed By: #### P SAS1 ####[facility] LABCLIA [id number] [place] [address] [place] Vit B12 SerPl-mCncon 025 Cobalamin (Vitamin B12) [Mass/Vol] 636 pg/mL Normal 232-1245 [facility] Comment on above: Order Comment: Speci men Type: BLOOD SPECIMENOrdering Facility: [facility] Address: [address] [place] [address] Performed By: #### 2 132-9, 48832-6, 26905-9 ####[facility] LABCLIA [id number] [place] [id number] [facility] CNPNon 11-19-2024 CNPN Telephone (AGVASACC) PORFIRIO DEVI ([id number]) 1945 M Date Time Provider Department 11/19/24 D[facility]A [facility] During your visit today, we recorded the following information about you: Jem Mensah 11/19/2024 1:12 PM Signed Transferred Pt to then schedule office visit with on . Annual F/up - PVD (peripheral vascular disease); Atherosclerosis 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; Carotid stenosis, asymptomatic, bilateral *US abd aorta, PVR leg, US carotid arteries prior* () Allergies As of Date: 11/19/2024 Noted Allergy Reaction CODEINE 11/26/2016 14 - Other: See Comments Comments: Disturbing dreams LIPITOR (ATORVASTATIN CALCIUM) 11/28/2017 17 - Myalgia Comments: Severe arthralgias or myalgia PENICILLINS 05/09/2014 4 - Hives 9 - Itching Comments: Sweats-severe OOFMESB-FIL-LYH REDUCTASE INHIBIT*05/27/2018 17 - Myalgia Comments: Severe myalgia Date Reviewed: 11/01/2024 Reviewed by: Airam Owusu LPN - Fully Assessed Reason for Visit: Appointment [186] Cmt: Appointment Prescriptions as of 11/19/2024 - cilostazol (PLETAL) 100 mg tablet Take 1 tablet by mouth two times a day. - albuterol HFA (PROVENTIL HFA, VENTOLIN HFA) 90 mcg/actuation inhaler Inhale 2 Puffs as instructed every 4 hours as needed for wheezing/shortness of breath. - albuterol (PROVENTIL) 2.5 mg /3 mL (0.083 %) nebulizer solution Use 3 mL via nebulizer every 4 hours as needed for wheezing/shortness of breath. Use over 5-15minutes. - budesonide (PULMICORT) 0.5 mg/2 mL nebulizer solution Use 2 mL via nebulizer once daily. - amLODIPine (NORVASC) 10 mg tablet Take 1 tablet by mouth once daily. - clopidogrel (PLAVIX) 75 mg tablet Take 1 tablet by mouth once daily. - ezetimibe (ZETIA) 10 mg tablet Take 1 tablet by mouth once daily. - pravastatin (PRAVACHOL) 10 mg tablet Take 1 tablet by mouth daily at bedtime. - metoprolol tartrate, short acting, (LOPRESSOR) 50 mg tablet Take 0.5 tablets by mouth two times a day. - acetaminophen (TYLENOL) 325 mg tablet Take 2 tablets by mouth every 6 hours as needed. - MULTIVITAMIN/IRON/FOLIC ACID (CENTRUM COMPLETE ORAL) Take by mouth. Problem List As Of Date 11/19/2024 Noted Resolved Scrotal mass [N50.89] 05/23/2014 Benign prostatic hyperplasia with lower urinary*05/23/2014 Epididymitis [N45.1] 05/23/2014 Presence of bare metal stent in right coronary *11/28/2014 PAD (peripheral artery disease) (HCC) [I73.9] 11/28/2014 Hypercholesterolemia [E78.00] 11/28/2014 Hypertension [I10] 11/28/2014 12/05/2015 Tobacco abuse [Z72.0] 11/28/2014 History of melanoma [Z85.820] 11/28/2014 Essential hypertension [I10] 12/05/2015 Pain, joint, multiple sites [M25.50] 11/28/2017 Myalgia [M79.10] 11/28/2017 Atherosclerosis of coronary artery of [place] he*11/28/2017 05/24/2020 Peripheral artery disease (HCC) [I73.9] 11/27/2018 05/24/2020 Abnormal ankle brachial index (RITA) [R68.89] 11/27/2018 Subclavian artery stenosis (HCC) [I77.1] 11/27/2018 Atherosclerosis of right carotid artery [I65.21]11/27/2018 Atherosclerosis of left carotid artery [I65.22] 11/27/2018 CAD (coronary artery disease) [I25.10] 12/22/2018 Malnutrition of moderate degree (HCC) [E44.0] 12/29/2018 05/24/2020 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.1] 01/01/2019 Acute renal insufficiency [N28.9] 05/10/2019 11/26/2021 Atherosclerosis of [place] coronary artery of na*05/10/2019 05/24/2020 Bilateral carotid artery stenosis [I65.23] 05/24/2020 Atherosclerosis of [place] coronary artery of na*05/29/2020 Peripheral artery disease (HCC) [I73.9] 05/29/2020 Mild atherosclerosis of carotid artery, bilater*05/29/2020 Weakness of left leg [R29.898] 05/29/2021 Edema of foot [R60.0] 11/28/2021 Fatigue [R53.83] 11/28/2021 Vitamin D deficiency [E55.9] 11/28/2021 Dyslipidemia [E78.5] 11/28/2021 Abdominal aortic aneurysm (AAA) without rupture*10/24/2022 Atherosclerosis of [place] artery of left lower *12/02/2023 Encounter Status:Closed by JEM MENSAH on 11/19/24 [facility] Heather 11-01-2024 CNOV Office Visit (FAMPWS ) PORFIRIO DEVI ([id number]) 1945 M Date Time Provider Department 11/01/24 2:00 PM ANDREA SMILEY FAMPWS During your visit today, we recorded the following information about you: Temperature Pulse Respiration Blood pressure 96.7 degrees 64/minute 16/minute 120/80 Weight 71.9 kg Andrea Smiley, DO 11/02/2024 8:32 AM Signed CC: Porfirio Devi is a 79 year old male who presents to the office for follow up HPI: Patient was seen on 09/17/24 in the office by Derick Yuen CNP, at that time Patient presents for chest congestion, headache, fever x6 days. Reports SOB at rest, worse with exertion. Reports use of mucinex and ibuprofen at home. He was sent to the EMERGENCY DEPARTMENT per her recommendations in the office EMERGENCY DEPARTMENT visit on 09/17 at [facility] he was diagnosed with acute bronchitis and started on 5 days of levaquin once a day and prn use of albuterol by nebulizer He thought symptoms were improving, but 3 days ago felt that his symptoms were worsening again At follow up in the office on 09/28/24 as below He is struggling with increasing fatigue, coughing to the point of cough spasms that are consistent. + fatigue, chills, no fever. Some shortness of breath with coughing episodes. Took all the levaquin rx and has been using the albuterol by nebulizer as well. He is wanting to avoid going to the hospital again for care. Wondering what he needs to do next. is present during OFFICE VISIT He was treated with budesoide by nebulizer and mucinex twice a day as well as cefdinir and levaquin and albuterol prn At follow up on 10/19/2024 He feels that his cough symptoms and chest congestion and sputum production were improving with treatment as above. Then symptoms recently after having completed the course of antibiotics and budesonide by Nebulizer have started to return. Having some chest congestion and wheezing. Fatigue symptoms. No fevers or chills. Pulse ox at home in the low 90s typically No chest pressure Currently At his last appointment He was continued otn albuterol and budesonide nebulized as well as cefdinir and levaquin He states that he is feeling better. Only symptoms that remain are fatigue, decreased appetite and he is still struggling with a dry cough. Now this cough is unproductive. No fevers or chills. No hemoptysis. Bowel function is overall stable. He is taking a probiotic. Took last rx of antibiotic today PAST MEDICAL HISTORY Diagnosis Date AAA (abdominal aortic aneurysm) (HCC) Arthritis Basal cell carcinoma of neck Dr. Arie Scott Food Clerk Carotid artery stenosis Coronary artery disease stent, Dr. Andrade Vice President Regulatory Heart attack ([facility]) Hyperlipemia Hypertension Malignant melanoma of chest wall (HCC) Dr. Arie Scott Food Clerk Peripheral arterial disease (HCC) S/P CABG x [...] SURGERY PROCEDURE Current Outpatient Medications Medication Sig albuterol HFA (PROVENTIL HFA, VENTOLIN HFA) 90 mcg/actuation inhaler Inhale 2 Puffs as instructed every 4 hours as needed for wheezing/shortness of breath. levoFLOXacin (LEVAQUIN) 500 mg tablet Take 1 tablet by mouth once daily for 14 days. albuterol (PROVENTIL) 2.5 mg /3 mL (0.083 %) nebulizer solution Use 3 mL via nebulizer every 4 hours as needed for wheezing/shortness of breath. Use over 5-15minutes. budesonide (PULMICORT) 0.5 mg/2 mL nebulizer solution Use 2 mL via nebulizer once daily. cefdinir (OMNICEF) 300 mg capsule Take 1 capsule by mouth two times a day for 14 days. amLODIPine (NORVASC) 10 mg tablet Take 1 tablet by mouth once daily. clopidogrel (PLAVIX) 75 mg tablet Take 1 tablet by mouth once daily. ezetimibe (ZETIA) 10 mg tablet Take 1 tablet by mouth once daily. pravastatin (PRAVACHOL) 10 mg tablet Take 1 tablet by mouth daily at bedtime. metoprolol tartrate, short acting, (LOPRESSOR) 50 mg tablet Take 0.5 tablets by mouth two times a day. acetaminophen (TYLENOL) 325 mg tablet Take 2 tablets by mouth every 6 hours as needed. MULTIVITAMIN/I (more content not included)... Normal [facility] CNOVon 10-19-2024 CNOV Office Visit (FAMPWS ) PORFIRIO DEVI ([id number]) 1945 M Date Time Provider Department 10/19/24 12:40 PM ANDREA SMILEY [facility] During your visit today, we recorded the following information about you: Temperature Pulse Respiration Blood pressure 97.4 degrees 78/minute 36/minute 100/56 Weight 73.2 kg Andrea Smiley, 10/21/2024 12:56 PM Signed CC: Porfirio Devi is a 79 year old male who presents to the office for follow up HPI: Patient was seen on 09/17/24 in the office by Derick Yuen CNP, at that time Patient presents for chest congestion, headache, fever x6 days. Reports SOB at rest, worse with exertion. Reports use of mucinex and ibuprofen at home. He was sent to the EMERGENCY DEPARTMENT per her recommendations in the office EMERGENCY DEPARTMENT visit on 09/17 at [facility] he was diagnosed with acute bronchitis and started on 5 days of levaquin once a day and prn use of albuterol by nebulizer He thought symptoms were improving, but 3 days ago felt that his symptoms were worsening again At follow up in the office on 09/28/24 as below He is struggling with increasing fatigue, coughing to the point of cough spasms that are consistent. + fatigue, chills, no fever. Some shortness of breath with coughing episodes. Took all the levaquin rx and has been using the albuterol by nebulizer as well. He is wanting to avoid going to the hospital again for care. Wondering what he needs to do next. is present during OFFICE VISIT He was treated with budesoide by nebulizer and mucinex twice a day as well as cefdinir and levaquin and albuterol prn Currently He feels that his cough symptoms and chest congestion and sputum production were improving with treatment as above. Then symptoms recently after having completed the course of antibiotics and budesonide by Nebulizer have started to return. Having some chest congestion and wheezing. Fatigue symptoms. No fevers or chills. Pulse ox at home in the low 90s typically No chest pressure PAST MEDICAL HISTORY Diagnosis Date AAA (abdominal aortic aneurysm) ([facility]) Arthritis Basal cell carcinoma of neck Dr. Arie Scott Food Clerk Carotid artery stenosis Coronary artery disease stent, Dr. Andrade Vice President Regulatory Heart attack ([facility]) Hyperlipemia Hypertension Malignant melanoma of chest wall ([facility]) Dr. 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 Sleep apnea [...] PLACEMENT 2003 heart VASCULAR SURGERY PROCEDURE Social History: Social History Tobacco Use Smoking status: Former Current packs/day: 0.00 Types: Cigarettes Quit date: 04/17/2017 Years since quittin.5 Smokeless tobacco: Never Vaping Use Vaping status: Never Used Substance Use Topics Alcohol use: No Drug use: No FAMILY HISTORY Problem Relation Age of Onset Aneurysm Father brain, 52 Stroke Mother at 80 Heart Paternal Grandfather Current Outpatient prescriptions: albuterol (PROVENTIL) 2.5 mg /3 mL (0.083 %) nebulizer solution Use 3 mL via nebulizer every 4 hours as needed for wheezing/shortness of breath. Use over 5-15minutes. budesonide (PULMICORT) 0.5 mg/2 mL nebulizer solution Use 2 mL via nebulizer once daily. cefdinir (OMNICEF) 300 mg capsule Take 1 capsule by mouth two times a day for 14 days. levoFLOXacin (LEVAQUIN) 500 mg tablet Take 1 tablet by mouth once daily for 14 days. amLODIPine (NORVASC) 10 mg tablet Take 1 tablet by mouth once daily. clopidogrel (PLAVIX) 75 mg tablet Take 1 tablet by mouth once daily. ezetimibe (ZETIA) 10 mg tablet Take 1 tablet by mouth once daily. pravastatin (PRAVACHOL) 10 mg tablet Take 1 tablet by mouth daily at bedtime. metoprolol tartrate, short acting, (LOPRESSOR) 50 mg tablet Take 0.5 tablets by mouth two times a day. acetaminophen (TYLENOL) 325 mg tablet Take 2 tablets by mouth every 6 hours as needed. MULTIVITAMIN/IRON/FOLIC ACID (CENTRUM COMPLETE ORAL) Take by mouth. Allergies: ALLERGIES Allergen Reactions Codeine Other: See Comments Disturbing dreams Lipitor [Atorvastat* Myalgia S (more content not included)... Normal [facility] 10-19-2024 [facility] PORFIRIO DEVI ([id number]) 1945 M Date Time Provider Department 10/19/24 ANDREA SMILEY [facility] During your visit today, we recorded the following information about you: Allergies As of Date: 10/19/2024 Noted Allergy Reaction CODEINE 11/26/2016 14 - Other: See Comments Comments: Disturbing dreams LIPITOR (ATORVASTATIN CALCIUM) 11/28/2017 17 - Myalgia Comments: Severe arthralgias or myalgia PENICILLINS 05/09/2014 4 - Hives 9 - Itching Comments: Sweats-severe [id number] REDUCTASE INHIBIT*05/27/2018 17 - Myalgia Comments: Severe myalgia Date Reviewed: 10/19/2024 Reviewed by: Airam Owusu LPN - Fully Assessed Prescriptions as of 10/28/2024 - albuterol (PROVENTIL) 2.5 mg /3 mL (0.083 %) nebulizer solution Use 3 mL via nebulizer every 4 hours as needed for wheezing/shortness of breath. Use over 5-15minutes. - budesonide (PULMICORT) 0.5 mg/2 mL nebulizer solution Use 2 mL via nebulizer once daily. - cefdinir (OMNICEF) 300 mg capsule Take 1 capsule by mouth two times a day for 14 days. - levoFLOXacin (LEVAQUIN) 500 mg tablet Take 1 tablet by mouth once daily for 14 days. - amLODIPine (NORVASC) 10 mg tablet Take 1 tablet by mouth once daily. - clopidogrel (PLAVIX) 75 mg tablet Take 1 tablet by mouth once daily. - ezetimibe (ZETIA) 10 mg tablet Take 1 tablet by mouth once daily. - pravastatin (PRAVACHOL) 10 mg tablet Take 1 tablet by mouth daily at bedtime. - metoprolol tartrate, short acting, (LOPRESSOR) 50 mg tablet Take 0.5 tablets by mouth two times a day. - acetaminophen (TYLENOL) 325 mg tablet Take 2 tablets by mouth every 6 hours as needed. - MULTIVITAMIN/IRON/FOLIC ACID (CENTRUM COMPLETE ORAL) Take by mouth. Problem List As Of Date 10/19/2024 Noted Resolved Scrotal mass [N50.89] 05/23/2014 Benign prostatic hyperplasia with lower urinary*05/23/2014 Epididymitis [N45.1] 05/23/2014 Presence of bare metal stent in right coronary *11/28/2014 PAD (peripheral artery disease) (HCC) [I73.9] 11/28/2014 Hypercholesterolemia [E78.00] 11/28/2014 Hypertension [I10] 11/28/2014 12/05/2015 Tobacco abuse [Z72.0] 11/28/2014 History of melanoma [Z85.820] 11/28/2014 Essential hypertension [I10] 12/05/2015 Pain, joint, multiple sites [M25.50] 11/28/2017 Myalgia [M79.10] 11/28/2017 Atherosclerosis of coronary artery of [place] he*11/28/2017 05/24/2020 Peripheral artery disease (HCC) [I73.9] 11/27/2018 05/24/2020 Abnormal ankle brachial index (RITA) [R68.89] 11/27/2018 Subclavian artery stenosis (HCC) [I77.1] 11/27/2018 Atherosclerosis of right carotid artery [I65.21]11/27/2018 Atherosclerosis of left carotid artery [I65.22] 11/27/2018 CAD (coronary artery disease) [I25.10] 12/22/2018 Malnutrition of moderate degree (HCC) [E44.0] 12/29/2018 05/24/2020 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.1] 01/01/2019 Acute renal insufficiency [N28.9] 05/10/2019 11/26/2021 Atherosclerosis of [place] coronary artery of na*05/10/2019 05/24/2020 Bilateral carotid artery stenosis [I65.23] 05/24/2020 Atherosclerosis of [place] coronary artery of na*05/29/2020 Peripheral artery disease (HCC) [I73.9] 05/29/2020 Mild atherosclerosis of carotid artery, bilater*05/29/2020 Weakness of left leg [R29.898] 05/29/2021 Edema of foot [R60.0] 11/28/2021 Fatigue [R53.83] 11/28/2021 Vitamin D deficiency [E55.9] 11/28/2021 Dyslipidemia [E78.5] 11/28/2021 Abdominal aortic aneurysm (AAA) without rupture*10/24/2022 Atherosclerosis of [place] artery of left lower *12/02/2023 Encounter Status:Closed by MAMI CHENG on 10/28/24 Normal [facility] CNOVon 09-28-2024 CNOV Office Visit ([facility] ) PORFIRIO [id number]) 1945 M Date Time Provider Department 09/28/24 10:40 AM ANDREA SMILEY [facility] During your visit today, we recorded the following information about you: Temperature Pulse Respiration Blood pressure 97.4 degrees 76/minute 24/minute 100/60 Weight 74.8 kg Andrea Smiley, DO 09/28/2024 11:31 AM Signed Budesonide by nebulizer once a day After using albuterol nebulizer separate Use the antibiotics twice a day with food (omnicef and levaquin) Use the pulse ox to make sure pulse ox stays 90% or higher Percussion 3 times a day on back and chest Andrea Smiley, DO 09/29/2024 10:02 PM Signed CC: Porfirio Devi is a 79 year old male who presents to the office for cough HPI: Patient was seen on 09/17/24 in the office by Derick Yuen CNP, at that time Patient presents for chest congestion, headache, fever x6 days. Reports SOB at rest, worse with exertion. Reports use of mucinex and ibuprofen at home. He was sent to the EMERGENCY DEPARTMENT per her recommendations in the office EMERGENCY DEPARTMENT visit on 09/17 at [facility] he was diagnosed with acute bronchitis and started on 5 days of levaquin once a day and prn use of albuterol by nebulizer He thought symptoms were improving, but 3 days ago felt that his symptoms were worsening again Currently He is struggling with increasing fatigue, coughing to the point of cough spasms that are consistent. + fatigue, chills, no fever. Some shortness of breath with coughing episodes. Took all the levaquin rx and has been using the albuterol by nebulizer as well. He is wanting to avoid going to the hospital again for care. Wondering what he needs to do next. is present during OV PAST MEDICAL HISTORY Diagnosis Date AAA (abdominal aortic aneurysm) ([facility]) Arthritis Basal cell carcinoma of neck Dr. Arie Scott Food Clerk Carotid artery stenosis Coronary artery disease stent, Dr. Andrade Vice President Regulatory Heart attack ([facility]) Hyperlipemia Hypertension Malignant melanoma of chest wall ([facility]) Dr. 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 levoFLOXacin (LEVAQUIN) 500 mg tablet Take 1 tablet by mouth once daily for 10 days. cefdinir (OMNICEF) 300 mg capsule Take 1 capsule by mouth two times a day for 10 days. albuterol (PROVENTIL) 2.5 mg /3 mL (0.083 %) nebulizer solution Use 3 mL via nebulizer every 4 hours as needed for wheezing/shortness of breath. Use over 5-15minutes. amLODIPine (NORVASC) 10 mg tablet Take 1 tablet by mouth once daily. clopidogrel (PLAVIX) 75 mg tablet Take 1 tablet by mouth once daily. ezetimibe (ZETIA) 10 mg tablet Take 1 tablet by mouth once daily. pravastatin (PRAVACHOL) 10 mg tablet Take 1 tablet by mouth daily at bedtime. metoprolol tartrate, short acting, (LOPRESSOR) 50 mg tablet Take 0.5 tablets by mouth two times a day. cilostazol (PLETAL) 100 mg tablet Take 1 tablet by mouth two times a day. acetaminophen (TYLENOL) 325 mg tablet Take 2 tablets by mouth every 6 hours as needed. MULTIVITAMIN/IRON/FOLIC ACID (CENTRUM COMPLETE ORAL) Take by mouth. No current facility-administered medications for this visit. ALLERGIES Allergen Reactions Codeine Other: See Comments Disturbing dreams Lipitor [Atorvastat* Myalgia Severe arthralgias or myalgia Penicillins Hives, Itching Sweats-severe Quicebv-Gph-Cam Red* Myalgia Severe myalgia Social History Tobacco Use Smoking status: Former Current packs/day: 0.00 Types: Cigarettes Quit date: 04/17/2017 Years since quittin.4 Smokeless tobacco: Never Vaping Use Vaping status: Never Used Substance Use Topics Alcohol use: No Drug use: No ROS: See HIP PE: BP 100/60 Pulse 76 Temp (Src) 97.4 (Left Tympanic) Resp 24 Wt 165 lb (74.8kg) SpO2 98% Gen: AANDOX3, coughing during visit, appears fatigued (more content not included)... [facility] CNPNon 09-28-2024 CNPN Telephone ([facility]) PORFIRIO DEVI ([id number]) 1945 M Date Time Provider Department 09/28/24 ANDREA SMILEY [facility] During your visit today, we recorded the following information about you: Andrea Smiley DO 09/28/2024 4:54 PM Signed Please inform patient that although his CXR doesn't show an obvious pneumonia, I still feel he has pneumonia based on exam today in the office. Sometimes the CXR is false due to dehydration therefore misses a pneumonia DO Gary Rollins Barbara, CAT 09/29/2024 9:59 AM Signed Called and spoke with pt and notified of Dr. Smiley's information. Allergies As of Date: 09/28/2024 Noted Allergy Reaction CODEINE 11/26/2016 14 - Other: See Comments Comments: Disturbing dreams LIPITOR (ATORVASTATIN CALCIUM) 11/28/2017 17 - Myalgia Comments: Severe arthralgias or myalgia PENICILLINS 05/09/2014 4 - Hives 9 - Itching Comments: Sweats-severe [id number] REDUCTASE INHIBIT*05/27/2018 17 - Myalgia Comments: Severe myalgia Date Reviewed: 09/28/2024 Reviewed by: Airam Owusu LPN - Fully Assessed Reason for Visit: Results [95] Prescriptions as of 09/29/2024 - budesonide (PULMICORT) 0.5 mg/2 mL nebulizer solution Use 2 mL via nebulizer once daily. - levoFLOXacin (LEVAQUIN) 500 mg tablet Take 1 tablet by mouth once daily for 10 days. - cefdinir (OMNICEF) 300 mg capsule Take 1 capsule by mouth two times a day for 10 days. - albuterol (PROVENTIL) 2.5 mg /3 mL (0.083 %) nebulizer solution Use 3 mL via nebulizer every 4 hours as needed for wheezing/shortness of breath. Use over 5-15minutes. - amLODIPine (NORVASC) 10 mg tablet Take 1 tablet by mouth once daily. - clopidogrel (PLAVIX) 75 mg tablet Take 1 tablet by mouth once daily. - ezetimibe (ZETIA) 10 mg tablet Take 1 tablet by mouth once daily. - pravastatin (PRAVACHOL) 10 mg tablet Take 1 tablet by mouth daily at bedtime. - metoprolol tartrate, short acting, (LOPRESSOR) 50 mg tablet Take 0.5 tablets by mouth two times a day. - cilostazol (PLETAL) 100 mg tablet Take 1 tablet by mouth two times a day. - acetaminophen (TYLENOL) 325 mg tablet Take 2 tablets by mouth every 6 hours as needed. - MULTIVITAMIN/IRON/FOLIC ACID (CENTRUM COMPLETE ORAL) Take by mouth. Problem List As Of Date 09/28/2024 Noted Resolved Scrotal mass [N50.89] 05/23/2014 Benign prostatic hyperplasia with lower urinary*05/23/2014 Epididymitis [N45.1] 05/23/2014 Presence of bare metal stent in right coronary *11/28/2014 PAD (peripheral artery disease) (HCC) [I73.9] 11/28/2014 Hypercholesterolemia [E78.00] 11/28/2014 Hypertension [I10] 11/28/2014 12/05/2015 Tobacco abuse [Z72.0] 11/28/2014 History of melanoma [Z85.820] 11/28/2014 Essential hypertension [I10] 12/05/2015 Pain, joint, multiple sites [M25.50] 11/28/2017 Myalgia [M79.10] 11/28/2017 Atherosclerosis of coronary artery of [place] he*11/28/2017 05/24/2020 Peripheral artery disease (HCC) [I73.9] 11/27/2018 05/24/2020 Abnormal ankle brachial index (RITA) [R68.89] 11/27/2018 Subclavian artery stenosis (HCC) [I77.1] 11/27/2018 Atherosclerosis of right carotid artery [I65.21]11/27/2018 Atherosclerosis of left carotid artery [I65.22] 11/27/2018 CAD (coronary artery disease) [I25.10] 12/22/2018 Malnutrition of moderate degree (HCC) [E44.0] 12/29/2018 05/24/2020 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.1] 01/01/2019 Acute renal insufficiency [N28.9] 05/10/2019 11/26/2021 Atherosclerosis of [place] coronary artery of na*05/10/2019 05/24/2020 Bilateral carotid artery stenosis [I65.23] 05/24/2020 Atherosclerosis of [place] coronary artery of na*05/29/2020 Peripheral artery disease (HCC) [I73.9] 05/29/2020 Mild atherosclerosis of carotid artery, bilater*05/29/2020 Weakness of left leg [R29.898] 05/29/2021 Edema of foot [R60.0] 11/28/2021 Fatigue [R53.83] 11/28/2021 Vitamin D deficiency [E55.9] 11/28/2021 Dyslipidemia [E78.5] 11/28/2021 Abdominal aortic aneurysm (AAA) without rupture*10/24/2022 Atherosclerosis of [place] artery of left lower *12/02/2023 Encounter Status:Closed by ILIANA CAMARENA on 09/29/24 [facility] XR CHEST 2V FRONTAL/LATon XR CHEST 2V FRONTAL/LAT * * *Final Report* * * DATE OF EXAM: Sep 28 2024 11:43AM WOX [id number] - XR CHEST 2V FRONTAL/LAT / PROCEDURE REASON: Rhonchi at both lung bases * * * * Physician Interpretation * * * * EXAMINATION: CHEST RADIOGRAPH (2 VIEW FRONTAL and LATERAL) CLINICAL HISTORY: Rhonchi at both lung bases MQ: XC2_6 EXAM DATE/TIME: 09/28/2024 11:43 AM COMPARISON: 05/27/2023 RESULT: Lines, tubes, and devices: Mediastinal wires are in place Lungs and pleura: No consolidation. No lung mass. No pleural effusion. No pneumothorax. Cardiomediastinal silhouette: Normal cardiomediastinal silhouette. Bones and soft tissues: Unremarkable. IMPRESSION: No acute radiographic abnormality. Market Research Assistant: PSCB Transcribe Date/Time: Sep 28 2024 2:52P Dictated by : MAURICIO GALVIN MD This examination was interpreted and the report reviewed and electronically signed by: MAURICIO GALVIN MD on Sep 28 2024 2:53PM EST [id number] [facility] XR Chest PA and Lateralon IMPRESSION: No acute radiographic abnormality. Market Research Assistant: PSC Transcribe Date/Time: Sep 28 2024 2:52P Dictated by : MAURICIO GALVIN MD This examination was interpreted and the report reviewed and electronically signed by: MAURICIO GALVIN MD on Sep 28 2024 2:53PM EST DIVISION OF RADIOLOGY * * *Final Report* * * DATE OF EXAM: Sep 28 2024 11:43AM WOX [id number] - XR CHEST 2V FRONTAL/LAT / PROCEDURE REASON: Rhonchi at both lung bases * * * * Physician Interpretation * * * * EXAMINATION: CHEST RADIOGRAPH (2 VIEW FRONTAL & LATERAL) CLINICAL HISTORY: Rhonchi at both lung bases MQ: XC2_6 EXAM DATE/TIME: 09/28/2024 11:43 AM COMPARISON: 05/27/2023 RESULT: Lines, tubes, and devices: Mediastinal wires are in place Lungs and pleura: No consolidation. No lung mass. No pleural effusion. No pneumothorax. Cardiomediastinal silhouette: Normal cardiomediastinal silhouette. Bones and soft tissues: Unremarkable. DIVISION OF RADIOLOGY Provider, [facility] - 09/28/2024 * * *Final Report* * * DATE OF EXAM: Sep 28 2024 11:43AM WOX [id number] - XR CHEST 2V FRONTAL/LAT / PROCEDURE REASON: Rhonchi at both lung bases * * * * Physician Interpretation * * * * EXAMINATION: CHEST RADIOGRAPH (2 VIEW FRONTAL & LATERAL) CLINICAL HISTORY: Rhonchi at both lung bases MQ: XC2_6 EXAM DATE/TIME: 09/28/2024 11:43 AM COMPARISON: 05/27/2023 RESULT: Lines, tubes, and devices: Mediastinal wires are in place Lungs and pleura: No consolidation. No lung mass. No pleural effusion. No pneumothorax. Cardiomediastinal silhouette: Normal cardiomediastinal silhouette. Bones and soft tissues: Unremarkable. IMPRESSION IMPRESSION: No acute radiographic abnormality. Market Research Assistant: PSCB Transcribe Date/Time: Sep 28 2024 2:52P Dictated by : MAURICIO GALVIN MD This examination was interpreted and the report reviewed and electronically signed by: MAURICIO GALVIN MD on Sep 28 2024 2:53PM EST [facility] Radiology Study observation (narrative) [facility] XR Chest PA and LateralOrder ed By: [facility]cf Provider on 09-28-2024 [facility] 12 Lead EKGon 09-20-2024 12 Lead EKG [facility] Cardiovascular Services [address] [place] [address] 12 Lead EKG 09/20/24 1458 MR#: [id number] Acct: [id number] Name: PORFIRIO DEVI Rep #: [id number] : 1945 79 From: Oskar Huff MD Attending Dr: Status: DEP ER Ordering Dr: Mary Muller PA Date: 09/20/24 Location: ED Sex: M C Admitted: Test Reason : SOB Blood Pressure : */* mmHG Vent. Rate : 69 BPM Atrial Rate : 69 BPM P-R Int : 168 ms QRS Dur : 80 ms QT Int : 408 ms P-R-T Axes : 24 26 46 degrees QTcB Int : 437 ms Sinus rhythm with Premature atrial complexes with Aberrant conduction Nonspecific T wave abnormality Abnormal ECG Confirmed by Oskar Huff ([id number]), editor map KAREL HASSAN ([id number]) on 09/21/2024 9:19:04 AM Referred By: Negro Tavares Confirmed By: Oskar Huff 09/21/24 0919 Date Oskar Huff MD CC: Dr. Andrea Smiley, DO; Dr. Negro Tavares, DO; DENISE Arellano Signed Normal [facility] Basic Metabolic Profile (BMP )on 09-20-2024 BUN/CRE 10.1 RATIO Normal 10-20 [facility] Comment on above: Order Comment: 'TROP ' Serial specimen #1, #2 or #3: 1 Performed By: #### M 100.678 #### [facility] [address] [place], [address] CA,Total 8.9 mg/dL Normal 8.5-10.1 [facility] Comment on above: Order Comment: 'TROP ' Serial specimen #1, #2 or #3: 1 Performed By: #### M 100.678 #### [facility] [address] [place], [address] Chloride [Moles/Vol] 113 mmol/L High 98-107 [facility] Comment on above: Order Comment: 'TROP ' Serial specimen #1, #2 or #3: 1 Performed By: #### M 100.678 #### [facility] [address] [place], [address] CO2 [Moles/Vol] 23.0 mmol/L Normal 21.0-32.0 [facility] Comment on above: Order Comment: 'TROP ' Serial specimen #1, #2 or #3: 1 Performed By: #### M 100.678 #### [facility] [address] [place], [address] Creatinine [Mass/Vol] 1.38 mg/dL High 0.70-1.30 [facility] Comment on above: Order Comment: 'TROP ' Serial specimen #1, #2 or #3: 1 Result Comment: The validity of the calculated GFR GFRAA in patients over 70 years has not been determined. Clinical correlation is essential. Performed By: #### M 100.678 #### [facility] [address] [place], [address] ECRCL 41.91 ml/min Normal [facility] Comment on above: Order Comment: 'TROP ' Serial specimen #1, #2 or #3: 1 Performed By: #### M 100.678 #### [facility] [address] [place], [address] EST GFR - AA 64 mL/min Normal >60 [facility] Comment on above: Order Comment: 'TROP ' Serial specimen #1, #2 or #3: 1 Result Comment: Afri can [place] GFR Calc Performed By: #### M 100.678 #### [facility] [address] [place], [address] GAP 8 Normal 5-15 [facility] Comment on above: Order Comment: 'TROP ' Serial specimen #1, #2 or #3: 1 Performed By: #### M 100.678 #### [facility] [address] [place], [address] GFR/1.73 sq M.predicted among non-blacks MDRD (S/P/Bld) [Vol rate/Area] 53 mL/min/{1.73_m2} Low >60 [facility] Comment on above: Order Comment: 'TROP ' Serial specimen #1, #2 or #3: 1 Result Comment: Non- GFR Calc Performed By: #### M 100.678 #### [facility] [address] [place], [address] Glucose [Mass/Vol] 92 mg/dL Normal 74-106 [facility] Comment on above: Order Comment: 'TROP ' Serial specimen #1, #2 or #3: 1 Performed By: #### M 100.678 #### [facility] [address] [place], [address] Potassium [Moles/Vol] 3.7 mmol/L Normal 3.5-5.1 [facility] Comment on above: Order Comment: 'TROP ' Serial specimen #1, #2 or #3: 1 Performed By: #### M 100.678 #### [facility] [address] [place], [address] Sodium [Moles/Vol] 144 mmol/L Normal 136-145 [facility] Comment on above: Order Comment: 'TROP ' Serial specimen #1, #2 or #3: 1 Performed By: #### M 100.678 #### [facility] [address] [place], [address] Urea nitrogen [Mass/Vol] 14 mg/dL Normal 7-18 [facility] Comment on above: Order Comment: 'TROP ' Serial specimen #1, #2 or #3: 1 Performed By: #### M 100.678 #### [facility] [address] [place], [address] CBC W/Diff, Automatedon 11-0 4-2024 Absolute Lymph 1.12 X10 3/uL Normal 0.83-4.51 [facility] Comment on above: Performed By: #### M 100.678 #### [facility] [address] [place], [address] Absolute Neut 3.1 X10 3/uL Normal 2.0-7.7 [facility] Comment on above: Performed By: #### M 100.678 #### [facility] [address] [place], [address] Basophils/100 WBC (Bld) 0.4 % Normal 0-1 [facility] Comment on above: Performed By: #### M 100.678 #### [facility] [address] [place], [address] Eosinophils/100 WBC (Bld) 2.8 % Normal 0-5 [facility] Comment on above: Performed By: #### M 100.678 #### [facility] [address] [place], [address] Erythrocyte distribution width (RBC) [Ratio] 13.1 % Normal 11.6-14.6 [facility] Comment on above: Performed By: #### M 100.678 #### [facility] [address] [place], [address] Hematocrit (Bld) [Volume fraction] 39.7 % Low 40-54 [facility] Comment on above: Performed By: #### M 100.678 #### [facility] [address] [place], [address] Hemoglobin (Bld) [Mass/Vol] 13.5 g/dL Normal 13.0-16.5 [facility] Comment on above: Performed By: #### M 100.678 #### [facility] [address] [place], [address] IG% 0.400 Normal 0.0-0.9 [facility] Comment on above: Result Comment: IG% - Immature Granulocytes (promyelocytes, myelocytes and metamyelocytes) > 1% indicates that a LEFT SHIFT is Present. Performed By: #### M 100.678 #### [facility] [address] [place], [address] Lymphocytes/100 WBC (Bld) 22.7 % Normal 19-41 [facility] Comment on above: Performed By: #### M 100.678 #### [facility] [address] [place], [address] MCH (RBC) [Entitic mass] 32.2 pg High 27.0-32.0 [facility] Comment on above: Performed By: #### M 100.678 #### [facility] [address] [place], [address] MCHC (RBC) [Mass/Vol] 34.0 g/dL Normal 32-36 [facility] Comment on above: Performed By: #### M 100.678 #### [facility] [address] [place], [address] MCV (RBC) [Entitic vol] 94.7 fL High 80-94 [facility] Comment on above: Performed By: #### M 100.678 #### [facility] [address] [place], [address] Monocytes/100 WBC (Bld) 11.5 % High 0-10 [facility] Comment on above: Performed By: #### M 100.678 #### [facility] [address] [place], [address] Neutrophils/100 WBC (Bld) 62.2 % Normal 47-70 [facility] Comment on above: Performed By: #### M 100.678 #### [facility] [address] [place], [address] Nucleated RBC (Bld) [#/Vol] 0 10*3/uL Normal 0-5 [facility] Comment on above: Performed By: #### M 100.678 #### [facility] [address] [place], [address] Platelet mean volume (Bld) [Entitic vol] 11.0 fL Normal 6.2-12.0 [facility] Comment on above: Performed By: #### M 100.678 #### [facility] [address] [place], [address] Platelets (Bld) [#/Vol] 205 10*3/uL Normal 150-450 [facility] Comment on above: Performed By: #### M 100.678 #### [facility] [address] [place], [address] RBC (Bld) [#/Vol] 4.19 10*6/uL Low 4.6-6.2 [facility] Comment on above: Performed By: #### M 100.678 #### [facility] [address] [place], [place], [address] RDW SD 45.4 fl High 35.1-43.9 [facility] Comment on above: Performed By: #### M 100.678 #### [facility] [address] [place], [place], [id number] WBC (Bld) [#/Vol] 4.9 10*3/uL Normal 4.4-11.0 [facility] Comment on above: Performed By: #### M 100.678 #### [facility] [address] [place], [place], [address] CNPNon 09-20-2024 CNPN Telephone (4CQ) PORFIRIO DEVI ([id number]) 1945 M Date Time Provider Department 09/20/24 ANDREA SMILEY 4CQ During your visit today, we recorded the following information about you: Kylah Hernandez 09/20/2024 11:14 AM Signed Pt called in for ER f/u for chest congestion and viral infection. Patient wanted to be seen sooner than 09/27 appt available with Bailey. Please advise Lacho Puente LPN 09/20/2024 12:39 PM Addendum called back and she is concerned with waiting for 09/17/24 for ER FU. reports pt was to FU with his pcp if no better and may need further testing. Pt is no better and they feel he needs seen sooner. Pt starts to cough and can't quit. Starts to turn blue from not able to catch breath per . Pt is using his nebulizer and cannot get thru a treatment without starting to cough. asking to have pt see a doctor. Provider/Team not available. Apt moved up to 09-22-24 with provider. Records reviewed by provider. MICHAEL Oleary, Lacho Morrison LPN 09/20/2024 12:39 PM Signed Spoke with /pt and pt is having SOB, with speaking and walking. Not as bad but still having and the coughing is severe. and pt have been advised to go back to ER. Apt with Provider for 09-22-24 for ER FU has been cancelled. Lacho Puente LPN Allergies As of Date: 09/20/2024 Noted Allergy Reaction CODEINE 11/26/2016 14 - Other: See Comments Comments: Disturbing dreams LIPITOR (ATORVASTATIN CALCIUM) 11/28/2017 17 - Myalgia Comments: Severe arthralgias or myalgia PENICILLINS 05/09/2014 4 - Hives 9 - Itching Comments: Sweats-severe ETASQGG-XSW-[id number] REDUCTASE INHIBIT*05/27/2018 17 - Myalgia Comments: Severe myalgia Date Reviewed: 09/17/2024 Reviewed by: Keara Morgan MA - Fully Assessed Reason for Visit: Future Appointment [256] Prescriptions as of 09/20/2024 - amLODIPine (NORVASC) 10 mg tablet Take 1 tablet by mouth once daily. - clopidogrel (PLAVIX) 75 mg tablet Take 1 tablet by mouth once daily. - ezetimibe (ZETIA) 10 mg tablet Take 1 tablet by mouth once daily. - pravastatin (PRAVACHOL) 10 mg tablet Take 1 tablet by mouth daily at bedtime. - metoprolol tartrate, short acting, (LOPRESSOR) 50 mg tablet Take 0.5 tablets by mouth two times a day. - cilostazol (PLETAL) 100 mg tablet Take 1 tablet by mouth two times a day. - acetaminophen (TYLENOL) 325 mg tablet Take 2 tablets by mouth every 6 hours as needed. - MULTIVITAMIN/IRON/FOLIC ACID (CENTRUM COMPLETE ORAL) Take by mouth. Problem List As Of Date 09/20/2024 Noted Resolved Scrotal mass [N50.89] 05/23/2014 Benign prostatic hyperplasia with lower urinary*05/23/2014 Epididymitis [N45.1] 05/23/2014 Presence of bare metal stent in right coronary *11/28/2014 PAD (peripheral artery disease) (HCC) [I73.9] 11/28/2014 Hypercholesterolemia [E78.00] 11/28/2014 Hypertension [I10] 11/28/2014 12/05/2015 Tobacco abuse [Z72.0] 11/28/2014 History of melanoma [Z85.820] 11/28/2014 Essential hypertension [I10] 12/05/2015 Pain, joint, multiple sites [M25.50] 11/28/2017 Myalgia [M79.10] 11/28/2017 Atherosclerosis of coronary artery of [place] he*11/28/2017 05/24/2020 Peripheral artery disease (HCC) [I73.9] 11/27/2018 05/24/2020 Abnormal ankle brachial index (RITA) [R68.89] 11/27/2018 Subclavian artery stenosis (HCC) [I77.1] 11/27/2018 Atherosclerosis of right carotid artery [I65.21]11/27/2018 Atherosclerosis of left carotid artery [I65.22] 11/27/2018 CAD (coronary artery disease) [I25.10] 12/22/2018 Malnutrition of moderate degree (HCC) [E44.0] 12/29/2018 05/24/2020 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.1] 01/01/2019 Acute renal insufficiency [N28.9] 05/10/2019 11/26/2021 Atherosclerosis of [place] coronary artery of na*05/10/2019 05/24/2020 Bilateral carotid artery stenosis [I65.23] 05/24/2020 Atherosclerosis of [place] coronary artery of na*05/29/2020 Peripheral artery disease (HCC) [I73.9] 05/29/2020 Mild atherosclerosis of carotid artery, bilater*05/29/2020 Weakness of left leg [R29.898] 05/29/2021 Edema of foot [R60.0] 11/28/2021 Fatigue [R53.83] 11/28/2021 Vitamin D deficiency [E55.9] 11/28/2021 Dyslipidemia [E78.5] 11/28/2021 Abdominal aortic aneurysm (AAA) without rupture*10/24/2022 Atherosclerosis of [place] artery of left lower *12/02/2023 Encounter Status:Closed by LACHO PUENTE on 09/20/24 Normal [facility] Chest PA and Lateralon 09-20 Chest PA and Lateral [facility] [address] [place], [place] [address] Chest PA and Lateral MR#: [id number] Acct: [id number] Name: PORFIRIO DEVI Rep #: [id number] : 1945 M 79 From: Saad healy MD PCP: Dr. Andrea Smiley, DO Status: REG ER Study: Chest PA and Lateral Date of Exam: 09/20/24 Exam# [id number] Ordering Dr: Mary Muller [id number] STUDY: X-RAY CHEST REASON FOR EXAM: Male, 79 years old. One-week history of cough and shortness of breath. TECHNIQUE: PA and lateral views of the chest. COMPARISON: Comparison is made with prior study September 17, 2024. FINDINGS: EKG electrodes are seen. There is hyperinflation of the lungs consistent with chronic obstructive lung disease (COPD). There is no demonstrated pleural abnormality. Sternal cerclage wires and vascular clips are present from a prior sternotomy and coronary artery bypass graft procedure (CABG). Normal mediastinum and bishop. Normal visualized pulmonary arteries. There is atherosclerotic tortuosity of the aortic arch and descending thoracic aorta. Normal visualized thoracic spine. Normal visualized ribs, clavicles, and shoulders. There is no demonstrated abnormality of the visualized soft tissue structures of the upper abdomen. RAD/Chest PA and Lateral IMPRESSION: No acute abnormality is seen. Hyperinflation. Electronically Signed: Saad Rosenberg MD at 15:32 EST , CC: Dr. Andrea Smiley, DO; DENISE Arellano Market Research Assistant: Signed Normal [facility] Emergency Department Summary on 09-20-2024 Emergency Department Summary [facility] Medical Records Department [address] [place] [address] Emergency Department Summary 09/20/24 MR#: [id number] Acct: [id number] Name: PORFIRIO DEVI Rep #: [id number] : 1945 79 From: Mary WALKER PCP: Dr. Andrea Smiley DO Status:REG ER Location: ED HPI History of Present Illness Chief Complaint: Shortness of Breath Narrative Narrative: 79-year-old male with past medical history of HTN, HLD, CAD, CABG presents with 1 week of productive cough. He states he had chills at the onset and has been coughing all week long. His was sick with similar symptoms. He was seen here on September 17 and had a normal chest x-ray and a negative viral swab. He was prescribed an inhaler and medication for nebulizer machine. He states he tries to use the nebulizer treatments but he coughed so much during it that he ends up taking it off. He states his chest feels tight with coughing but he is not having exertional chest pain. He does feel short of breath with walking. He denies a history of asthma or COPD and states he has a nebulizer that his primary care doctor gave him a couple years ago when he had pneumonia. He is a former smoker and quit in 2002. 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) Essential (primary) hypertension Bradycardia Mixed hyperlipidemia Atherosclerosis of [place] coronary artery of [place] heart without angina pectoris Palpitations Peripheral arterial occlusive disease Malignant melanoma Basal cell carcinoma Home Medications ???Medication ???Instructions ???Recorded ???Last Taken ???Type ezetimibe 10 mg tablet 10 mg PO DAILY 12/04/18 Unknown History ayeairxh-ig-wgavx 300 mcg-K 60 1 tab PO DAILY 12/04/18 Unknown History mcg-lycop 600 mcg-lutein 300 mcg tablet (Centrum Silver Ultra Men's) clopidogrel 75 mg tablet 75 mg PO DAILY #90 tabs 04/03/20 Unknown Rx amlodipine 10 mg tablet 10 mg PO DAILY #90 tabs 06/06/20 Unknown Rx cilostazol 100 mg tablet 100 mg PO BID 08/24/20 Unknown History pravastatin 10 mg tablet 10 mg PO QHS #90 tabs 05/03/21 Unknown Rx nitroglycerin 0.4 mg sublingual 0.4 mg sublingual Q5-15M PRN chest 08/12/24 Unknown Rx tablet pain #25 tabs albuterol sulfate 2.5 mg/0.5 mL 2.5 mg (0.5 mL) inhalation Q4H PRN 09/17/24 Unknown Rx solution for nebulization shortness of breath or wheezing #30 ea albuterol sulfate 90 mcg/actuation 1 - 2 puff inhalation Q4H PRN PRN 09/17/24 Unknown Rx aerosol inhaler (Ventolin HFA) Wheezing 2 weeks #6.7 grams albuterol sulfate 2.5 mg/3 mL 1 inhalation wheezing 09/20/24 Unknown History (0.083 %) solution for nebulization levofloxacin 750 mg tablet 750 mg PO DAILY 5 days #5 tabs 09/20/24 Unknown Rx metoprolol tartrate 50 mg tablet 25 mg PO BID 09/20/24 Unknown History prednisone 20 mg tablet 40 mg (2 x 20 mg) PO DAILY 5 days 09/20/24 Unknown Rx #10 tabs Allergy/AdvReac Type Severity Reaction Status Date / Time Penicillins Allergy Mild rash Verified 09/20/24 14:26 amlodipine AdvReac Mild ED Verified 09/20/24 14:26 exacerbation ramipril AdvReac cough Verified 09/20/24 14:26 Xioqbwj-OZE-XrY Reductase AdvReac myalgias Verified 09/20/24 14:26 Inhibitor (Kvdbwls-Zbc-Jcz Reductase Inhibitor) Family History Father Heart disease Hypertension Mother CVA (cerebral vascular accident) Brother Heart disease Hypertension Myocardial infarction Brother Hypertension Myocardial infarction Brother Heart disease Myocardial infarction Surgical History History of angioplasty of peripheral vessel (03/2019) hx of APLL H/O coronary artery bypass surgery (12/28/18) History of left heart catheterization (12/22/18) History of coronary artery stent placement (05/2003) History of cataract extraction (2015) history of melanoma removal History of amputation of finger History of colonoscopy (2015) History of appendectomy Social History Smoking Status: Former smoker ROS ROS ED ROS Narrative Constitutional: Positive for chills. Negative for fever.. CVS: Negative for chest pain. Respiratory: Positive for shortness of breath, cough. GI: Negative for abdominal pain, nausea, vomiting, diarrhea. EXAM Physical Exam Narrative Exam Narrative: CONST: Patient sitting in no acute distress. EYES: Normal inspection. ENT: Normal inspection, (more content not included)... Normal [facility] L501.4020on 09-20-2024 TROPONIN-I HS 9 pg/mL Normal 3.0-78.0 [facility] Comment on above: Order Comment: 'TROP ' Serial specimen #1, #2 or #3: 1 Result Comment: Plea se Note: New Test Units and Gender Specific Reference Ranges. For more information see Policy Stat Procedure [place] High Sensitivity Troponin (TNIH) and attachments. Performed By: #### M 100.678 #### [facility] [address] [place], [address] 12 Lead EKGon 09-17-2024 12 Lead EKG [facility] Cardiovascular Services [address] [place] [address] 12 Lead EKG 09/17/24 1107 MR#: [id number] Acct: [id number] Name: PORFIRIO DEVI Rep #: [id number] : 1945 79 From: Lenin Galeas MD Attending Dr: Status: DEP ER Ordering Dr: Popeye Hernandez ENGLISH ADJUNCT FACULTY-C Date: 09/17/24 Location: ED Sex: M C Admitted: Test Reason : SOB Blood Pressure : */* mmHG Vent. Rate : 59 BPM Atrial Rate : 59 BPM P-R Int : 164 ms QRS Dur : 78 ms QT Int : 424 ms P-R-T Axes : 28 10 60 degrees QTcB Int : 419 ms Sinus bradycardia with occasional Premature ventricular complexes Otherwise normal ECG Confirmed by LENIN GALEAS MD ([id number]), editor map KAREL HASSAN ([id number]) on 09/20/2024 9:28:22 AM Also confirmed by LENIN GALEAS MD ([id number]), editor map KAREL HASSAN ([id number]) on 09/20/2024 9:33:03 AM Referred By: Dakota Sheridan Confirmed By: LENIN GALEAS MD 09/20/24932 Date Lenin Galeas MD CC: FREDIS Hernandez; Dr. Andrea Smiley DO; Dr. Dakota Sheridan MD Signed Normal [facility] BNP,B-Type NATRIURETIC PEPTI Ewa 09-17-2024 Natriuretic peptide B (Bld) [Mass/Vol] 49.2 pg/mL Normal 0-100 [facility] Comment on above: Performed By: #### L 503.6620, L501.4020, L100.0100, L500.2500 #### [facility] [address] [place], [place], [address] Basic Metabolic Profile (BMP )on 09-17-2024 BUN/CRE 11.9 RATIO Normal 10-20 [facility] Comment on above: Order Comment: 'TROP ' Serial specimen #1, #2 or #3: 1 Performed By: #### L 503.6620, L501.4020, L100.0100, L500.2500 #### [facility] [address] [place], [address] CA,Total 8.9 mg/dL Normal 8.5-10.1 [facility] Comment on above: Order Comment: 'TROP ' Serial specimen #1, #2 or #3: 1 Performed By: #### L 503.6620, L501.4020, L100.0100, L500.2500 #### [facility] [address] [place], [address] Chloride [Moles/Vol] 113 mmol/L High 98-107 [facility] Comment on above: Order Comment: 'TROP ' Serial specimen #1, #2 or #3: 1 Performed By: #### L 503.6620, L501.4020, L100.0100, L500.2500 #### [facility] [address] [place], [address] CO2 [Moles/Vol] 24.0 mmol/L Normal 21.0-32.0 [facility] Comment on above: Order Comment: 'TROP ' Serial specimen #1, #2 or #3: 1 Performed By: #### L 503.6620, L501.4020, L100.0100, L500.2500 #### [facility] [address] [place], [address] Creatinine [Mass/Vol] 1.26 mg/dL Normal 0.70-1.30 [facility] Comment on above: Order Comment: 'TROP ' Serial specimen #1, #2 or #3: 1 Result Comment: The validity of the calculated GFR GFRAA in patients over 70 years has not been determined. Clinical correlation is essential. Performed By: #### L 503.6620, L501.4020, L100.0100, L500.2500 #### [facility] [address] [place], [address] ECRCL 44.31 ml/min Normal [facility] Comment on above: Order Comment: 'TROP ' Serial specimen #1, #2 or #3: 1 Performed By: #### L 503.6620, L501.4020, L100.0100, L500.2500 #### [facility] [address] [place], [address] EST GFR - AA 71 mL/min Normal >60 [facility] Comment on above: Order Comment: 'TROP ' Serial specimen #1, #2 or #3: 1 Result Comment: Afri can [place] GFR Calc Performed By: #### L 503.6620, L501.4020, L100.0100, L500.2500 #### [facility] [address] [place], [address] GAP 5 Normal 5-15 [facility] Comment on above: Order Comment: 'TROP ' Serial specimen #1, #2 or #3: 1 Performed By: #### L 503.6620, L501.4020, L100.0100, L500.2500 #### [facility] [address] [place], [address] GFR/1.73 sq M.predicted among non-blacks MDRD (S/P/Bld) [Vol rate/Area] 59 mL/min/{1.73_m2} Low >60 [facility] Comment on above: Order Comment: 'TROP ' Serial specimen #1, #2 or #3: 1 Result Comment: Non- GFR Calc Performed By: #### L 503.6620, L501.4020, L100.0100, L500.2500 #### [facility] [address] [place], [address] Glucose [Mass/Vol] 101 mg/dL Normal 74-106 [facility] Comment on above: Order Comment: 'TROP ' Serial specimen #1, #2 or #3: 1 Result Comment: Fast ing Glucose result from 100 to 125 mg/dL suggests IMPAIRED HOMEOSTASIS per A.D.A. criteria. Performed By: #### L 503.6620, L501.4020, L100.0100, L500.2500 #### [facility] [address] [place], [address] Potassium [Moles/Vol] 3.7 mmol/L Normal 3.5-5.1 [facility] Comment on above: Order Comment: 'TROP ' Serial specimen #1, #2 or #3: 1 Performed By: #### L 503.6620, L501.4020, L100.0100, L500.2500 #### [facility] [address] [place], [address] Sodium [Moles/Vol] 142 mmol/L Normal 136-145 [facility] Comment on above: Order Comment: 'TROP ' Serial specimen #1, #2 or #3: 1 Performed By: #### L 503.6620, L501.4020, L100.0100, L500.2500 #### [facility] [address] [place], [address] Urea nitrogen [Mass/Vol] 15 mg/dL Normal 7-18 [facility] Comment on above: Order Comment: 'TROP ' Serial specimen #1, #2 or #3: 1 Performed By: #### L 503.6620, L501.4020, L100.0100, L500.2500 #### [facility] [address] [place], [address] CBC W/Diff, Automatedon 11-0 -2023 Absolute Lymph 1.12 X10 3/uL Normal 0.83-4.51 [facility] Comment on above: Performed By: #### L 503.6620, L501.4020, L100.0100, L500.2500 #### [facility] [address] [place], [address] Absolute Neut 2.4 X10 3/uL Normal 2.0-7.7 [facility] Comment on above: Performed By: #### L 503.6620, L501.4020, L100.0100, L500.2500 #### [facility] [address] [place], [address] Basophils/100 WBC (Bld) 0.2 % Normal 0-1 [facility] Comment on above: Performed By: #### L 503.6620, L501.4020, L100.0100, L500.2500 #### [facility] [address] [place], [address] Eosinophils/100 WBC (Bld) 2.9 % Normal 0-5 [facility] Comment on above: Performed By: #### L 503.6620, L501.4020, L100.0100, L500.2500 #### [facility] [address] [place], [address] Erythrocyte distribution width (RBC) [Ratio] 13.1 % Normal 11.6-14.6 [facility] Comment on above: Performed By: #### L 503.6620, L501.4020, L100.0100, L500.2500 #### [facility] [address] [place], [address] Hematocrit (Bld) [Volume fraction] 42.0 % Normal 40-54 [facility] Comment on above: Performed By: #### L 503.6620, L501.4020, L100.0100, L500.2500 #### [facility] [address] [place], [address] Hemoglobin (Bld) [Mass/Vol] 13.8 g/dL Normal 13.0-16.5 [facility] Comment on above: Performed By: #### L 503.6620, L501.4020, L100.0100, L500.2500 #### [facility] [address] [place], [address] IG% 0.500 Normal 0.0-0.9 [facility] Comment on above: Result Comment: IG% - Immature Granulocytes (promyelocytes, myelocytes and metamyelocytes) > 1% indicates that a LEFT SHIFT is Present. Performed By: #### L 503.6620, L501.4020, L100.0100, L500.2500 #### [facility] [address] [place], [address] Lymphocytes/100 WBC (Bld) 26.6 % Normal 19-41 [facility] Comment on above: Performed By: #### L 503.6620, L501.4020, L100.0100, L500.2500 #### [facility] [address] [place], [address] MCH (RBC) [Entitic mass] 31.7 pg Normal 27.0-32.0 [facility] Comment on above: Performed By: #### L 503.6620, L501.4020, L100.0100, L500.2500 #### [facility] [address] [place], [address] MCHC (RBC) [Mass/Vol] 32.9 g/dL Normal 32-36 [facility] Comment on above: Performed By: #### L 503.6620, L501.4020, L100.0100, L500.2500 #### [facility] [address] [place], [address] MCV (RBC) [Entitic vol] 96.6 fL High 80-94 [facility] Comment on above: Performed By: #### L 503.6620, L501.4020, L100.0100, L500.2500 #### [facility] [address] [place], [address] Monocytes/100 WBC (Bld) 13.3 % High 0-10 [facility] Comment on above: Performed By: #### L 503.6620, L501.4020, L100.0100, L500.2500 #### [facility] [address] [place], [address] Neutrophils/100 WBC (Bld) 56.5 % Normal 47-70 [facility] Comment on above: Performed By: #### L 503.6620, L501.4020, L100.0100, L500.2500 #### [facility] [address] [place], [address] Nucleated RBC (Bld) [#/Vol] 0 10*3/uL Normal 0-5 [facility] Comment on above: Performed By: #### L 503.6620, L501.4020, L100.0100, L500.2500 #### [facility] [address] [place], [address] Platelet mean volume (Bld) [Entitic vol] 10.9 fL Normal 6.2-12.0 [facility] Comment on above: Performed By: #### L 503.6620, L501.4020, L100.0100, L500.2500 #### [facility] [address] [place], [address] Platelets (Bld) [#/Vol] 191 10*3/uL Normal 150-450 [facility] Comment on above: Performed By: #### L 503.6620, L501.4020, L100.0100, L500.2500 #### [facility] [address] [place], [address] RBC (Bld) [#/Vol] 4.35 10*6/uL Low 4.6-6.2 [facility] Comment on above: Performed By: #### L 503.6620, L501.4020, L100.0100, L500.2500 #### [facility] [address] [place], [address] RDW SD 46.9 fl High 35.1-43.9 [facility] Comment on above: Performed By: #### L 503.6620, L501.4020, L100.0100, L500.2500 #### [facility] [address] [place], [address] WBC (Bld) [#/Vol] 4.2 10*3/uL Low 4.4-11.0 [facility] Comment on above: Performed By: #### L 503.6620, L501.4020, L100.0100, L500.2500 #### [facility] [place], [address] CNOVon 09-17-2024 CNOV Office Visit (ESTHELAPWS ) PORFIRIO DEVI ([id number]) 1945 M Date Time Provider Department 09/17/24 10:40 AM DERICK YUEN During your visit today, we recorded the following information about you: Temperature Pulse Respiration Blood pressure 97.7 degrees 71/minute 40/minute 113/63 Weight 75.3 kg Derick Yuen, PATI.LOSS PREVENTION AND SAFETY MANAGER 09/17/2024 10:57 AM Signed Chief Complaint Patient presents with: Chest Congestion Headache Fever HPI Porfirio Devi is a 79 year old male who presents here today for Above Complaints.. Patient presents for chest congestion, headache, fever x6 days. Reports SOB at rest, worse with exertion. Reports use of mucinex and ibuprofen at home. Past medical history, appointments, medications, allergies reviewed. Previous Medical History PAST MEDICAL HISTORY Diagnosis Date AAA (abdominal aortic aneurysm) (HCC) Arthritis Basal cell carcinoma of neck Dr. Arie Scott Food Clerk Carotid artery stenosis Coronary artery disease stent, Dr. Andrade Vice President Regulatory Heart attack ([facility]) Hyperlipemia Hypertension Malignant melanoma of chest wall ([facility]) Dr. 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 Sleep apnea Previous Surgical History PAST SURGICAL HISTORY Procedure Laterality Date APPENDECTOMY [...] STENT PLACEMENT 2003 heart VASCULAR SURGERY PROCEDURE Family History FAMILY HISTORY Problem Relation Age of Onset Aneurysm Father brain, 52 Stroke Mother at 80 Heart Paternal Grandfather Patient Allergies ALLERGIES Allergen Reactions Codeine Other: See Comments Disturbing dreams Lipitor [Atorvastat* Myalgia Severe arthralgias or myalgia Penicillins Hives, Itching Sweats-severe Gzntrvt-Zvi-Ycx Red* Myalgia Severe myalgia Current Medications Current Outpatient Medications on File Prior to Visit Medication Sig amLODIPine (NORVASC) 10 mg tablet Take 1 tablet by mouth once daily. clopidogrel (PLAVIX) 75 mg tablet Take 1 tablet by mouth once daily. ezetimibe (ZETIA) 10 mg tablet Take 1 tablet by mouth once daily. pravastatin (PRAVACHOL) 10 mg tablet Take 1 tablet by mouth daily at bedtime. metoprolol tartrate, short acting, (LOPRESSOR) 50 mg tablet Take 0.5 tablets by mouth two times a day. cilostazol (PLETAL) 100 mg tablet Take 1 tablet by mouth two times a day. acetaminophen (TYLENOL) 325 mg tablet Take 2 tablets by mouth every 6 hours as needed. MULTIVITAMIN/IRON/FOLIC ACID (CENTRUM COMPLETE ORAL) Take by mouth. No current facility-administered medications on file prior to visit. Social History Social History Tobacco Use Smoking status: Former Current packs/day: 0.00 Types: Cigarettes Quit date: 04/17/2017 Years since quittin.4 Smokeless tobacco: Never Vaping Use Vaping status: Never Used Substance Use Topics Alcohol use: No Drug use: No Review of Symptoms REVIEW OF SYSTEMS SEE HPI EXAM: BP 113/63 Pulse 71 Temp 36.5 ?C (97.7 ?F) Resp 18 Wt 75.3 kg (166 lb) SpO2 93% BMI 26.00 kg/m? General Appearance: Ill appearing, labored and tachypneic. Lungs: Positive findings: rhonchi Shortness of breath: At rest Cough. Increased work of breathing Heart: RRR without murmur, gallop, or rubs. No ectopy. Health Maintenance List DTaP,Tdap,Td Vaccine(1 - Tdap) Never done Shingrix Vaccine(1 of 2) Never done RSV Vaccine(1 - 1-dose 75+ series) Never done Advance Directive Discussion Never done Covid-19 Vaccine( season) due on 07/18/2024 LDL Cholesterol due on 05/21/2025 Annual PCP Team Chronic Disease Visit due on 06/01/2025 Depression Screening due on 06/01/2025 Anxiety Screening due on 06/01/2025 BP Controlled (<130/80) due on 06/01/2025 Diabetes Screening due on 05/21/2027 Influenza Vaccine Completed Hepatitis C Screening Completed Pneumococcal Vaccine: 65+ Completed Colorectal Cancer Screening Discontinued ASSESSMENT/PLAN: 1. Acute cough - ICD9: 786.2, ICD10: R05.1 (primary diagnosis) 2. SOB (shortness of breath) - ICD9: 786.05, ICD10: R06.02 3. Tachypnea - ICD9: 786.06, ICD10: R06.82 Due to appearance, tachypnea, bradycardia, increased work o (more content not included)... Normal [facility] Chest PA and Lateralon 09-17 Chest PA and Lateral [facility] [address] [place] [id number] Chest PA and Lateral MR#: [id number] Acct: [id number] Name: PORFIRIO DEVI Rep #: [id number] : 1945 M 79 From: Saad healy MD PCP: Dr. Andrea Smiley, DO Status: REG ER Study: Chest PA and Lateral Date of Exam: 09/17/24 Exam# [id number] Ordering Dr: Popeye Hernandez [employer]ISH [employer]-C [id number] STUDY: X-RAY CHEST REASON FOR EXAM: Male, 79 years old. Cough and shortness of breath. TECHNIQUE: PA and lateral views of the chest. COMPARISON: Comparison is made with prior study of December 18, 2018. FINDINGS: EKG electrodes are seen. Hyperinflation. There is no demonstrated pleural abnormality. Sternal cerclage wires and vascular clips are present from a prior sternotomy and coronary artery bypass graft procedure (CABG). Normal mediastinum and bishop. Normal visualized pulmonary arteries. Normal visualized aortic arch and descending thoracic aorta. Normal visualized thoracic spine. There is degenerative osteoarthritis of the bilateral shoulders. There is no demonstrated abnormality of the visualized soft tissue structures of the upper abdomen. RAD/Chest PA and Lateral IMPRESSION: Hyperinflation. The lungs are clear. Electronically Signed: Saad Rosenberg MD at 12:36 EDT Reading Location ID and State: [facility] / [place] , Service support , CC: FREDIS Hernandez; Dr. Andrea Smiley DO Market Research Assistant: Signed Normal [facility] Emergency Department Summary on 09-17-2024 Emergency Department Summary [facility] Department [address] [place] [id number] Emergency Department Summary 09/17/24 MR#: [id number] Acct: [id number] Name: PORFIRIO DEVI Rep #: [id number] : 1945 79 From: Popeye MCNEAL PCP: Dr. Andrea Smiley DO Status:DEP ER Location: ED HPI History of Present Illness Chief Complaint: Shortness of Breath Narrative Narrative: Patient is a 79-year-old male with history of CAD, history of [place] who presents to the emergency department for 7 days of worsening cough and shortness of breath. Patient states over the last 2 to 3 days, has been fevered, chilled, he states that he went to the clinic today, and secondary to his tachypnea, he was referred to the emergency department. Patient states that he does bring up some white foamy sputum. Patient complains of pain all over. 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) Essential (primary) hypertension Bradycardia Mixed hyperlipidemia Atherosclerosis of [place] coronary artery of [place] heart without angina pectoris Palpitations Peripheral arterial occlusive disease Malignant melanoma Basal cell carcinoma Home Medications ???Medication ???Instructions ???Recorded ???Last Taken ???Type ezetimibe 10 mg tablet 10 mg PO DAILY 12/04/18 Unknown History iulhrhdk-ed-zcujd 300 mcg-K 60 1 tab PO DAILY 12/04/18 Unknown History mcg-lycop 600 mcg-lutein 300 mcg tablet (Centrum Silver Ultra Men's) clopidogrel 75 mg tablet 75 mg PO DAILY #90 tabs 04/03/20 Unknown Rx amlodipine 10 mg tablet 10 mg PO DAILY #90 tabs 06/06/20 Unknown Rx cilostazol 100 mg tablet 100 mg PO BID 08/24/20 Unknown History pravastatin 10 mg tablet 10 mg PO QHS #90 tabs 05/03/21 Unknown Rx metoprolol tartrate 100 mg tablet 25 mg PO BID 30 days #15 tabs 08/14/23 Unknown History nitroglycerin 0.4 mg sublingual 0.4 mg sublingual Q5-15M PRN chest 08/12/24 Unknown Rx tablet pain #25 tabs albuterol sulfate 2.5 mg/0.5 mL 2.5 mg (0.5 mL) inhalation Q4H PRN 09/17/24 Unknown Rx solution for nebulization shortness of breath or wheezing #30 ea albuterol sulfate 90 mcg/actuation 1 - 2 puff inhalation Q4H PRN PRN 09/17/24 Unknown Rx aerosol inhaler (Ventolin HFA) Wheezing 2 weeks #6.7 grams Allergy/AdvReac Type Severity Reaction Status Date / Time Penicillins Allergy Mild rash Verified 08/12/24 10:15 amlodipine AdvReac Mild ED Verified 08/12/24 10:15 exacerbation ramipril AdvReac cough Verified 08/12/24 10:15 Styxsmb-XAV-EkH Reductase AdvReac myalgias Verified 08/12/24 10:15 Inhibitor (Jjkyyku-Yhw-Qel Reductase Inhibitor) Family History (Reviewed 08/12/24 @ 10:11 by Radha Ruiz ENGLISH [employer]CT FACULTY, ENGLISH [employer]ACULTY-C) Father Heart disease Hypertension Mother CVA (cerebral vascular accident) Brother Heart disease Hypertension Myocardial infarction Brother Hypertension Myocardial infarction Brother Heart disease Myocardial infarction Surgical History (Reviewed 08/12/24 @ 10:11 by Radha Ruiz ENGLISH [employer]CT FACULTY, ENGLISH [employer]CT FACULTY-C) History of angioplasty of peripheral vessel (03/2019) hx of APLL H/O coronary artery bypass surgery (12/28/18) History of left heart catheterization (12/22/18) History of coronary artery stent placement (05/2003) History of cataract extraction (2015) history of melanoma removal History of amputation of finger History of colonoscopy (2015) History of appendectomy Social History (Reviewed 08/12/24 @ 10:11 by Radha Ruiz ENGLISH [employer] FAC[employer]Y, ENGLISH [employer]CT FACULTY-C) Smoking Status: Former smoker ROS ROS ED ROS Narrative Constitutional: Negative for weight loss, weakness. Positive fever and chills Eyes: Negative for vision loss, vision change, double vision ENT: Negative for any sore throat, ear pain, congestion Cardiovascular: Negative for any chest pain, tightness, palpitations Respiratory: Negative for any hemoptysis. Positive for cough, white sputum production, dyspnea, dyspnea on exertion, Gastrointestinal: Negative for any abdominal pain, nausea, vomiting, diarrhea, constipation, blood in stool, blood in vomit : Negative for any urinary frequency, dysuria, retention, blood in urine Muscle skeletal: Negative for any neck pain, back pain Neurological: Negative for any headache, syncope, dizziness Skin: Negative for any rashes, itching, abrasions, lacerations Psychiatric: Negative for any depression, anxiety, stress, suicidal ideation, homicidal ideation Hematologic: Negative for any excessive bruising, easy bleeding EXAM Physical Exam Narrative Exam Narrative: Vital sign (more content not included)... Normal [facility] L501.4020on 09-17-2024 TROPONIN-I HS 12 pg/mL Normal 3.0-78.0 [facility] Comment on above: Order Comment: 'TROP ' Serial specimen #1, #2 or #3: 1 Result Comment: Constantino kovacs Note: New Test Units and Gender Specific Reference Ranges. For more information see Policy Stat Procedure [place] High Sensitivity Troponin (TNIH) and attachments. Performed By: #### L 503.6620, L501.4020, L100.0100, L500.2500 #### [facility] [address] [place], [address] M100.678on 09-17-2024 M100.678 Pending SARS-CoV-2 (COVID 19) Negative INFLUENZA A Negative INFLUENZA B Negative RSV PCR Negative Normal [facility] Comment on above: Performed By: #### M 100.678 #### [facility] [address] [place], [address] Stress Reporton 08-25-2024 Stress Report [facility] [address] [place] [address] MR#: [id number] Acct: [id number] Name: PORFIRIO DEVI Rep #: [id number] : 1945 79 From: Lenin Galeas MD Primary Care: Dr. Andrea Smiley, DO Status: REG CLI Referring Dr: Radha Ruiz NP [employer]GLISH [employer]-C Sex: M C Stress Test Report Pharmacologic myocardial perfusion stress test. 79-year-old man with a history of coronary artery disease Resting EKG demonstrates sinus bradycardia with a rate of 58 bpm. Resting blood pressure is 118/70 mmHg. 0.4 mg of regadenoson was infused per usual protocol followed by rapid intravenous saline flush injection. Continuous EKG monitoring was performed. The maximum heart rate was 85 bpm which was 59% of max impacted heart rate the maximum workload was 1 metabolic equivalent. At rest there were no ST or T wave changes noted to suggest ischemia and at peak infusion nonspecific ST changes were noted which did not meet the criteria for ischemia. No clinical angina is noted. The final blood pressure was 112/62 mmHg. Myocardial perfusion protocol. 11.3 mCi of technetium 99m sestamibi was injected at rest. 0.4 mg of regadenoson was infused per usual protocol. At peak infusion 33.9 mCi of technetium 99m sestamibi was injected stress images were obtained stress and rest images were reconstructed and compared in the short axis vertical long and horizontal long axis. Gated images were also obtained. Perfusion SPECT analysis: Review of the stress images demonstrate normal uptake of tracer noted in all areas of the myocardium. The resting images similar demonstrated normal uptake of tracer noted in all areas of the myocardium. No areas of reversibility are noted to suggest ischemia and no previous infarct is noted. Gated SPECT analysis: The gated ejection fraction is 62%. Conclusion: Normal pharmacologic myocardial perfusion stress test. Preserved ejection fraction. 08/25/24 1630 Date Lenin Galeas MD CC: FREDIS Ruiz; Dr. Andrea Smiley, DO Date Dictated: 08/25/241623 Date Transcribed: 08/25/241623 Market Research Assistant: [place] Signed Normal [facility] Cardiology Visit Reporton Cardiology Visit Report [facility] [address] [place] [address] OFFICE VISIT Date of Service: 08/12/24 MR#: [id number] Acct: [id number] Name: PORFIRIO DEVI Rep #: [id number] : 1945 Provider: FREDIS Musa rts Age/Sex: 79/M Location: [facility] Status: Signed HPI HPI History of Present Illness Details: This is a pleasant 79-year-old man who presents to the office today for a cardiovascular visit. He is a gentleman with a history of coronary artery disease status post angioplasty and bare-metal stenting of the right coronary artery in 2002. In 2018 he had presented with chest discomfort and underwent a cardiac catheterization which demonstrated an ejection fraction of 40%, left main coronary artery with a 60-70% stenosis, first diagonal vessel with a 70% stenosis, left circumflex artery with 30% stenosis, and right coronary artery with serial 70%, 90%, and 90% stenosis. He underwent bypass surgery and had a left internal mammary artery to the left anterior descending artery, saphenous vein graft to the diagonal vessel and saphenous vein graft to the posterior lateral branch in December 2018.He also had significant peripheral vascular disease and is being followed up by the vascular surgeon who added cilostazol. He also has a history of hypertension, hyperlipidemia, peripheral vascular disease, and carotid disease. From a cardiac standpoint, the patient is doing well. He denies any palpitations, chest pain, pressure or heaviness. He denies SOB, Orthopnea, and PND. He does not have bleeding issues; no blood in urine, stool or nosebleeds. He denies any decrease in energy level, myalgias. He does acknowledge occasional claudication. This has improved.He does not have edema, or sudden weight gain. He denies dizziness, lightheadedness, syncopal or near syncopal episodes, and headaches. 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 Is patient in pain?: No Allergies Penicillins Allergy (Mild, Verified 08/12/24 10:15) rash amlodipine Adverse Reaction (Mild, Verified 08/12/24 10:15) ED exacerbation ramipril Adverse Reaction (Verified 08/12/24 10:15) cough Fmcqraf-BTP-EuG Reductase Inhibitor (Txfugaa-Btq-Wkh Reductase Inhibitor) Adverse Reaction (Verified 08/12/24 10:15) myalgias Medications ???Medication ???Instructions ???Recorded ???Confirmed ???Type ezetimibe 10 mg tablet 10 mg PO DAILY 12/04/18 08/12/24 History rfitgkgy-zr-lally 300 mcg-K 60 1 tab PO DAILY 12/04/18 08/12/24 History mcg-lycop 600 mcg-lutein 300 mcg tablet (Centrum Silver Ultra Men's) clopidogrel 75 mg tablet 75 mg PO DAILY #90 tabs 04/03/20 08/12/24 Rx amlodipine 10 mg tablet 10 mg PO DAILY #90 tabs 06/06/20 08/12/24 Rx cilostazol 100 mg tablet 100 mg PO BID 08/24/20 08/12/24 History pravastatin 10 mg tablet 10 mg PO QHS #90 tabs 05/03/21 08/12/24 Rx metoprolol tartrate 100 mg tablet 25 mg PO BID 30 days #15 tabs 08/14/23 08/12/24 History nitroglycerin 0.4 mg sublingual 0.4 mg sublingual Q5-15M PRN chest 08/12/24 08/12/24 Rx tablet pain #25 tabs Have you fallen in the past year?: No PFSH Medical History (Reviewed 08/12/24 @ 10:11 by Radha Ruiz ENGLISH ADJ[employer]CT FACULTY, ENGLISH ADJ[employer]CT FACULTY-C) AAA (abdominal aortic aneurysm) Peripheral vascular disease of extremity with claudication Ischemic cardiomyopathy Bilateral carotid artery stenosis Stenosis of both subclavian arteries Thrombocytopenia Premature ventricular beat 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) Essential (primary) hypertension Bradycardia Mixed hyperlipidemia Atherosclerosis of [place] coronary artery of [place] heart without angina pectoris Palpitations Peripheral arterial occlusive disease Malignant melanoma Basal cell carcinoma Surgical History (Reviewed 08/12/24 @ 10:11 by Radha Ruiz ENGLISH ADJUNCT FACULTY, ENGLISH ADJUNCT FACULTY-C) History of angioplasty of peripheral vessel (03/2019) hx of APLL H/O coronary artery bypass surgery (12/28/18) History of left heart catheterization (12/22/18) History of coronary artery stent placement (05/2003) History of cataract extraction (2015) history of melanoma removal History of amputation of finger History of colonoscopy (2015) History of appendectomy Family History (Reviewed 08/12/24 @ 10:11 by Radha Ruiz ENGLISH ADJUNCT FACULTY, ENGLISH ADJUNCT FACULTY-C) Father Heart disease Hypertension Mother CVA (cerebral vascular accident) Brother Heart disease Hypertension Myocardial infarction Brother Hypertension Myocardial infarction Brother Heart disease Myocardial infarction (more content not included)... Normal [facility] Absolute lymphocyte countOrd ered By: Baldev Burch on 12-09-2023 Lymphocytes Auto (Unsp spec) [#/Vol] 1.74 10*3/uL 0.83-4.51 [facility] Automated lymphocyte count a s percentage of total leukocytesOrdered By: Baldev Burch on 12-09-2023 Lymphocytes/100 WBC Auto (Unsp spec) 21.1 % 19-41 [facility] Basic Metabolic Profile (BMP )on 12-09-2023 BUN/CRE 11.3 RATIO Normal 10-20 [facility] Comment on above: Performed By: #### L 100.0100, L500.2500 #### [facility] [address] [place], [address] CA,Total 9.1 mg/dL Normal 8.5-10.1 [facility] Comment on above: Performed By: #### L 100.0100, L500.2500 #### [facility] [address] [place], [address] Chloride [Moles/Vol] 112 mmol/L High 98-107 [facility] Comment on above: Performed By: #### L 100.0100, L500.2500 #### [facility] [address] [place], [address] CO2 [Moles/Vol] 24.0 mmol/L Normal 21.0-32.0 [facility] Comment on above: Performed By: #### L 100.0100, L500.2500 #### [facility] [address] [place], [address] Creatinine [Mass/Vol] 1.33 mg/dL High 0.70-1.30 [facility] Comment on above: Result Comment: The validity of the calculated GFR GFRAA in patients over 70 years has not been determined. Clinical correlation is essential. Performed By: #### L 100.0100, L500.2500 #### [facility] [address] [place], [address] ECRCL 46.20 ml/min Normal [facility] Comment on above: Performed By: #### L 100.0100, L500.2500 #### [facility] [address] [place], [address] EST GFR - AA 67 mL/min Normal >60 [facility] Comment on above: Result Comment: Afri can [place] GFR Calc Performed By: #### L 100.0100, L500.2500 #### [facility] [address] [place], [address] GAP 6 Normal 5-15 [facility] Comment on above: Performed By: #### L 100.0100, L500.2500 #### [facility] [address] [place], [address] GFR/1.73 sq M.predicted among non-blacks MDRD (S/P/Bld) [Vol rate/Area] 56 mL/min/{1.73_m2} Low >60 [facility] Comment on above: Result Comment: Non- GFR Calc Performed By: #### L 100.0100, L500.2500 #### [facility] [address] [place], [address] Glucose [Mass/Vol] 129 mg/dL High 74-106 [facility] Comment on above: Result Comment: Fast ing Glucose result greater than or equal to 126 mg/dL suggests DIABETES MELLITUS per A.D.A. criteria. Performed By: #### L 100.0100, L500.2500 #### [facility] [address] [place], [address] Potassium [Moles/Vol] 3.3 mmol/L Low 3.5-5.1 [facility] Comment on above: Performed By: #### L 100.0100, L500.2500 #### [facility] [address] [place], [address] Sodium [Moles/Vol] 142 mmol/L Normal 136-145 [facility] Comment on above: Performed By: #### L 100.0100, L500.2500 #### [facility] [address] [place], [address] Urea nitrogen [Mass/Vol] 15 mg/dL Normal 7-18 [facility] Comment on above: Performed By: #### L 100.0100, L500.2500 #### [facility] [address] [place], [address] Basophil percentageOrdered B y: Baldev Burch on 12-09-2023 Basophils/100 WBC (Bld) 0.4 % 0-1 [facility] Chloride [Moles/Vol] 112 mmol/L 98-107 [facility] Eosinophils/100 WBC (Bld) 2.1 % 0-5 [facility] Glucose [Mass/Vol] 129 mg/dL 74-106 [facility] Comment on above: Fasting Glucose resu lt greater than or equal to 126 mg/dL suggests DIABETES MELLITUS per A.D.A. criteria. Hemoglobin (Bld) [Mass/Vol] 14.8 g/dL 13.0-16.5 [facility] Monocytes/100 WBC (Bld) 9.0 % 0-10 [facility] Neutrophils (Bld) [#/Vol] 5.6 10*3/uL 2.0-7.7 [facility] Neutrophils/100 WBC (Bld) 67.0 % 47-70 [facility] Potassium [Moles/Vol] 3.3 mmol/L 3.5-5.1 [facility] Sodium [Moles/Vol] 142 mmol/L 136-145 [facility] WBC (Bld) [#/Vol] 8.3 10*3/uL 4.4-11.0 [facility] CBC W/Diff, Automatedon 11-18 Absolute Lymph 1.74 X10 3/uL Normal 0.83-4.51 [facility] Comment on above: Performed By: #### L 100.0100, L500.2500 #### [facility] [address] [place], [address] Absolute Neut 5.6 X10 3/uL Normal 2.0-7.7 [facility] Comment on above: Performed By: #### L 100.0100, L500.2500 #### [facility] [address] [place], [address] Basophils/100 WBC (Bld) 0.4 % Normal 0-1 [facility] Comment on above: Performed By: #### L 100.0100, L500.2500 #### [facility] [address] [place], [address] Eosinophils/100 WBC (Bld) 2.1 % Normal 0-5 [facility] Comment on above: Performed By: #### L 100.0100, L500.2500 #### [facility] [address] [place], [address] Erythrocyte distribution width (RBC) [Ratio] 12.9 % Normal 11.6-14.6 [facility] Comment on above: Performed By: #### L 100.0100, L500.2500 #### [facility] [address] [place], [address] Hematocrit (Bld) [Volume fraction] 44.4 % Normal 40-54 [facility] Comment on above: Performed By: #### L 100.0100, L500.2500 #### [facility] [address] [place], [address] Hemoglobin (Bld) [Mass/Vol] 14.8 g/dL Normal 13.0-16.5 [facility] Comment on above: Performed By: #### L 100.0100, L500.2500 #### [facility] [address] [place], [address] IG% 0.400 Normal 0.0-0.9 [facility] Comment on above: Result Comment: IG% - Immature Granulocytes (promyelocytes, myelocytes and metamyelocytes) > 1% indicates that a LEFT SHIFT is Present. Performed By: #### L 100.0100, L500.2500 #### [facility] [address] [place], [address] Lymphocytes/100 WBC (Bld) 21.1 % Normal 19-41 [facility] Comment on above: Performed By: #### L 100.0100, L500.2500 #### [facility] [address] [place], [address] MCH (RBC) [Entitic mass] 32.5 pg High 27.0-32.0 [facility] Comment on above: Performed By: #### L 100.0100, L500.2500 #### [facility] [address] [place], [address] MCHC (RBC) [Mass/Vol] 33.3 g/dL Normal 32-36 [facility] Comment on above: Performed By: #### L 100.0100, L500.2500 #### [facility] [address] [place], [address] MCV (RBC) [Entitic vol] 97.4 fL High 80-94 [facility] Comment on above: Performed By: #### L 100.0100, L500.2500 #### [facility] [address] [place], [address] Monocytes/100 WBC (Bld) 9.0 % Normal 0-10 [facility] Comment on above: Performed By: #### L 100.0100, L500.2500 #### [facility] [address] [place], [address] Neutrophils/100 WBC (Bld) 67.0 % Normal 47-70 [facility] Comment on above: Performed By: #### L 100.0100, L500.2500 #### [facility] [address] [place], [address] Nucleated RBC (Bld) [#/Vol] 0 10*3/uL Normal 0-5 [facility] Comment on above: Performed By: #### L 100.0100, L500.2500 #### [facility] [address] [place], [address] Platelet mean volume (Bld) [Entitic vol] 11.6 fL Normal 6.2-12.0 [facility] Comment on above: Performed By: #### L 100.0100, L500.2500 #### [facility] [address] [place], [address] Platelets (Bld) [#/Vol] 202 10*3/uL Normal 150-450 [facility] Comment on above: Performed By: #### L 100.0100, L500.2500 #### [facility] [address] [place], [address] RBC (Bld) [#/Vol] 4.56 10*6/uL Low 4.6-6.2 [facility] Comment on above: Performed By: #### L 100.0100, L500.2500 #### [facility] [address] [place], [address] RDW SD 46.5 fl High 35.1-43.9 [facility] Comment on above: Performed By: #### L 100.0100, L500.2500 #### [facility] [address] [place], [address] WBC (Bld) [#/Vol] 8.3 10*3/uL Normal 4.4-11.0 [facility] [facility] Comment on above: Performed By: #### L 100.0100, L500.2500 #### [facility] [address] [place], [address] Determination of erythrocyte mean corpuscular volume (MCV)Ordered By: Baldev Burch on 12-09-2023 MCV (RBC) [Entitic vol] 97.4 fL 80-94 [facility] Emergency Department Summary on 12-09-2023 Emergency Department Summary [facility] [address] [place] [address] Emergency Department Summary 12/09/23 MR#: [id number] Acct: [id number] Name: PORFIRIO DEVI Rep #: [id number] : 1945 78 From: Baldev Burch MD PCP: Dr. Andrea Smiley, DO Status:REG ER Location: ED HPI History of Present Illness Chief Complaint: Weakness Informant: patient and spouse/S.O. Onset/Context/Timing Onset: Hours (2) Context: Sudden Onset Timing: - (one episode, lasted about 20 min) Quality: palpitations/skipping Location: chest Current Severity: Gone Maximum Severity: Moderate Worsened by: n/a Relieved by: n/a Associated Symptoms Associated Symptoms: none Narrative Narrative: Patient states she was at rest couple hours ago when he had about a 20-minute episode of significant palpitations. He has a history of stents and CABG in the past, he takes clopidogrel no anticoagulants or aspirin, has had no medication changes recently, and states he frequently has PVCs and feels them from time to time but they are relatively brief and do not give him any other symptoms. Today was different. He states it was skipping and rapid while beating hard. He did not feel lightheaded or have syncopal episode. He denies any chest discomfort otherwise or dyspnea. He denies sweating, nausea, or any other symptoms. He states he feels fine now. He states he is here out of precaution. 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) Palpitations Peripheral arterial occlusive disease Peripheral vascular disease of extremity with claudication Premature ventricular beat Stenosis of both subclavian arteries Thrombocytopenia Home Medications ezetimibe 10 mg tablet 10 mg PO DAILY 12/04/18 [History Last Taken Unknown] mejfbqbw-dh-vdklu 300 mcg-K 60 mcg-lycop 600 mcg-lutein 300 mcg tablet (Centrum Silver Ultra Men's) 1 tab PO DAILY 12/04/18 [History Last Taken Unknown] clopidogrel 75 mg tablet 75 mg PO DAILY #90 tabs 04/03/20 [Rx Last Taken Unknown] amlodipine 10 mg tablet 10 mg PO DAILY #90 tabs 06/06/20 [Rx Last Taken Unknown] cilostazol 100 mg tablet 100 mg PO BID 08/24/20 [History Last Taken Unknown] pravastatin 10 mg tablet 10 mg PO QHS #90 tabs 05/03/21 [Rx Last Taken Unknown] nitroglycerin 0.4 mg sublingual tablet 0.4 mg sublingual Q5-15M PRN chest pain #25 tabs 02/10/23 [Rx Last Taken Unknown] metoprolol tartrate 100 mg tablet 25 mg PO BID 30 days #15 tabs 08/14/23 [History Last Taken Unknown] Allergy/AdvReac Type Severity Reaction Status Date / Time Penicillins Allergy Mild rash Verified 12/09/23 14:47 amlodipine AdvReac Mild ED Verified 12/09/23 14:47 exacerbation ramipril AdvReac cough Verified 12/09/23 14:47 Jijpemn-Zgy-Ngy Reductase AdvReac myalgias Verified 12/09/23 14:47 Inhibitor Family History Father Heart disease Hypertension Mother CVA (cerebral vascular accident) Brother Heart disease Hypertension Myocardial infarction Brother Hypertension Myocardial infarction Brother Heart disease Myocardial infarction Surgical History H/O coronary artery bypass surgery (12/28/18) History of amputation of finger History of angioplasty of peripheral vessel (03/2019) History of appendectomy History of cataract extraction (2015) History of colonoscopy (2015) History of coronary artery stent placement (05/2003) History of left heart catheterization (12/22/18) history of melanoma removal hx of APLL Social History Smoking Status: Former smoker ROS ROS ED Constitutional Constitutional ED: Denies chills or fever(s) Eyes Eyes: Denies change in vision or diplopia ENT ENT ED: Denies rhinorrhea or sore throat Cardiovascular Cardiovascular: Reports palpitations; Denies chest pain Respiratory/Chest Respiratory/Chest: Denies cough or dyspnea Gastrointestinal Gastrointestinal: Denies abdominal pain, diarrhea, nausea or vomiting Genitourinary Genitourinary ED: Denies dysuria or hematuria Musculoskeletal Musculoskeletal: Denies back pain or neck pain Integumentary Denies abscess or rash Neurologic Neurologic: Denies headache(s), paresthesias or weakness Psychiatric Psychiatric: Denies anxiety or suicidal thoughts EXAM Physical Exam Const Vital Signs: 12/09/23 14:48 12/09/23 14:52 12/09/23 15:4 (more content not included)... Normal [facility] Erythrocyte distribution wid th ratioOrdered By: Baldev Burch on 12-09-2023 Erythrocyte distribution width (RBC) [Ratio] 12.9 % 11.6-14.6 [facility] Erythrocyte distribution wid th standard deviationOrdered By: Baldev Burch on 12-09-2023 Erythrocyte distribution width (RBC) [Entitic vol] 46.5 fL 35.1-43.9 [facility] Hematocrit Auto (Bld) [Volum e fraction]Ordered By: Baldev Burch on 12-09-2023 Hematocrit (Bld) [Volume fraction] 44.4 % 40-54 [facility] Immature granulocytes/100 WB C Auto (Bld)Ordered By: Baldev Burch on 12-09-2023 Immature granulocytes/100 WBC (Bld) 0.400 % 0.0-0.9 [facility] Comment on above: IG% - Immature Granu locytes (promyelocytes, myelocytes and metamyelocytes) > 1% indicates that a LEFT SHIFT is Present. Laboratory - Chemistry and C hemistry - challengeOrdered By: Baldev Burch on 12-09-2023 CO2 [Moles/Vol] 24.0 mmol/L 21.0-32.0 [facility] Urea nitrogen/Creatinine [Mass ratio] 11.3 mg/mg 10-20 [facility] - Hematology and Cell countsOrdered By: Baldev Burch on 12-09-2023 MCH (RBC) [Entitic mass] 32.5 pg 27.0-32.0 [facility] MCHC (RBC) [Mass/Vol] 33.3 g/dL 32-36 [facility] Nucleated RBC/100 WBC (Bld) [Ratio] 0 % 0-5 [facility] Platelets (Bld) [#/Vol] 202 10*3/uL 150-450 [facility] No Panel InformationOrdered By: Baldev Burch on 12-09-2023 Estimated Creatinine Clearance Calc 46.20 ml/min [facility] Estimated GFR (MDRD) Amer 67 mL/min >60 [facility] Comment on above: GFR Calc Estimated GFR (MDRD) Non-Af Amer 56 mL/min >60 [facility] Comment on above: Non- GFR Calc Platelet mean volume Robert-Ec ker (Bld) [Entitic vol]Ordered By: Baldev Burch on 12-09-2023 Platelet mean volume (Bld) [Entitic vol] 11.6 fL 6.2-12.0 [facility] RBC Auto (Bld) [#/Vol]Ordere d By: Baldev Burch on 12-09-2023 RBC (Bld) [#/Vol] 4.56 10*6/uL 4.6-6.2 [facility] Serum or plasma calcium xin urement (mass/volume)Ordered By: Baldev Burch on 12-09-2023 Calcium [Mass/Vol] 9.1 mg/dL 8.5-10.1 [facility] Serum or plasma creatinine m easurement (mass/volume)Ordered By: Baldev Burch on 12-09-2023 Creatinine [Mass/Vol] 1.33 mg/dL 0.70-1.30 [facility] Comment on above: The validity of the calculated GFR & GFRAA in patients over 70 years has not been determined. Clinical correlation is essential. Serum or plasma urea nitroge n measurement (mass/volume)Ordered By: Baldev Burch on 12-09-2023 Urea nitrogen [Mass/Vol] 15 mg/dL 7-18 [facility] Thin prep Papanicolaou smear with manual screeningOrdered By: Baldev Burch on 12-09-2023 Thin prep Papanicolaou smear with manual screening 6 5-15 [facility] XR Chest PA and Lateralon IMPRESSION: No acute radiographic abnormality. Market Research Assistant: [facility] Transcribe Date/Time: May 29 2023 8:57A Dictated by : SIVAKUMAR CAGLE MD This examination was interpreted and the report reviewed and electronically signed by: SIVAKUMAR CAGLE MD on May 29 2023 9:01AM [facility] DIVISION OF RADIOLOGY * * *Final Report* * * DATE OF EXAM: May 27 2023 3:51PM WOX [id number] - XR CHEST 2V FRONTAL/LAT / PROCEDURE REASON: Acute cough * * * * Physician Interpretation * * * * EXAMINATION: CHEST RADIOGRAPH (2 VIEW FRONTAL & LATERAL) CLINICAL HISTORY: Acute cough MQ: XC2_6 EXAM DATE/TIME: 05/27/2023 3:51 PM COMPARISON: Chest x-ray on 09/05/2021 RESULT: Lines, tubes, and devices: Status post median sternotomy and CABG. Lungs and pleura: No consolidation. No lung mass. No pleural effusion. No pneumothorax. Cardiomediastinal silhouette: Stable cardiac silhouette and mediastinal contour. Bones and soft tissues: Unremarkable. DIVISION OF RADIOLOGY Provider, [facility] - 05/29/2023 * * *Final Report* * * DATE OF EXAM: May 27 2023 3:51PM WOX [id number] - XR CHEST 2V FRONTAL/LAT / PROCEDURE REASON: Acute cough * * * * Physician Interpretation * * * * EXAMINATION: CHEST RADIOGRAPH (2 VIEW FRONTAL & LATERAL) CLINICAL HISTORY: Acute cough MQ: XC2_6 EXAM DATE/TIME: 05/27/2023 3:51 PM COMPARISON: Chest x-ray on 09/05/2021 RESULT: Lines, tubes, and devices: Status post median sternotomy and CABG. Lungs and pleura: No consolidation. No lung mass. No pleural effusion. No pneumothorax. Cardiomediastinal silhouette: Stable cardiac silhouette and mediastinal contour. Bones and soft tissues: Unremarkable. IMPRESSION IMPRESSION: No acute radiographic abnormality. Market Research Assistant: FUNMI Transcribe Date/Time: May 29 2023 8:57A Dictated by : SIVAKUMAR CAGLE MD This examination was interpreted and the report reviewed and electronically signed by: SIVAKUMAR CAGLE MD on May 29 2023 9:01AM EST [facility] XR Chest PA and LateralOrder ed By: [facility] Provider on 05-29-2023 [facility] XR Chest PA and Lateralon Radiology Study observation (narrative) [facility] XR Chest PA and Lateralon IMPRESSION: No acute radiographic abnormality. Market Research Assistant: [facility] Transcribe Date/Time: Sep 05 2021 12:19P Dictated by : RAJEEV ERAZO MD This examination was interpreted and the report reviewed and electronically signed by: RAJEEV ERAZO MD on Sep 05 2021 12:19PM [facility] DIVISION OF RADIOLOGY * * *Final Report* * * DATE OF EXAM: Sep 05 2021 11:05AM WOX [id number] - XR CHEST 2V FRONTAL/LAT / PROCEDURE REASON: multiple diagnoses * * * * Physician Interpretation * * * * EXAMINATION: CHEST RADIOGRAPH (2 VIEW FRONTAL & LATERAL) CLINICAL HISTORY: Cough SOB (shortness of breath) MQ: XC2_6 EXAM DATE/TIME: 09/05/2021 11:05 AM COMPARISON: Chest x-ray dated January 28, 2019 RESULT: Lines, tubes, and devices: None. Lungs and pleura: No consolidation. No lung mass. No pleural effusion. No pneumothorax. Cardiomediastinal silhouette: Stable cardiomediastinal silhouette with postsurgical changes from median sternotomy/CABG procedure. Bones and soft tissues: Degenerative changes are present within the thoracic spine. DIVISION OF RADIOLOGY Provider, [facility] - 09/05/2021 * * *Final Report* * * DATE OF EXAM: Sep 05 2021 11:05AM WOX [id number] - XR CHEST 2V FRONTAL/LAT / PROCEDURE REASON: multiple diagnoses * * * * Physician Interpretation * * * * EXAMINATION: CHEST RADIOGRAPH (2 VIEW FRONTAL & LATERAL) CLINICAL HISTORY: Cough SOB (shortness of breath) MQ: XC2_6 EXAM DATE/TIME: 09/05/2021 11:05 AM COMPARISON: Chest x-ray dated January 28, 2019 RESULT: Lines, tubes, and devices: None. Lungs and pleura: No consolidation. No lung mass. No pleural effusion. No pneumothorax. Cardiomediastinal silhouette: Stable cardiomediastinal silhouette with postsurgical changes from median sternotomy/CABG procedure. Bones and soft tissues: Degenerative changes are present within the thoracic spine. IMPRESSION IMPRESSION: No acute radiographic abnormality. Market Research Assistant: [facility] Transcribe Date/Time: Sep 05 2021 12:19P Dictated by : RAJEEV ERAZO MD This examination was interpreted and the report reviewed and electronically signed by: RAJEEV ERAZO MD on Sep 05 2021 12:19PM EST [facility] Radiology Study observation (narrative) [facility] XR Chest PA and LateralOrder ed By: [facility] Provider on 09-05-2021 [facility] Basic Panelon 01-01-2019 Creatinine mass conc 1.04 mg/dL Normal 0.67-1.17 [facility] Comment on above: Performed By: #### T SH3 #### [place] [address] Anion gap molar conc 12 mmol/L Normal 8-16 [facility] Comment on above: Performed By: #### T SH3 #### [place] [address] CO2 molar conc 22 mmol/L Normal 21-32 [facility] Comment on above: Performed By: #### T SH3 #### [facility] [address] [place], [place] [address] Glucose mass conc 104 mg/dL High 70-99 [facility] Comment on above: Performed By: #### T SH3 #### [facility] [address] [place] [address] Urea nitrogen mass conc 18 mg/dL Normal 7-18 [facility] Comment on above: Performed By: #### T SH3 #### [facility] [address] [place] [address] Calcium mass conc 8.5 mg/dL Normal 8.5-10.1 [facility] Comment on above: Performed By: #### T SH3 #### [facility] [address] [place] [address] Chloride molar conc 107 mmol/L Normal 98-107 [facility] Comment on above: Performed By: #### T SH3 #### [facility] [address] [place] [address] Potassium molar conc 4.0 mmol/L Normal 3.5-5.1 [facility] Comment on above: Performed By: #### T SH3 #### [facility] [address] [place] [address] Sodium molar conc 137 mmol/L Normal 136-145 [facility] Comment on above: Performed By: #### T SH3 #### [facility] [address] [place] [address] Hemogramon 01-01-2019 Erythrocyte distribution width Ratio (RBC) 13.1 % Normal 11.6-14.4 [facility] Comment on above: Performed By: #### T SH3 #### [facility] [address] [place] [address] Hematocrit Volume Fraction (Bld) 34.6 % Low 40.1-51.0 [facility] Comment on above: Performed By: #### T SH3 #### [facility] [address] [place] [address] Hemoglobin mass conc (Bld) 11.9 g/dL Low 13.7-17.5 [facility] Comment on above: Performed By: #### T SH3 #### [facility] [address] [place] [address] MCH Entitic mass (RBC) 32.4 pg High 25.7-32.2 [facility] Comment on above: Performed By: #### T SH3 #### [facility] [address] [place] [address] MCHC mass conc (RBC) 34.4 % Normal 32.3-36.5 [facility] Comment on above: Performed By: #### T SH3 #### [facility] [address] [place] [address] MCV Entitic volume (RBC) 94.3 fL Normal 83.2-95.6 [facility] Comment on above: Performed By: #### T SH3 #### [facility] [address] [place] [address] Platelet mean volume Entitic volume (Bld) 12.4 fL High 8.7-12.0 [facility] Comment on above: Performed By: #### T SH3 #### [facility] [address] [place] [address] Platelets #/vol (Bld) 153 thou/cmm Normal 141-365 [facility] Comment on above: Performed By: #### T SH3 #### [facility] [address] [place] [address] RBC #/vol (Bld) 3.67 mil/cmm Low 4.63-6.08 [facility] Comment on above: Performed By: #### T SH3 #### [facility] [address] [place] [address] RDW SD 45.2 fl Normal 36.1-45.8 [facility] Comment on above: Performed By: #### T SH3 #### [facility] [address] [place] [address] WBC #/vol (Bld) 9.00 thou/cmm Normal 4.23-9.07 [facility] Comment on above: Performed By: #### T SH3 #### [place] [address] MDRD GFRon 01-01-2019 GFR/1.73 sq M predicted among non-blacks MDRD vol rate/area (S/P/Bld) mL/min/{1.73_m2} Normal >60mL/min/1 .73m2 [facility] Comment on above: Result Comment: If t he patient is , multiply the result by 1.210. Performed By: #### P T #### [facility] [address] [place] [address] Basic Panelon 12-31-2018 Creatinine mass conc 1.00 mg/dL Normal 0.67-1.17 [facility] Comment on above: Performed By: #### T SH3 #### [place] [address] Anion gap molar conc 9 mmol/L Normal 8-16 [facility] Comment on above: Performed By: #### T SH3 #### [place] [address] CO2 molar conc 26 mmol/L Normal 21-32 [facility] Comment on above: Performed By: #### T SH3 #### [place] [address] Glucose mass conc 127 mg/dL High 70-99 [facility] Comment on above: Performed By: #### T SH3 #### [place] [address] Urea nitrogen mass conc 19 mg/dL High 7-18 [facility] Comment on above: Performed By: #### T SH3 #### [place] [address] Calcium mass conc 8.3 mg/dL Low 8.5-10.1 [facility] Comment on above: Performed By: #### T SH3 #### [place] [address] Chloride molar conc 105 mmol/L Normal 98-107 [facility] Comment on above: Performed By: #### T SH3 #### [place] [address] Potassium molar conc 3.7 mmol/L Normal 3.5-5.1 [facility] Comment on above: Performed By: #### T SH3 #### [facility] [address] [place] [address] Sodium molar conc 136 mmol/L Normal 136-145 [facility] Comment on above: Performed By: #### T SH3 #### [facility] [address] [place] [address] Glucose Meteron 12-31-2018 Glucose mass conc 103 mg/dL High 70-99 [facility] Comment on above: Result Comment: CAT FERRER Performed By: #### A PTT #### [facility] [address] [place] [address] Hemogramon 12-31-2018 Erythrocyte distribution width Ratio (RBC) 13.2 % Normal 11.6-14.4 [facility] Comment on above: Performed By: #### T SH3 #### [place] [address] Hematocrit Volume Fraction (Bld) 33.0 % Low 40.1-51.0 [facility] Comment on above: Performed By: #### T SH3 #### [place] [address] Hemoglobin mass conc (Bld) 11.0 g/dL Low 13.7-17.5 [facility] Comment on above: Performed By: #### T SH3 #### [facility] [address] [place] [address] MCH Entitic mass (RBC) 32.1 pg Normal 25.7-32.2 [facility] Comment on above: Performed By: #### T SH3 #### [place] [address] MCHC mass conc (RBC) 33.3 % Normal 32.3-36.5 [facility] Comment on above: Performed By: #### T SH3 #### [facility] [address] [place] [address] MCV Entitic volume (RBC) 96.2 fL High 83.2-95.6 [facility] Comment on above: Performed By: #### T SH3 #### [place] [id number] Platelet mean volume Entitic volume (Bld) 12.7 fL High 8.7-12.0 [facility] Comment on above: Performed By: #### T SH3 #### [facility] [address] [place] [address] Platelets #/vol (Bld) 113 thou/cmm Low 141-365 [facility] Comment on above: Performed By: #### T SH3 #### [facility] [address] [place] [address] RBC #/vol (Bld) 3.43 mil/cmm Low 4.63-6.08 [facility] Comment on above: Performed By: #### T SH3 #### [facility] [address] [place] [address] RDW SD 46.8 fl High 36.1-45.8 [facility] Comment on above: Performed By: #### T SH3 #### [facility] [address] [place] [address] WBC #/vol (Bld) 9.97 thou/cmm High 4.23-9.07 [facility] Comment on above: Performed By: #### T SH3 #### [place] [address] Basic Panelon 12-30-2018 Creatinine mass conc 0.99 mg/dL Normal 0.67-1.17 [facility] Comment on above: Performed By: #### T SH3 #### [place] [address] Anion gap molar conc 9 mmol/L Normal 8-16 [facility] Comment on above: Performed By: #### T SH3 #### [place] [address] CO2 molar conc 22 mmol/L Normal 21-32 [facility] Comment on above: Performed By: #### T SH3 #### [place] [address] Glucose mass conc 126 mg/dL High 70-99 [facility] Comment on above: Performed By: #### T SH3 #### [address] [place], [place] [address] Urea nitrogen mass conc 17 mg/dL Normal 7-18 [facility] Comment on above: Performed By: #### T SH3 #### [facility] [address] [place] [address] Calcium mass conc 7.6 mg/dL Low 8.5-10.1 [facility] Comment on above: Performed By: #### T SH3 #### [facility] [address] [place] [address] Chloride molar conc 110 mmol/L High 98-107 [facility] Comment on above: Performed By: #### T SH3 #### [facility] [address] [place] [address] Potassium molar conc 4.3 mmol/L Normal 3.5-5.1 [facility] Comment on above: Performed By: #### T SH3 #### [facility] [address] [place] [address] Sodium molar conc 137 mmol/L Normal 136-145 [facility] Comment on above: Performed By: #### T SH3 #### [facility] [address] [place] [address] Hemogramon 12-30-2018 Erythrocyte distribution width Ratio (RBC) 13.7 % Normal 11.6-14.4 [facility] Comment on above: Performed By: #### P AB #### [facility] [address] [place] [address] Hematocrit Volume Fraction (Bld) 31.9 % Low 40.1-51.0 [facility] Comment on above: Performed By: #### P AB #### [facility] [address] [place] [address] Hemoglobin mass conc (Bld) 10.3 g/dL Low 13.7-17.5 [facility] Comment on above: Performed By: #### P AB #### [facility] [address] [place] [address] MCH Entitic mass (RBC) 32.3 pg High 25.7-32.2 [facility] Comment on above: Performed By: #### P AB #### [facility] [address] [place] [address] MCHC mass conc (RBC) 32.3 % Normal 32.3-36.5 [facility] Comment on above: Performed By: #### P AB #### [facility] [address] [place] [address] MCV Entitic volume (RBC) 100.0 fL High 83.2-95.6 [facility] Comment on above: Performed By: #### P AB #### [facility] [address] [place] [address] Platelet mean volume Entitic volume (Bld) 12.9 fL High 8.7-12.0 [facility] Comment on above: Performed By: #### P AB #### [place] [address] Platelets #/vol (Bld) 90 thou/cmm Low 141-365 [facility] Comment on above: Performed By: #### P AB #### [place] [address] RBC #/vol (Bld) 3.19 mil/cmm Low 4.63-6.08 [facility] Comment on above: Performed By: #### P AB #### [place] [address] RDW SD 50.1 fl High 36.1-45.8 [facility] Comment on above: Performed By: #### P AB #### [place] [address] WBC #/vol (Bld) 10.31 thou/cmm High 4.23-9.07 [facility] Comment on above: Performed By: #### P AB #### [place] [address] Magnesium Bloodon 12-30-2018 Magnesium mass conc 2.1 mg/dL Normal 1.6-2.6 [facility] Comment on above: Performed By: #### T SH3 #### [place] [address] XR CHEST 1V FRONTALon 2018 XR CHEST 1V FRONTAL * * *Final Report* * * DATE OF EXAM: Dec 30 2018 7:15AM [id number] - XR CHEST 1V FRONTAL / PROCEDURE REASON: POST OPP * * * * Physician Interpretation * * * * EXAM TITLE: XR CHEST 1V FRONTAL DATE: 12/30/2018 at 06 37 INDICATION: Status post median sternotomy. COMPARISON: 12/29/2018 Portable frontal view of the chest shows that the right internal jugular [place]-Tina catheter has been removed. There is a right internal jugular venous sheath in place. Left-sided chest tube in stable position. Mediastinal drain in stable position. Heart size is normal. Diminished aeration at the lung bases most likely indicative of atelectasis. No obvious pneumothorax. IMPRESSION: Status post removal of right internal jugular [place]-Tina catheter. Otherwise stable findings. Market Research Assistant: FUNMI Transcribe Date/Time: Dec 30 2018 7:48A Dictated by : GERMAN SCHAEFER MD This examination was interpreted and the report reviewed and electronically signed by: GERMAN SHCAEFER MD on Dec 30 2018 7:50AM EST Normal [facility] Basic Panelon 12-29-2018 Creatinine mass conc 0.94 mg/dL Normal 0.67-1.17 [facility] Comment on above: Performed By: #### P AB #### [place] [address] Anion gap molar conc 10 mmol/L Normal 8-16 [facility] Comment on above: Performed By: #### P AB #### [facility] [address] [place] [address] Calcium mass conc 7.5 mg/dL Low 8.5-10.1 [facility] Comment on above: Performed By: #### P AB #### [facility] [address] [place] [address] CO2 molar conc 23 mmol/L Normal 21-32 [facility] Comment on above: Performed By: #### P AB #### [facility] [address] [address] Glucose mass conc 131 mg/dL High 70-99 [facility] Comment on above: Performed By: #### P AB #### [place] [address] Urea nitrogen mass conc 16 mg/dL Normal 7-18 [facility] Comment on above: Performed By: #### P AB #### [facility] [address] [place] [address] Chloride molar conc 114 mmol/L High 98-107 [facility] Comment on above: Performed By: #### P AB #### [facility] [address] [place] [address] Potassium molar conc 3.6 mmol/L Normal 3.5-5.1 [facility] Comment on above: Performed By: #### P AB #### [facility] [address] [place] [address] Sodium molar conc 143 mmol/L Normal 136-145 [facility] Comment on above: Performed By: #### P AB #### [facility] [address] [place] [address] CHEST 1 VIEWon 12-29-2018 CHEST 1 VIEW Performed at [facility] APPROVED BY: German Schaefer MD EXAM TITLE: CHEST 1 VIEW DATE: 12/29/2018 05:33 INDICATION: Status post extubation. COMPARISON: 12/28/2018 at 1525 Portable frontal view of the chest shows that the endotracheal tube and enteric tube have been removed. Right internal jugular Plymouth-Tina catheter with tip in the right pulmonary artery. Left-sided chest tube in stable position. Mediastinal drain in stable position. Heart size is normal. Diminished aeration at both lung bases consistent with post extubation atelectasis. IMPRESSION: Status post extubation. Normal [facility] Hemogramon 12-29-2018 Erythrocyte distribution width Ratio (RBC) 13.2 % Normal 11.6-14.4 [facility] Comment on above: Performed By: #### P AB #### [facility] [address] [place] [address] Hematocrit Volume Fraction (Bld) 28.4 % Low 40.1-51.0 [facility] Comment on above: Performed By: #### P AB #### [facility] [address] [place] [address] Hemoglobin mass conc (Bld) 9.5 g/dL Low 13.7-17.5 [facility] Comment on above: Performed By: #### P AB #### [facility] [address] [place] [address] MCH Entitic mass (RBC) 32.8 pg High 25.7-32.2 [facility] Comment on above: Performed By: #### P AB #### [facility] [address] [place] [address] MCHC mass conc (RBC) 33.5 % Normal 32.3-36.5 [facility] Comment on above: Performed By: #### P AB #### [facility] [address] [place] [address] MCV Entitic volume (RBC) 97.9 fL High 83.2-95.6 [facility] Comment on above: Performed By: #### P AB #### [facility] [address] [place] [address] Platelet mean volume Entitic volume (Bld) 12.0 fL Normal 8.7-12.0 [facility] Comment on above: Performed By: #### P AB #### [facility] [address] [place] [address] Platelets #/vol (Bld) 78 thou/cmm Low 141-365 [facility] Comment on above: Result Comment: [facility] r scanned tech agrees with platelet count Performed By: #### P AB #### [place] [address] RBC #/vol (Bld) 2.90 mil/cmm Low 4.63-6.08 [facility] Comment on above: Performed By: #### P AB #### [facility] [address] [place] [address] RDW SD 47.6 fl High 36.1-45.8 [facility] Comment on above: Performed By: #### P AB #### [facility] [address] [place] [address] WBC #/vol (Bld) 8.04 thou/cmm Normal 4.23-9.07 [facility] Comment on above: Performed By: #### P AB #### [address] [place], [place] [address] Magnesium Bloodon 12-29-2018 Magnesium mass conc 2.1 mg/dL Normal 1.6-2.6 [facility] Comment on above: Performed By: #### P AB #### [facility] [address] [place] [id number] Potassium Bloodon 12-29-2018 Potassium molar conc 3.5 mmol/L Normal 3.5-5.1 [facility] Comment on above: Performed By: #### P AB #### [facility] [address] [place] [id number] Protimeon 12-29-2018 INR Coag RelTime (PPP) 1.23 {INR} Normal 0.90-1.30 [facility] Comment on above: Result Comment: Note : Reference Range Change Vitamin K Antagonist (VKA) Therapeutic Range: INR 2 to 3 (Target INR of 2.5) Note: For patients treated with VKA drugs, such as warfarin, the [place] [employer] 2012 Guideline recommends a therapeutic INR range of 2 to 3 (target INR of 2.5). This recommendation includes high-risk patients with antiphospholipid syndrome with previous arterial or venous thromboembolism, current-generation mechanical or bioprosthetic aortic heart valve replacement. VKA Therapeutic Range for some Mechanical Valve Replacement: INR 2.5 to 3.5 (Target INR of 3) Note: Patients with mechanical aortic valve replacement and additional risk factors for thromboembolic events (atrial fibrillation, previous thromboembolism, LV dysfunction, hypercoagulable conditions) or an older generation mechanical AVR (i.e., ball in-Cage) or any mechanical MVR should have a INR therapeutic range of 2.5 to 3.5 target INR of 3). Prosper GH, et al. Chest 2012; 141:7S-47S Joselito RA, et al. JACC 2017; 70: 252-289 Performed By: #### P AB #### [facility] [address] [place] [phone] Prothrombin time (PT) Coag time (PPP) 12.6 s Normal 9.7-13.0 [facility] Comment on above: Performed By: #### P AB #### [facility] [address] [place] [id number] ACT Arterial Panel (i-STAT)o n 12-28-2018 Kaolin ACT ( i-STAT) 114 sec Normal 74-137 [facility] Comment on above: Performed By: #### A PTT #### [facility] [address] [place] [address] Activated PTTon 12-28-2018 aPTT Coag time (Bld) 29.0 s Normal 23.0-32.4 [facility] Comment on above: Result Comment: Note : New Reference Range Unfractionated Heparin Therapeutic Ranges: Standard Heparin Nomogram: 53 to 78 seconds (anti-Xa level of 0.3 to 0.7 U/mL) Low Dose/ACS Nomogram: 49 to 67 seconds (anti-Xa level of 0.2 to 0.5 U/mL) Stroke Treatment Nomogram: 49 to 67 seconds (anti-Xa level of 0.2 to 0.5 U/mL) Note: The APTT therapeutic range has been determined for the current lot of laboratory APTT reagent in use throughout the [facility]. Performed By: #### A PTT #### [facility] [address] [place] [address] Basic Panelon 12-28-2018 Creatinine mass conc 0.96 mg/dL Normal 0.67-1.17 [facility] Comment on above: Performed By: #### P AB #### [facility] [address] [place] [address] Anion gap molar conc 10 mmol/L Normal 8-16 [facility] Comment on above: Performed By: #### P AB #### [facility] [address] [place] [address] Calcium mass conc 7.7 mg/dL Low 8.5-10.1 [facility] Comment on above: Performed By: #### P AB #### [facility] [address] [place] [address] CO2 molar conc 24 mmol/L Normal 21-32 [facility] Comment on above: Performed By: #### P AB #### [place] [address] Glucose mass conc 79 mg/dL Normal 70-99 [facility] Comment on above: Performed By: #### P AB #### [facility] [address] [place], [place] [address] Urea nitrogen mass conc 14 mg/dL Normal 7-18 [facility] Comment on above: Performed By: #### P AB #### [facility] [address] [place], [place] [address] Chloride molar conc 114 mmol/L High 98-107 [facility] Comment on above: Performed By: #### P AB #### [facility] [address] [place], [place] [address] Potassium molar conc 3.9 mmol/L Normal 3.5-5.1 [facility] Comment on above: Performed By: #### P AB #### [facility] [address] [place], [place] [address] Sodium molar conc 144 mmol/L Normal 136-145 [facility] Comment on above: Performed By: #### P AB #### [facility] [address] [place] [address] Blood Gas Arterialon 12-28- 019 FIO2 50 % Normal [facility] Comment on above: Performed By: #### A PTT #### [facility] [address] [place], [place] [address] Base Excess -4.2 mEq/L Normal -2.5 to 2.5 [facility] Comment on above: Performed By: #### A PTT #### [facility] [address] [place], [place] [address] HCO3 molar conc (Bld) 22.5 mmol/L Normal 22.0-26.0 [facility] Comment on above: Performed By: #### A PTT #### [facility] [address] [place], [place] [address] O2% Sat Arterial 98.7 % High 95.0-98.0 [facility] Comment on above: Performed By: #### A PTT #### [facility] [address] [place], [place] [address] PCO2 Arterial 45.6 mm Hg Normal 36.0-46.0 [facility] Comment on above: Performed By: #### A PTT #### [facility] [address] [place] [address] pH Arterial 7.306 Low 7.350-7.450 [facility] Comment on above: Performed By: #### A PTT #### [facility] [address] [place] [address] PO2 Arterial 149.8 mm Hg High 85.0-96.0 [facility] Comment on above: Performed By: #### A PTT #### [place] [address] CG8 Arterial Panel (i-STAT)o n 12-28-2018 Base Excess (i-STAT) -4.0 mmol/L Normal -2.0 to 3.0 [facility] Comment on above: Performed By: #### A PTT #### [place] [address] Glucose mass conc 114 mg/dL High 70-99 [facility] Comment on above: Performed By: #### A PTT #### [place] [address] HCO3 molar conc (Bld) 22.9 mmol/L Normal 22.0-26.0 [facility] Comment on above: Performed By: #### A PTT #### [place] [address] Hematocrit Volume Fraction (Bld) 34 %PCV Low 38-51 [facility] Comment on above: Performed By: #### A PTT #### [place] [address] Hemoglobin mass conc (Bld) 11.6 g/dL Low 12.0-17.0 [facility] Comment on above: Performed By: #### A PTT #### [place] [address] Ionized Calcium (iSTAT) 4.5 mg/dL Normal 4.5-5.3 [facility] Comment on above: Performed By: #### A PTT #### [place] [address] O2% Sat. (i-STAT) 100.0 % High 95.0-98.0 [facility] Comment on above: Performed By: #### A PTT #### [facility] [address] [place], [place] [address] Oxygen ppres (Bld) 272.0 mm Hg High 80.0-105.0 [facility] Comment on above: Performed By: #### A PTT #### [facility] [address] [place], [place] [address] PCO2 (i-STAT) 50.8 mm Hg High 35.0-45.0 [facility] Comment on above: Performed By: #### A PTT #### [facility] [address] [place] [address] pH (Bld) 7.263 [pH] Low 7.350-7.450 [facility] Comment on above: Performed By: #### A PTT #### [place] [address] Sodium molar conc 141 mmol/L Normal 138-146 [facility] Comment on above: Performed By: #### A PTT #### [place] [address] Total CO2 (i-STAT) 24 mmol/L Normal 23-27 [facility] Comment on above: Performed By: #### A PTT #### [place] [address] CG8 Venous Panel (i-STAT)on 12-28-2018 Base Excess (i-STAT) -5.0 mmol/L Normal -2.0 to 3.0 [facility] Comment on above: Performed By: #### A PTT #### [place] [address] Glucose mass conc 98 mg/dL Normal 70-99 [facility] Comment on above: Performed By: #### A PTT #### [place] [address] HCO3 molar conc (Bld) 21.6 mmol/L Low 23.0-28.0 [facility] Comment on above: Performed By: #### A PTT #### [place] [address] Hematocrit Volume Fraction (Bld) 31 %PCV Low 38-51 [facility] Comment on above: Performed By: #### A PTT #### [facility] [address] [place], [place] [address] Hemoglobin mass conc (Bld) 10.5 g/dL Low 12.0-17.0 [facility] Comment on above: Performed By: #### A PTT #### [facility] [address] [address] Ionized Calcium (iSTAT) 4.3 mg/dL Low 4.5-5.3 [facility] Comment on above: Performed By: #### A PTT #### [facility] [address] [address] O2% Sat. (i-STAT) 86.0 % High 35.0-85.0 [facility] Comment on above: Performed By: #### A PTT #### [place] [address] Oxygen ppres (Bld) 58.0 mm Hg High 20.0-50.0 [facility] Comment on above: Performed By: #### A PTT #### [place] [address] PCO2 (i-STAT) 47.2 mm Hg Normal 41.0-51.0 [facility] Comment on above: Performed By: #### A PTT #### [facility] [address] [place] [address] pH (Bld) 7.268 [pH] Low 7.310-7.410 [facility] Comment on above: Performed By: #### A PTT #### [facility] [address] [address] Potassium molar conc 4.1 mmol/L Normal 3.5-4.9 [facility] Comment on above: Performed By: #### A PTT #### [facility] [address] [place] [address] Sodium molar conc 139 mmol/L Normal 138-146 [facility] Comment on above: Performed By: #### A PTT #### [place] [address] Total CO2 (i-STAT) 23 mmol/L Low 24-29 [facility] Comment on above: Performed By: #### A PTT #### [facility] [address] [address] CHEST 1 VIEWon 12-28-2018 CHEST 1 VIEW Performed at [facility] APPROVED BY: Geovanny Garcia MD EXAMINATION: CHEST RADIOGRAPH (SINGLE VIEW AP OR PA) Clinical History: Post-operative / post-procedure assessment, symptomatic M: [id number] Comparison: CT scan of the chest from December 24, 2018 RESULT: Lines, tubes, and devices: An endotracheal tube is identified with its tip 3 cm above the melecio. A nasogastric tube passes into the stomach. A central mediastinal drain is in place. A large bore chest tube is present in the left pleural space. A Plymouth-Tina Tina catheter enters the right internal jugular vein and ends with its tip in the distal right main pulmonary artery. Epicardial pacer leads are present near the left ventricular apex. EKG leads overlie the chest. Sternal wires and mediastinal clips are present. Lungs and pleura: There is a minimal amount of atelectasis and infiltrate in the medial left base. The rest of the lungs are clear. There is no evidence of pleural effusion or pneumothorax. Cardiomediastinal silhouette: Normal cardiomediastinal silhouette. Other: There is a small amount of subcutaneous emphysema in the left supraclavicular fossa and lower neck. No other abnormality is appreciated. IMPRESSION: All lines and catheters are in adequate position on postoperative chest radiograph. There is a small amount of medial left basilar infiltrate or atelectasis. Correlate subcutaneous emphysema in the left supraclavicular fossa with attempted line placement. Normal [facility] Hemogramon 12-28-2018 Erythrocyte distribution width Ratio (RBC) 13.3 % Normal 11.6-14.4 [facility] Comment on above: Performed By: #### A PTT #### [facility] [address] [place] [address] Hematocrit Volume Fraction (Bld) 39.1 % Low 40.1-51.0 [facility] Comment on above: Performed By: #### A PTT #### [facility] [address] [place] [address] Hemoglobin mass conc (Bld) 13.0 g/dL Low 13.7-17.5 [facility] Comment on above: Performed By: #### A PTT #### [facility] [address] [place] [address] MCH Entitic mass (RBC) 32.4 pg High 25.7-32.2 [facility] Comment on above: Performed By: #### A PTT #### [facility] [address] [place] [address] MCHC mass conc (RBC) 33.2 % Normal 32.3-36.5 [facility] Comment on above: Performed By: #### A PTT #### [facility] [address] [place] [address] MCV Entitic volume (RBC) 97.5 fL High 83.2-95.6 [facility] Comment on above: Performed By: #### A PTT #### [place] [address] Platelet mean volume Entitic volume (Bld) 11.8 fL Normal 8.7-12.0 [facility] Comment on above: Performed By: #### A PTT #### [place] [address] Platelets #/vol (Bld) 131 thou/cmm Low 141-365 [facility] Comment on above: Performed By: #### A PTT #### [facility] [address] [place] [address] RBC #/vol (Bld) 4.01 mil/cmm Low 4.63-6.08 [facility] Comment on above: Performed By: #### A PTT #### [facility] [address] [place] [address] RDW SD 47.8 fl High 36.1-45.8 [facility] Comment on above: Performed By: #### A PTT #### [facility] [address] [place] [address] WBC #/vol (Bld) 18.35 thou/cmm High 4.23-9.07 [facility] Comment on above: Performed By: #### A PTT #### [facility] [address] [place] [id number] Magnesium Bloodon 12-28-2018 Magnesium mass conc 2.3 mg/dL Normal 1.6-2.6 [facility] Comment on above: Performed By: #### P AB #### [facility] [address] [place] [address] Protimeon 12-28-2018 INR Coag RelTime (PPP) 1.17 {INR} Normal 0.90-1.30 [facility] Comment on above: Result Comment: Note : Reference Range Change Vitamin K Antagonist (VKA) Therapeutic Range: INR 2 to 3 (Target INR of 2.5) Note: For patients treated with VKA drugs, such as warfarin, the [place] [employer] 2012 Guideline recommends a therapeutic INR range of 2 to 3 (target INR of 2.5). This recommendation includes high-risk patients with antiphospholipid syndrome with previous arterial or venous thromboembolism, current-generation mechanical or bioprosthetic aortic heart valve replacement. VKA Therapeutic Range for some Mechanical Valve Replacement: INR 2.5 to 3.5 (Target INR of 3) Note: Patients with mechanical aortic valve replacement and additional risk factors for thromboembolic events (atrial fibrillation, previous thromboembolism, LV dysfunction, hypercoagulable conditions) or an older generation mechanical AVR (i.e., ball in-Cage) or any mechanical MVR should have a INR therapeutic range of 2.5 to 3.5 target INR of 3). Prosper GH, et al. Chest 2012; 141:7S-47S Joselito RA et al. JAC 2017; 70: 252-289 Performed By: #### A PTT #### [facility] [address] [place] [address] Prothrombin time (PT) Coag time (PPP) 12.0 s Normal 9.7-13.0 [facility] Comment on above: Performed By: #### A PTT #### [facility] [address] [place] [address] Basic Panelon 12-27-2018 Creatinine mass conc 1.04 mg/dL Normal 0.67-1.17 [facility] Comment on above: Performed By: #### A PTT #### [facility] [address] [place] [address] Anion gap molar conc 9 mmol/L Normal 8-16 [facility] Comment on above: Performed By: #### A PTT #### [facility] [address] [place], [place] [address] CO2 molar conc 24 mmol/L Normal 21-32 [facility] Comment on above: Performed By: #### A PTT #### [facility] [address] [place] [address] Urea nitrogen mass conc 18 mg/dL Normal 7-18 [facility] Comment on above: Performed By: #### A PTT #### [facility] [address] [address] Calcium mass conc 7.7 mg/dL Low 8.5-10.1 [facility] Comment on above: Performed By: #### A PTT #### [facility] [address] [place] [address] Glucose mass conc 93 mg/dL Normal 70-99 [facility] Comment on above: Performed By: #### A PTT #### [facility] [address] [address] Chloride molar conc 112 mmol/L High 98-107 [facility] Comment on above: Performed By: #### A PTT #### [facility] [address] [address] Potassium molar conc 3.6 mmol/L Normal 3.5-5.1 [facility] Comment on above: Performed By: #### A PTT #### [facility] [address] [place] [address] Sodium molar conc 141 mmol/L Normal 136-145 [facility] Comment on above: Performed By: #### A PTT #### [facility] [address] [address] Hemogramon 12-27-2018 Erythrocyte distribution width Ratio (RBC) 13.2 % Normal 11.6-14.4 [facility] Comment on above: Performed By: #### A PTT #### [facility] [address] [place] [address] Hematocrit Volume Fraction (Bld) 40.3 % Normal 40.1-51.0 [facility] Comment on above: Performed By: #### A PTT #### [facility] [address] [place] [address] Hemoglobin mass conc (Bld) 13.7 g/dL Normal 13.7-17.5 [facility] Comment on above: Performed By: #### A PTT #### [facility] [address] [address] MCH Entitic mass (RBC) 32.4 pg High 25.7-32.2 [facility] Comment on above: Performed By: #### A PTT #### [facility] [address] [address] MCHC mass conc (RBC) 34.0 % Normal 32.3-36.5 [facility] Comment on above: Performed By: #### A PTT #### [place] [address] MCV Entitic volume (RBC) 95.3 fL Normal 83.2-95.6 [facility] Comment on above: Performed By: #### A PTT #### [facility] [address] [address] Platelet mean volume Entitic volume (Bld) 12.1 fL High 8.7-12.0 [facility] Comment on above: Performed By: #### A PTT #### [place] [address] Platelets #/vol (Bld) 167 thou/cmm Normal 141-365 [facility] Comment on above: Performed By: #### A PTT #### [place] [address] RBC #/vol (Bld) 4.23 mil/cmm Low 4.63-6.08 [facility] Comment on above: Performed By: #### A PTT #### [facility] [address] [place] [address] RDW SD 46.6 fl High 36.1-45.8 [facility] Comment on above: Performed By: #### A PTT #### [place] [address] WBC #/vol (Bld) 6.10 thou/cmm Normal 4.23-9.07 [facility] Comment on above: Performed By: #### A PTT #### [facility] [address] [address] RBC Productson 12-26-2018 Xmatch Unit 1 see below Normal [facility] Comment on above: Result Comment: Comp atible Performed By: #### P T #### [facility] [address] [place] [address] Xmatch Unit 2 see below Normal [facility] Comment on above: Result Comment: Comp atible Performed By: #### P T #### [facility] [address] [place] [address] Type and Screenon 12-26-2018 ABO group Nom (Bld) A Normal [facility] Comment on above: Performed By: #### P T #### [place] [address] Comment See Below Normal [facility] Comment on above: Result Comment: Scre en &/or Xmatch expires in 3 days at 12 midnight. Redraw patient at that time. Performed By: #### P T #### [facility] [address] [place] [address] RH Type Positive Normal [facility] Comment on above: Performed By: #### P T #### [place] [address] ARTERIAL UP/LOW/REST/MANUEVE Hitesh 12-25-2018 ARTERIAL UP/LOW/REST/MANUEVER Performed at [facility] APPROVED BY: KATT TANG MD EXAM TITLE: WRIST BRACHIAL INDEX DATE:12/25/2018 12:31 CLINICAL INDICATION/HISTORY: Patient is a 73-year-old male with history of subclavian stenosis. TECHNIQUE: Patient underwent bilateral wrist brachial index with waveform analysis. FINDINGS: In the patient's right brachial artery the pressure is 129 mmHg. The right radial artery pressure is 137 and right ulnar artery pressure is 132 mmHg. Digit pressure is normal. Right wrist brachial index is 1.06. Triphasic waveforms on the right. In the left upper extremity the brachial artery pressure is 124 mmHg. Radial pressure is 136 and older pressure is 132 mmHg. Digit pressure is normal. Left wrist brachial index is 1.05. Waveform is slightly blunted on the left. IMPRESSION: Normal wrist brachial indices bilaterally. Right wrist brachial index of 1.06 and left wrist brachial index of 1.05. Normal [facility] CT ANGIO NECKon 12-24-2018 CT ANGIO NECK Performed at [facility] APPROVED BY: Braxton Pinto MD EXAMINATION: CT ANGIO NECK HISTORY: Subclavian stenosis on ultrasound of 11/25/2018. Preop evaluation for CABG. COMPARISON: Ultrasound carotid arteries report 11/25/2018. TECHNIQUE: Spiral high resolution axial images were obtained through the head, neck and superior mediastinum following bolus administration of intravenous contrast for CT angiography. The data was subsequently post-processed utilizing 3D multi-planar reconstructions, 3D maximum intensity projections, and a tissue segmentation algorithm at a separate workstation under physician supervision. CT Contrast: Omnipaque 350 CT Contrast Volume (ml): 100 CT Contrast Route of Administration: IV Dose-Length Product (DLP): 549 mGy*cm. CT Dose Reduction Employed: No dose reduction techniques were required. RESULT: CT BRAIN: No conventional noncontrast head CT was requested at this time. CT NECK: Soft tissues: The soft tissue planes are maintained throughout. No evidence of a soft tissue mass in the neck or superior mediastinum. No significant lymphadenopathy is seen. Spine: Mild to moderate multilevel degenerative changes are present. Lung apices: The visualized lung apices are clear. CT ARTERIOGRAM: Extracranial Circulation: Aortic Arch: Bovine configuration of thoracic aortic arch which is a normal variant.. Mild stenosis of the left common carotid artery origin from the common brachiocephalic trunk Carotid Stenosis: Right Common: No significant stenosis. Right Internal Carotid Plaque: Mild atherosclerotic plaque formation. Right Internal Carotid Stenosis (% by NASCET Criteria): 41% diameter stenosis of the proximal right internal artery. (4.1/7.0). Left Common: No significant stenosis. Left Internal Carotid Plaque: Moderate atherosclerotic plaque formation. Left Internal Carotid Stenosis (% by NASCET Criteria): 54% diameter stenosis of the proximal left internal carotid artery (4.1/9.0). Cervical Vertebral Arteries: Patency: Bilateral Dominance: Right. Left vertebral artery is hypoplastic. There is multifocal severe narrowing of the left vertebral artery in the neck. Left Subclavian Stenosis: 61% diameter stenosis of the left subclavian artery just proximal to the left vertebral artery origin (3.0/7.6). Right Subclavian Stenosis: 55% diameter stenosis of the proximal right subclavian artery just distal to the left common carotid artery origin (5.1/11.3). IMPRESSION: 1. Atherosclerotic stenosis of the bilateral proximal internal carotid arteries and bilateral subclavian arteries as described above. 2. 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 Normal [facility] CTA CHEST (NONGATED) W IV CO Non 12-24-2018 CTA CHEST (NONGATED) W IV CON Performed at [facility] APPROVED BY: Geovanny Garcia MD EXAM TITLE: CT ANGIOGRAM OF THORACIC AND UPPER LUMBAR AORTA W/WO CONTRAST DATE: 12/24/2018 14:01 COMPARISON: CT scan of the chest from December 23, 2018 CLINICAL INDICATION/HISTORY: The patient is a 73-year-old male with coronary artery disease who is preoperative for coronary artery bypass grafting. There also appears to be abnormalities of the aorta. TECHNIQUE: Helical axial slices were obtained from the thoracic outlet to the upper thighs before and during the bolus intravenous administration of contrast. Bolus images were sent to a separate workstation and 3-D multiplanar reconstruction CT angiogram with MIP and shaded surface display imaging was obtained. CT Radiation dose: Integrated dose-length product (DLP) for this visit = 327.8 mGy*cm. CT Dose Reduction Employed: Automated exposure control (AEC) was used. CONTRAST: IV: 150 ml of Omnipaque 350 FINDINGS: CT THORACIC ANGIOGRAM: The aortic valve is tricuspid. The ascending aorta, aortic arch, and descending aorta tapers normally without aneurysm formation, significant vascular stenosis, or dissection. The maximum diameter of the ascending thoracic aorta is 34 mm. The left common carotid artery arises off the right brachiocephalic artery. There is some mixed calcific and noncalcific plaque involving the left subclavian artery proximal to the origin of the vertebral artery that causes an approximate 50% stenosis. The rest of the 3 great vessels are patent without any other significant stenosis. On the angiographic images there is a filling defect present in the azygos vein. This most likely is due to retrograde filling of the vein from the superior vena cava with central washout from nonopacified blood. The possibility of focal azygos vein thrombus is considered less likely. CT LUMBAR ANGIOGRAM: The lumbar aorta tapers normally without significant stenosis or aneurysm formation. There is some extrinsic compression of the celiac axis by the diaphragmatic crura and at its origin there is a small amount of mixed plaque that causes less than a 50% diameter stenosis. There are 2 right renal arteries on either side. There is a 50% stenosis of the proximal more superior right renal artery. The origins of the SMA and rest of the renal arteries are patent without stenosis. CT OF THE CHEST: The lungs are clear with no infiltrates or nodules. The mediastinum shows no mass or lymphadenopathy. The cardiac chamber sizes are normal. There is some dystrophic calcific plaque involving the coronary arteries. There are no pleural effusions. No chest wall abnormalities are noted. CT OF THE ABDOMEN: There is a posterior lateral peripheral 17 mm cyst involving the mid left kidney. There is a small exophytic cyst of the anterior cortex of the right kidney measuring 8 mm. There are no focal lesions of the rest of the visualized portions of the liver, gallbladder, biliary system, pancreas, spleen, adrenals, kidneys, periaortic region, or visualized bowel. There is no effusion, ascites, or mesenteric inflammation. IMPRESSION: The thoracic aorta is normal. There is a bovine type aortic arch. There is an approximate 50% stenosis of the left subclavian artery just proximal to the origin of the left vertebral and internal mammary arteries. There is some stenosis of the celiac axis origin and uppermost right renal artery in the 50% or less range. There are coronary artery calcifications. No other vascular abnormalities are identified on CT angiography. There are bilateral simple cysts of the kidneys that require no further follow-up. No other significant chest or upper abdominal abnormalities are identified on CT angiography. Normal [facility] Activated PTTon 12-23-2018 aPTT Coag time (Bld) 25.8 s Normal 23.0-32.4 [facility] Comment on above: Result Comment: Note : New Reference Range Unfractionated Heparin Therapeutic Ranges: Standard Heparin Nomogram: 53 to 78 seconds (anti-Xa level of 0.3 to 0.7 U/mL) Low Dose/ACS Nomogram: 49 to 67 seconds (anti-Xa level of 0.2 to 0.5 U/mL) Stroke Treatment Nomogram: 49 to 67 seconds (anti-Xa level of 0.2 to 0.5 U/mL) Note: The APTT therapeutic range has been determined for the current lot of laboratory APTT reagent in use throughout the [facility]. Performed By: #### A PTT #### [facility] [address] [place] [address] [address] CHEST W/O CONTRASTon CT CHEST W/O CONTRAST Performed at [facility] APPROVED BY: Jozef Saez MD EXAMINATION: CHEST CT WITHOUT CONTRAST Indication: Evaluation prior to coronary artery bypass graft surgery. Technique: Spiral CT acquisition of the chest from the thoracic inlet to the upper abdomen without contrast. Sagittal and coronal reconstructions were performed. Lack of intravenous contrast limits evaluation of mediastinal and vascular structures. M: [id number] CT Dose-Length Product: 250 mGy*cm CT Dose Reduction Employed: 1. Automated exposure control (AEC) was used. Comparison: Type of study and date/time RESULT: Limitations: None. Lines, tubes, and devices: None. Lung parenchyma and pleura: There is symmetric apical pleural thickening/scarring at the lung apices. No lung mass or consolidation. No pleural effusion. Thoracic inlet, heart, and mediastinum: No enlarged axillary, mediastinal or hilar lymph nodes. The thoracic aorta is normal in caliber. There is minimal atherosclerotic calcification of the aortic root and ascending thoracic aorta. The coronary arteries are extensively calcified. No pericardial effusion. Bones and soft tissues: No destructive bone lesion. Chest wall is unremarkable. Upper abdomen: No abnormality in the imaged upper abdomen. . IMPRESSION: Extensive coronary artery atherosclerotic calcification. The thoracic aorta is normal in caliber. Normal [facility] Comprehensive Panelon 2018 ALP enzyme act/vol 48 U/L Normal 46-116 [facility] Comment on above: Performed By: #### P 14 #### [facility] [address] [place] [address] Bilirubin mass conc 0.3 mg/dL Normal 0.2-1.0 [facility] Comment on above: Performed By: #### P 14 #### [facility] [address] [place] [address] Protein mass conc 6.3 g/dL Low 6.4-8.2 [facility] Comment on above: Performed By: #### P 14 #### [facility] [address] [place], [place] [address] ALT enzyme act/vol 35 U/L Normal 12-78 [facility] Comment on above: Performed By: #### P 14 #### [facility] [address] [place], [place] [address] AST enzyme act/vol 27 U/L Normal 9-37 [facility] Comment on above: Performed By: #### P 14 #### [facility] [address] [place], [place] [address] Creatinine mass conc 1.03 mg/dL Normal 0.67-1.17 [facility] Comment on above: Performed By: #### P 14 #### [facility] [address] [place], [place] [address] Albumin mass conc 3.3 g/dL Low 3.4-5.0 [facility] Comment on above: Performed By: #### P 14 #### [facility] [address] [place], [place] [address] Anion gap molar conc 11 mmol/L Normal 8-16 [facility] Comment on above: Performed By: #### P 14 #### [facility] [address] [place], [place] [address] CO2 molar conc 23 mmol/L Normal 21-32 [facility] Comment on above: Performed By: #### P 14 #### [facility] [address] [place], [place] [address] Glucose mass conc 98 mg/dL Normal 70-99 [facility] Comment on above: Performed By: #### P 14 #### [facility] [address] [place], [place] [address] Urea nitrogen mass conc 20 mg/dL High 7-18 [facility] Comment on above: Performed By: #### P 14 #### [facility] [address] [place], [place] [address] Calcium mass conc 8.0 mg/dL Low 8.5-10.1 [facility] Comment on above: Performed By: #### P 14 #### [facility] [address] [place], [place] [address] Chloride molar conc 109 mmol/L High 98-107 [facility] Comment on above: Performed By: #### P 14 #### [facility] [address] [place] [address] Potassium molar conc 3.6 mmol/L Normal 3.5-5.1 [facility] Comment on above: Performed By: #### P 14 #### [facility] [address] [place] [address] Sodium molar conc 139 mmol/L Normal 136-145 [facility] Comment on above: Performed By: #### P 14 #### [facility] [address] [place] [address] Hemogram/Diffon 12-23-2018 Abs Immature Grans 0.02 thou/cmm Normal 0.00-0.05 [facility] Comment on above: Performed By: #### C BCD1 #### [facility] [address] [place] [address] Abs. Baso 0.03 thou/cmm Normal 0.01-0.08 [facility] Comment on above: Performed By: #### C BCD1 #### [facility] [address] [place] [address] Abs. [place] 0.59 thou/cmm Normal 0.30-0.82 [facility] Comment on above: Performed By: #### C BCD1 #### [facility] [address] [place] [address] Abs. Neut (ANC) 4.10 thou/cmm Normal 1.78-5.38 [facility] Comment on above: Performed By: #### C BCD1 #### [facility] [address] [place] [address] Basophils/100 WBC (Bld) 0.5 % Normal [facility] Comment on above: Performed By: #### C BCD1 #### [facility] [address] [place] [address] Eosinophils #/vol (Bld) 0.16 thou/cmm Normal 0.04-0.54 [facility] Comment on above: Performed By: #### C BCD1 #### [place] [address] Eosinophils/100 WBC (Bld) 2.5 % Normal [facility] Comment on above: Performed By: #### C BCD1 #### [facility] [address] [place] [address] Erythrocyte distribution width Ratio (RBC) 13.2 % Normal 11.6-14.4 [facility] Comment on above: Performed By: #### C BCD1 #### [facility] [address] [place] [address] Hematocrit Volume Fraction (Bld) 42.5 % Normal 40.1-51.0 [facility] Comment on above: Performed By: #### C BCD1 #### [facility] [address] [place] [address] Hemoglobin mass conc (Bld) 14.0 g/dL Normal 13.7-17.5 [facility] Comment on above: Performed By: #### C BCD1 #### [place] [address] Immature Grans 0.30 % Normal [facility] Comment on above: Performed By: #### C BCD1 #### [facility] [address] [place] [address] Lymphocytes #/vol (Bld) 1.43 thou/cmm Normal 0.84-2.85 [facility] Comment on above: Performed By: #### C BCD1 #### [place] [address] Lymphocytes/100 WBC (Bld) 22.6 % Normal [facility] Comment on above: Performed By: #### C BCD1 #### [facility] [address] [place] [address] MCH Entitic mass (RBC) 31.4 pg Normal 25.7-32.2 [facility] Comment on above: Performed By: #### C BCD1 #### [facility] [address] [place] [address] MCHC mass conc (RBC) 32.9 % Normal 32.3-36.5 [facility] Comment on above: Performed By: #### C BCD1 #### [place] [address] MCV Entitic volume (RBC) 95.3 fL Normal 83.2-95.6 [facility] Comment on above: Performed By: #### C BCD1 #### [facility] [address] [place] [address] Monocytes/100 WBC (Bld) 9.3 % Normal [facility] Comment on above: Performed By: #### C BCD1 #### [facility] [address] [place] [address] Platelet mean volume Entitic volume (Bld) 12.4 fL High 8.7-12.0 [facility] Comment on above: Performed By: #### C BCD1 #### [facility] [address] [place] [address] Platelets #/vol (Bld) 177 thou/cmm Normal 141-365 [facility] Comment on above: Performed By: #### C BCD1 #### [place] [address] RBC #/vol (Bld) 4.46 mil/cmm Low 4.63-6.08 [facility] Comment on above: Performed By: #### C BCD1 #### [place] [address] RDW SD 46.2 fl High 36.1-45.8 [facility] Comment on above: Performed By: #### C BCD1 #### [place] [address] Seg Neutrophil 64.8 % Normal [facility] Comment on above: Performed By: #### C BCD1 #### [facility] [address] [place] [address] WBC #/vol (Bld) 6.33 thou/cmm Normal 4.23-9.07 [facility] Comment on above: Performed By: #### C BCD1 #### [facility] [address] [place] [address] Hgb A1con 12-23-2018 Hemoglobin A1c/Hemoglobin.total mass fraction (Bld) 5.5 % Normal 4.2-6.3 [facility] Comment on above: Result Comment: Meth od is National Glycohemoglobin Standardization Program (NGSP) compliant. Performed By: #### P T #### [facility] [address] [place] [address] Hemoglobin A1c/Hemoglobin.total mass fraction (Bld) 111 mg/dl Normal [facility] Comment on above: Performed By: #### P T #### [facility] [address] [place] [address] Hemoglobin A1c/Hemoglobin.total mass fraction (Bld) 117 mg/dl Normal [facility] Comment on above: Performed By: #### H A1C #### [facility] [address] [place] [address] Hemoglobin A1c/Hemoglobin.total mass fraction (Bld) 5.7 % Normal 4.2-6.3 [facility] Comment on above: Result Comment: Meth od is National Glycohemoglobin Standardization Program (NGSP) compliant. Performed By: #### H A1C #### [place] [address] Magnesium Bloodon 12-23-2018 Magnesium mass conc 2.2 mg/dL Normal 1.6-2.6 [facility] Comment on above: Performed By: #### M AG #### [place] [address] Phosphorus Bloodon 9 Phosphate mass conc 2.9 mg/dL Normal 2.5-4.9 [facility] Comment on above: Performed By: #### P T #### [place] [address] Prealbuminon 12-23-2018 Prealbumin mass conc 30.0 mg/dL Normal 20.0-40.0 [facility] Comment on above: Performed By: #### P AB #### [place] [address] Protimeon 12-23-2018 INR Coag RelTime (PPP) 1.01 {INR} Normal 0.90-1.30 [facility] Comment on above: Result Comment: Note : Reference Range Change Vitamin K Antagonist (VKA) Therapeutic Range: INR 2 to 3 (Target INR of 2.5) Note: For patients treated with VKA drugs, such as warfarin, the [place] [employer] 2012 Guideline recommends a therapeutic INR range of 2 to 3 (target INR of 2.5). This recommendation includes high-risk patients with antiphospholipid syndrome with previous arterial or venous thromboembolism, current-generation mechanical or bioprosthetic aortic heart valve replacement. VKA Therapeutic Range for some Mechanical Valve Replacement: INR 2.5 to 3.5 (Target INR of 3) Note: Patients with mechanical aortic valve replacement and additional risk factors for thromboembolic events (atrial fibrillation, previous thromboembolism, LV dysfunction, hypercoagulable conditions) or an older generation mechanical AVR (i.e., ball in-Cage) or any mechanical MVR should have a INR therapeutic range of 2.5 to 3.5 target INR of 3). Prosper GH, et al. Chest 2012; 141:7S-47S Joselito RA et al. [facility] 2017; 70: 252-289 Performed By: #### P T #### [facility] [address] [place] [address] Prothrombin time (PT) Coag time (PPP) 10.5 s Normal 9.7-13.0 [facility] Comment on above: Performed By: #### P T #### [facility] [address] [place], [place] [address] INR Coag RelTime (PPP) 1.00 {INR} Normal 0.90-1.30 [facility] Comment on above: Result Comment: Note : Reference Range Change Vitamin K Antagonist (VKA) Therapeutic Range: INR 2 to 3 (Target INR of 2.5) Note: For patients treated with VKA drugs, such as warfarin, the [place] [employer] 2012 Guideline recommends a therapeutic INR range of 2 to 3 (target INR of 2.5). This recommendation includes high-risk patients with antiphospholipid syndrome with previous arterial or venous thromboembolism, current-generation mechanical or bioprosthetic aortic heart valve replacement. VKA Therapeutic Range for some Mechanical Valve Replacement: INR 2.5 to 3.5 (Target INR of 3) Note: Patients with mechanical aortic valve replacement and additional risk factors for thromboembolic events (atrial fibrillation, previous thromboembolism, LV dysfunction, hypercoagulable conditions) or an older generation mechanical AVR (i.e., ball in-Cage) or any mechanical MVR should have a INR therapeutic range of 2.5 to 3.5 target INR of 3). Prosper GH, et al. Chest 2012; 141:7S-47S Joselito MAHMOOD et al. [facility] 2017; 70: 252-289 Performed By: #### P T #### [place] [address] Prothrombin time (PT) Coag time (PPP) 10.4 s Normal 9.7-13.0 [facility] Comment on above: Performed By: #### P T #### [place] [address] TSH, 3rd generationon 2018 TSH, 3rd generation 2.320 uIU/mL Normal 0.358-3.740 [facility] Comment on above: Performed By: #### T SH3 #### [place] [address] Urinalysis, reflexon 019 Reflex Comment see below Normal [facility] Comment on above: Result Comment: Refl ex to culture is not indicated based on established laboratory criteria. Performed By: #### U RIN #### [place] [address] Bacteria LM.HPF #/area (Urine sed) NONE Normal None [facility] Comment on above: Performed By: #### U RIN #### [place] [address] Ep Cells Urine 0.2 /hpf Normal 0.0-5.0 [facility] Comment on above: Performed By: #### U RIN #### [place] [address] Hyaline Cast 0.4 /lpf Normal 0.0-1.0 [facility] Comment on above: Performed By: #### U RIN #### [place] [address] RBC,Urine 0.8 /hpf Normal 0.0-5.0 [facility] Comment on above: Performed By: #### U RIN #### [place] [address] WBC, reflex 0.20 /hpf Normal 0.00-5.00 [facility] Comment on above: Performed By: #### U RIN #### [facility] [address] [place] [address] Appearance Nom (U) CLEAR Normal [facility] Comment on above: Performed By: #### U RIN #### [facility] [address] [place] [address] Bilirubin Urine Negative Normal Negative [facility] Comment on above: Performed By: #### U RIN #### [facility] [address] [place] [address] Color Nom (U) YELLOW Normal [facility] Comment on above: Performed By: #### U RIN #### [place] [address] Glucose Ql (U) Negative Normal Negative [facility] Comment on above: Performed By: #### U RIN #### [place] [address] Hemoglobin,Urine Negative Normal Negative [facility] Comment on above: Performed By: #### U RIN #### [place] [address] Ketone Urine Negative Normal Negative [facility] Comment on above: Performed By: #### U RIN #### [place] [address] Leukocyte esterase Test strip Ql (U) Negative Normal Negative [facility] Comment on above: Performed By: #### U RIN #### [place] [address] Nitrite reflex Negative Normal Negative [facility] Comment on above: Performed By: #### U RIN #### [place] [address] pH (U) 6.0 [pH] Normal 5.0-8.0 [facility] Comment on above: Performed By: #### U RIN #### [place] [address] Protein mass conc (U) Negative Normal Negative [facility] Comment on above: Performed By: #### U RIN #### [place] [address] [place] [address] Specific [place], Ur 1.024 Normal 1.005-1.030 [facility] Comment on above: Performed By: #### U RIN #### [facility] [address] [place] [address] Urobilinogen,Ur 0.2 EU/dL Normal 0.0-1.0 [facility] Comment on above: Performed By: #### U RIN #### [facility] [address] [place] [address] MRSA Screenon 12-22-2018 MRSA DNA YUE+probe Ql (Unsp spec) Test performed at [facility] No MRSA detected. Normal [facility] Comment on above: Performed By: #### P T #### [facility] [address] [place] [address] Vital Signs Date Time Vital Sign Value Performing Clinician Facility 05-31-2025 09:27-0400 Body mass index (BMI) [Ratio] 25.22 kg/m2 Andrea Smiley DO Work Phone: [facility] 05-31-2025 09:27-0400 Body temperature 97 [degF] Andrea Smiley DO Work Phone: [facility] 05-31-2025 09:27-0400 Body weight 73.03 kg Andrea Smiley DO Work Phone: [facility] 05-31-2025 09:27-0400 Diastolic blood pressure 60 mm[Hg] Andrea Smiley DO Work Phone: [facility] 05-31-2025 09:27-0400 Heart rate 56 /min Andrea Smiley DO Work Phone: [facility] 05-31-2025 09:27-0400 Respiratory rate 20 /min Andrea Smiley DO Work Phone: [facility] 05-31-2025 09:27-0400 Systolic blood pressure 100 mm[Hg] Andrea Smiley DO Work Phone: [facility] 01-06-2025 10:31-0500 Body height 170.2 cm Maggie Young APRN.LOSS PREVENTION AND SAFETY MANAGER Work Phone: [facility] Comment on above: patient reports 01-06-2025 10:31-0500 Body mass index (BMI) [Ratio] 24.59 kg/m2 Maggie Young APRN.LOSS PREVENTION AND SAFETY MANAGER Work Phone: [facility] 01-06-2025 10:31-0500 Body weight 71.22 kg Maggie Young APRN.LOSS PREVENTION AND SAFETY MANAGER Work Phone: [facility] 01-06-2025 10:31-0500 Diastolic blood pressure 60 mm[Hg] Maggie Young APRN.LOSS PREVENTION AND SAFETY MANAGER Work Phone: [facility] 01-06-2025 10:31-0500 Heart rate 69 /min Maggie Young APRN.LOSS PREVENTION AND SAFETY MANAGER Work Phone: [facility] 01-06-2025 10:31-0500 SaO2% (BldA) [Mass fraction] 99 % Maggie Young APRN.LOSS PREVENTION AND SAFETY MANAGER Work Phone: [facility] 01-06-2025 10:31-0500 Systolic blood pressure 102 mm[Hg] Maggie Young APRN.LOSS PREVENTION AND SAFETY MANAGER Work Phone: [facility] 11-30-2024 08:39-0500 Body mass index (BMI) [Ratio] 24.59 kg/m2 Andrea Smiley DO Work Phone: [facility] 11-30-2024 08:39-0500 Body temperature 97 [degF] Andrea Smiley DO Work Phone: [facility] 11-30-2024 08:39-0500 Body weight 71.22 kg Andrea Smiley DO Work Phone: [facility] 11-30-2024 08:39-0500 Diastolic blood pressure 60 mm[Hg] Andrea Smiley DO Work Phone: [facility] 11-30-2024 08:39-0500 Heart rate 72 /min Andrea Smiley DO Work Phone: [facility] 11-30-2024 08:39-0500 Respiratory rate 24 /min Andrea Smiley DO Work Phone: [facility] 11-30-2024 08:39-0500 SaO2% (BldA) [Mass fraction] 96 % Andrea Smiley DO Work Phone: [facility] 11-30-2024 08:39-0500 Systolic blood pressure 110 mm[Hg] Andrea Smiley DO Work Phone: [facility] 10-19-2024 12:43-0500 Body mass index (BMI) [Ratio] 25.28 kg/m2 Andrea Smiley DO Work Phone: [facility] 10-19-2024 12:43-0500 Body temperature 97.39 [degF] Andrea Smiley DO Work Phone: [facility] 10-19-2024 12:43-0500 Body weight 73.2 kg Andrea Smiley DO Work Phone: [facility] 10-19-2024 12:43-0500 Diastolic blood pressure 56 mm[Hg] Andrea Smiley DO Work Phone: [facility] 10-19-2024 12:43-0500 Heart rate 78 /min Andrea Smiley DO Work Phone: [facility] 10-19-2024 12:43-0500 Respiratory rate 36 /min Andrea Smiley DO Work Phone: [facility] 10-19-2024 12:43-0500 SaO2% (BldA) [Mass fraction] 95 % Andrea Smiley DO Work Phone: [facility] 10-19-2024 12:43-0500 Systolic blood pressure 100 mm[Hg] Andrea Smiley DO Work Phone: [facility] 09-28-2024 10:48-0500 Body mass index (BMI) [Ratio] 25.84 kg/m2 Andrea Smiley DO Work Phone: [facility] 09-28-2024 10:48-0500 Body temperature 97.39 [degF] Andrea Smiley DO Work Phone: [facility] 09-28-2024 10:48-0500 Body weight 74.84 kg Andrea Smiley DO Work Phone: [facility] 09-28-2024 10:48-0500 Diastolic blood pressure 60 mm[Hg] Andrea Smiley DO Work Phone: [facility] 09-28-2024 10:48-0500 Heart rate 76 /min Andrea Smiley DO Work Phone: [facility] 09-28-2024 10:48-0500 Respiratory rate 24 /min Andrea Smiley DO Work Phone: [facility] 09-28-2024 10:48-0500 SaO2% (BldA) [Mass fraction] 98 % Andrea Smiley DO Work Phone: [facility] 09-28-2024 10:48-0500 Systolic blood pressure 100 mm[Hg] Andrea Smiley DO Work Phone: [facility] 09-17-2024 10:37-0400 Body mass index (BMI) [Ratio] 26 kg/m2 Derick Yuen APRN.LOSS PREVENTION AND SAFETY MANAGER Work Phone: [facility] 09-17-2024 10:37-0400 Body temperature 97.7 [degF] Derick Yuen APRN.LOSS PREVENTION AND SAFETY MANAGER Work Phone: [facility] 09-17-2024 10:37-0400 Body weight 75.3 kg Derick Yuen APRN.LOSS PREVENTION AND SAFETY MANAGER Work Phone: [facility] 09-17-2024 10:37-0400 Diastolic blood pressure 63 mm[Hg] Derick Yuen APRN.LOSS PREVENTION AND SAFETY MANAGER Work Phone: [facility] 09-17-2024 10:37-0400 Heart rate 71 /min Derick Yuen APRN.LOSS PREVENTION AND SAFETY MANAGER Work Phone: [facility] 09-17-2024 10:37-0400 Respiratory rate 40 /min Derick Yuen APRN.LOSS PREVENTION AND SAFETY MANAGER Work Phone: [facility] 09-17-2024 10:37-0400 SaO2% (BldA) [Mass fraction] 93 % Derick Yuen APRN.LOSS PREVENTION AND SAFETY MANAGER Work Phone: [facility] 09-17-2024 10:37-0400 Systolic blood pressure 113 mm[Hg] Derick Yuen APRN.LOSS PREVENTION AND SAFETY MANAGER Work Phone: [facility] 06-01-2024 09:14-0400 Body mass index (BMI) [Ratio] 25.69 kg/m2 Andrea Smiley DO Work Phone: [facility] 06-01-2024 09:14-0400 Body temperature 97 [degF] Andrea Smiley DO Work Phone: [facility] 06-01-2024 09:14-0400 Body weight 74.39 kg Andrea Smiley DO Work Phone: [facility] 06-01-2024 09:14-0400 Diastolic blood pressure 70 mm[Hg] Andrea Smiley DO Work Phone: [facility] 06-01-2024 09:14-0400 Heart rate 64 /min Andrea Smiley DO Work Phone: [facility] 06-01-2024 09:14-0400 Respiratory rate 20 /min Andrea Smiley DO Work Phone: [facility] 06-01-2024 09:14-0400 Systolic blood pressure 110 mm[Hg] Andrea Smiley DO Work Phone: [facility] 12-09-2023 16:29-0500 Diastolic blood pressure 74 mm[Hg] Dr. Andrea Smiley Work Phone: [facility] 12-09-2023 16:29-0500 Heart rate 73 /min Dr. Andrea Smiley Work Phone: [facility] 12-09-2023 16:29-0500 Respiratory rate 16 /min Dr. Andrea Smiley Work Phone: [facility] 12-09-2023 16:29-0500 SaO2% (BldA) [Mass fraction] 97 % Dr. Andrea Smiley Work Phone: 5(765)003-220373 [place] [address] 12-09-2023 16:29-0500 Systolic blood pressure 121 mm[Hg] Dr. Andrea Smiley Work Phone: 4(440)947-600190 [place] [address] 12-09-2023 14:48-0500 Body height 167.[address] Andrea Smiley Work Phone: 2(981)345-022590 [place] [address] 12-09-2023 14:48-0500 Body mass index (BMI) [Ratio] 27.4 kg/m2 Dr. Andrea Smiley Work Phone: 8(635)224-921090 [place] [address] 12-09-2023 14:48-0500 Body temperature 97.7 [degF] Dr. Andrea Smiley Work Phone: 9(369)810-618190 [place] [address] 12-09-2023 14:48-0500 Body weight 77.[address] Andrea Smiley Work Phone: 5(227)312-425490 [place] [address] 08-14-2023 10:38-0400 Body mass index (BMI) [Ratio] 24.7 kg/m2 Dr. Andrea Smiley Work Phone: 7(007)267-959890 [place] [address] 08-14-2023 10:38-0400 Body weight 73.[address] Andrea Smiley Work Phone: 4(831)122-729490 [place] [address] 08-14-2023 10:38-0400 Diastolic blood pressure 57 mm[Hg] Dr. Andrea Smiley Work Phone: 0(904)910-635090 [place] [address] 08-14-2023 10:38-0400 Heart rate 61 /min Dr. Andrea Smiley Work Phone: 4(676)235-895290 [place] [address] 08-14-2023 10:38-0400 Respiratory rate 16 /min Dr. Andrea Smiley Work Phone: 1(942)231-755473 [place] [address] 08-14-2023 10:38-0400 Systolic blood pressure 106 mm[Hg] Dr. Andrea Smiley Work Phone: 2(877)664-506473 [place] [address] 06-05-2023 09:39-0400 Body height 170.2 cm Danya Irving MD Work Phone: [facility] 06-05-2023 09:39-0400 Body weight 73.48 kg Danya Irving MD Work Phone: [facility] 06-05-2023 09:39-0400 Diastolic blood pressure 64 mm[Hg] Danya Irving MD Work Phone: [facility] 06-05-2023 09:39-0400 Heart rate 62 /min Danya Irving MD Work Phone: [facility] 06-05-2023 09:39-0400 Respiratory rate 16 /min Danya Irving MD Work Phone: [facility] 06-05-2023 09:39-0400 Systolic blood pressure 104 mm[Hg] Danya Irving MD Work Phone: [facility] 06-02-2023 09:13-0400 Body temperature 97 [degF] Andrea Smiley DO Work Phone: [facility] 06-02-2023 09:13-0400 Body weight 74.39 kg Andrea Smiley DO Work Phone: [facility] 06-02-2023 09:13-0400 Diastolic blood pressure 60 mm[Hg] Andrea Smiley DO Work Phone: [facility] 06-02-2023 09:13-0400 Heart rate 56 /min Andrea Smiley DO Work Phone: [facility] 06-02-2023 09:13-0400 Respiratory rate 16 /min Andrea Smiley DO Work Phone: [facility] 06-02-2023 09:13-0400 Systolic blood pressure 100 mm[Hg] Andrea Smiley DO Work Phone: [facility] 05-27-2023 15:24-0400 Body temperature 98.49 [degF] Naima Luu APRN.LOSS PREVENTION AND SAFETY MANAGER Work Phone: [facility] 05-27-2023 15:24-0400 Diastolic blood pressure 68 mm[Hg] Naima Luu APRN.LOSS PREVENTION AND SAFETY MANAGER Work Phone: [facility] 05-27-2023 15:24-0400 Heart rate 60 /min Naima Haagen MONORAIL HOOKER.LOSS PREVENTION AND SAFETY MANAGER Work Phone: [facility] 05-27-2023 15:24-0400 Respiratory rate 18 /min Naima Haagen MONORAIL HOOKER.LOSS PREVENTION AND SAFETY MANAGER Work Phone: [facility] 05-27-2023 15:24-0400 SaO2% (BldA) [Mass fraction] 96 % Naima Haagen MONORAIL HOOKER.LOSS PREVENTION AND SAFETY MANAGER Work Phone: [facility] 05-27-2023 15:24-0400 Systolic blood pressure 110 mm[Hg] Naima Haagen MONORAIL HOOKER.LOSS PREVENTION AND SAFETY MANAGER Work Phone: [facility] 11-29-2022 09:01-0500 Body temperature 98.01 [degF] Andrea Smiley DO Work Phone: [facility] 11-29-2022 09:01-0500 Body weight 74.84 kg Andrea Smiley DO Work Phone: [facility] 11-29-2022 09:01-0500 Diastolic blood pressure 60 mm[Hg] Andrea Smiley DO Work Phone: [facility] 11-29-2022 09:01-0500 Heart rate 60 /min Andrea Smiley DO Work Phone: [facility] 11-29-2022 09:01-0500 Respiratory rate 16 /min Andrea Smiley DO Work Phone: [facility] 11-29-2022 09:01-0500 Systolic blood pressure 110 mm[Hg] Andrea Smiley DO Work Phone: [facility] 10-24-2022 09:41-0500 Body height 167.6 cm Danya Irving MD Work Phone: [facility] 10-24-2022 09:41-0500 Body weight 73.75 kg Danya Irving MD Work Phone: [facility] 10-24-2022 09:41-0500 Diastolic blood pressure 68 mm[Hg] Danya Irving MD Work Phone: [facility] 10-24-2022 09:41-0500 Heart rate 66 /min Danya Irving MD Work Phone: [facility] 10-24-2022 09:41-0500 Respiratory rate 16 /min Danya Irving MD Work Phone: [facility] 10-24-2022 09:41-0500 Systolic blood pressure 112 mm[Hg] Danya Irving MD Work Phone: [facility] 05-28-2022 09:18-0400 Body temperature 96.4 [degF] Andrea Smiley DO Work Phone: [facility] 05-28-2022 09:18-0400 Body weight 75.75 kg Andrea Smiley DO Work Phone: [facility] 05-28-2022 09:18-0400 Diastolic blood pressure 78 mm[Hg] Andrea Smiley DO Work Phone: [facility] 05-28-2022 09:18-0400 Heart rate 60 /min Andrea Smiley DO Work Phone: [facility] 05-28-2022 09:18-0400 Respiratory rate 16 /min Andrea Smiley DO Work Phone: [facility] 05-28-2022 09:18-0400 Systolic blood pressure 106 mm[Hg] Andrea Smiley DO Work Phone: [facility] 04-11-2022 10:28-0400 Body height 167.6 cm Danya Irving MD Work Phone: [facility] 04-11-2022 10:28-0400 Body weight 73.48 kg Danya Irving MD Work Phone: [facility] 04-11-2022 10:28-0400 Diastolic blood pressure 70 mm[Hg] Danya Irving MD Work Phone: [facility] 04-11-2022 10:28-0400 Heart rate 68 /min Danya Irving MD Work Phone: [facility] 04-11-2022 10:28-0400 Respiratory rate 16 /min Danya Irving MD Work Phone: [facility] 04-11-2022 10:28-0400 Systolic blood pressure 112 mm[Hg] Danya Irving MD Work Phone: [facility] 12-28-2018 17:24-0500 [facility] Comment on above: Performed By: #### APTT #### [address] [address] Encounters Encounter Date Encounter Type Care Provider Facility Start: 05-31-2025 End: 05-31-2025 Patient encounter procedure Andrea L Smiley DO Work Phone: [facility] Comment on above: Screening for prosta te cancer (Primary Dx); PAD (peripheral artery disease); Hypercholesterolemia; Atherosclerosis of [place] coronary artery of [place] heart with angina pectoris; Vitamin D deficiency; Vitamin B12 deficiency; Hyperglycemia Start: 05-31-2025 End: 05-31-2025 ambulatory ANDREA L SMILEY Facility:[facility] Start: 05-26-2025 End: 05-26-2025 ambulatory ANDREA L SMILEY Facility:[facility] Start: 01-06-2025 End: 01-06-2025 Patient encounter procedure Maggie Young APRN.CNP Work Phone: [facility] Comment on above: Carotid stenosis, as ymptomatic, bilateral (Primary Dx); PAD (peripheral artery disease) (HCC); 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); Infrarenal abdominal aortic aneurysm (AAA) without rupture (HCC); Abdominal aortic aneurysm (AAA) without rupture, unspecified part (HCC) Start: 01-06-2025 End: 01-06-2025 ambulatory MAGGIE YOUNG Facility:[facility] Start: 12-31-2024 End: 12-31-2024 ambulatory ANDREA L SMILEY Facility:[facility] Start: 11-30-2024 End: 11-30-2024 ambulatory ANDREA L SMILEY Facility:[facility] Start: 11-30-2024 End: 11-30-2024 Patient encounter procedure Andrea L Smiley DO Work Phone: [facility] [place] Comment on above: PAD (peripheral anneliese ry disease) (HCC) (Primary Dx); Hypercholesterolemia; Essential hypertension; Atherosclerosis of [place] coronary artery of [place] heart with angina pectoris (HCC); Vitamin D deficiency; Vitamin B12 deficiency; Fatigue, unspecified type; Hyperglycemia Start: 11-23-2024 End: 11-23-2024 ambulatory ANDREA GARCIARISON Facility:[facility] Start: 11-19-2024 End: 11-19-2024 Orders Only Maggie Young APRN.LOSS PREVENTION AND SAFETY MANAGER Work Phone: [facility] Comment on above: PVD (peripheral vasc ular disease) (HCC) (Primary Dx); 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); Carotid stenosis, asymptomatic, bilateral; Infrarenal abdominal aortic aneurysm (AAA) without rupture ([facility]) Appointment (Appoint ment ) Start: 11-14-2024 End: 11-15-2024 ambulatory Andrea Garciarison DO Work Phone: [facility] [place] Comment on above: Cilostazol Start: 11-01-2024 End: 11-01-2024 ambulatory ANDREA L SMILEY Facility:[facility] Start: 10-19-2024 End: 10-28-2024 Telephone encounter Andrea Garciarison DO Work Phone: [facility] [place] Start: 10-19-2024 End: 10-19-2024 Patient encounter procedure Andrea Garciarison DO Work Phone: [facility] [place] Comment on above: Community acquired b acterial pneumonia (Primary Dx); Rhonchi at left lung base Start: 10-19-2024 End: 10-19-2024 ambulatory ANDREA L SMILEY Facility:[facility] Start: 09-28-2024 End: 09-29-2024 Telephone encounter Andrea Garciarison DO Work Phone: [facility] [place] Comment on above: Results Start: 09-28-2024 End: 09-28-2024 Subsequent hospital visit by physician Jamshid [facility] [place] Work Phone: Radiology Comment on above: Rhonchi at both lung bases [R09.89] Start: 09-28-2024 End: 09-28-2024 ambulatory ANDREA SMILEY Facility:[facility] Start: 09-28-2024 End: 09-28-2024 Patient encounter procedure Andrea Smiley DO Work Phone: [facility] Comment on above: Rhonchi at both lung bases (Primary Dx); Community acquired bacterial pneumonia Start: 09-20-2024 End: 09-20-2024 Emergency department patient visit Negro Tavares Facility:[facility] Start: 09-20-2024 End: 09-20-2024 Telephone encounter Andrea Smiley DO Work Phone: [address] [place] [address] Comment on above: Future Appointment Start: 09-17-2024 End: 09-17-2024 Emergency department patient visit Andrea Smiley Facility:[facility] Start: 09-17-2024 End: 09-17-2024 Patient encounter procedure Derick Yuen APRN.LOSS PREVENTION AND SAFETY MANAGER Work Phone: [facility] Comment on above: Acute cough (Primary Dx); SOB (shortness of breath); Tachypnea Start: 09-17-2024 End: 09-17-2024 ambulatory ANDREA SMILEY Facility:[facility] Start: 08-27-2024 End: 08-27-2024 ambulatory [facility] [place] Work Phone: [facility] Start: 08-27-2024 End: 08-27-2024 Patient encounter procedure [facility] [place] Work Phone: [facility] Start: 08-26-2024 ambulatory Andrea Smiley Facilit y:[facility] Start: 08-25-2024 ambulatory Radha Ruiz [employer] Facili ty:[facility] Start: 08-25-2024 End: 08-25-2024 ambulatory Radha Ruiz [employer] Facility:[facility] Start: 08-12-2024 End: 08-12-2024 ambulatory Radha Ruiz [employer] Facility:[facility] Start: 06-01-2024 End: 06-01-2024 Patient encounter procedure Andrea Deon Smiley DO Work Phone: [facility] Comment on above: Essential hypertensi on (Primary Dx); PAD (peripheral artery disease) (HCC); Hypercholesterolemia; Atherosclerosis of [place] coronary artery of [place] heart with angina pectoris (HCC); Vitamin D deficiency; Dyslipidemia; Screening for prostate cancer; Vitamin B12 deficiency Start: 12-09-2023 End: 12-09-2023 Emergency department patient visit Dr. Andrea Smiley Work Phone: [facility] Work Phone: Start: 10-04-2023 Refill Maggie tamayo APRN.LOSS PREVENTION AND SAFETY MANAGER Work Phone: [facility] Comment on above: Refill Request Start: 08-14-2023 End: 08-14-[address] Andrea Smiley Work Phone: [facility] Work Phone: Start: 06-05-2023 End: 06-05-2023 Patient encounter procedure Danya Irving MD Work Phone: [facility] Comment on above: Atherosclerosis of n at[place] artery of both lower extremities with intermittent claudication (HCC) (Primary Dx); Abdominal aortic aneurysm (AAA) without rupture, unspecified part (HCC); PVD (peripheral vascular disease) (HCC); Carotid stenosis, asymptomatic, bilateral; PAD (peripheral artery disease) (HCC) Start: 06-02-2023 End: 06-02-2023 Patient encounter procedure Andrea Smiley DO Work Phone: [facility] Comment on above: Dyslipidemia (Primar y Dx); PAD (peripheral artery disease) (HCC); Hypercholesterolemia; Atherosclerosis of [place] coronary artery of [place] heart with angina pectoris (HCC); Acute cough; Essential hypertension; Peripheral artery disease (HCC); Vitamin D deficiency; Screening for prostate cancer; Fatigue, unspecified type Start: 05-27-2023 End: 05-27-2023 Subsequent hospital visit by physician Xr [facility] Work Phone: Radiology Comment on above: Acute cough [R05.1] Start: 05-27-2023 End: 05-27-2023 Office outpatient visit 15 minutes Naima Luu APRN.LOSS PREVENTION AND SAFETY MANAGER Work Phone: [facility] [place] Comment on above: Acute cough (Primary Dx) Start: 04-24-2023 Telephone encounter Danya Irving MD Work Phone: [facility] Comment on above: Appointment (Appoint ment) Start: 01-14-2023 Refill Andrea Deon rivera DO Work Phone: [facility] [place] Comment on above: Refill Request Start: 11-29-2022 End: 11-29-2022 Patient encounter procedure Andrea Smiley DO Work Phone: [facility] [place] Comment on above: PAD (peripheral anneliese ry disease) (HCC) (Primary Dx); Subclavian artery stenosis (HCC); Peripheral artery disease (HCC); Atherosclerosis of [place] coronary artery of [place] heart with angina pectoris (HCC); Hypercholesterolemia; Dyslipidemia; Essential hypertension; Vitamin D deficiency; Hyperglycemia Start: 10-24-2022 End: 10-24-2022 Patient encounter procedure Danya Irving MD Work Phone: [facility] Comment on above: PVD (peripheral vasc ular disease) (HCC) (Primary Dx); Abdominal aortic aneurysm (AAA) without rupture, unspecified part; Carotid stenosis, asymptomatic, bilateral Start: 09-30-2022 Orders Only Maggie tamayo MONORAIL HOOKER.LOSS PREVENTION AND SAFETY MANAGER Work Phone: [facility] Comment on above: PAD (peripheral anneliese ry disease) (HCC) (Primary Dx); 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) Start: 08-21-2022 End: 08-21-2022 ambulatory Mi Nurse Work Phone: [facility] [place] Start: 08-01-2022 Orders Only Danya Irving MD Work Phone: [facility] Comment on above: PAD (peripheral anneliese ry disease) (HCC) (Primary Dx); 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) Start: 05-28-2022 End: 05-28-2022 Patient encounter procedure Andrea Smiley DO Work Phone: [facility] [place] Comment on above: Dyslipidemia (Primar y Dx); PAD (peripheral artery disease) (HCC); Hypercholesterolemia; Atherosclerosis of [place] coronary artery of [place] heart with angina pectoris (HCC); Weakness of left leg; Vitamin D deficiency; Essential hypertension; Screening for prostate cancer; Benign prostatic hyperplasia with lower urinary tract symptoms, symptom details unspecified Start: 05-21-2022 Refill Andrea rivera DO Work Phone: [facility] [place] Comment on above: Refill Request Start: 05-16-2022 Refill Andrea rivera DO Work Phone: [facility] [place] Comment on above: Refill Request Start: 04-11-2022 End: 04-11-2022 Patient encounter procedure Danya Irving MD Work Phone: [facility] Comment on above: PAD (peripheral anneliese ry disease) (HCC) (Primary Dx); 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); Carotid stenosis, asymptomatic, bilateral; AAA (abdominal aortic aneurysm) without rupture (HCC) Start: 03-18-2022 ambulatory Andrea rivera DO Work Phone: [facility] [place] Comment on above: Toe Start: 03-15-2022 Telephone encounter Andrea Deon reyes DO Work Phone: [facility] [place] Comment on above: Medication Request Start: 09-05-2021 End: 09-05-2021 Subsequent hospital visit by physician Jamshid [facility] [place] Work Phone: Radiology Comment on above: Cough [R05.9] Start: 01-28-2019 End: 01-29-2019 Patient encounter procedure LINETTE MCCLURE Facility:[facility] Start: 01-07-2019 End: 01-07-2019 Patient encounter procedure LINETTE MCCLURE Facility:[facility] Start: 12-22-2018 End: 01-02-2019 Evaluation and management of inpatient AARON WHITEDAISHAEMERITA Facility:[facility] Start: 06-01-2018 Patient encounter procedure SUE ANDRADE Facility:[facility] Procedures Date Procedure Procedure Detail Performing Clinician Start: 09-28-2024 Radiologic exam ches t 2 views Andrea Smiley DO Work Phone: Start: 06-01-2024 Adult depression screening assessment Xr [place] Work Phone: Start: 05-27-2023 Radiologic exam ches t 2 views Naima Luu MONORAIL HOOKER.LOSS PREVENTION AND SAFETY MANAGER Work Phone: Start: 08-21-2022 INFLUENZA SEASONAL QUADRIVALENT HIGH DOSE AGE 65+ Andrea Smiley DO Work Phone: Start: 09-05-2021 Radiologic exam ches t 2 views Chelsea Hatfield MONORAIL HOOKER.LOSS PREVENTION AND SAFETY MANAGER Work Phone: Start: 05-29-2021 Adult depression screening assessment Andrea Smiley DO Work Phone: Start: 03-20-2021 Colonoscopy Andrea greco DO Work Phone: Start: 01-01-2019 History of coronary artery bypass grafting S/P CABG x 3 Andrea Smiley DO Work Phone: Start: 12-28-2018 History of coronary artery bypass grafting H/O coronary artery bypass surgery Dr. Andrea Smiley Work Phone: Start: 12-26-2018 Antibody screen SUE ANDRADE Comment on above: Performed By: #### P T #### [place] [id number] Start: 05-17-2003 History of placement of stent for coronary artery disease History of coronary artery stent placement Dr. Andrea Smiley Work Phone: Plan of Treatment Date Care Activity Detail Author Start: 05-26-2028 Diabetes Screening Diabetes Screening [facility] Start: 11-23-2027 Diabetes Screening Diabetes Screening [facility] Start: 11-21-2027 LIPID SCREEN LIPID SCREEN [facility] Start: 05-21-2027 Diabetes Screening Diabetes Screening [facility] Start: 11-28-2026 LIPID SCREEN LIPID SCREEN [facility] Start: 05-31-2026 Annual PCP Team Chronic Disease Visit Annual PCP Team Chronic Disease Visit [facility] Start: 05-27-2026 DIABETES SCREEN DIABETES SCREEN [facility] Start: 05-27-2026 Diabetes Screening Diabetes Screening [facility] Start: 05-26-2026 Hepatitis B surface antibody level LDL Cholesterol [facility] Start: 03-20-2026 Colonoscopy COLONOSCOPY [facility] Start: 03-20-2026 COLORECTAL CANCER SCREENING COLORECTAL CANCER SCREENING [facility] Start: 01-06-2026 BP Controlled (<130/80) BP Controlled (<130/80) [facility] in Start: 12-02-2025 End: 03-03-2026 25-hydroxyvitamin D3 [Mass/volume] in Serum or Plasma VITAMIN D 25 HYDROXY Lab Routine Vitamin D deficiency Expected: 12/02/2025, Expires: 03/03/2026 [facility] Comment on above: Expected: 12/02/2025, Expires: Start: 12-02-2025 End: 03-03-2026 CBC panel - Blood by Automated count COMPLETE BLOOD COUNT Lab Routine PAD (peripheral artery disease) Hypercholesterolemia Atherosclerosis of [place] coronary artery of [place] heart with angina pectoris Expected: 12/02/2025, Expires: 03/03/2026 [facility] Comment on above: Expected: 12/02/2025, Expires: Start: 12-02-2025 End: 03-03-2026 Cobalamin (Vitamin B12) [Mass/volume] in Serum or Plasma VITAMIN B12 Lab Routine Vitamin B12 deficiency Expected: 12/02/2025, Expires: 03/03/2026 [facility] Comment on above: Expected: 12/02/2025, Expires: Start: 12-02-2025 End: 03-03-2026 Comprehensive metabolic 2000 panel - Serum or Plasma COMPREHENSIVE METABOLIC PANEL Lab Routine PAD (peripheral artery disease) Hypercholesterolemia Atherosclerosis of [place] coronary artery of [place] heart with angina pectoris Expected: 12/02/2025, Expires: 03/03/2026 [facility] Work Phone: Comment on above: Expected: 12/02/2025, Expires: Start: 12-02-2025 End: 03-03-2026 Hemoglobin A1c in Blood HEMOGLOBIN A1C Lab Routine Hyperglycemia Expected: 12/02/2025, Expires: 03/03/2026 [facility] Comment on above: Expected: 12/02/2025, Expires: Start: 12-02-2025 End: 03-03-2026 Lipid 1996 panel - Serum or Plasma LIPID PANEL, FASTING Lab Routine PAD (peripheral artery disease) Hypercholesterolemia Atherosclerosis of [place] coronary artery of [place] heart with angina pectoris Expected: 12/02/2025, Expires: 03/03/2026 [facility] Comment on above: Expected: 12/02/2025, Expires: Start: 12-02-2025 End: 03-03-2026 PSA/PROSTATE SPECIFIC ANTIGEN SCREENING PSA/PROSTATE SPECIFIC ANTIGEN SCREENING Lab Routine Screening for prostate cancer Expected: 12/02/2025, Expires: 03/03/2026 [facility] Comment on above: Expected: 12/02/2025, Expires: Start: 12-02-2025 End: 12-02-2025 Patient encounter procedure 12/02/2025 10:00 AM EST Office Visit Family Ailyn Drake [address] [place], [place] [address] Andrea Smiley DO [address] [place] [address] 6 month follow up Family Ailyn Drake Comment on above: 6 month follow up Start: 11-30-2025 Annual PCP Team Chronic Disease Visit Annual PCP Team Chronic Disease Visit [facility] Start: 11-30-2025 BP Controlled (<130/80) BP Controlled (<130/80) [facility] in Start: 11-23-2025 Hepatitis B surface antibody level LDL Cholesterol [facility] Start: 11-21-2025 DIABETES SCREEN DIABETES SCREEN [facility] Start: 11-20-2025 End: 01-14-2026 US Abdominal Aorta US ABD AORTA COMPLETE [facility] Vascular Lab Routine Infrarenal abdominal aortic aneurysm (AAA) without rupture (HCC) Expected: 11/20/2025, Expires: 01/14/2026 [facility] Comment on above: Expected: 11/20/2025, Expires: Start: 11-20-2025 End: 01-14-2026 US Carotid arteries - bilateral US CAROTID ARTERIES [facility] Vascular Lab Routine Carotid stenosis, asymptomatic, bilateral Expected: 11/20/2025, Expires: 01/14/2026 [facility] Work Phone: Comment on above: Expected: 11/20/2025, Expires: Start: 11-20-2025 End: 01-14-2026 US.doppler Extremity arteries - bilateral for physiologic artery study at rest and with exercise PVR LEG W/EXC [facility] Vascular Lab Routine PAD (peripheral artery disease) (HCC) 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) Expected: 11/20/2025, Expires: 01/14/2026 [facility] Comment on above: Expected: 11/20/2025, Expires: Start: 11-01-2025 Annual PCP Team Chronic Disease Visit Annual PCP Team Chronic Disease Visit [facility] Start: 10-19-2025 Annual PCP Team Chronic Disease Visit Annual PCP Team Chronic Disease Visit [facility] Start: 10-19-2025 BP Controlled (<130/80) BP Controlled (<130/80) [facility] in Start: 09-28-2025 Annual PCP Team Chronic Disease Visit Annual PCP Team Chronic Disease Visit [facility] Start: 09-28-2025 BP Controlled (<130/80) BP Controlled (<130/80) [facility] in Start: 09-17-2025 Annual PCP Team Chronic Disease Visit Annual PCP Team Chronic Disease Visit [facility] Start: 09-17-2025 BP Controlled (<130/80) BP Controlled (<130/80) [facility] in Start: 07-18-2025 Influenza vaccination Influenza Vaccine (#1) [facility] Start: 06-01-2025 Annual PCP Team Chronic Disease Visit Annual PCP Team Chronic Disease Visit [facility] Start: 06-01-2025 Anxiety Screening Anxiety Screening [facility] Start: 06-01-2025 BP Controlled (<130/80) BP Controlled (<130/80) [facility] in Start: 06-01-2025 Depression Screening Depression Screening [facility] Start: 05-31-2025 End: 05-31-2025 Patient encounter procedure 05/31/2025 9:20 AM EDT Office Visit Family Medicine [facility] [address] [place] [address] Andrea Smiley DO [address] [facility] [address] 6 month follow up Family Medicine [facility] Comment on above: 6 month follow up Start: 05-30-2025 End: 08-29-2025 25-hydroxyvitamin D3 [Mass/volume] in Serum or Plasma VITAMIN D 25 HYDROXY Lab Routine Vitamin D deficiency Expected: 05/30/2025, Expires: 08/29/2025 [facility] Comment on above: Expected: 05/30/2025, Expires: Start: 05-30-2025 End: 08-29-2025 CBC panel - Blood by Automated count COMPLETE BLOOD COUNT Lab Routine Hypercholesterolemia Expected: 05/30/2025, Expires: 08/29/2025 [facility] Comment on above: Expected: 05/30/2025, Expires: Start: 05-30-2025 End: 08-29-2025 Cobalamin (Vitamin B12) [Mass/volume] in Serum or Plasma VITAMIN B12 Lab Routine Vitamin B12 deficiency Expected: 05/30/2025, Expires: 08/29/2025 [facility] Comment on above: Expected: 05/30/2025, Expires: Start: 05-30-2025 End: 08-29-2025 Comprehensive metabolic 2000 panel - Serum or Plasma COMPREHENSIVE METABOLIC PANEL Lab Routine Hypercholesterolemia Expected: 05/30/2025, Expires: 08/29/2025 [facility] Work Phone: Comment on above: Expected: 05/30/2025, Expires: Start: 05-30-2025 End: 08-29-2025 Hemoglobin A1c in Blood HEMOGLOBIN A1C Lab Routine Hyperglycemia Expected: 05/30/2025, Expires: 08/29/2025 [facility] Comment on above: Expected: 05/30/2025, Expires: Start: 05-30-2025 End: 08-29-2025 Lipid 1996 panel - Serum or Plasma LIPID PANEL BASIC Lab Routine PAD (peripheral artery disease) (HCC) Hypercholesterolemia Expected: 05/30/2025, Expires: 08/29/2025 [facility] Comment on above: Expected: 05/30/2025, Expires: Start: 05-30-2025 End: 08-29-2025 Thyrotropin [Units/volume] in Serum or Plasma THYROID STIMULATING HORMONE Lab Routine PAD (peripheral artery disease) (HCC) Hypercholesterolemia Essential hypertension Expected: 05/30/2025, Expires: 08/29/2025 [facility] Comment on above: Expected: 05/30/2025, Expires: Start: 05-21-2025 Hepatitis B surface antibody level LDL Cholesterol [facility] Start: 04-11-2025 US ABD AORTA COMPLETE [facility] US ABD AORTA COMPLETE [facility] Vascular Lab Routine AAA (abdominal aortic aneurysm) without rupture (HCC) Expected: 04/11/2025 [facility] Work Phone: Comment on above: Expected: 04/11/2025 Start: 12-23-2024 End: 12-23-2024 Patient encounter procedure 12/23/2024 11:00 AM EST Office Visit [facility] [address] [place] [address] Maggie Young, MONORAIL HOOKER.LOSS PREVENTION AND SAFETY MANAGER 1 [facility] [address] [id number] Annual F/up - PVD (peripheral vascular disease); Atherosclerosis 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; Carotid stenosis, asymptomatic, bilateral *US abd aorta, PVR leg, US carotid arteries 12/10/24* (DELFIN) [facility] Comment on above: Annual F/up - PVD (peripheral vascular d isease); Atherosclerosis 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; Carotid stenosis, asymptomatic, bilateral *US abd aorta, PVR leg, US carotid arteries 12/10/24* (DELFIN) Start: 12-10-2024 End: 12-10-2024 Patient encounter procedure Vascular Medicine Comment on above: Infrarenal abdominal aortic aneurysm (AA A) without rupture (HCC) [I71.43] Carotid stenosis, as ymptomatic, bilateral [I65.23] PVD (peripheral vasc ular disease) (HCC) [I73.9] Start: 12-03-2024 End: 03-04-2025 CBC panel - Blood by Automated count COMPLETE BLOOD COUNT Lab Routine Hypercholesterolemia Expected: 12/03/2024, Expires: 03/04/2025 [facility] Comment on above: Expected: 12/03/2024, Expires: Start: 12-03-2024 End: 03-04-2025 Cobalamin (Vitamin B12) [Mass/volume] in Serum or Plasma VITAMIN B12 Lab Routine Vitamin B12 deficiency Expected: 12/03/2024, Expires: 03/04/2025 [facility] Comment on above: Expected: 12/03/2024, Expires: Start: 12-03-2024 End: 03-04-2025 Comprehensive metabolic 2000 panel - Serum or Plasma COMPREHENSIVE METABOLIC PANEL Lab Routine Hypercholesterolemia Expected: 12/03/2024, Expires: 03/04/2025 [facility] Comment on above: Expected: 12/03/2024, Expires: Start: 12-03-2024 End: 03-04-2025 Lipid 1996 panel - Serum or Plasma LIPID PANEL BASIC Lab Routine Hypercholesterolemia Expected: 12/03/2024, Expires: 03/04/2025 [facility] Comment on above: Expected: 12/03/2024, Expires: Start: 12-03-2024 End: 03-04-2025 PSA/PROSTATE SPECIFIC ANTIGEN SCREENING PSA/PROSTATE SPECIFIC ANTIGEN SCREENING Lab Routine Screening for prostate cancer Expected: 12/03/2024, Expires: 03/04/2025 [facility] Work Phone: Comment on above: Expected: 12/03/2024, Expires: Start: 11-30-2024 End: 11-30-2024 Patient encounter procedure 11/30/2024 8:40 AM EST Office Visit [facility] [address] [place] [id number] Andrea Smiley DO [address] [facility] [address] 6 month follow up Family [facility] Comment on above: 6 month follow up Start: 11-28-2024 DIABETES SCREEN DIABETES SCREEN [facility] Start: 11-17-2024 Advance Directive Discussion Advance Directive Discussion [facility] Start: 11-01-2024 End: 11-01-2024 Patient encounter procedure 11/01/2024 2:00 PM EST Office Visit [facility] [address] [place] [address] Andrea Smiley DO [address] [place], [place] [address] Follow up pneumonia [facility] Comment on above: Follow up pneumonia Start: 08-27-2024 End: 08-27-2024 Patient encounter procedure 08/27/2024 9:20 AM EDT Immunization [facility] [address] [place], [place] [phone] Noelle, Immunization Clinic Nurse [address] [place], [place] [address] Flu shot [facility] [place] Comment on above: Flu shot Start: 07-18-2024 Covid-19 Vaccine ( season) Covid-19 Vaccine ( season) [facility] Start: 07-18-2024 Covid-19 Vaccine ( season) Covid-19 Vaccine ( season) [facility] Start: 07-18-2024 Influenza vaccination Influenza Vaccine (#1) [facility] Start: 06-05-2024 BP CONTROLLED (<130/80) BP CONTROLLED (<130/80) [facility] Start: 06-02-2024 ANNUAL PCP TEAM CHRONIC DISEASE VISIT ANNUAL PCP TEAM CHRONIC DISEASE VISIT [facility] Start: 06-02-2024 BP CONTROLLED (<130/80) BP CONTROLLED (<130/80) [facility] Start: 05-27-2024 ANNUAL PCP TEAM CHRONIC DISEASE VISIT ANNUAL PCP TEAM CHRONIC DISEASE VISIT [facility] Start: 05-27-2024 BP CONTROLLED (<130/80) BP CONTROLLED (<130/80) [facility] Start: 05-27-2024 Hepatitis B surface antibody level LDL CHOLESTEROL [facility] Start: 12-09-2023 [facility] Start: 12-04-2023 End: 02-03-2024 CBC panel - Blood by Automated count CBC Lab Routine Fatigue, unspecified type Expected: 12/04/2023, Expires: 02/03/2024 [facility] Work Phone: Comment on above: Expected: 12/04/2023, Expires: Start: 12-04-2023 End: 02-03-2024 Cobalamin (Vitamin B12) [Mass/volume] in Serum or Plasma VITAMIN B12 BLOOD Lab Routine Fatigue, unspecified type Expected: 12/04/2023, Expires: 02/03/2024 [facility] Work Phone: Comment on above: Expected: 12/04/2023, Expires: Start: 12-04-2023 End: 02-03-2024 Comprehensive metabolic 2000 panel - Serum or Plasma COMP METABOLIC PANEL Lab Routine Fatigue, unspecified type Expected: 12/04/2023, Expires: 02/03/2024 [facility] Work Phone: Comment on above: Expected: 12/04/2023, Expires: 4 Start: 12-04-2023 End: 02-03-2024 Lipid 1996 panel - Serum or Plasma LIPID PANEL BASIC Lab Routine Hypercholesterolemia Dyslipidemia Expected: 12/04/2023, Expires: 02/03/2024 [facility] Work Phone: Comment on above: Expected: 12/04/2023, Expires: Start: 12-04-2023 End: 02-03-2024 PSA/PROSTSPECAG SCRN PSA/PROSTSPECAG SCRN Lab Routine Screening for prostate cancer Expected: 12/04/2023, Expires: 02/03/2024 [facility] Work Phone: Comment on above: Expected: 12/04/2023, Expires: 4 Start: 11-29-2023 ANNUAL PCP TEAM CHRONIC DISEASE VISIT ANNUAL PCP TEAM CHRONIC DISEASE VISIT [facility] Start: 11-29-2023 BP CONTROLLED (<130/80) BP CONTROLLED (<130/80) [facility] Start: 11-21-2023 Hepatitis B surface antibody level LDL CHOLESTEROL [facility] Start: 11-17-2023 Advance Directive Discussion Advance Directive Discussion [facility] Start: 10-24-2023 BP CONTROLLED (<130/80) BP CONTROLLED (<130/80) [facility] Start: 07-18-2023 Covid-19 Vaccine ( season) Covid-19 Vaccine () [facility] Start: 07-18-2023 Influenza vaccination INFLUENZA (#1) [facility] Start: 05-29-2023 End: 07-29-2023 CBC panel - Blood by Automated count CBC Lab Routine Peripheral artery disease (HCC) Atherosclerosis of [place] coronary artery of [place] heart with angina pectoris (HCC) PAD (peripheral artery disease) (HCC) Hypercholesterolemia Dyslipidemia Essential hypertension Expected: 05/29/2023, Expires: 07/29/2023 [facility] Work Phone: Comment on above: Expected: 05/29/2023, Expires: 3 Start: 05-29-2023 End: 07-29-2023 Cobalamin (Vitamin B12) [Mass/volume] in Serum or Plasma VITAMIN B12 BLOOD Lab Routine Peripheral artery disease (HCC) Atherosclerosis of [place] coronary artery of [place] heart with angina pectoris (HCC) PAD (peripheral artery disease) (HCC) Hypercholesterolemia Dyslipidemia Essential hypertension Expected: 05/29/2023, Expires: 07/29/2023 [facility] Work Phone: Comment on above: Expected: 05/29/2023, Expires: 3 Start: 05-29-2023 End: 07-29-2023 Comprehensive metabolic 2000 panel - Serum or Plasma COMP METABOLIC PANEL Lab Routine Hypercholesterolemia Expected: 05/29/2023, Expires: 07/29/2023 [facility] Work Phone: Comment on above: Expected: 05/29/2023, Expires: 3 Start: 05-29-2023 End: 07-29-2023 Hemoglobin A1c in Blood HGB A1C Lab Routine Hyperglycemia Expected: 05/29/2023, Expires: 07/29/2023 [facility] Work Phone: Comment on above: Expected: 05/29/2023, Expires: 3 Start: 05-29-2023 End: 07-29-2023 Lipid 1996 panel - Serum or Plasma LIPID PANEL BASIC Lab Routine Hypercholesterolemia Expected: 05/29/2023, Expires: 07/29/2023 [facility] Work Phone: Comment on above: Expected: 05/29/2023, Expires: 3 Start: 05-28-2023 ANNUAL PCP TEAM CHRONIC DISEASE VISIT ANNUAL PCP TEAM CHRONIC DISEASE VISIT [facility] Start: 05-28-2023 BP CONTROLLED (<130/80) BP CONTROLLED (<130/80) [facility] Start: 04-11-2023 BP CONTROLLED (<130/80) BP CONTROLLED (<130/80) [facility] Start: 01-28-2023 BP CONTROLLED (<130/80) BP CONTROLLED (<130/80) [facility] Start: 11-29-2022 End: 01-29-2023 25-hydroxyvitamin D3 [Mass/volume] in Serum or Plasma VITAMIN D 25 HYDROXY Lab Routine Vitamin D deficiency Expected: 11/29/2022, Expires: 01/29/2023 [facility] Work Phone: Comment on above: Expected: 11/29/2022, Expires: 3 Start: 11-29-2022 End: 01-29-2023 CBC panel - Blood by Automated count CBC Lab Routine Dyslipidemia Essential hypertension Expected: 11/29/2022, Expires: 01/29/2023 [facility] Work Phone: Comment on above: Expected: 11/29/2022, Expires: 3 Start: 11-29-2022 End: 01-29-2023 Comprehensive metabolic 2000 panel - Serum or Plasma COMP METABOLIC PANEL Lab Routine Dyslipidemia Essential hypertension Expected: 11/29/2022, Expires: 01/29/2023 [facility] Work Phone: Comment on above: Expected: 11/29/2022, Expires: 3 Start: 11-29-2022 End: 01-29-2023 Lipid 1996 panel - Serum or Plasma LIPID PANEL BASIC Lab Routine Dyslipidemia Expected: 11/29/2022, Expires: 01/29/2023 [facility] Work Phone: Comment on above: Expected: 11/29/2022, Expires: 3 Start: 11-29-2022 End: 01-29-2023 PSA/PROSTSPECAG SCRN PSA/PROSTSPECAG SCRN Lab Routine Screening for prostate cancer Benign prostatic hyperplasia with lower urinary tract symptoms, symptom details unspecified Expected: 11/29/2022, Expires: 01/29/2023 [facility] Work Phone: Comment on above: Expected: 11/29/2022, Expires: 3 Start: 11-28-2022 ANNUAL PCP TEAM CHRONIC DISEASE VISIT ANNUAL PCP TEAM CHRONIC DISEASE VISIT [facility] Start: 11-28-2022 Hepatitis B surface antibody level LDL CHOLESTEROL [facility] Start: 11-17-2022 ADVANCE DIRECTIVE DISCUSSION ADVANCE DIRECTIVE DISCUSSION [facility] Start: 10-12-2022 End: 04-11-2023 US CAROTID ARTERIES [facility] US CAROTID ARTERIES [facility] Vascular Lab Routine Carotid stenosis, asymptomatic, bilateral Expected: 10/12/2022, Expires: 04/11/2023 [facility] Work Phone: Comment on above: Expected: 10/12/2022, Expires: 3 Start: 07-18-2022 Influenza vaccination INFLUENZA (#1) [facility] Start: 05-29-2022 Adult depression screening assessment DEPRESSION SCREENING [facility] Start: 05-29-2022 BP Controlled (<130/80) BP Controlled (<130/80) [facility] Start: 2022 RSV Vaccine (1 - 1-dose 75+ series) RSV Vaccine (1 - 1-dose 75+ series) [facility] Start: 02-16-2022 COVID-19 VACCINE (4 - Booster for Pfizer series) COVID-19 VACCINE (4 - Booster for Pfizer series) [facility] Start: 12-13-2021 COVID-19 VACCINE (4 - Booster for Pfizer series) COVID-19 VACCINE (4 - Booster for Pfizer series) [facility] Start: 12-13-2021 COVID-19 VACCINE (4 - Pfizer series) COVID-19 VACCINE (4 - Pfizer series) [facility] Start: 11-17-2021 ADVANCE DIRECTIVE DISCUSSION ADVANCE DIRECTIVE DISCUSSION [facility] Start: 11-17-2021 DEPRESSION ASSESSMENT DEPRESSION ASSESSMENT [facility] Start: 11-28-2017 FECAL OCCULT BLOOD FECAL OCCULT BLOOD [facility] Start: 12-18-2016 Medicare Annual Wellness Visit Medicare Annual Wellness Visit [facility] Start: 2007 RSV Vaccine (1 - 1-dose 60+ series) RSV Vaccine (1 - 1-dose 60+ series) [facility] Start: 1997 SHINGRIX VACCINE (1 of 2) SHINGRIX VACCINE (1 of 2) [facility] Start: 1992 COLOGUARD (FIT-DNA) COLOGUARD (FIT-DNA) [facility] Start: [address] COLONOGRAPHY [facility] Start: 1992 SIGMOIDOSCOPY SIGMOIDOSCOPY [facility] Start: 1966 Urine microalbumin profile [facility] Patient Education Premature Vent ricular Contract Tx ED Palpitations [facility] Work Phone: Patient referral [facility] Work Phone: End: 09-30-2023 PVR LEG [facility] PVR LEG [facility] Vascular Lab Routine PAD (peripheral artery disease) (HCC) 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) 1 Occurrences starting 09/30/2022 until 09/30/2023 [facility] Work Phone: Comment on above: 1 Occurrences starting 09/30/2022 until 09/30/2023 End: 06-25-2024 Radiologic exam chest 2 views XR CHEST 2V FRONTAL/LAT Radiology Routine Acute cough 1 Occurrences starting 05/27/2023 until 06/25/2024 [facility] Work Phone: Comment on above: 1 Occurrences starting 05/27/2023 until 06/25/2024 Radiologic exam ches t 2 views XR CHEST 2V FRONTAL/LAT Radiology Routine Acute cough 05/27/2023 3:51 PM EDT [facility] Work Phone: End: 11-19-2025 US Abdominal Aorta US ABD AORTA COMPLETE [facility] Vascular Lab Routine Infrarenal abdominal aortic aneurysm (AAA) without rupture (HCC) 1 Occurrences starting 11/19/2024 until 11/19/2025 [facility] Comment on above: 1 Occurrences starting 11/19/2024 until 11/19/2025 End: 11-19-2025 US Carotid arteries - bilateral US CAROTID ARTERIES [facility] Vascular Lab Routine Carotid stenosis, asymptomatic, bilateral 1 Occurrences starting 11/19/2024 until 11/19/2025 [facility] Work Phone: Comment on above: 1 Occurrences starting 11/19/2024 until 11/19/2025 End: 11-19-2025 US.doppler Extremity arteries - bilateral for physiologic artery study at rest and with exercise PVR LEG W/EXC [facility] Vascular Lab Routine PVD (peripheral vascular disease) (HCC) 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) 1 Occurrences starting 11/19/2024 until 11/19/2025 [facility] Comment on above: 1 Occurrences starting 11/19/2024 until 11/19/2025 [facility] Immunizations Immunization Date Immunization Notes Care Provider [facility] 08-27-2024 influenza, high dose seasonal, preservative-free Immunization [facility] Work Phone: [facility] 08-27-2024 influenza virus vaccine, unspecified formulation Andrea Smiley DO Work Phone: [facility] 08-15-2023 influenza (HD-IIV4) vaccine, age 65+ yr, high dose, quadrivalent, PF (FLUZONE HIGH-DOSE) Maggie Young APRN.LOSS PREVENTION AND SAFETY MANAGER Work Phone: [facility] Work Phone: 08-15-2023 influenza virus vaccine, unspecified formulation Andrea Smiley DO Work Phone: [facility] 08-21-2022 influenza, high-dose , quadrivalent vaccine (FLUZONE HIGH DOSE QUADRIVALENT) Mi Nurse Work Phone: [facility] Work Phone: 08-11-2021 influenza, high-dose , quadrivalent vaccine (FLUZONE HIGH DOSE QUADRIVALENT) Andrea Smiley DO Work Phone: [facility] 02-08-2021 Covid (Pfizer) Dr. Andrea Morton rrison Work Phone: [facility] 01-18-2021 Covid (Pfizer) Dr. Andrea Morton rrison Work Phone: [facility] 09-09-2020 influenza, high-dose , quadrivalent vaccine (FLUZONE HIGH DOSE QUADRIVALENT) Andrea Smiley DO Work Phone: [facility] 11-05-2019 influenza, high dose seasonal, preservative-free Andrea Smiley DO Work Phone: [facility] Work Phone: 09-28-2018 influenza, high dose seasonal, preservative-free Andrea Smiley DO Work Phone: [facility] Work Phone: 01-07-2018 influenza, high dose seasonal, preservative-free Andrea Smiley DO Work Phone: [facility] Work Phone: 05-26-2017 pneumococcal polysaccharide vaccine, 23 valent Andrea Smiley DO Work Phone: [facility] 08-17-2016 influenza, injectabl e, quadrivalent, contains preservative Andrea Smiley DO Work Phone: [facility] 11-15-2015 pneumococcal conjuga te vaccine, 13 valent Andrea Smiley DO Work Phone: [facility] Work Phone: 08-31-2015 influenza, high dose seasonal, preservative-free Andrea Smiley DO Work Phone: [facility] Work Phone: 09-05-2014 influenza, seasonal, injectable Andrea Smiley DO Work Phone: [facility] Work Phone: 08-31-2010 pneumococcal polysaccharide vaccine, 23 valent Andrea Smiley DO Work Phone: [facility] Work Phone: Payers Date Payer Category Payer Self-pay [id number] 2016 Medicare MEDICARE MEDICAR E A AND B [id number] 2016-Present [phone] [address] [address] [place] [address] Medicare [id number] 2016 Medicare [id number] 2016 Medicare [id number] 2013 Unknown NATHALIE [id number] 1945 Unknown [id number] 1945 Unknown [id number] 1945 Unknown [id number] 1945 Unknown [id number] 1945 Unknown [id number] Medicare [id number] Unknown [id number] Unknown [id number] Unknown [id number] Unknown [id number] Unknown [id number] Unknown [id number] Unknown [id number] Social History Date Type Detail Facility Start: 11-28-2017 End: 10-19-2024 Tobacco smoking status NHIS Ex-smoker [facility] Work Phone: End: 04-17-2017 History of tobacco use Current smoker [facility] Work Phone: End: 04-17-2017 History of tobacco use Cigarette Smoker [facility] Work Phone: Start: 11-28-2017 End: 06-02-2023 Cigarettes smoked current (pack per day) - Reported 1 [facility] Start: 11-28-2017 End: 10-19-2024 Tobacco use and exposure Smokeless tobacco non-user [facility] Work Phone: Start: 01-28-2022 End: 05-31-2025 Alcohol intake Current non-drinker of alcohol (finding) [facility] Start: 11-27-2020 History SDOH Housing Unable to Pay 3 [facility] Start: 1945 Sex Assigned At Not on file C [facility] Start: 08-06-2021 End: 08-19-2022 Exposure to SARS-CoV-2 (event) Not sure [facility] Start: 11-27-2020 End: 06-02-2023 Social connection and isolation panel [facility] In a typical week, h ow many times do you talk on the telephone with family, friends, or neighbors? Patient refused [facility] Are you now , , , , never or living with a partner? Refused [facility] (I/We) worried lucia er (my/our) food would run out before (I/we) got money to buy more. DK or Refused [facility] Start: 12-09-2023 Tobacco smoking stat us CTIS Unknown if ever smoked [facility] Start: 12-22-2018 Non-smoker [facility] Start: 1945 Sex Assigned At Male [facility] Functional Status Date Assessment Result Facility 01-02-2019 Are you deaf, or do you have serious difficulty hearing No 01/02/2019 1:07 PM Zandra Ruiz RN No [facility] 01-02-2019 Are you blind, or do you have serious difficulty seeing, even when wearing glasses No 01/02/2019 1:07 PM Zandra Ruiz RN No [facility] 01-02-2019 Do you have serious difficulty walking or climbing stairs No 01/02/2019 1:07 PM Zandra Ruiz RN No [facility] 01-02-2019 Do you have difficul ty dressing or bathing No 01/02/2019 1:07 PM Zandra Ruiz, CAT No [facility] 01-02-2019 Because of a physica l, mental, or emotional condition, do you have difficulty doing errands alone such as visiting a physician's office or shopping No 01/02/2019 1:07 PM Zandra Ruiz RN No [facility] Mental Status Date Assessment Result Facility 12-09-2023 Cognitive function Level Of Cons ciousness Awake;Alert;Appropriate;Fol lows Commands [facility] Work Phone: 01-02-2019 Because of a physica l, mental, or emotional condition, do you have serious difficulty concentrating, remembering, or making decisions No 01/02/2019 1:07 PM Zandra Ruiz, CAT [facility] Clinical Notes 05-10-2019 to 06-01-2025 Andrea Smiley, - 06/01/2025 7:09 AM Maggie Kelley APRN.LOSS PREVENTION AND SAFETY MANAGER - 01/14/2025 2:22 PM Andrea Duran, - 11/30/2024 9:28 AM Andrea Duran, - 10/21/2024 12:53 PM EST Note Date & Type Note Facility 06-01-2025 Note HNO ID: [id number] Author: ANDREA SMILEY DO Service: ? Author Type: Physician Type: Progress Notes Filed: 06/01/2025 07:13 Note Text: CC: Porfirio Devi is a 80 year old male who presents to the office for follow up HPI: Patient was seen on 09/17/24 in the office by Derick Yuen CNP, at that time Patient presents for chest congestion, headache, fever x6 days. Reports SOB at rest, worse with exertion. Reports use of mucinex and ibuprofen at home. He was sent to the EMERGENCY DEPARTMENT per her recommendations in the office EMERGENCY DEPARTMENT visit on 09/17 at [facility] he was diagnosed with acute bronchitis and started on 5 days of levaquin once a day and prn use of albuterol by nebulizer He thought symptoms were improving, but 3 days ago felt that his symptoms were worsening again At follow up in the office on 09/28/24 as below He is struggling with increasing fatigue, coughing to the point of cough spasms that are consistent. + fatigue, chills, no fever. Some shortness of breath with coughing episodes. Took all the levaquin rx and has been using the albuterol by nebulizer as well. He is wanting to avoid going to the hospital again for care. Wondering what he needs to do next. is present during OFFICE VISIT He was treated with budesoide by nebulizer and mucinex twice a day as well as cefdinir and levaquin and albuterol prn At follow up on 10/19/2024 He feels that his cough symptoms and chest congestion and sputum production were improving with treatment as above. Then symptoms recently after having completed the course of antibiotics and budesonide by Nebulizer have started to return. Having some chest congestion and wheezing. Fatigue symptoms. No fevers or chills. Pulse ox at home in the low 90s typically No chest pressure At OFFICE VISIT on 11/01/2024 At his last appointment He was continued otn albuterol and budesonide nebulized as well as cefdinir and levaquin He states that he is feeling better. Only symptoms that remain are fatigue, decreased appetite and he is still struggling with a dry cough. Now this cough is unproductive. No fevers or chills. No hemoptysis. Bowel function is overall stable. He is taking a probiotic. Took last rx of antibiotic today At last OFFICE VISIT 11/30/2024 Cough, chest congestion, mostly resolved. Rare cough at night when laying to go to sleep. No new respiratory distress. No fevers or chills. CAD, no recent chest pressure or pain or dyspnea or palpitations, taking his medications as prescribed. Seeing [facility] specialists. Dyslipidemia, tolerating statin therapy PAD, seeing Vascular specialist in Dec. No new symptoms in legs or cardiac or neurologic Currently CAD, no recent chest pressure or pain or dyspnea or palpitations, taking his medications as prescribed. Seeing [facility] specialists. Dyslipidemia, tolerating statin therapy PAD, seeing Vascular specialist in Dec. 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 Symptoms of PAD are the worst in the AM when waking up. Seems to be improved a little from previous and improves every morning after his coffee intake. PAST MEDICAL HISTORY Diagnosis Date AAA (abdominal aortic aneurysm) Arthritis Basal cell carcinoma of neck Dr. Arie Scott Food Clerk Carotid artery stenosis Coronary artery disease stent, Dr. [facility] Heart attack (HCC) Hyperlipemia Hypertension Malignant melanoma of chest wall (HCC) Dr. Arie Scott Food Clerk Peripheral arterial disease S/P CABG x 3 12/28/2018 Sleep apnea [...] mg tablet Take 0.5 tablets by mouth two times a day. albuterol HFA (PROVENTIL HFA, VENTOLIN HFA) 90 mcg/actuation inhaler Inhale 2 puffs as instructed every 4 hours as needed for wheezing/shortness of breath. ezetimibe (ZETIA) 10 mg tablet Take 1 (more content not included)... [facility] 06-01-2025 History of Present illness Narrative CC: Porfirio Devi is a 80 year old male who presents to the office for follow up HPI: Patient was seen on 09/17/24 in the office by Derick Yuen CNP, at that time Patient presents for chest congestion, headache, fever x6 days. Reports SOB at rest, worse with exertion. Reports use of mucinex and ibuprofen at home. He was sent to the EMERGENCY DEPARTMENT per her recommendations in the office EMERGENCY DEPARTMENT visit on 09/17 at [facility] he was diagnosed with acute bronchitis and started on 5 days of levaquin once a day and prn use of albuterol by nebulizer He thought symptoms were improving, but 3 days ago felt that his symptoms were worsening again At follow up in the office on 09/28/24 as below He is struggling with increasing fatigue, coughing to the point of cough spasms that are consistent. + fatigue, chills, no fever. Some shortness of breath with coughing episodes. Took all the levaquin rx and has been using the albuterol by nebulizer as well. He is wanting to avoid going to the hospital again for care. Wondering what he needs to do next. is present during OFFICE VISIT He was treated with budesoide by nebulizer and mucinex twice a day as well as cefdinir and levaquin and albuterol prn At follow up on 10/19/2024 He feels that his cough symptoms and chest congestion and sputum production were improving with treatment as above. Then symptoms recently after having completed the course of antibiotics and budesonide by Nebulizer have started to return. Having some chest congestion and wheezing. Fatigue symptoms. No fevers or chills. Pulse ox at home in the low 90s typically No chest pressure At OFFICE VISIT on 11/01/2024 At his last appointment He was continued otn albuterol and budesonide nebulized as well as cefdinir and levaquin He states that he is feeling better. Only symptoms that remain are fatigue, decreased appetite and he is still struggling with a dry cough. Now this cough is unproductive. No fevers or chills. No hemoptysis. Bowel function is overall stable. He is taking a probiotic. Took last rx of antibiotic today At last OFFICE VISIT 11/30/2024 Cough, chest congestion, mostly resolved. Rare cough at night when laying to go to sleep. No new respiratory distress. No fevers or chills. CAD, no recent chest pressure or pain or dyspnea or palpitations, taking his medications as prescribed. Seeing [facility] specialists. Dyslipidemia, tolerating statin therapy PAD, seeing Vascular specialist in Dec. No new symptoms in legs or cardiac or neurologic Currently CAD, no recent chest pressure or pain or dyspnea or palpitations, taking his medications as prescribed. Seeing [facility] specialists. Dyslipidemia, tolerating statin therapy PAD, seeing Vascular specialist in Dec. 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 Symptoms of PAD are the worst in the AM when waking up. Seems to be improved a little from previous and improves every morning after his coffee intake. PAST MEDICAL HISTORY Diagnosis Date AAA (abdominal aortic aneurysm) Arthritis Basal cell carcinoma of neck Dr. Arie Scott Food Clerk Carotid artery stenosis Coronary artery disease stent, Dr. [facility] Heart attack (HCC) Hyperlipemia Hypertension Malignant melanoma of chest wall (HCC) Dr. Arie Scott Food Clerk Peripheral arterial disease S/P CABG x 3 12/28/2018 Sleep apnea [...] mg tablet Take 0.5 tablets by mouth two times a day. albuterol HFA (PROVENTIL HFA, VENTOLIN HFA) 90 mcg/actuation inhaler Inhale 2 puffs as instructed every 4 hours as needed for wheezing/shortness of breath. ezetimibe (ZETIA) 10 mg tablet Take 1 tablet by mouth once daily. pravastatin (PRAVACHOL) 10 mg tablet Take 1 tablet by mouth daily at bedtime. amLODIPine (NORVASC) 10 mg tablet Take 1 tablet by mouth once daily. levoFLOXacin (LEVAQUIN) 500 mg tablet Take 1 tablet by mouth once daily for 14 days. predniSONE (DELTASONE) 20 mg tablet Take 2 tablets by mouth once daily for 7 days. cilostazol (PLETAL) 100 mg tablet Take 1 tablet by mouth two times a day. albuterol (PROVENTIL) 2.5 mg /3 mL (0.083 %) nebulizer solution Use 3 mL via nebulizer every 4 hours as needed for wheezing/shortness of breath. Use over 5-15minutes. (Patient not taking: Reported on 01/06/2025) budesonide (PULMICORT) 0.5 mg/2 mL nebulizer solution Use 2 mL via nebulizer once daily. (Patient not taking: Reported on 01/06/2025) acetaminophen (TYLENOL) 325 mg tablet Take 2 tablets by mouth every 6 hours as needed. MULTIVITAMIN/IRON/FOLIC ACID (CENTRUM COMPLETE ORAL) Take by mouth. No current facility-administered medications for this visit. ALLERGIES Allergen Reactions Codeine Other: See Comments Disturbing dreams Lipitor [Atorvastat* Myalgia Severe arthralgias or myalgia Penicillins Hives, Itching Sweats-severe Zruwore-Tat-Aev Red* Myalgia Severe myalgia Social History Tobacco Use Smoking status: Former Current packs/day: 0.00 Types: Cigarettes Quit date: 04/17/2017 Years since quittin.1 Smokeless tobacco: Never Vaping Use Vaping status: Never Used Substance Use Topics Alcohol use: No Drug use: No ROS: See HPI PE: BP 100/60 Pulse 56 Temp (Src) 97 (Right Tympanic) Resp 20 Wt 161 lb (73.0kg) Gen: A&O, NAD, non-toxic appearing, Pleasant, cooperative [...] on exposed skin. No edema ASSESSMENT/PLAN: 1. Screening for prostate cancer - ICD9: V76.44, ICD10: Z12.5 (primary diagnosis) - Counseled on healthy diet and regular exercise - PSA/PROSTATE SPECIFIC ANTIGEN SCREENING 2. PAD (peripheral artery disease) - ICD9: 443.9, ICD10: I73.9 Labs in 6 months Stable symptoms Continue same medication - EZETIMIBE 10 MG TABLET - COMPREHENSIVE METABOLIC PANEL - LIPID PANEL, FASTING - COMPLETE BLOOD COUNT 3. Hypercholesterolemia - ICD9: 272.0, ICD10: E78.00 Labs in 6 months Stable symptoms Continue same medication - EZETIMIBE 10 MG TABLET - COMPREHENSIVE METABOLIC PANEL - LIPID PANEL, FASTING - COMPLETE BLOOD COUNT 4. Atherosclerosis of [place] coronary artery of [place] heart with angina pectoris - ICD9: 414.01, 413.9, ICD10: I25.119 Labs in 6 months Stable symptoms Continue same medication - EZETIMIBE 10 MG TABLET - COMPREHENSIVE METABOLIC PANEL - LIPID PANEL, FASTING - COMPLETE BLOOD COUNT 5. Vitamin D deficiency - ICD9: 268.9, ICD10: E55.9 Increase dose of supplement as d/w him today - VITAMIN D 25 HYDROXY 6. Vitamin B12 deficiency - ICD9: 266.2, ICD10: E53.8 Increase dose of supplement as d/w him today - VITAMIN B12 7. Hyperglycemia - ICD9: 790.29, ICD10: R73.9 Chronic, stable - HEMOGLOBIN A1C Andrea Deon Smiley DO Return if no improvement. Follow up with Andrea Smiley DO. To ER if develops chest pain, shortness of breath. Discussed risks, benefits, alternatives, and potential side effects of medications. Patient/Guardian expressed understanding and agreed with the plan. See patient instructions. Andrea Smiley DO [address] [place] [address] documented in this encounter [facility] 01-14-2025 Note HNO ID: [id number] Author: MAGGIE YOUNG APRN.LOSS PREVENTION AND SAFETY MANAGER Service: ? Author Type: Nurse Practitioner Type: Progress Notes Filed: 01/14/2025 15:09 Note Text: Porfirio Devi is a 79 year old male here for follow up evaluation of his peripheral vascular disease. He was last seen 12/12/23, and by Dr. Irving 06/05/23. He is also seen for carotid stenosis and AAA. Pts history includes: Dr Canela placed 7x200 stents x 2 from the L [employer] through the L popliteal artery on for claudication. The pt had a pre-procedure RITA of 0.65. While this initially improved his symptoms and he was able to walk his normal 1-3 miles at a time, his stents went down within a year and his symptoms returned. Per Dr. Irving, his L stent covers both his profunda as well as his popliteal. He understands that if the profunda occludes, he could be at risk for limb loss. The pt has had his L gsv harvested for a CABG done in 2019. Today, Mr. Devi reports that he does have claudication symptoms that have been stable for quite some time. 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 He takes the cart out now to the [place], but still walks a lot with the dogs. We again reviewed that as long as he has claudication alone - no tissue loss or rest pain - there is really no indication for surgery and intervention now would increase risk of subsequent amputation. Discussed indications including rest pain, non healing wounds, and severe claudication that is lifestyle limiting. He states he still heals wounds fairly quickly. TESTING: PVR done 12/31/24: R RITA is 0.79, L RITA is 0.68, with drop in R to 0.38 and L to 0.00. Carotid US done 12/31/24: R ICA <50% L ICA 50-69% stenosis. Abd US done 12/31/24: infrarenal AAA 3.3cm He is on plavix, statin, pletal. He is a former smoker - quit in 2017. His symptoms include: Claudication: Yes Location: [place] Distance: not quite 1/2 mile Rest pain: No Tissue loss: No The patient is following the walking program as much as possible. We again reviewed the walking program and [...] of amputation, and importance of preventative measures. HISTORIES: PAST MEDICAL HISTORY Diagnosis Date AAA (abdominal aortic aneurysm) (HCC) Arthritis Basal cell carcinoma of neck Dr. Arie Scott Food Clerk Carotid artery stenosis Coronary artery disease stent, Dr. And[facility] Heart attack ([facility]) Hyperlipemia Hypertension Malignant melanoma of chest wall (HCC) Dr. 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 Sleep apnea [...] PAST SURGICAL HISTORY OF Left 04/06/2019 Dr. R Cebul; Abd pelvic LLE arteriogram. L superficial femoral cros angioplasty. L superficial femoral stenting x2 SKIN BIOPSY HX STENT PLACEMENT 2003 heart VASCULAR SURGERY PROCEDURE Social History Tobacco Use Smoking status: Former Current packs/day: 0.00 Types: Cigarettes Quit date: 04/17/2017 Years since quittin.7 Smokeless tobacco: Never Vaping Use Vaping status: Never Used Substance Use Topics Alcohol use: No Drug use: No MEDICATIONS: Current Outpatient Medications Medication Sig Dispense Refill cilostazol (PLETAL) 100 mg tablet Take 1 tablet by mouth two times a day. 180 tablet 3 amLODIPine (NORVASC) 10 mg tablet Take 1 tablet by mouth once daily. 90 tablet 3 clopidogrel (PLAVIX) 75 mg tablet Take 1 tablet by mouth once daily. 90 tablet 3 ezetimibe (ZETIA) 10 mg tablet Take 1 tablet by mouth once daily. 90 tablet 3 pravastatin (PRAVACHOL) 10 mg tablet Take 1 tablet by mouth daily at bedtime. 90 tablet 3 metoprolol tartrate, short acting, (LOPRESSOR) 50 mg tablet Take 0.5 tablets by mouth two times a day. 60 tablet 5 acetaminophen (TYLENOL) 325 mg tablet Take 2 tablets by mouth every 6 hours as needed. MULTIVITAMIN/IRON/FOLIC ACI (more content not included)... [facility] 01-14-2025 History of Present illness Narrative Porfirio Devi is a 79 year old male here for follow up evaluation of his peripheral vascular disease. He was last seen 12/12/23, and by Dr. Irving 06/05/23. He is also seen for carotid stenosis and AAA. Pts history includes: Dr Canela placed 7x200 stents x 2 from the L [employer] through the L popliteal artery on for claudication. The pt had a pre-procedure RITA of 0.65. While this initially improved his symptoms and he was able to walk his normal 1-3 miles at a time, his stents went down within a year and his symptoms returned. Per Dr. Irving, his L stent covers both his profunda as well as his popliteal. He understands that if the profunda occludes, he could be at risk for limb loss. The pt has had his L gsv harvested for a CABG done in 2019. Today, Mr. Devi reports that he does have claudication symptoms that have been stable for quite some time. 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 He [place] cart out now to [place], but still walks a lot with the dogs. We again reviewed that as long as he has claudication alone - no tissue loss or rest pain - there is really no indication for surgery and intervention now would increase risk of subsequent amputation. Discussed indications including rest pain, non healing wounds, and severe claudication that is lifestyle limiting. He states he still heals wounds fairly quickly. TESTING: PVR done 12/31/24: R RITA is 0.79, L RITA is 0.68, with drop in R to 0.38 and L to 0.00. Carotid US done 12/31/24: R ICA <50% L ICA 50-69% stenosis. Abd US done 12/31/24: infrarenal AAA 3.3cm He is on plavix, statin, pletal. He is a former smoker - quit in 2017. His symptoms include: Claudication: Yes Location: [place] Distance: not quite 1/2 mile Rest pain: No Tissue loss: No The patient is following the walking program as much as possible. We again reviewed the walking program and [...] of amputation, and importance of preventative measures. HISTORIES: PAST MEDICAL HISTORY Diagnosis Date AAA (abdominal aortic aneurysm) (HCC) Arthritis Basal cell carcinoma of neck Dr. Arie Scott Food Clerk Carotid artery stenosis Coronary artery disease stent, Dr. [facility] Heart attack ([facility]) Hyperlipemia Hypertension Malignant melanoma of chest wall ([facility]) Dr. 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 Sleep apnea [...] Social History Tobacco Use Smoking status: Former Current packs/day: 0.00 Types: Cigarettes Quit date: 04/17/2017 Years since quittin.7 Smokeless tobacco: Never Vaping Use Vaping status: Never Used Substance Use Topics Alcohol use: No Drug use: No MEDICATIONS: Current Outpatient Medications Medication Sig Dispense Refill cilostazol (PLETAL) 100 mg tablet Take 1 tablet by mouth two times a day. 180 tablet 3 amLODIPine (NORVASC) 10 mg tablet Take 1 tablet by mouth once daily. 90 tablet 3 clopidogrel (PLAVIX) 75 mg tablet Take 1 tablet by mouth once daily. 90 tablet 3 ezetimibe (ZETIA) 10 mg tablet Take 1 tablet by mouth once daily. 90 tablet 3 pravastatin (PRAVACHOL) 10 mg tablet Take 1 tablet by mouth daily at bedtime. 90 tablet 3 metoprolol tartrate, short acting, (LOPRESSOR) 50 mg tablet Take 0.5 tablets by mouth two times a day. 60 tablet 5 acetaminophen (TYLENOL) 325 mg tablet Take 2 tablets by mouth every 6 hours as needed. MULTIVITAMIN/IRON/FOLIC ACID (CENTRUM COMPLETE ORAL) Take by mouth. albuterol HFA (PROVENTIL HFA, VENTOLIN HFA) 90 mcg/actuation inhaler Inhale 2 Puffs as instructed every 4 hours as needed for wheezing/shortness of breath. (Patient not taking: Reported on 01/06/2025) 2 Each 2 albuterol (PROVENTIL) 2.5 mg /3 mL (0.083 %) nebulizer solution Use 3 mL via nebulizer every 4 hours as needed for wheezing/shortness of breath. Use over 5-15minutes. (Patient not taking: Reported on 01/06/2025) 90 mL 2 budesonide (PULMICORT) 0.5 mg/2 mL nebulizer solution Use 2 mL via nebulizer once daily. (Patient not taking: Reported on 01/06/2025) 60 mL 0 No current facility-administered medications for this visit. ALLERGIES: ALLERGIES Allergen Reactions Codeine Other: See Comments Disturbing dreams Lipitor [Atorvastat* Myalgia Severe arthralgias or myalgia Penicillins Hives, Itching Sweats-severe Zcuckro-Uhn-Bcs Red* Myalgia Severe myalgia VITAL SIGNS: BP 102/60 (BP Site: Left Arm, BP Position: Sitting, BP Cuff Size: Large Adult) Pulse 69 Ht 5' 7 (1.702 m) Wt 157 lb (71.2 kg) SpO2 99% BMI 24.59 kg/m PHYSICAL EXAM: General appearance: Well appearing, alert, in no acute distress, well-hydrated, well nourished. Skin: Skin color, texture, turgor normal, no suspicious rashes or lesions Head: Normocephalic, no masses, lesions, tenderness or abnormalities. Eyes: Anicteric sclera. Extraocular movements are intact. Ears: External ears normal, hearing is adequate. Neck: Supple, no bruits. Lungs: Breathing is easy and unlabored. Heart: Pulse is regular Extremities: No deformities, edema, skin discoloration, clubbing or cyanosis. Good capillary refill. Musculoskeletal: No joint swelling, deformity, or tenderness Peripheral pulses: not palpable B Neuro: Gait steady. Normal cognition and motor skills. Strength and sensation grossly intact. Pulses: R DP audible PT audible L DP audible PT audible Tissue loss: None ASSESSMENT: Peripheral Vascular Occlusive Disease, FCO, AAA: [...] patient and his family's satisfaction. PLAN: Continue plavix, statin, pletal Carotid US, PVR w/exercise, and Abd US in 1 year Continue to refrain from nicotine Continue good foot care and skin surveillance Continue walking program as much as possible FOLLOW UP: Pt will follow-up in 1 year after testing. He is encouraged to call with any questions or concerns in the meantime. The patient is currently taking a statin: Yes The patient is currently taking aspirin: No. Reason: Plavix & Pletal I spent 30 minutes in the visit, with more than 50% of the total deid-ao-aodt time of the visit in counseling / coordination of care. Maggie Young APRN.JOHN documented in this encounter [facility] 11-30-2024 Note HNO ID: [id number] Author: ANDREA SMILEY, DO Service: ? Author Type: Physician Type: Progress Notes Filed: 11/30/2024 09:33 Note Text: CC: Porfirio Devi is a 79 year old male who presents to the office for 6 months follow up HPI: Patient was seen on 09/17/24 in the office by Derick Yuen CNP, at that time Patient presents for chest congestion, headache, fever x6 days. Reports SOB at rest, worse with exertion. Reports use of mucinex and ibuprofen at home. He was sent to the EMERGENCY DEPARTMENT per her recommendations in the office EMERGENCY DEPARTMENT visit on 09/17 at [facility] he was diagnosed with acute bronchitis and started on 5 days of levaquin once a day and prn use of albuterol by nebulizer He thought symptoms were improving, but 3 days ago felt that his symptoms were worsening again At follow up in the office on 09/28/24 as below He is struggling with increasing fatigue, coughing to the point of cough spasms that are consistent. + fatigue, chills, no fever. Some shortness of breath with coughing episodes. Took all the levaquin rx and has been using the albuterol by nebulizer as well. He is wanting to avoid going to the hospital again for care. Wondering what he needs to do next. is present during OFFICE VISIT He was treated with budesoide by nebulizer and mucinex twice a day as well as cefdinir and levaquin and albuterol prn At follow up on 10/19/2024 He feels that his cough symptoms and chest congestion and sputum production were improving with treatment as above. Then symptoms recently after having completed the course of antibiotics and budesonide by Nebulizer have started to return. Having some chest congestion and wheezing. Fatigue symptoms. No fevers or chills. Pulse ox at home in the low 90s typically No chest pressure At last OFFICE VISIT on 11/01/2024 At his last appointment He was continued otn albuterol and budesonide nebulized as well as cefdinir and levaquin He states that he is feeling better. Only symptoms that remain are fatigue, decreased appetite and he is still struggling with a dry cough. Now this cough is unproductive. No fevers or chills. No hemoptysis. Bowel function is overall stable. He is taking a probiotic. Took last rx of antibiotic today Currently Cough, chest congestion, mostly resolved. Rare cough at night when laying to go to sleep. No new respiratory distress. No fevers or chills. CAD, no recent chest pressure or pain or dyspnea or palpitations, taking his medications as prescribed. Seeing [place] [facility] office specialists. Dyslipidemia, tolerating statin therapy PAD, seeing Vascular specialist in Dec. No new symptoms in legs or cardiac or neurologic PAST MEDICAL HISTORY Diagnosis Date AAA (abdominal aortic aneurysm) (HCC) Arthritis Basal cell carcinoma of neck Dr. Arie Scott Food Clerk Carotid artery stenosis Coronary artery disease stent, Dr. [facility] Heart attack (HCC) Hyperlipemia Hypertension Malignant melanoma of chest wall (HCC) Dr. 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 Sleep apnea [...] SURGERY PROCEDURE Current Outpatient Medications Medication Sig levoFLOXacin (LEVAQUIN) 500 mg tablet Take 1 tablet by mouth once daily for 14 days. predniSONE (DELTASONE) 20 mg tablet Take 2 tablets by mouth once daily for 7 days. cilostazol (PLETAL) 100 mg tablet Take 1 tablet by mouth two times a day. albuterol HFA (PROVENTIL HFA, VENTOLIN HFA) 90 mcg/actuation inhaler Inhale 2 Puffs as instructed every 4 hours as needed for wheezing/shortness of breath. albuterol (PROVENTIL) 2.5 mg /3 mL (0.083 %) nebulizer solution Use 3 mL via nebulizer every 4 hours as needed for wheezing/shortness of breath. Use over 5-15minutes. budesonide (PULMICORT) 0.5 mg/2 mL nebulizer solution Use 2 mL via nebulizer once daily. amLODIPine (NORVASC) 10 mg tablet Take 1 tablet by mouth once daily. clopidogrel (PLAVIX) 75 mg tablet Take 1 tablet by mouth once daily. ezetimibe (ZETIA) 10 mg tablet Take 1 tablet by mouth once daily. pravastatin (PRAVACHOL) 10 mg tablet Take 1 tab (more content not included)... [facility] 11-30-2024 History of Present illness Narrative CC: Porfirio Devi is a 79 year old male who presents to the office for 6 months follow up HPI: Patient was seen on 09/17/24 in the office by Derick Yuen LOSS PREVENTION AND SAFETY MANAGER, at that time Patient presents for chest congestion, headache, fever x6 days. Reports SOB at rest, worse with exertion. Reports use of mucinex and ibuprofen at home. He was sent to the EMERGENCY DEPARTMENT per her recommendations in the office EMERGENCY DEPARTMENT visit on 09/17 at [facility] he was diagnosed with acute bronchitis and started on 5 days of levaquin once a day and prn use of albuterol by nebulizer He thought symptoms were improving, but 3 days ago felt that his symptoms were worsening again At follow up in the office on 09/28/24 as below He is struggling with increasing fatigue, coughing to the point of cough spasms that are consistent. + fatigue, chills, no fever. Some shortness of breath with coughing episodes. Took all the levaquin rx and has been using the albuterol by nebulizer as well. He is wanting to avoid going to the hospital again for care. Wondering what he needs to do next. is present during OFFICE VISIT He was treated with budesoide by nebulizer and mucinex twice a day as well as cefdinir and levaquin and albuterol prn At follow up on 10/19/2024 He feels that his cough symptoms and chest congestion and sputum production were improving with treatment as above. Then symptoms recently after having completed the course of antibiotics and budesonide by Nebulizer have started to return. Having some chest congestion and wheezing. Fatigue symptoms. No fevers or chills. Pulse ox at home in the low 90s typically No chest pressure At last OFFICE VISIT on 11/01/2024 At his last appointment He was continued otn albuterol and budesonide nebulized as well as cefdinir and levaquin He states that he is feeling better. Only symptoms that remain are fatigue, decreased appetite and he is still struggling with a dry cough. Now this cough is unproductive. No fevers or chills. No hemoptysis. Bowel function is overall stable. He is taking a probiotic. Took last rx of antibiotic today Currently Cough, chest congestion, mostly resolved. Rare cough at night when laying to go to sleep. No new respiratory distress. No fevers or chills. CAD, no recent chest pressure or pain or dyspnea or palpitations, taking his medications as prescribed. Seeing [place] [facility] specialists. Dyslipidemia, tolerating statin therapy PAD, seeing Vascular specialist in Dec. No new symptoms in legs or cardiac or neurologic PAST MEDICAL HISTORY Diagnosis Date AAA (abdominal aortic aneurysm) (HCC) Arthritis Basal cell carcinoma of neck Dr. Arie Scott Food Clerk Carotid artery stenosis Coronary artery disease stent, Dr. [facility] Heart attack ([facility]) Hyperlipemia Hypertension Malignant melanoma of chest wall ([facility]) Dr. 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 Sleep apnea [...] SURGERY PROCEDURE Current Outpatient Medications Medication Sig levoFLOXacin (LEVAQUIN) 500 mg tablet Take 1 tablet by mouth once daily for 14 days. predniSONE (DELTASONE) 20 mg tablet Take 2 tablets by mouth once daily for 7 days. cilostazol (PLETAL) 100 mg tablet Take 1 tablet by mouth two times a day. albuterol HFA (PROVENTIL HFA, VENTOLIN HFA) 90 mcg/actuation inhaler Inhale 2 Puffs as instructed every 4 hours as needed for wheezing/shortness of breath. albuterol (PROVENTIL) 2.5 mg /3 mL (0.083 %) nebulizer solution Use 3 mL via nebulizer every 4 hours as needed for wheezing/shortness of breath. Use over 5-15minutes. budesonide (PULMICORT) 0.5 mg/2 mL nebulizer solution Use 2 mL via nebulizer once daily. amLODIPine (NORVASC) 10 mg tablet [...] mg tablet Take 0.5 tablets by mouth two times a day. acetaminophen (TYLENOL) 325 mg tablet Take 2 tablets by mouth every 6 hours as needed. MULTIVITAMIN/IRON/FOLIC ACID (CENTRUM COMPLETE ORAL) Take by mouth. No current facility-administered medications for this visit. ALLERGIES Allergen Reactions Codeine Other: See Comments Disturbing dreams Lipitor [Atorvastat* Myalgia Severe arthralgias or myalgia Penicillins Hives, Itching Sweats-severe Ecpxhxi-Xua-Ijw Red* Myalgia Severe myalgia Social History Tobacco Use Smoking status: Former Current packs/day: 0.00 Types: Cigarettes Quit date: 04/17/2017 Years since quittin.6 Smokeless tobacco: Never Vaping Use Vaping status: Never Used Substance Use Topics Alcohol use: No Drug use: No ROS: See HPI PE: BP 110/60 Pulse 72 Temp (Src) 97 (Temporal) Resp 24 Wt 157 lb (71.2kg) SpO2 96% Gen: A&O, NAD, non-toxic appearing, Pleasant, cooperative [...] CTA b/l, no wheezing or rhonchi or rales, intermittent dry cough Abd: soft, NT, ND, +BS, no hepatosplenomegaly MS: FROM all 4 extremities Neuro: CN II-XII intact b/l, strength 5/5 b/l UE and LE, DTRs 2/4 UE and LE, sensation intact. Skin: warm, dry, intact, No rashes or lesions on exposed skin. No edema ASSESSMENT/PLAN: 1. PAD (peripheral artery disease) (HCC) - ICD9: 443.9, ICD10: I73.9 (primary diagnosis) Recheck labs in 6 months Stable, f/u with Vascular specialist - LIPID PANEL BASIC - THYROID STIMULATING HORMONE 2. Hypercholesterolemia - ICD9: 272.0, ICD10: E78.00 Recheck labs in 6 months Stable, f/u with Vascular specialist - COMPREHENSIVE METABOLIC PANEL - COMPLETE BLOOD COUNT - LIPID PANEL BASIC - THYROID STIMULATING HORMONE 3. Essential hypertension - ICD9: 401.9, ICD10: I10 - Controlled - Continue current medications - Recommend home blood pressure monitoring, to bring results to next visit - Encouraged sodium restriction, DASH or Mediterranean diet - Recommend regular aerobic exercise - THYROID STIMULATING HORMONE 4. Atherosclerosis of [place] coronary artery of [place] heart with angina pectoris (HCC) - ICD9: 414.01, 413.9, ICD10: I25.119 Stable, no new symptoms 5. Vitamin D deficiency - ICD9: 268.9, ICD10: E55.9 Continue supplement - VITAMIN D 25 HYDROXY 6. Vitamin B12 deficiency - ICD9: 266.2, ICD10: E53.8 Continue supplement - VITAMIN B12 7. Fatigue, unspecified type - ICD9: 780.79, ICD10: R53.83 Recovering from recent pneumonia He is drinking 2 protein shakes a day and this is helping symptoms 8. Hyperglycemia - ICD9: 790.29, ICD10: R73.9 - HEMOGLOBIN A1C Andrea Smiley DO Return if no improvement. Follow up with Andrea Smiley DO. To ER if develops chest pain, shortness of breath. Discussed risks, benefits, alternatives, and potential side effects of medications. Patient/Guardian expressed understanding and agreed with the plan. See patient instructions. Andrea Smiley DO [address] [place] [address] documented in this encounter [facility] 11-19-2024 Telephone encounter Note Transferred Pt to then schedule office visit with on . Annual F/up - PVD (peripheral vascular disease); Atherosclerosis 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; Carotid stenosis, asymptomatic, bilateral *US abd aorta, PVR leg, US carotid arteries prior* (JZ) [facility] 11-19-2024 Miscellaneous Notes Transferred Pt to then schedule office visit with on . Annual F/up - PVD (peripheral vascular disease); Atherosclerosis 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; Carotid stenosis, asymptomatic, bilateral *US abd aorta, PVR leg, US carotid arteries prior* (JZ) documented in this encounter [facility] 11-02-2024 Note HNO ID: [id number] Author: ANDREA SMILEY, DO Service: ? Author Type: Physician Type: Progress Notes Filed: 11/02/2024 08:32 Note Text: CC: Porfirio Devi is a 79 year old male who presents to the office for follow up HPI: Patient was seen on 09/17/24 in the office by Derick Yuen CNP, at that time Patient presents for chest congestion, headache, fever x6 days. Reports SOB at rest, worse with exertion. Reports use of mucinex and ibuprofen at home. He was sent to the EMERGENCY DEPARTMENT per her recommendations in the office EMERGENCY DEPARTMENT visit on 09/17 at [facility] he was diagnosed with acute bronchitis and started on 5 days of levaquin once a day and prn use of albuterol by nebulizer He thought symptoms were improving, but 3 days ago felt that his symptoms were worsening again At follow up in the office on 09/28/24 as below He is struggling with increasing fatigue, coughing to the point of cough spasms that are consistent. + fatigue, chills, no fever. Some shortness of breath with coughing episodes. Took all the levaquin rx and has been using the albuterol by nebulizer as well. He is wanting to avoid going to the hospital again for care. Wondering what he needs to do next. is present during OFFICE VISIT He was treated with budesoide by nebulizer and mucinex twice a day as well as cefdinir and levaquin and albuterol prn At follow up on 10/19/2024 He feels that his cough symptoms and chest congestion and sputum production were improving with treatment as above. Then symptoms recently after having completed the course of antibiotics and budesonide by Nebulizer have started to return. Having some chest congestion and wheezing. Fatigue symptoms. No fevers or chills. Pulse ox at home in the low 90s typically No chest pressure Currently At his last appointment He was continued otn albuterol and budesonide nebulized as well as cefdinir and levaquin He states that he is feeling better. Only symptoms that remain are fatigue, decreased appetite and he is still struggling with a dry cough. Now this cough is unproductive. No fevers or chills. No hemoptysis. Bowel function is overall stable. He is taking a probiotic. Took last rx of antibiotic today PAST MEDICAL HISTORY Diagnosis Date AAA (abdominal aortic aneurysm) (HCC) Arthritis Basal cell carcinoma of neck Dr. Arie Scott Food Clerk Carotid artery stenosis Coronary artery disease stent, Dr. [facility] [employer] Heart attack (HCC) Hyperlipemia Hypertension Malignant melanoma of chest wall (HCC) Dr. Arie Scott Food Clerk Peripheral arterial disease (HCC) S/P CABG x [...] SURGERY PROCEDURE Current Outpatient Medications Medication Sig albuterol HFA (PROVENTIL HFA, VENTOLIN HFA) 90 mcg/actuation inhaler Inhale 2 Puffs as instructed every 4 hours as needed for wheezing/shortness of breath. levoFLOXacin (LEVAQUIN) 500 mg tablet Take 1 tablet by mouth once daily for 14 days. albuterol (PROVENTIL) 2.5 mg /3 mL (0.083 %) nebulizer solution Use 3 mL via nebulizer every 4 hours as needed for wheezing/shortness of breath. Use over 5-15minutes. budesonide (PULMICORT) 0.5 mg/2 mL nebulizer solution Use 2 mL via nebulizer once daily. cefdinir (OMNICEF) 300 mg capsule Take 1 capsule by mouth two times a day for 14 days. amLODIPine (NORVASC) 10 mg tablet Take 1 tablet by mouth once daily. clopidogrel (PLAVIX) 75 mg tablet Take 1 tablet by mouth once daily. ezetimibe (ZETIA) 10 mg tablet Take 1 tablet by mouth once daily. pravastatin (PRAVACHOL) 10 mg tablet Take 1 tablet by mouth daily at bedtime. metoprolol tartrate, short acting, (LOPRESSOR) 50 mg tablet Take 0.5 tablets by mouth two times a day. acetaminophen (TYLENOL) 325 mg tablet Take 2 tablets by mouth every 6 hours as needed. MULTIVITAMIN/IRON/FOLIC ACID (CENTRUM COMPLETE ORAL) Take by mouth. No current facility-administered medications for this visit. ALLERGIES Allergen Reactions Codeine Other: See Comments Disturbing dreams Lipitor [Atorvastat* Myalgia Severe arthralgias or myalgia Penicillins Hives, Itching Sweats-severe (more content not included)... [facility] 10-21-2024 Note HNO ID: [id number] Author: ANDREA SMILEY, DO Service: ? Author Type: Physician Type: Progress Notes Filed: 10/21/2024 12:56 Note Text: CC: Porfirio Devi is a 79 year old male who presents to the office for follow up HPI: Patient was seen on 09/17/24 in the office by Derick Yuen CNP, at that time Patient presents for chest congestion, headache, fever x6 days. Reports SOB at rest, worse with exertion. Reports use of mucinex and ibuprofen at home. He was sent to the EMERGENCY DEPARTMENT per her recommendations in the office EMERGENCY DEPARTMENT visit on 09/17 at [facility] he was diagnosed with acute bronchitis and started on 5 days of levaquin once a day and prn use of albuterol by nebulizer He thought symptoms were improving, but 3 days ago felt that his symptoms were worsening again At follow up in the office on 09/28/24 as below He is struggling with increasing fatigue, coughing to the point of cough spasms that are consistent. + fatigue, chills, no fever. Some shortness of breath with coughing episodes. Took all the levaquin rx and has been using the albuterol by nebulizer as well. He is wanting to avoid going to the hospital again for care. Wondering what he needs to do next. is present during OFFICE VISIT He was treated with budesoide by nebulizer and mucinex twice a day as well as cefdinir and levaquin and albuterol prn Currently He feels that his cough symptoms and chest congestion and sputum production were improving with treatment as above. Then symptoms recently after having completed the course of antibiotics and budesonide by Nebulizer have started to return. Having some chest congestion and wheezing. Fatigue symptoms. No fevers or chills. Pulse ox at home in the low 90s typically No chest pressure PAST MEDICAL HISTORY Diagnosis Date AAA (abdominal aortic aneurysm) ([facility]) Arthritis Basal cell carcinoma of neck Dr. Arie Scott Food Clerk Carotid artery stenosis Coronary artery disease stent, Dr. [facility] [employer] Heart attack ([facility]) Hyperlipemia Hypertension Malignant melanoma of chest wall ([facility]) Dr. 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 Sleep apnea [...] PLACEMENT 2003 heart VASCULAR SURGERY PROCEDURE Social History: Social History Tobacco Use Smoking status: Former Current packs/day: 0.00 Types: Cigarettes Quit date: 04/17/2017 Years since quittin.5 Smokeless tobacco: Never Vaping Use Vaping status: Never Used Substance Use Topics Alcohol use: No Drug use: No FAMILY HISTORY Problem Relation Age of Onset Aneurysm Father brain, 52 Stroke Mother at 80 Heart Paternal Grandfather Current Outpatient prescriptions: albuterol (PROVENTIL) 2.5 mg /3 mL (0.083 %) nebulizer solution Use 3 mL via nebulizer every 4 hours as needed for wheezing/shortness of breath. Use over 5-15minutes. budesonide (PULMICORT) 0.5 mg/2 mL nebulizer solution Use 2 mL via nebulizer once daily. cefdinir (OMNICEF) 300 mg capsule Take 1 capsule by mouth two times a day for 14 days. levoFLOXacin (LEVAQUIN) 500 mg tablet Take 1 tablet by mouth once daily for 14 days. amLODIPine (NORVASC) 10 mg tablet Take 1 tablet by mouth once daily. clopidogrel (PLAVIX) 75 mg tablet Take 1 tablet by mouth once daily. ezetimibe (ZETIA) 10 mg tablet Take 1 tablet by mouth once daily. pravastatin (PRAVACHOL) 10 mg tablet Take 1 tablet by mouth daily at bedtime. metoprolol tartrate, short acting, (LOPRESSOR) 50 mg tablet Take 0.5 tablets by mouth two times a day. acetaminophen (TYLENOL) 325 mg tablet Take 2 tablets by mouth every 6 hours as needed. MULTIVITAMIN/IRON/FOLIC ACID (CENTRUM COMPLETE ORAL) Take by mouth. Allergies: ALLERGIES Allergen Reactions Codeine Other: See Comments Disturbing dreams Lipitor [Atorvastat* Myalgia Severe arthralgias or myalgia Penicillins Hives, Itching Sweats-severe Ckttzlh-Eti-Fuj Red* Myalgia Severe myalgia ROS: See HPI PE: 10/19/24 1243 BP: 100/56 Pulse: 78 Resp: (!) 36 Temp: 36.3 ?C (97.4 ?F) TempSrc: Temporal SpO2: 95% Weight: 73.2 kg (161 lb 6 oz) Gen: AANDOX3, (more content not included)... [facility] 10-21-2024 History of Present illness Narrative CC: Porfirio Devi is a 79 year old male who presents to the office for follow up HPI: Patient was seen on 09/17/24 in the office by Derick Yuen CNP, at that time Patient presents for chest congestion, headache, fever x6 days. Reports SOB at rest, worse with exertion. Reports use of mucinex and ibuprofen at home. He was sent to the EMERGENCY DEPARTMENT per her recommendations in the office EMERGENCY DEPARTMENT visit on 09/17 at [facility] he was diagnosed with acute bronchitis and started on 5 days of levaquin once a day and prn use of albuterol by nebulizer He thought symptoms were improving, but 3 days ago felt that his symptoms were worsening again At follow up in the office on 09/28/24 as below He is struggling with increasing fatigue, coughing to the point of cough spasms that are consistent. + fatigue, chills, no fever. Some shortness of breath with coughing episodes. Took all the levaquin rx and has been using the albuterol by nebulizer as well. He is wanting to avoid going to the hospital again for care. Wondering what he needs to do next. is present during OFFICE VISIT He was treated with budesoide by nebulizer and mucinex twice a day as well as cefdinir and levaquin and albuterol prn Currently He feels that his cough symptoms and chest congestion and sputum production were improving with treatment as above. Then symptoms recently after having completed the course of antibiotics and budesonide by Nebulizer have started to return. Having some chest congestion and wheezing. Fatigue symptoms. No fevers or chills. Pulse ox at home in the low 90s typically No chest pressure PAST MEDICAL HISTORY Diagnosis Date AAA (abdominal aortic aneurysm) ([facility]) Arthritis Basal cell carcinoma of neck Dr. Arie Scott Food Clerk Carotid artery stenosis Coronary artery disease stent, Dr. Andrade Vice President Regulatory Heart attack ([facility]) Hyperlipemia Hypertension Malignant melanoma of chest wall ([facility]) Dr. 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 Sleep apnea [...] PLACEMENT 2003 heart VASCULAR SURGERY PROCEDURE Social History: Social History Tobacco Use Smoking status: Former Current packs/day: 0.00 Types: Cigarettes Quit date: 04/17/2017 Years since quittin.5 Smokeless tobacco: Never Vaping Use Vaping status: Never Used Substance Use Topics Alcohol use: No Drug use: No FAMILY HISTORY Problem Relation Age of Onset Aneurysm Father brain, 52 Stroke Mother at 80 Heart Paternal Grandfather Current Outpatient prescriptions: albuterol (PROVENTIL) 2.5 mg /3 mL (0.083 %) nebulizer solution Use 3 mL via nebulizer every 4 hours as needed for wheezing/shortness of breath. Use over 5-15minutes. budesonide (PULMICORT) 0.5 mg/2 mL nebulizer solution Use 2 mL via nebulizer once daily. cefdinir (OMNICEF) 300 mg capsule Take 1 capsule by mouth two times a day for 14 days. levoFLOXacin (LEVAQUIN) 500 mg tablet Take 1 tablet by mouth once daily for 14 days. amLODIPine (NORVASC) 10 mg tablet Take 1 tablet by mouth once daily. clopidogrel (PLAVIX) 75 mg tablet Take 1 tablet by mouth once daily. ezetimibe (ZETIA) 10 mg tablet Take 1 tablet by mouth once daily. pravastatin (PRAVACHOL) 10 mg tablet Take 1 tablet by mouth daily at bedtime. metoprolol tartrate, short acting, (LOPRESSOR) 50 mg tablet Take 0.5 tablets by mouth two times a day. acetaminophen (TYLENOL) 325 mg tablet Take 2 tablets by mouth every 6 hours as needed. MULTIVITAMIN/IRON/FOLIC ACID (CENTRUM COMPLETE ORAL) Take by mouth. Allergies: ALLERGIES Allergen Reactions Codeine Other: See Comments Disturbing dreams Lipitor [Atorvastat* Myalgia Severe arthralgias or myalgia Penicillins Hives, Itching Sweats-severe Ljipvra-Itu-Tiu Red* Myalgia Severe myalgia ROS: See HPI PE: 10/19/24 1243 BP: 100/56 Pulse: 78 Resp: (!) 36 Temp: 36.3 C (97.4 F) TempSrc: Temporal SpO2: 95% Weight: 73.2 kg (161 lb 6 oz) Gen: A&OX3, coughing during visit, appears fatigued HEENT: PERRLA, EOMs intact b/l, nares without drainage, pharynx without erythema, exudate, lesions, or drainage. Uvula midline. MMM Neck: No LAD, no thyromegaly, no meningismus. CV: RRR, no murmur Lungs: left lower lungs diminished with scattered wheeze and rhonchi. Coughing spells during office visit, no conversational dyspnea No edema, normal pulses Skin: No rashes, lesions, or wounds on exposed skin. ASSESSMENT/PLAN: 1. Community acquired bacterial pneumonia - ICD9: 482.9, ICD10: J15.9 (primary diagnosis) Symptoms are improving but not resolved, no other red flag symptoms rx and supportive care as below F/u in office if symptoms aren't improved. - ALBUTEROL SULFATE 2.5 MG/3 ML (0.083 %) SOLUTION FOR NEBULIZATION - BUDESONIDE 0.5 MG/2 ML SUSPENSION FOR NEBULIZATION - CEFDINIR 300 MG CAPSULE - LEVOFLOXACIN 500 MG TABLET 2. Rhonchi at left lung base - ICD9: 786.7, ICD10: R09.89 Symptoms are improving but not resolved, no other red flag symptoms rx and supportive care as below F/u in office if symptoms aren't improved. - ALBUTEROL SULFATE 2.5 MG/3 ML (0.083 %) SOLUTION FOR NEBULIZATION - BUDESONIDE 0.5 MG/2 ML SUSPENSION FOR NEBULIZATION - CEFDINIR 300 MG CAPSULE - LEVOFLOXACIN 500 MG TABLET Andrea Smiley DO To ER if develops chest pain, shortness of breath, or severe worsening of symptoms. Discussed risks, benefits, alternatives, and potential side effects of medications. Patient expressed understanding and agreed with the plan. Andrea Smiley DO [address] [place] [address] documented in this encounter [facility] 09-29-2024 Note HNO ID: [id number] Author: ANDREA SMILEY DO Service: ? Author Type: Physician Type: Progress Notes Filed: 09/29/2024 22:02 Note Text: CC: Porfirio Devi is a 79 year old male who presents to the office for cough HPI: Patient was seen on 09/17/24 in the office by Derick Yuen CNP, at that time Patient presents for chest congestion, headache, fever x6 days. Reports SOB at rest, worse with exertion. Reports use of mucinex and ibuprofen at home. He was sent to the EMERGENCY DEPARTMENT per her recommendations in the office EMERGENCY DEPARTMENT visit on 09/17 at [facility] he was diagnosed with acute bronchitis and started on 5 days of levaquin once a day and prn use of albuterol by nebulizer He thought symptoms were improving, but 3 days ago felt that his symptoms were worsening again Currently He is struggling with increasing fatigue, coughing to the point of cough spasms that are consistent. + fatigue, chills, no fever. Some shortness of breath with coughing episodes. Took all the levaquin rx and has been using the albuterol by nebulizer as well. He is wanting to avoid going to the hospital again for care. Wondering what he needs to do next. is present during OV PAST MEDICAL HISTORY Diagnosis Date AAA (abdominal aortic aneurysm) ([facility]) Arthritis Basal cell carcinoma of neck Dr. Arie Scott Food Clerk Carotid artery stenosis Coronary artery disease stent, Dr. Andrade Vice President Regulatory Heart attack ([facility]) Hyperlipemia Hypertension Malignant melanoma of chest wall ([facility]) Dr. 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 levoFLOXacin (LEVAQUIN) 500 mg tablet Take 1 tablet by mouth once daily for 10 days. cefdinir (OMNICEF) 300 mg capsule Take 1 capsule by mouth two times a day for 10 days. albuterol (PROVENTIL) 2.5 mg /3 mL (0.083 %) nebulizer solution Use 3 mL via nebulizer every 4 hours as needed for wheezing/shortness of breath. Use over 5-15minutes. amLODIPine (NORVASC) 10 mg tablet Take 1 tablet by mouth once daily. clopidogrel (PLAVIX) 75 mg tablet Take 1 tablet by mouth once daily. ezetimibe (ZETIA) 10 mg tablet Take 1 tablet by mouth once daily. pravastatin (PRAVACHOL) 10 mg tablet Take 1 tablet by mouth daily at bedtime. metoprolol tartrate, short acting, (LOPRESSOR) 50 mg tablet Take 0.5 tablets by mouth two times a day. cilostazol (PLETAL) 100 mg tablet Take 1 tablet by mouth two times a day. acetaminophen (TYLENOL) 325 mg tablet Take 2 tablets by mouth every 6 hours as needed. MULTIVITAMIN/IRON/FOLIC ACID (CENTRUM COMPLETE ORAL) Take by mouth. No current facility-administered medications for this visit. ALLERGIES Allergen Reactions Codeine Other: See Comments Disturbing dreams Lipitor [Atorvastat* Myalgia Severe arthralgias or myalgia Penicillins Hives, Itching Sweats-severe Jasgkbs-Ffu-Llf Red* Myalgia Severe myalgia Social History Tobacco Use Smoking status: Former Current packs/day: 0.00 Types: Cigarettes Quit date: 04/17/2017 Years since quittin.4 Smokeless tobacco: Never Vaping Use Vaping status: Never Used Substance Use Topics Alcohol use: No Drug use: No ROS: See HIP PE: BP 100/60 Pulse 76 Temp (Src) 97.4 (Left Tympanic) Resp 24 Wt 165 lb (74.8kg) SpO2 98% Gen: AANDOX3, coughing during visit, appears fatigued HEENT: PERRLA, EOMs intact b/l, nares without drainage, pharynx without erythema, exudate, lesions, or drainage. Uvula midline. MMM Neck: No LAD, no thyromegaly, no meningismus. CV: RRR, no murmur Lungs: b/l lower lungs diminished with scattered wheeze and rhonchi. Coughing spells during office visit, no conversational dyspnea No edema, normal pulses Skin: No rashes, lesions, or wounds on exposed skin. ASSESSMENT/PLAN: 1. Rhonchi at both lung bases - ICD9: 786.7, ICD10: R09.89 (primary diagnosis) Concerns for community acquired, interstitial pneumonia Start on mucinex twice a day Sta (more content not included)... [facility] 09-29-2024 History of Present illness Narrative CC: Porfirio Devi is a 79 year old male who presents to the office for cough HPI: Patient was seen on 09/17/24 in the office by Derick Yuen LOSS PREVENTION AND SAFETY MANAGER, at that time Patient presents for chest congestion, headache, fever x6 days. Reports SOB at rest, worse with exertion. Reports use of mucinex and ibuprofen at home. He was sent to the EMERGENCY DEPARTMENT per her recommendations in the office EMERGENCY DEPARTMENT visit on 09/17 at [facility] he was diagnosed with acute bronchitis and started on 5 days of levaquin once a day and prn use of albuterol by nebulizer He thought symptoms were improving, but 3 days ago felt that his symptoms were worsening again Currently He is struggling with increasing fatigue, coughing to the point of cough spasms that are consistent. + fatigue, chills, no fever. Some shortness of breath with coughing episodes. Took all the levaquin rx and has been using the albuterol by nebulizer as well. He is wanting to avoid going to the hospital again for care. Wondering what he needs to do next. is present during OV PAST MEDICAL HISTORY Diagnosis Date AAA (abdominal aortic aneurysm) ([facility]) Arthritis Basal cell carcinoma of neck Dr. Arie Scott Food Clerk Carotid artery stenosis Coronary artery disease stent, Dr. Andrade Vice President Regulatory Heart attack ([facility]) Hyperlipemia Hypertension Malignant melanoma of chest wall ([facility]) Dr. 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 Sleep apnea PAST SURGICAL HISTORY Procedure Laterality Date APPENDECTOMY APPENDECTOMY HX CABG (3) VEIN GRAFTS & ARTERIAL GRAFT(S) 12/28/2018 COLONOSCOPY 11/2016 tubulovillous adenoma- Dr. Canela COLONOSCOPY FLX DX W/COLLJ SPEC WHEN PFRMD 12/26/2017 Colonoscopy COLONOSCOPY FLX DX W/COLLJ SPEC WHEN PFRMD 03/20/2021 EYE SURGERY HX cataracts bilateral eyes HEART SURGERY HX PAST SURGICAL HISTORY OF 2010 malignant tumor pectoral muscle left side PAST SURGICAL HISTORY OF 2010 Basal cell right neck PAST SURGICAL HISTORY OF 1977 amputated index finger left hand PAST SURGICAL HISTORY OF Left 04/06/2019 Dr. Pam Canela; Abd pelvic LLE arteriogram. L superficial femoral cros angioplasty. L superficial femoral stenting x2 SKIN BIOPSY HX STENT PLACEMENT 2003 heart VASCULAR SURGERY PROCEDURE Current Outpatient Medications Medication Sig budesonide (PULMICORT) 0.5 mg/2 mL nebulizer solution Use 2 mL via nebulizer once daily. levoFLOXacin (LEVAQUIN) 500 mg tablet Take 1 tablet by mouth once daily for 10 days. cefdinir (OMNICEF) 300 mg capsule Take 1 capsule by mouth two times a day for 10 days. albuterol (PROVENTIL) 2.5 mg /3 mL (0.083 %) nebulizer solution Use 3 mL via nebulizer every 4 hours as needed for wheezing/shortness of breath. Use over 5-15minutes. amLODIPine (NORVASC) 10 mg tablet Take 1 tablet by mouth once daily. clopidogrel (PLAVIX) 75 mg tablet Take 1 tablet by mouth once daily. ezetimibe (ZETIA) 10 mg tablet Take 1 tablet by mouth once daily. pravastatin (PRAVACHOL) 10 mg tablet Take 1 tablet by mouth daily at bedtime. metoprolol tartrate, short acting, (LOPRESSOR) 50 mg tablet Take 0.5 tablets by mouth two times a day. cilostazol (PLETAL) 100 mg tablet Take 1 tablet by mouth two times a day. acetaminophen (TYLENOL) 325 mg tablet Take 2 tablets by mouth every 6 hours as needed. MULTIVITAMIN/IRON/FOLIC ACID (CENTRUM COMPLETE ORAL) Take by mouth. No current facility-administered medications for this visit. ALLERGIES Allergen Reactions Codeine Other: See Comments Disturbing dreams Lipitor [Atorvastat* Myalgia Severe arthralgias or myalgia Penicillins Hives, Itching Sweats-severe Cuqxqea-Crj-Nox Red* Myalgia Severe myalgia Social History Tobacco Use Smoking status: Former Current packs/day: 0.00 Types: Cigarettes Quit date: 04/17/2017 Years since quittin.4 Smokeless tobacco: Never Vaping Use Vaping status: Never Used Substance Use Topics Alcohol use: No Drug use: No ROS: See HIP PE: BP 100/60 Pulse 76 Temp (Src) 97.4 (Left Tympanic) Resp 24 Wt 165 lb (74.8kg) SpO2 98% Gen: A&OX3, coughing during visit, appears fatigued HEENT: PERRLA, EOMs intact b/l, nares without drainage, pharynx without erythema, exudate, lesions, or drainage. Uvula midline. MMM Neck: No LAD, no thyromegaly, no meningismus. CV: RRR, no murmur Lungs: b/l lower lungs diminished with scattered wheeze and rhonchi. Coughing spells during office visit, no conversational dyspnea No edema, normal pulses Skin: No rashes, lesions, or wounds on exposed skin. ASSESSMENT/PLAN: 1. Rhonchi at both lung bases - ICD9: 786.7, ICD10: R09.89 (primary diagnosis) Concerns for community acquired, interstitial pneumonia Start on mucinex twice a day Start on budesonide by nebulizer Start on dual therapy antibiotics, with daily yogurt/probiotic Continue albuterol treatments Will go to EMERGENCY DEPARTMENT for any red flag symptoms or worsening symptoms as d/w him and today during OV - XR CHEST 2V FRONTAL/LAT - BUDESONIDE 0.5 MG/2 ML SUSPENSION FOR NEBULIZATION - LEVOFLOXACIN 500 MG TABLET - CEFDINIR 300 MG CAPSULE - ALBUTEROL SULFATE 2.5 MG/3 ML (0.083 %) SOLUTION FOR NEBULIZATION 2. Community acquired bacterial pneumonia - ICD9: 482.9, ICD10: J15.9 Concerns for community acquired, interstitial pneumonia Start on mucinex twice a day Start on budesonide by nebulizer Start on dual therapy antibiotics, with daily yogurt/probiotic Continue albuterol treatments Will go to EMERGENCY DEPARTMENT for any red flag symptoms or worsening symptoms as d/w him and today during OV - BUDESONIDE 0.5 MG/2 ML SUSPENSION FOR NEBULIZATION - LEVOFLOXACIN 500 MG TABLET - CEFDINIR 300 MG CAPSULE - ALBUTEROL SULFATE 2.5 MG/3 ML (0.083 %) SOLUTION FOR NEBULIZATION Andrea Smiley DO Return if no improvement. Follow up with Andrea Smiley DO. To ER if develops chest pain, shortness of breath,. Discussed risks, benefits, alternatives, and potential side effects of medications. Patient/Guardian expressed understanding and agreed with the plan. See patient instructions. Andrea Smiley DO [address] [place] [address] documented in this encounter [facility] 09-29-2024 Telephone encounter Note Called and spoke with pt and notified of Dr. Smiley's information. [facility] 09-29-2024 Miscellaneous Notes Called and spoke with pt and notified of Dr. Smiley's information. Please inform patient that although his CXR doesn't show an obvious pneumonia, I still feel he has pneumonia based on exam today in the office. Sometimes the CXR is false due to dehydration therefore misses a pneumonia Andrea Smiley DO documented in this encounter [facility] 09-28-2024 Telephone encounter Note Please inform patient that although his CXR doesn't show an obvious pneumonia, I still feel he has pneumonia based on exam today in the office. Sometimes the CXR is false due to dehydration therefore misses a pneumonia Andrea Smiley DO [facility] 09-28-2024 History of Present illness Narrative Radiology Service Progress Note PATIENT NAME: Porfirio Devi DATE OF SERVICE: September 28, 2024 TIME: 11:38 AM PATIENT IDENTITY VERIFICATION COMPLETED USING TWO (2) IDENTIFIERS: Name and Date of confirmed by patient verbally. FALL SCREENING: Has the patient had 2 falls in the last year or 1 fall with injury or currently using an Ambulatory Assistive Device (Walker, Cane, Wheelchair, Crutches, etc.)? No PATIENT GENDER DATA: Male PATIENT RELEVANT IMPLANT DATA REVIEWED: Not Applicable PATIENT PRESENTS WITH AN IMPLANTABLE OR ATTACHED RESPIRATORY SCIENTIST: No RADIOLOGY DEPARTMENT: General X-ray: Exam(s) Completed: Chest X-Ray PERIPHERAL IV DATA: Not applicable SIGNED BY: RT Evangelista(R) September 28, 2024 11:38 AM documented in this encounter [facility] 09-28-2024 Note HNO ID: [id number] Author: AFTAB TAVARES RT(R) Service: Radiology Author Type: Technologist Type: Progress Notes Filed: 09/28/2024 11:43 Note Text: Radiology Service Progress Note PATIENT NAME: Porfirio Devi DATE OF SERVICE: September 28, 2024 TIME: 11:38 AM PATIENT IDENTITY VERIFICATION COMPLETED USING TWO (2) IDENTIFIERS: Name and Date of confirmed by patient verbally. FALL SCREENING: Has the patient had 2 falls in the last year or 1 fall with injury or currently using an Ambulatory Assistive Device (Walker, Cane, Wheelchair, Crutches, etc.)? No PATIENT GENDER DATA: Male PATIENT RELEVANT IMPLANT DATA REVIEWED: Not Applicable PATIENT PRESENTS WITH AN IMPLANTABLE OR ATTACHED RESPIRATORY SCIENTIST: No RADIOLOGY DEPARTMENT: General X-ray: Exam(s) Completed: Chest X-Ray PERIPHERAL IV DATA: Not applicable SIGNED BY: RT Evangelista(R) September 28, 2024 11:38 AM [facility] 09-28-2024 Instructions Andrea Smiley DO - 09/28/2024 11:31 AM EST Budesonide by nebulizer once a day After using albuterol nebulizer separate Use the antibiotics twice a day with food (omnicef and levaquin) Use the pulse ox to make sure pulse ox stays 90% or higher Percussion 3 times a day on back and chest documented in this encounter [facility] 09-20-2024 Telephone encounter Note Spoke with /pt and pt is having SOB, with speaking and walking. Not as bad but still having and the coughing is severe. and pt have been advised to go back to ER. Apt with Provider for 09-22-24 for ER FU has been cancelled. Lacho Puente LPN [facility] 09-20-2024 Miscellaneous Notes Spoke with /pt and pt is having SOB, with speaking and walking. Not as bad but still having and the coughing is severe. and pt have been advised to go back to ER. Apt with Provider for 09-22-24 for ER FU has been cancelled. Lacho Puente LPN called back and she is concerned with waiting for 09/17/24 for ER FU. reports pt was to FU with his pcp if no better and may need further testing. Pt is no better and they feel he needs seen sooner. Pt starts to cough and can't quit. Starts to turn blue from not able to catch breath per . Pt is using his nebulizer and cannot get thru a treatment without starting to cough. asking to have pt see a doctor. Provider/Team not available. Apt moved up to 09-22-24 with provider. Records reviewed by provider. Lacho Puente LPN Pt called in for ER f/u for chest congestion and viral infection. Patient wanted to be seen sooner than 09/27 appt available with Bailey. Please advise documented in this encounter [facility] 09-20-2024 Telephone encounter Note called back and she is concerned with waiting for 09/17/24 for ER FU. reports pt was to FU with his pcp if no better and may need further testing. Pt is no better and they feel he needs seen sooner. Pt starts to cough and can't quit. Starts to turn blue from not able to catch breath per . Pt is using his nebulizer and cannot get thru a treatment without starting to cough. asking to have pt see a doctor. Provider/Team not available. Apt moved up to 09-22-24 with provider. Records reviewed by provider. Lacho Puente LPN [facility] 09-20-2024 Telephone encounter Note Pt called in for ER f/u for chest congestion and viral infection. Patient wanted to be seen sooner than 09/27 appt available with [facility]. Please advise [facility] 09-17-2024 Note HNO ID: [id number] Author: DERICK YUEN APRN.LOSS PREVENTION AND SAFETY MANAGER Service: ? Author Type: Nurse Practitioner Type: Progress Notes Filed: 09/17/2024 10:57 Note Text: Chief Complaint Patient presents with: Chest Congestion Headache Fever HPI Porfirio Devi is a 79 year old male who presents here today for Above Complaints.. Patient presents for chest congestion, headache, fever x6 days. Reports SOB at rest, worse with exertion. Reports use of mucinex and ibuprofen at home. Past medical history, appointments, medications, allergies reviewed. Previous Medical History PAST MEDICAL HISTORY Diagnosis Date AAA (abdominal aortic aneurysm) ([facility]) Arthritis Basal cell carcinoma of neck Dr. Arie Scott Food Clerk Carotid artery stenosis Coronary artery disease stent, Dr. Andrade Vice President Regulatory Heart attack ([facility]) Hyperlipemia Hypertension Malignant melanoma of chest wall ([facility]) Dr. Arie Scott Food Clerk Peripheral arterial disease ([facility]) S/P CABG x 3 12/28/2018 Sleep apnea Previous Surgical History PAST SURGICAL HISTORY Procedure Laterality Date APPENDECTOMY [...] STENT PLACEMENT 2003 heart VASCULAR SURGERY PROCEDURE Family History FAMILY HISTORY Problem Relation Age of Onset Aneurysm Father brain, 52 Stroke Mother at 80 Heart Paternal Grandfather Patient Allergies ALLERGIES Allergen Reactions Codeine Other: See Comments Disturbing dreams Lipitor [Atorvastat* Myalgia Severe arthralgias or myalgia Penicillins Hives, Itching Sweats-severe Jwzxphr-Enc-Rll Red* Myalgia Severe myalgia Current Medications Current Outpatient Medications on File Prior to Visit Medication Sig amLODIPine (NORVASC) 10 mg tablet Take 1 tablet by mouth once daily. clopidogrel (PLAVIX) 75 mg tablet Take 1 tablet by mouth once daily. ezetimibe (ZETIA) 10 mg tablet Take 1 tablet by mouth once daily. pravastatin (PRAVACHOL) 10 mg tablet Take 1 tablet by mouth daily at bedtime. metoprolol tartrate, short acting, (LOPRESSOR) 50 mg tablet Take 0.5 tablets by mouth two times a day. cilostazol (PLETAL) 100 mg tablet Take 1 tablet by mouth two times a day. acetaminophen (TYLENOL) 325 mg tablet Take 2 tablets by mouth every 6 hours as needed. MULTIVITAMIN/IRON/FOLIC ACID (CENTRUM COMPLETE ORAL) Take by mouth. No current facility-administered medications on file prior to visit. Social History Social History Tobacco Use Smoking status: Former Current packs/day: 0.00 Types: Cigarettes Quit date: 04/17/2017 Years since quittin.4 Smokeless tobacco: Never Vaping Use Vaping status: Never Used Substance Use Topics Alcohol use: No Drug use: No Review of Symptoms REVIEW OF SYSTEMS SEE HPI EXAM: BP 113/63 Pulse 71 Temp 36.5 ?C (97.7 ?F) Resp 18 Wt 75.3 kg (166 lb) SpO2 93% BMI 26.00 kg/m? General Appearance: Ill appearing, labored and tachypneic. Lungs: Positive findings: rhonchi Shortness of breath: At rest Cough. Increased work of breathing Heart: RRR without murmur, gallop, or rubs. No ectopy. Health Maintenance List DTaP,Tdap,Td Vaccine(1 - Tdap) Never done Shingrix Vaccine(1 of 2) Never done RSV Vaccine(1 - 1-dose 75+ series) Never done Advance Directive Discussion Never done Covid-19 Vaccine() due on 07/18/2024 LDL Cholesterol due on 05/21/2025 Annual PCP Team Chronic Disease Visit due on 06/01/2025 Depression Screening due on 06/01/2025 Anxiety Screening due on 06/01/2025 BP Controlled (<130/80) due on 06/01/2025 Diabetes Screening due on 05/21/2027 Influenza Vaccine Completed Hepatitis C Screening Completed Pneumococcal Vaccine: 65+ Completed Colorectal Cancer Screening Discontinued ASSESSMENT/PLAN: 1. Acute cough - ICD9: 786.2, ICD10: R05.1 (primary diagnosis) 2. SOB (shortness of breath) - ICD9: 786.05, ICD10: R06.02 3. Tachypnea - ICD9: 786.06, ICD10: R06.82 Due to appearance, tachypnea, bradycardia, increased work of breathing patient's advised to take patient to the ER. Derick Yuen APRN.[facility] 09-17-2024 History of Present illness Narrative Chief Complaint Patient presents with: Chest Congestion Headache Fever HPI Porfirio Devi is a 79 year old male who presents here today for Above Complaints.. Patient presents for chest congestion, headache, fever x6 days. Reports SOB at rest, worse with exertion. Reports use of mucinex and ibuprofen at home. Past medical history, appointments, medications, allergies reviewed. Previous Medical History PAST MEDICAL HISTORY Diagnosis Date AAA (abdominal aortic aneurysm) (HCC) Arthritis Basal cell carcinoma of neck Dr. Arie Scott Food Clerk Carotid artery stenosis Coronary artery disease stent, Dr. Andrade Vice President Regulatory Heart attack (HCC) Hyperlipemia Hypertension Malignant melanoma of chest wall (HCC) Dr. 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 Sleep apnea Previous Surgical History PAST SURGICAL HISTORY Procedure Laterality Date APPENDECTOMY [...] STENT PLACEMENT 2003 heart VASCULAR SURGERY PROCEDURE Family History FAMILY HISTORY Problem Relation Age of Onset Aneurysm Father brain, 52 Stroke Mother at 80 Heart Paternal Grandfather Patient Allergies ALLERGIES Allergen Reactions Codeine Other: See Comments Disturbing dreams Lipitor [Atorvastat* Myalgia Severe arthralgias or myalgia Penicillins Hives, Itching Sweats-severe Xgrffix-Kwv-Aty Red* Myalgia Severe myalgia Current Medications Current Outpatient Medications on File Prior to Visit Medication Sig amLODIPine (NORVASC) 10 mg tablet Take 1 tablet by mouth once daily. clopidogrel (PLAVIX) 75 mg tablet Take 1 tablet by mouth once daily. ezetimibe (ZETIA) 10 mg tablet Take 1 tablet by mouth once daily. pravastatin (PRAVACHOL) 10 mg tablet Take 1 tablet by mouth daily at bedtime. metoprolol tartrate, short acting, (LOPRESSOR) 50 mg tablet Take 0.5 tablets by mouth two times a day. cilostazol (PLETAL) 100 mg tablet Take 1 tablet by mouth two times a day. acetaminophen (TYLENOL) 325 mg tablet Take 2 tablets by mouth every 6 hours as needed. MULTIVITAMIN/IRON/FOLIC ACID (CENTRUM COMPLETE ORAL) Take by mouth. No current facility-administered medications on file prior to visit. Social History Social History Tobacco Use Smoking status: Former Current packs/day: 0.00 Types: Cigarettes Quit date: 04/17/2017 Years since quittin.4 Smokeless tobacco: Never Vaping Use Vaping status: Never Used Substance Use Topics Alcohol use: No Drug use: No Review of Symptoms REVIEW OF SYSTEMS SEE HPI EXAM: BP 113/63 Pulse 71 Temp 36.5 C (97.7 F) Resp 18 Wt 75.3 kg (166 lb) SpO2 93% BMI 26.00 kg/m General Appearance: Ill appearing, labored and tachypneic. Lungs: Positive findings: rhonchi Shortness of breath: At rest Cough. Increased work of breathing Heart: RRR without murmur, gallop, or rubs. No ectopy. Health Maintenance List DTaP,Tdap,Td Vaccine(1 - Tdap) Never done Shingrix Vaccine(1 of 2) Never done RSV Vaccine(1 - 1-dose 75+ series) Never done Advance Directive Discussion Never done Covid-19 Vaccine() due on 07/18/2024 LDL Cholesterol due on 05/21/2025 Annual PCP Team Chronic Disease Visit due on 06/01/2025 Depression Screening due on 06/01/2025 Anxiety Screening due on 06/01/2025 BP Controlled (<130/80) due on 06/01/2025 Diabetes Screening due on 05/21/2027 Influenza Vaccine Completed Hepatitis C Screening Completed Pneumococcal Vaccine: 65+ Completed Colorectal Cancer Screening Discontinued ASSESSMENT/PLAN: 1. Acute cough - ICD9: 786.2, ICD10: R05.1 (primary diagnosis) 2. SOB (shortness of breath) - ICD9: 786.05, ICD10: R06.02 3. Tachypnea - ICD9: 786.06, ICD10: R06.82 Due to appearance, tachypnea, bradycardia, increased work of breathing patient's advised to take patient to the ER. Derick Yuen APRN.LOSS PREVENTION AND SAFETY MANAGER documented in this encounter [facility] 06-02-[facility] History of Present illness Narrative CC: Porfirio Devi is a 79 year old male who presents to the office for follow up HPI: Significant peripheral arterial disease. Has been seen in the past by Dr. Canela for stent procedure to left leg (more significant disease than right leg) and also been seen by Dr. Irving, whom is a vascular surgeon at [facility] and is seeing her upcoming in May [...] arteries and peripheral arteries was this past few months- stable findings, mild/moderate PAD and mild right and moderate left carotid artery stenosis Follows with vascular surgeon Dr. Irving CAD, no recent chest pressure or pain or dyspnea or palpitations, taking his medications as prescribed. Seeing Noelle Vice President Regulatory office specialists. Dyslipidemia, tolerating statin therapy Will have follow up dermatology appt with Dr. Scott Had recent labs drawn Hemoglobin (g/dL) Date Value 05/21/2024 14.4 11/28/2021 15.7 Hematocrit (%) Date Value 05/21/2024 43.2 11/28/2021 47.1 WBC (k/uL) Date Value 05/21/2024 5.66 11/28/2021 6.07 Glucose (mg/dL) Date Value 05/21/2024 101 11/28/2021 101 Potassium (mmol/L) Date Value 05/21/2024 3.9 11/28/2021 3.9 Sodium (mmol/L) Date Value 05/21/2024 141 11/28/2021 141 Chloride (mmol/L) Date Value 05/21/2024 108 11/28/2021 106 CO2 (mmol/L) Date Value 05/21/2024 23 11/28/2021 25 Creatinine (mg/dL) Date Value 05/21/2024 1.18 11/28/2021 1.19 BUN (mg/dL) Date Value 05/21/2024 12 11/28/2021 13 Anion Gap (mmol/L) Date Value 05/21/2024 10 11/28/2021 10 Calcium (mg/dL) Date Value 11/28/2021 9.6 Calcium, Total (mg/dL) Date Value 05/21/2024 9.0 Protein, Total (g/dL) Date Value 05/21/2024 6.6 11/28/2021 7.2 Albumin (g/dL) Date Value 05/21/2024 4.1 11/28/2021 4.5 Bilirubin, Total (mg/dL) Date Value 05/21/2024 0.4 11/28/2021 0.4 Alkaline Phosphatase (U/L) Date Value 05/21/2024 51 11/28/2021 54 AST (U/L) Date Value 05/21/2024 28 11/28/2021 33 ALT (U/L) Date Value 05/21/2024 20 11/28/2021 27 Cholesterol, Total Date Value Ref Range Status 05/21/2024 162 <200 mg/dL Final Comment: <200 mg/dL, Desirable 200-239 mg/dL, Borderline high >239 mg/dL, High HDL Cholesterol Date Value Ref Range Status 05/21/2024 37 (L) >39 mg/dL Final Comment: 40-59 mg/dL, Acceptable >59 mg/dL, High: Negative risk factor for coronary heart disease <40 mg/dL, Low: Positive risk factor for coronary heart disease LDL Cholesterol Date Value Ref Range Status 05/21/2024 99 <100 mg/dL Final Comment: <100 mg/dL, Optimal 100-129 mg/dL, Near optimal/above optimal 130-159 mg/dL, Borderline high 160-189 mg/dL, High >189 mg/dL, Very high Secondary prevention optimal LDL Cholesterol levels are recommended to be < 70 mg/dL Triglyceride Date Value Ref Range Status 05/21/2024 131 <150 mg/dL Final Comment: <150 mg/dL, Normal 150-199 mg/dL, Borderline high 200-499 mg/dL, High >499 mg/dL, Very high PAST MEDICAL HISTORY Diagnosis Date AAA (abdominal aortic aneurysm) (HCC) Arthritis Basal cell carcinoma of neck Dr. Arie Scott Food Clerk Carotid artery stenosis Coronary artery disease stent, Dr. Andrade Vice President Regulatory Heart attack (HCC) Hyperlipemia Hypertension Malignant melanoma of chest wall (HCC) Dr. Arie Scott Food Clerk Peripheral arterial disease (HCC) S/P CABG x [...] SURGERY PROCEDURE Current Outpatient Medications Medication Sig amLODIPine (NORVASC) 10 mg tablet Take 1 tablet by mouth once daily. clopidogrel (PLAVIX) 75 mg tablet Take 1 tablet by mouth once daily. ezetimibe (ZETIA) 10 mg tablet Take 1 tablet by mouth once daily. pravastatin (PRAVACHOL) 10 mg tablet Take 1 tablet by mouth daily at bedtime. metoprolol tartrate, short acting, (LOPRESSOR) 50 mg tablet Take 0.5 tablets by mouth two times a day. cilostazol (PLETAL) 100 mg tablet Take 1 tablet by mouth two times a day. acetaminophen (TYLENOL) 325 mg tablet Take 2 tablets by mouth every 6 hours as needed. MULTIVITAMIN/IRON/FOLIC ACID (CENTRUM COMPLETE ORAL) Take by mouth. No current facility-administered medications for this visit. ALLERGIES Allergen Reactions Codeine Other: See Comments Disturbing dreams Lipitor [Atorvastat* Myalgia Severe arthralgias or myalgia Penicillins Hives, Itching Sweats-severe Eqllpms-Dhy-Mrw Red* Myalgia Severe myalgia Social History Tobacco Use Smoking status: Former Packs/day: 1 Types: Cigarettes Quit date: 04/17/2017 Years since quittin.1 Smokeless tobacco: Never Vaping Use Vaping Use: Never used Substance Use Topics Alcohol use: No Drug use: No ROS: See HPI PE: BP 110/70 Pulse 64 Temp (Src) 97 (Right Tympanic) Resp 20 Wt 164 lb (74.4kg) Gen: A&O, NAD, [...] on exposed skin. No edema ASSESSMENT/PLAN: 1. Essential hypertension - ICD9: 401.9, ICD10: I10 (primary diagnosis) - Controlled - Continue current medications - Recommend home blood pressure monitoring, to bring results to next visit - Encouraged sodium restriction, DASH or Mediterranean diet - Recommend regular aerobic exercise 2. PAD (peripheral artery disease) (HCC) - ICD9: 443.9, ICD10: I73.9 rx refilled Stable, chronic - EZETIMIBE 10 MG TABLET 3. Hypercholesterolemia - ICD9: 272.0, ICD10: E78.00 rx refilled Stable, chronic - EZETIMIBE 10 MG TABLET - COMPREHENSIVE METABOLIC PANEL - LIPID PANEL BASIC - COMPLETE BLOOD COUNT 4. Atherosclerosis of [place] coronary artery of [place] heart with angina pectoris (HCC) - ICD9: 414.01, 413.9, ICD10: I25.119 rx refilled Stable, chronic F/u with Vice President Regulatory routinely - EZETIMIBE 10 MG TABLET 5. Vitamin D deficiency - ICD9: 268.9, ICD10: E55.9 Continue supplement 6. Dyslipidemia - ICD9: 272.4, ICD10: E78.5 - Control undetermined, due for labs - Continue current medications - Counseled on healthy diet and regular exercise 7. Screening for prostate cancer - ICD9: V76.44, ICD10: Z12.5 - Counseled on healthy diet and regular exercise - PSA/PROSTATE SPECIFIC ANTIGEN SCREENING 8. Vitamin B12 deficiency - ICD9: 266.2, ICD10: E53.8 - VITAMIN B12 Andrea Smiley DO Return if no improvement. Follow up with Andrea Smiley DO. To ER if develops chest pain, shortness of breath. Discussed risks, benefits, alternatives, and potential side effects of medications. Patient/Guardian expressed understanding and agreed with the plan. See patient instructions. Andrea Smiley DO [address] [place] [address] documented in this encounter [facility] 12-09-2023 Discharge summary Note Date/Time December 09, 2023 3:26pm [facility] Records Department [address] [place] [address] Emergency Department Summary 12/09/23 MR#: [id number] Acct: [id number] Name: PORFIRIO DEVI Rep #:[id number] : 1945 78 From: Baldev Burch MD PCP: Dr. Andrea Smiley DO Status:RE G ER Location: ED HPI History of Present Illness Chief Complaint: Weakness Informant: patient and spouse/S.O. Onset/Context/Timing Onset: Hours (2) Context: Sudden Onset Timing: - (one episode, lasted about 20 min) Quality: palpitations/skipping Location: chest Current Severity: Gone Maximum Severity: Moderate Worsened by: n/a Relieved by: n/a Associated Symptoms Associated Symptoms: none Narrative Narrative: Patient states she was at rest couple hours ago when he had about a 20-minute episode of significant palpitations. He has a history of stents and CABG in thepast, he takes clopidogrel no anticoagulants or aspirin, has had no medication changes recently, and states he frequently has PVCs and feels them from time to time but they are relatively brief and do not give him any other symptoms. Today was different. He states it was skipping and rapid while beating hard. He did not feel lightheaded or have syncopal episode. He denies any chest discomfort otherwise or dyspnea. He denies sweating, nausea, or any other symptoms. He states he feels fine now. He states he is here out of precaution. 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) Palpitations Peripheral arterial occlusive disease Peripheral vascular disease of extremity with claudication Premature ventricular beat Stenosis of both subclavian arteries Thrombocytopenia Home Medications ezetimibe 10 mg tablet 10 mg PO DAILY 12/04/18 [History Last Taken Unknown] pubpmdjg-cm-zxzpg 300 mcg-K 60 mcg-lycop 600 mcg-lutein 300 mcg tablet (Centrum Silver Ultra Men's) 1 tab PO DAILY 12/04/18 [History Last Taken Unknown] clopidogrel 75 mg tablet 75 mg PO DAILY #90 tabs 04/03/20 [Rx Last Taken Unknown] amlodipine 10 mg tablet 10 mg PO DAILY #90 tabs 06/06/20 [Rx Last Taken Unknown] cilostazol 100 mg tablet 100 mg PO BID 08/24/20 [History Last Taken Unknown] pravastatin 10 mg tablet 10 mg PO QHS #90 tabs 05/03/21 [Rx Last Taken Unknown] nitroglycerin 0.4 mg sublingual tablet 0.4 mg sublingual Q5-15M PRN chest pain #25 tabs 02/10/23 [Rx Last Taken Unknown] metoprolol tartrate 100 mg tablet 25 mg PO BID 30 days #15 tabs 08/14/23 [History Last Taken Unknown] Allergy/AdvReac Type Severity Reaction Status Date / Time Penicillins Allergy Mild rash Verified 12/09/23 14:47 amlodipine AdvReac Mild ED Verified 12/09/23 14:47 exacerbation ramipril AdvReac cough Verified 12/09/23 14:47 Cxjjoce-Cfl-Hdf Reductase AdvReac myalgias Verified 12/09/23 14:47 Inhibitor Family History Father Heart disease Hypertension Mother CVA (cerebral vascular accident) Brother Heart disease Hypertension Myocardial infarction Brother Hypertension Myocardial infarction Brother Heart disease Myocardial infarction Surgical History H/O coronary artery bypass surgery (12/28/18) History of amputation of finger History of angioplasty of peripheral vessel (03/2019) History of appendectomy History of cataract extraction (2015) History of colonoscopy (2015) History of coronary artery stent placement (05/2003) History of left heart catheterization (12/22/18) history of melanoma removal hx of APLL Social History Smoking Status: Former smoker ROS ROS ED Constitutional Constitutional ED: Denies chills or fever(s) Eyes Eyes: Denies change in vision or diplopia ENT ENT ED: Denies rhinorrhea or sore throat Cardiovascular Cardiovascular: Reports palpitations; Denies chest pain Respiratory/Chest Respiratory/Chest: Denies cough or dyspnea Gastrointestinal Gastrointestinal: Denies abdominal pain, diarrhea, nausea or vomiting Genitourinary Genitourinary ED: Denies dysuria or hematuria Musculoskeletal Musculoskeletal: Denies back pain or neck pain Integumentary Denies abscess or rash Neurologic Neurologic: Denies headache(s), paresthesias or weakness Psychiatric Psychiatric: Denies anxiety or suicidal thoughts EXAM Physical Exam Const Vital Signs: 12/09/23 14:48 12/09/23 14:52 12/09/23 15:46 Temperature 97.7 F L Temperature Source Oral Pulse Rate 83 71 Respiratory Rate 24 H 16 Respiratory Effort Short of Breath Respiratory Pattern Normal Blood Pressure 141/68 H 116/76 Blood Pressure Mean 92 89 Pulse Ox 96 95 Oxygen Delivery Method Room Air Room Air Positive well nourished and well developed General Appearance ED: well developed and NAD HEENT Reports moist mucous membranes normocephalic and atraumatic Eyes PERRL and EOMs intact bilaterally Neck full ROM and supple Resp normal respiratory effort and clear to auscultation bilaterally Cardio regular rate, regular rhythm and no murmurs GI non-tender and non-distended Auscultation: normoactive bowel sounds Palpation: soft Back/Spine no CVA tenderness General Back: other FROM Extremity normal to inspection General Extremety ED: Negative for edema, pulses abnormal or tenderness General Extremity: Negative for edema or pulses abnormal Neuro oriented x3, CN's II-XII intact bilaterally and no sensory deficits noted Sensorium / Orientation: awake and alert Motor Exam: strength 5/5 throughout Skin no rashes or lesions noted and no wounds MDM MDM MDM Narrative Medical decision making narrative: Patient remained having sometimes occasional, other times frequent PVCs but asymptomatic with all of them. Symptoms suggest that he had a tachydysrhythmia for 20 minutes, but it did not recur while he was being observed in the emergency department on the monitor. Freq PVCs with tachycardia also in the DDx. His potassium is little low so we replaced that but otherwise I am comfortable with him being discharged, encouraged to return and call EMS if it happens again. Vital signs including BP are normal. I do not think he is having acute coronary syndrome or unstable angina, his EKG is normal except for the ectopy, so no need to check a troponin here. Although transient atrial fibrillation is in the differential, since we have no evidence of that I would not put him on anticoagulants at this time, but I do recommend discussing with cardiology as anoutpatient. Lab Data Attestation: I reviewed the patient's lab results. Labs: Laboratory Results - last 24 hr 12/09/23 14:52 WBC 8.3 RBC 4.56 L Hgb 14.8 Hct 44.4 MCV 97.4 H MCH 32.5 H MCHC 33.3 RDW Std Deviation 46.5 H RDW Coeff of [place] 12.9 Plt Count 202 MPV 11.6 Immature Gran % (Auto) 0.400 Neut % (Auto) 67.0 Lymph % (Auto) 21.1 [place] % (Auto) 9.0 Eos % (Auto) 2.1 Baso % (Auto) 0.4 Absolute Neuts (auto) 5.6 Absolute Lymphs (auto) 1.74 Nucleated RBC % 0 Sodium 142 Potassium 3.3 L Chloride 112 H Carbon Dioxide 24.0 Anion Gap 6 BUN 15 Creatinine 1.33 H Estim Creat Clear Calc 46.20 Est GFR (MDRD) Af Amer 67 Est GFR (MDRD) Non-Af 56 L BUN/Creatinine Ratio 11.3 Glucose 129 H Calcium 9.1 Rhythm Strip Rhythm Strip: Sinus Rhythm Rate: 75 Ectopy: PVC(s) EKG Initial EKG: Attestation: I personally reviewed and interpreted this EKG as follows: Interpretation: Sinus Rhythm (71) and No Acute Injury Pattern Comments: Ventricular bigeminy on EKG. Same morphology as old EKG. Prior EKG tracings: available for review Prior: Unchanged Discharge Plan Triage Chief Complaint: Weakness ED Provider: Baldev Burch Dx/Rx/DC Orders Clinical Impression: Ventricular ectopy, Rapid palpitations, Hypokalemia Instructions: Premature Ventricular Contract Tx, ED Palpitations Prescriptions: No Action ezetimibe 10 mg tablet 10 mg PO DAILY Centrum Silver Ultra Men's 300-600-300 mcg tablet 1 tab PO DAILY metoprolol tartrate 100 mg tablet 25 mg PO BID 30 Days Qty: 15 cilostazol 100 mg tablet 100 mg PO BID Patient Comments: TAKE 1 TABLET BY MOUTH TWICE DAILY nitroglycerin 0.4 mg tablet, sublingual 0.4 mg SUBLINGUAL Q5-15M PRN (Reason: chest pain) Qty: 25 7RF Rx Instructions: one tablet under tongue every 5-15 minutes for chest pain up to 3 doses clopidogrel 75 mg tablet 75 mg PO DAILY Qty: 90 3RF amlodipine 10 mg tablet 10 mg PO DAILY Qty: 90 3RF pravastatin 10 mg tablet 10 mg PO QHS Qty: 90 3RF Primary Care Provider: Andrea Smiley Referrals: Andrea Smiley DO [Primary Care Provider] - 3-5 Days if not improving (Or yourheart doctor) Disposition Disposition: Home, Self Care What to do if you have Problems For any increased pain, shortness of breath, bleeding, nausea or vomiting, chestpain, or any unexpected problems, contact your Primary Care Provider. Call [facility] ([phone]) or report to the closest Emergency Room. Call 911 if necessary. 12/09/23 1618 <Electronically signed by Baldev Burch MD> Cosigner Signature (if applicable): CC: Dr. Lenin Galeas MD; Dr. Andrea Smiley DO ~ Signed [facility] Work Phone: 1(220) 995-423907-20-2023 History of Present illness Narrative* Danya Irving MD - 06/05/2023 9:39 AM EDT Porfirio Devi is a 78 year old male here for follow up evaluation of his peripheral vascular disease. He was last seen 10/2022. He is also seen for carotid stenosis and AAA. Pts history includes: Dr Canela placed 7x200 stents x 2 from the L SLEEPING ROOM CLE[employer]ER through the L popliteal artery on 03/2019. [...] wounds, and severe claudication that is lifestyle limiting.He states he still heals wounds fairly quickly. He is due for all of his screening tests (carotid, and PVR) the end of 2022. And his AAA US the endof 2023. He is on asa, statin, pletal, plavix. He states that his renal function is declining. 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 His only CT A/P was from 2019. There isn't significant stenosis at that scan. He does have aduplicated system on one side. I have a [...] times a week, to walk until the painis too severe, to rest, and then to continue. They understand that following this can significantlyincrease their walking distance. We discussed the importance [...] cell carcinoma of neck Dr. Arie Scott Food Clerk Carotid artery stenosis Coronary artery disease stent, Dr. Andrade Vice President Regulatory Heart attack (HCC) Hyperlipemia Hypertension Malignant melanoma of chest wall (HCC) Dr. Arie Scott Food Clerk Peripheral arterial disease (HCC) S/P CABG x [...] arthralgias or myalgia Penicillins Hives, Itching Sweats-severe Ctawxsd-Nhw-Kdd Red* Myalgia Severe myalgia PHYSICAL EXAM: PHYSICAL [...] had any questions and the questions were answeredto the patient and his family's satisfaction. PLAN: Continue asa, statin, pletal, plavix Carotid US and pvr with exercise in 6 months Aortic US end of 2023 The pt will continue to practice good foot care. The patient will attempt to adhere to an exercise program. Could consider Renal artery US if there is significant concern for VISH. FOLLOW UP: 6 months Danya Irving MD I spent 25 minutes in the visit, with more than 50% of the total ocdq-of-pocw time of the visit in counseling / coordination of care. [facility] History of Present illness Narrative* Andrea Smiley, DO - 06/03/2023 6:01 AM EDT CC: Porfirio Devi is a 78 year old male who presents to the office for follow up HPI: Significant peripheral arterial disease. Has been seen in the past by Dr. Canela for stent procedureto left leg (more significant disease than right leg) and also been seen by Dr. Irving, whom is a vascular surgeon at [facility] and is seeing her upcoming in May for further follow up She states that he doesn't currently have a lot of surgical options to help with the distal occlusive disease in his left leg arteries since the stent was placed above the bifurcation of the lower limb arteries. She started him on Pletal for his leg cramping with ambulation and he is taking plavix.Medications have been tolerated and he does feel the Pletal has helped his leg cramping with exertional symptoms. 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 Irving vascular surgeon Recently had covid 19 and influenza infection back to back in Oct, symptoms mostly resolved. Again with cough and chest congestion symptoms that started in early May. Was seen by [employer], started on antibiotic medication. Feels the symptoms are improving and mostly resolved Will have follow up dermatology appt with Dr. Scott upcoming PAST MEDICAL HISTORY Diagnosis Date AAA (abdominal aortic aneurysm) (HCC) Arthritis Basal cell carcinoma of neck Dr. Arie Scott Food Clerk Carotid artery stenosis Coronary artery disease stent, Dr. Andrade Vice President Regulatory Heart attack (HCC) Hyperlipemia Hypertension Malignant melanoma of chest wall (HCC) Dr. Arie Scott Food Clerk Peripheral arterial disease (HCC) S/P CABG x [...] arthralgias or myalgia Penicillins Hives, Itching Sweats-severe Qhxmfsp-Ilk-Deq Red* Myalgia Severe myalgia Social History Tobacco [...] - LIPID PANEL BASIC 4. Atherosclerosis of [place] coronary artery of [place] heart with angina pectoris (HCC) - ICD9: [...] - CBC - VITAMIN B12 BLOOD Andrea Smiley DO Return if no improvement. Follow up with Andrea Smiley DO. To ER if develops chest pain, shortness of breath Discussed risks, benefits, alternatives, and potential side effects of medications. Patient/Guardian expressed understanding and agreed with the plan. See patient instructions. Andrea Smiley DO [address] [place] [address] [facility] Instructions* Patient Instructions* Andrea Smiley DO - 06/02/2023 9:39 AM EDT Ask about if need to do any kidney artery testing due to slightly elevated serum creatinine Ask Dr. Irving about the possibility of stopping statin Pravastatin documented in this encounterM[facility] History of Present illness Narrative* Aftab Tavares RT(R) - 05/27/2023 3:50 PM EDT Radiology Service Progress Note PATIENT NAME: Porfirio Devi DATE OF SERVICE: May 27, 2023 TIME: 3:45 PM PATIENT IDENTITY VERIFICATION COMPLETED USING TWO (2) IDENTIFIERS: Name and Date of confirmedby patient verbally. FALL SCREENING: Has the patient [...] RT Evangelista(R) May 27, 2023 3:45 PM documented in this encounterMccullough[facility]07-11-2023 Instructions* Patient Instructions* Naima Luu APRN.JOHN - 05/27/2023 3:40 PM [...] help open respiratory and sinus passages. - [place] [facility] [place] may offer relief of nasal and head [...] your symptoms get worse. documented in this encounterMccull[facility]07-11-[facility] History of Present illness Narrative* Naima Luu APRN.JOHN - 05/27/2023 3:30 PM EDT 78 year old male with c/o URI [...] 3 Bilateral Carotid Artery Stenosis Atherosclerosis of [place] Coronary Artery of [place] Heart With Angina Pectoris (Hcc) Peripheral Artery [...] tablet Take 0.5 tablets by mouth twice daily.60 tablet 3 pravastatin (PRAVACHOL) 10 mg tablet [...] as needed for worsening/no improvement. Naima Luu APRN.LOSS PREVENTION AND SAFETY MANAGER documented in this encounterMccullough-[facility]06-08-2023 Miscellaneous Notes* Telephone Encounter - Hoda Orellana - 04/24/2023 10:20 AM EDT Left VM to re-schedule. Offer to move appt from 07/03/23 back to 06/05/23. 9:30 am if agreeable. documented in this encounterMccullough-[facility]02-28-2023 Miscellaneous Notes* Telephone Encounter - Adriane Dena - 01/14/2023 3:54 PM EST Patient has been identified by name and [...] notify patient. Adriane Fernandes documented in this encounterMccullough[facility]01-13-2023 History of Present illness Narrative* Andrea Smiley, - 11/29/2022 9:37 AM EST CC: Porfirio Devi is a 77 year old male who presents to the office for 6 months follow up HPI: Significant peripheral arterial disease. Has been seen in the past by Dr. Canela for stent procedureto left leg (more significant disease than right leg) and also been seen by Dr. Irving, whom is a vascular surgeon at [facility] and is seeing her every 3-6 months [...] cramping with ambulation and he is taking plavix.Medications have been tolerated and he does feel the Pletal has helped his leg cramping with exertional symptoms. 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 Irving vascular surgeon Recently had covid 19 and influenza infection back to back in Oct, symptoms mostly resolved other than mild fatigue and mild clear sputum production. No fevers or chills, no new dyspnea. PAST MEDICAL HISTORY Diagnosis Date AAA (abdominal aortic aneurysm) Arthritis Basal cell carcinoma of neck Dr. Arie Scott Food Clerk Carotid artery stenosis Coronary artery disease stent, Dr. Andrade Vice President Regulatory Heart attack (HCC) Hyperlipemia Hypertension Malignant melanoma of chest wall (HCC) Dr. 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 Sleep apnea [...] arthralgias or myalgia Penicillins Hives, Itching Sweats-severe Mbxzrbd-Yav-Cnb Red* Myalgia Severe myalgia Social History Tobacco [...] same exercise and follow up with Vascular transit specialist 2. Subclavian artery stenosis (HCC) - ICD9: 447.1, ICD10: I77.1 Stable, lipids are much improved with zetia and statin therapy, continue same exercise and follow up with Vascular transit specialist 3. Peripheral artery disease (HCC) - ICD9: 443.9, ICD10: I73.9 Stable, lipids are much improved with zetia and statin therapy, continue same exercise and follow up with Vascular transit specialist 4. Atherosclerosis of [place] coronary artery of [place] heart with angina pectoris (HCC) - ICD9: 414.01, 413.9, ICD10: I25.119 Stable, lipids are much improved with zetia and statin therapy, continue same exercise and follow up with Vascular transit specialist 5. Hypercholesterolemia - ICD9: 272.0, ICD10: E78.00 Stable, lipids are much improved with zetia and statin therapy, continue same exercise and follow up with Vascular transit specialist 6. Dyslipidemia - ICD9: 272.4, ICD10: [...] ICD9: 268.9, ICD10: E55.9 Continue supplement Andrea Smiley DO Return if no improvement. Follow up with Andrea Smiley DO. To ER if develops chest pain, shortness of breath Discussed risks, benefits, alternatives, and potential side effects of medications. Patient/Guardian expressed understanding and agreed with the plan. See patient instructions. Andrea Smiley DO [address] [place] [address] documented in this encounterMccullough[facility]12-08-2022 History of Present illness Narrative* Danya Irving MD - 10/24/2022 9:36 AM EST Porfirio Devi is a 77 year old male here for follow up evaluation of his peripheral vascular disease. He was last seen 04/11/2022. He is also seen for carotid stenosis and AAA. Pts history includes: Dr Canela placed 7x200 stents x 2 from the L SLEEPING ROOM CLEANER through the L popliteal artery on 03/2019. [...] with exercise and L 0.66 that drops to0 with exercise. A year ago his R was 0.82 that dropped to 0.34 with exercise and his L was essentially the same. He continues to have symptoms of claudication, but they are relatively unchanged. He denies rest pain and tissue loss. 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 He recently had covidand then the flu, so he hasn't been [...] times a week, to walk until the painis too severe, to rest, and then to continue. They understand that following this can significantlyincrease their walking distance. We discussed the importance [...] cell carcinoma of neck Dr. Arie Scott Food Clerk Carotid artery stenosis Coronary artery disease stent, Dr. Andrade Vice President Regulatory Heart attack (HCC) Hyperlipemia Hypertension Malignant melanoma of chest wall (HCC) Dr. Arie Scott Food Clerk Peripheral arterial disease (HCC) S/P CABG x [...] tablet Take 0.5 tablets by mouth twice daily.60 tablet 3 aspirin, enteric coated (ASPIRIN, ENTERIC [...] arthralgias or myalgia Penicillins Hives, Itching Sweats-severe Vlkvsab-Sld-Dxa Red* Myalgia Severe myalgia PHYSICAL EXAM: PHYSICAL [...] Porfirio is having optimal management of their atheroscleroticdisease including antiplatelet therapy and statin therapy and if he is not we are recommending thathe be seen by his primary care doctor [...] exercise program. FOLLOW UP: 6 months Danya Irving MD I spent 25 minutes in the visit, with more than 50% of the total conl-ls-qgno time of the visit in counseling / coordination of care. documented in this encounterMccull[facility]07-13-2022 History of Present illness Narrative* Andrea Smiley, DO - 05/29/2022 6:26 AM EDT CC: Porfirio Devi is a 77 year old male who presents to the office for follow up HPI: Significant peripheral arterial disease. Has been seen by Dr. Canela for stent procedure to left leg(more significant disease than right leg) and also been seen by Dr. Irving, whom is a vascular surgeon at [facility] and is seeing her every 3-6 months for testing and follow up. She statesthat he doesn't currently have a lot of [...] has helped his leg cramping with exertional symptoms.previously had noticed that over the last 12 [...] artery stenosis, continues follow up with Dr. Irving vascular surgeon PAST MEDICAL HISTORY Diagnosis Date Arthritis Basal cell carcinoma of neck Dr. Arie Scott Food Clerk Carotid artery stenosis Coronary artery disease stent, Dr. Andrade Vice President Regulatory Heart attack (HCC) Hyperlipemia Hypertension Malignant melanoma of chest wall (HCC) Dr. Arie Scott Food Clerk Peripheral arterial disease (HCC) S/P CABG x [...] arthralgias or myalgia Penicillins Hives, Itching Sweats-severe Kuhsbcl-Mub-Kbk Red* Myalgia Severe myalgia Social History Tobacco [...] - PARKING FOR HANDICAPPED 4. Atherosclerosis of [place] coronary artery of [place] heart with angina pectoris (HCC) - ICD9: [...] 600.01, ICD10: N40.1 - PSA/PROSTSPECAG SCRN Andrea Smiley DO Return if no improvement. Follow up with Andrea Smiley DO. To ER if develops chest pain, shortness of breath Discussed risks, benefits, alternatives, and potential side effects of medications. Patient/Guardian expressed understanding and agreed with the plan. See patient instructions. Andrea Smiley DO [address] [place] [address] documented in this encounterMccullough-[facility]07-05-2022 Miscellaneous Notes* Telephone Encounter - Maryam Mcgowan Pss - 05/21/2022 1:18 PM EDT Patient has been identified by name and date of : Yes Pending Prescriptions Disp Refills PRAVASTATIN 10 MG TABLET Sig: Take 1 tablet by mouth daily at bedtime. DARA: No LAMAR-11/28/21 Labs-11/28/21 NOV-05/28/22 RX INSTRUCTIONS: patient completely out last dose 05/19 Patient aware RX will be sent to pharmacy. No need to notify patient. Maryam Mcgowan Pss documented in this encounterMccullough-[facility]06-30-2022 Miscellaneous Notes* Telephone Encounter - Airam Sánchez Pss - 05/16/2022 9:01 AM EDT Patient has been identified by name and date of : Yes Pending Prescriptions Disp Refills METOPROLOL TARTRATE 100 MG TABLET 60 tablet 3 Sig: Take 0.5 tablets by mouth twice daily. DARA: No LAMAR-11/28/21 Labs-11/28/21 NOV-05/28/22 RX INSTRUCTIONS: Patient aware RX will be sent to pharmacy. No need to notify patient. Airam Sánchez Pss documented in this encounterMccullough-[facility]05-26-2022 History of Present illness Narrative* Danya Irving MD - 04/11/2022 10:24 AM EDT Porfirio Devi is a 76 year old male here for follow up evaluation of his peripheral vascular disease. He was last seen 09/28/2021. He is also seen for carotid disease. Pts history includes: Dr Canela placed 7x200 stents x 2 from the L SLEEPING ROOM CLE[employer]ER through the L popliteal artery on 03/2019. 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 He is still on the pletal. His symptoms haven't changed a ton since the initial improvement. He still has claudication in his L calf at 50-75 yards that resolves relatively quickly in a fewminutes. He has no wounds or rest pain. I am seeing his tomorrow for an iliac stent. We again reviewed the walking program and the importance of it. The pt was instructed to walk at least 30-50 min 3-5 times a week, to walk until the pain is too severe, to rest, and then to continue.They understand that following this can significantly increase [...] cell carcinoma of neck Dr. Arie Scott Food Clerk Carotid artery stenosis Coronary artery disease stent, Dr. Andrade Vice President Regulatory Heart attack (HCC) Hyperlipemia Hypertension Malignant melanoma of chest wall (HCC) Dr. Arie Scott Food Clerk Peripheral arterial disease (HCC) S/P CABG x [...] tablet Take 0.5 tablets by mouth twice daily.60 tablet 3 clopidogrel (PLAVIX) 75 mg tablet [...] arthralgias or myalgia Penicillins Hives, Itching Sweats-severe Kvctavs-Yud-Slj Red* Myalgia Severe myalgia PHYSICAL EXAM: PHYSICAL [...] carotid senosis: Porfirio is having optimal management oftheir atherosclerotic disease including antiplatelet therapy and statin therapy and if he is not weare recommending that he be seen by his primary care doctor for addition of appropriate therapy. The patient has a full discussion of the risks, benefits, and alternatives, as well as medical management versus interventional management versus open surgical management of their disease. At this pointin time, given Porfirio's symptoms all of these are discussed with regard to their appropriateness inthis setting. The patient and his family were [...] wound develops FOLLOW UP: 6 months Danya Irving MD The patient is currently taking a statin: Yes The patient is currently taking aspirin: Yes I spent 25 minutes in the visit, with more than 50% of the total yfzd-li-zwqn time of the visit in counseling / coordination of care. documented in this encounterMccullough-[facility]04-30-2022 Miscellaneous Notes* Telephone Encounter - Dominique Read Ma - 03/16/2022 9:39 AM EDT Pt notified and verbalized understanding. Dominique Read Ma * Telephone Encounter - Andrea Smiley DO - 03/16/2022 7:40 AM EDT Please have him start on Keflex as below, if pain worsens or redness worsens or loses sensation to toe etc, he needs to go to the EMERGENCY DEPARTMENT Andrea Smiley DO The following approved medication requests have been transmitted electronically. Signed Prescriptions Disp Refills cephALEXin (KEFLEX) 500 mg capsule 40 capsule 0 Sig: Take 1 capsule by mouth four times daily for 10 days. DARA: No Authorizing Provider: ANDREA SMILEY DO * Telephone Encounter - Kat Tracy LPN - 03/15/2022 9:23 AM EDT Patient calling he said he has PAD and having issues with his left great toe red, swollen and tender. got on the phone and said his PCP usually gives him an antibiotic rx to clear this up. Patient uses [facility]. Please advise documented in this encounterMccull[facility]10-20-2021 History of Present illness Narrative* Jayne Ashley, RT(R) - 09/05/2021 10:50 AM EDT Radiology Service Progress Note PATIENT NAME: Porfirio Devi DATE OF SERVICE: September 05, 2021 TIME: 10:58 AM PATIENT IDENTITY VERIFICATION COMPLETED USING TWO (2) IDENTIFIERS: Name and Date of confirmedby patient verbally. FALL SCREENING: Has the patient had 2 falls in the last year or 1 fall with injury or currently using an Ambulatory Assistive Device (Walker, Cane, Wheelchair, Crutches, etc.)? No PATIENT GENDER DATA: Male PATIENT RELEVANT IMPLANT DATA REVIEWED: Yes RADIOLOGY DEPARTMENT: General X-ray: Exam(s) Completed: Chest X-Ray PERIPHERAL IV DATA: Not applicable SIGNED BY: RT Derrek(R) September 05, 2021 10:58 AM documented in this encounterMccullough-[facility]06-24-2019 History of Past illness Narrative* Problem Noted Date Resolved Date Acute renal insufficiency 05/10/20192021 Atherosclerosis of [place] co ronary artery of [place] heart with angina pectoris 05/10/2019 05/24/2020 Malnutrition of moderate degree 12/29/2018 05/24/2020 Peripheral artery disease 11/27/20182019 Atherosclerosis of coronary artery of [place] heart with angina pectoris 11/28/2017 05/24/2020 Hypertension 11/28/2014 12/05/2015 documented as of this encounter (statuses as of 03/16/2022) [facility] of Past illness Narrative* Problem Noted Date Resolved Date Acute renal insufficiency 05/10/20192021 Atherosclerosis of [place] co ronary artery of [place] heart with angina pectoris 05/10/2019 05/24/2020 Malnutrition of moderate degree 12/29/2018 05/24/2020 Peripheral artery disease 11/27/20182019 Atherosclerosis of coronary artery of [place] heart with angina pectoris 11/28/2017 05/24/2020 Hypertension 11/28/2014 12/05/2015 documented as of this encounter (statuses as of 03/20/2022) [facility] of Past illness Narrative* Problem Noted Date Resolved Date Acute renal insufficiency 05/10/20192021 Atherosclerosis of [place] co ronary artery of [place] heart with angina pectoris 05/10/2019 05/24/2020 Malnutrition of moderate degree 12/29/2018 05/24/2020 Peripheral artery disease 11/27/20182019 Atherosclerosis of coronary artery of [place] heart with angina pectoris 11/28/2017 05/24/2020 Hypertension 11/28/2014 12/05/2015 documented as of this encounter (statuses as of 04/11/2022) [facility] of Past illness Narrative* Problem Noted Date Resolved Date Acute renal insufficiency 05/10/20192021 Atherosclerosis of [place] co ronary artery of [place] heart with angina pectoris 05/10/2019 05/24/2020 Malnutrition of moderate degree 12/29/2018 05/24/2020 Peripheral artery disease 11/27/20182019 Atherosclerosis of coronary artery of [place] heart with angina pectoris 11/28/2017 05/24/2020 Hypertension 11/28/2014 12/05/2015 documented as of this encounter (statuses as of 05/16/2022) [facility] of Past illness Narrative* Problem Noted Date Resolved Date Acute renal insufficiency 05/10/20192021 Atherosclerosis of [place] co ronary artery of [place] heart with angina pectoris 05/10/2019 05/24/2020 Malnutrition of moderate degree 12/29/2018 05/24/2020 Peripheral artery disease 11/27/20182019 Atherosclerosis of coronary artery of [place] heart with angina pectoris 11/28/2017 05/24/2020 Hypertension 11/28/2014 12/05/2015 documented as of this encounter (statuses as of 05/22/2022) [facility] of [facility] illness Narrative* Problem Noted Date Resolved Date Acute renal insufficiency 05/10/20192021 Atherosclerosis of [place] co ronary artery of [place] heart with angina pectoris 05/10/2019 05/24/2020 Malnutrition of moderate degree 12/29/2018 05/24/2020 Peripheral artery disease 11/27/20182019 Atherosclerosis of coronary artery of [place] heart with angina pectoris 11/28/2017 05/24/2020 Hypertension 11/28/2014 12/05/2015 documented as of this encounter (statuses as of 05/29/2022) [facility] illness Narrative* Problem Noted Date Resolved Date Acute renal insufficiency 05/10/20192021 Atherosclerosis of [place] co ronary artery of [place] heart with angina pectoris 05/10/2019 05/24/2020 Malnutrition of moderate degree 12/29/2018 05/24/2020 Peripheral artery disease 11/27/20182019 Atherosclerosis of coronary artery of [place] heart with angina pectoris 11/28/2017 05/24/2020 Hypertension 11/28/2014 12/05/2015 documented as of this encounter (statuses as of 08/01/2022) [facility] Narrative* Problem Noted Date Resolved Date Acute renal insufficiency 05/10/20192021 Atherosclerosis of [place] co ronary artery of [place] heart with angina pectoris 05/10/2019 05/24/2020 Malnutrition of moderate degree 12/29/2018 05/24/2020 Peripheral artery disease 11/27/20182019 Atherosclerosis of coronary artery of [place] heart with angina pectoris 11/28/2017 05/24/2020 Hypertension 11/28/2014 12/05/2015 documented as of this encounter (statuses as of 08/21/2022) [facility] Narrative* Problem Noted Date Resolved Date Acute renal insufficiency 05/10/20192021 Atherosclerosis of [place] co ronary artery of [place] heart with angina pectoris 05/10/2019 05/24/2020 Malnutrition of moderate degree 12/29/2018 05/24/2020 Peripheral artery disease 11/27/20182019 Atherosclerosis of coronary artery of [place] heart with angina pectoris 11/28/2017 05/24/2020 Hypertension 11/28/2014 12/05/2015 documented as of this encounter (statuses as of 10/01/2022) [facility] Narrative* Problem Noted Date Resolved Date Acute renal insufficiency 05/10/20192021 Atherosclerosis of [place] co ronary artery of [place] heart with angina pectoris 05/10/2019 05/24/2020 Malnutrition of moderate degree 12/29/2018 05/24/2020 Peripheral artery disease 11/27/20182019 Atherosclerosis of coronary artery of [place] heart with angina pectoris 11/28/2017 05/24/2020 Hypertension 11/28/2014 12/05/2015 documented as of this encounter (statuses as of 10/24/2022) [facility] Narrative* Problem Noted Date Resolved Date Acute renal insufficiency 05/10/20192021 Atherosclerosis of [place] co ronary artery of [place] heart with angina pectoris 05/10/2019 05/24/2020 Malnutrition of moderate degree 12/29/2018 05/24/2020 Peripheral artery disease 11/27/20182019 Atherosclerosis of coronary artery of [place] heart with angina pectoris 11/28/2017 05/24/2020 Hypertension 11/28/2014 12/05/2015 documented as of this encounter (statuses as of 11/29/2022) [facility] Narrative* Problem Noted Date Resolved Date Acute renal insufficiency 05/10/20192021 Atherosclerosis of [place] co ronary artery of [place] heart with angina pectoris 05/10/2019 05/24/2020 Malnutrition of moderate degree 12/29/2018 05/24/2020 Peripheral artery disease 11/27/20182019 Atherosclerosis of coronary artery of [place] heart with angina pectoris 11/28/2017 05/24/2020 Hypertension 11/28/2014 12/05/2015 documented as of this encounter (statuses as of 01/15/2023) [facility] Narrative* Problem Noted Date Resolved Date Acute renal insufficiency 05/10/20192021 Atherosclerosis of [place] co ronary artery of [place] heart with angina pectoris 05/10/2019 05/24/2020 Malnutrition of moderate degree 12/29/2018 05/24/2020 Peripheral artery disease 11/27/20182019 Atherosclerosis of coronary artery of [place] heart with angina pectoris 11/28/2017 05/24/2020 Hypertension 11/28/2014 12/05/2015 documented as of this encounter (statuses as of 04/24/2023) [facility] Narrative* Problem Noted Date Diagnosed Date Resolved Date Acute renal insufficiency 05/10/2019 Atherosclerosis of [place] co ronary artery of [place] heart with angina pectoris 05/10/20192019 Malnutrition of moderate degree 12/29/2018 05/24/2020 Peripheral artery disease 11/27/2018 Atherosclerosis of coronary artery of [place] heart with angina pectoris 11/28/2017 05/24/2020 Hypertension 11/28/2014 12/05/2015 documented as of this encounter (statuses as of 05/28/2023) [facility] Narrative* Problem Noted Date Diagnosed Date Resolved Date Acute renal insufficiency 05/10/2019 Atherosclerosis of [place] co ronary artery of [place] heart with angina pectoris 05/10/20192019 Malnutrition of moderate degree 12/29/2018 05/24/2020 Peripheral artery disease 11/27/2018 Atherosclerosis of coronary artery of [place] heart with angina pectoris 11/28/2017 05/24/2020 Hypertension 11/28/2014 12/05/2015 documented as of this encounter (statuses as of 06/03/2023) [facility] Narrative* Problem Noted Date Diagnosed Date Resolved Date Acute renal insufficiency 05/10/2019 Atherosclerosis of [place] co ronary artery of [place] heart with angina pectoris 05/10/20192019 Malnutrition of moderate degree 12/29/2018 05/24/2020 Peripheral artery disease 11/27/2018 Atherosclerosis of coronary artery of [place] heart with angina pectoris 11/28/2017 05/24/2020 Hypertension 11/28/2014 12/05/2015 documented as of this encounter (statuses as of 06/05/2023) [facility] Narrative* Problem Noted Date Diagnosed Date Resolved Date Acute renal insufficiency 05/10/2019 Atherosclerosis of [place] co ronary artery of [place] heart with angina pectoris 05/10/20192019 Malnutrition of moderate degree 12/29/2018 05/24/2020 Peripheral artery disease 11/27/2018 Atherosclerosis of coronary artery of [place] heart with angina pectoris 11/28/2017 05/24/2020 Hypertension 11/28/2014 12/05/2015 documented as of this encounter (statuses as of 10/06/2023) [facility]* Diagnosis PAD (peripheral artery disease) ([facility])- Primary Peripheral vascular disease, unspecified 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) Atherosclerosis of [place] arteries of the extremities with intermittent claudication Carotid stenosis, asymptomatic, bilateral AAA (abdominal aortic aneurysm) without rupture (HCC) Abdominal aneurysm without mention of rupture [facility] Dyslipidemia- Primary Other and unspecified hyperlipidemia PAD (peripheral artery disease) ([facility]) Peripheral vascular disease, unspecified Hypercholesterolemia Pure hypercholesterolemia Atherosclerosis of [place] coronary artery of [place] heart with angina pectoris (HCC) Weakness of left leg Other musculoskeletal symptoms referable to limbs Vitamin D deficiency Unspecified vitamin D deficiency Essential hypertension Unspecified essential hypertension Screening for prostate cancer Special screening for malignant neoplasm of prostate Benign prostatic hyperplasia with lower urinary tract symptoms, symptom details unspecified [facility] Diagnosis PAD (peripheral artery disease) (HCC)- Primary Peripheral vascular disease, unspecified 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) Atherosclerosis of [place] arteries of the extremities with intermittent claudication [facility] Diagnosis PAD (peripheral artery disease) (HCC)- Primary Peripheral vascular disease, unspecified 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) Atherosclerosis of [place] arteries of the extremities with intermittent claudication [facility] Diagnosis PVD (peripheral vascular disease) (HCC)- Primary Peripheral vascular disease, unspecified Abdominal aortic aneurysm (AAA) without rupture, unspecified part Carotid stenosis, asymptomatic, bilateral [facility] Diagnosis PAD (peripheral artery disease) (HCC)- Primary Peripheral vascular disease, unspecified Subclavian artery stenosis (HCC) Stricture of artery Peripheral artery disease (HCC) Peripheral vascular disease, unspecified Atherosclerosis of [place] coronary artery of [place] heart with angina pectoris (HCC) Hypercholesterolemia Pure hypercholesterolemia Dyslipidemia Other and unspecified hyperlipidemia Essential hypertension Unspecified essential hypertension Vitamin D deficiency Unspecified vitamin D deficiency Hyperglycemia Other abnormal glucose [facility] Diagnosis Acute cough- Primary [facility]* Diagnosis Dyslipidemia- Primary Other and unspecified hyperlipidemia PAD (peripheral artery disease) (HCC) Peripheral vascular disease, unspecified Hypercholesterolemia Pure hypercholesterolemia Atherosclerosis of [place] coronary artery of [place] heart with angina pectoris (HCC) Acute cough Essential hypertension Unspecified essential hypertension Peripheral artery disease (HCC) Peripheral vascular disease, unspecified Vitamin D deficiency Unspecified vitamin D deficiency Screening for prostate cancer Special screening for malignant neoplasm of prostate Fatigue, unspecified type [facility] Diagnosis 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)- Primary Atherosclerosis of [place] arteries of the extremities with intermittent claudication Abdominal aortic aneurysm (AAA) without rupture, unspecified part (HCC) PVD (peripheral vascular disease) (HCC) Peripheral vascular disease, unspecified Carotid stenosis, asymptomatic, bilateral PAD (peripheral artery disease) (HCC) Peripheral vascular disease, unspecified [facility] Diagnosis Onset Date Resolution Status AAA (abdominal aortic aneurysm) acute Essential (primary) hypertension chronic Mixed hyperlipidemia chronic Peripheral arterial occlusive disease chronic H/O coronary artery bypass surgery December 28, 2018 resolved [facility] Work Phone: Evaluation note* Diagnosis Essential hypertension- Primary Unspecified essential hypertension PAD (peripheral artery disease) (HCC) Peripheral vascular disease, unspecified Hypercholesterolemia Pure hypercholesterolemia Atherosclerosis of [place] coronary artery of [place] heart with angina pectoris (HCC) Vitamin D deficiency Unspecified vitamin D deficiency Dyslipidemia Other and unspecified hyperlipidemia Screening for prostate cancer Special screening for malignant neoplasm of prostate Vitamin B12 deficiency Other B-complex deficiencies [facility] Diagnosis Acute cough [facility] Diagnosis Cough SOB (shortness of breath) Shortness of breath Tachypnea documented [facility]* Diagnosis Acute cough- Primary SOB (shortness of breath) Shortness of breath Tachypnea documented [facility]* Diagnosis Rhonchi at both lung bases [facility] Diagnosis Rhonchi at both lung bases- Primary Community acquired bacterial pneumonia Bacterial pneumonia, unspecified Rhonchi at both lung bases [facility] Diagnosis Community acquired bacterial pneumonia- Primary Bacterial pneumonia, unspecified Rhonchi at left lung base documented [facility]* Diagnosis PVD (peripheral vascular disease) (HCC)- Primary Peripheral vascular disease, unspecified 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) Atherosclerosis of [place] arteries of the extremities with intermittent claudication Carotid stenosis, asymptomatic, bilateral Infrarenal abdominal aortic aneurysm (AAA) without rupture (HCC) documented [facility]* Diagnosis PAD (peripheral artery disease) (HCC)- Primary Peripheral vascular disease, unspecified Hypercholesterolemia Pure hypercholesterolemia Essential hypertension Unspecified essential hypertension Atherosclerosis of [place] coronary artery of [place] heart with angina pectoris (HCC) Vitamin D deficiency Unspecified vitamin D deficiency Vitamin B12 deficiency Other B-complex deficiencies Fatigue, unspecified type Hyperglycemia Other abnormal glucose documented [facility] this [facility]* Diagnosis Carotid stenosis, asymptomatic, bilateral- Primary PAD (peripheral artery disease) (HCC) Peripheral vascular disease, unspecified 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) Atherosclerosis of [place] arteries of the extremities with intermittent claudication Infrarenal abdominal aortic aneurysm (AAA) without rupture (HCC) Abdominal aortic aneurysm (AAA) without rupture, unspecified part (HCC) documented [facility] Diagnosis Screening for prostate cancer- Primary Special screening for malignant neoplasm of prostate PAD (peripheral artery disease) Peripheral vascular disease, unspecified Hypercholesterolemia Pure hypercholesterolemia Atherosclerosis of [place] coronary artery of [place] heart with angina pectoris Vitamin D deficiency Unspecified vitamin D deficiency Vitamin B12 deficiency Other B-complex deficiencies Hyperglycemia Other abnormal glucose documented in this encounter [facility] for referral (narrative)* Outpatient Procedure (Routine) - Pending Review Specialty Diagnoses / Procedures Referred By Contac t Referred To Contact [facility] [place] Diagnoses Carotid stenosis, asymptomatic, bilateral Procedures US CAROTID ARTERIES MEÑO VAS LAB DUPLEX SCAN EXTRACRANIAL ART COMPL BI STUDY Danya Irving MD [address] [employer] [address] [place] [address] [facility] [place] [address] Referral ID Status Reason Start Date Expiration Date Visits Requested Visits Authorized [id number] Pending Review Auto-Generat ed Referral 04/11/2023 1 1 * Outpatient Procedure (Routine) - Pending Review Specialty Diagnoses / Procedures Referred By Contac t Referred To Contact [facility] [place] Diagnoses AAA (abdominal aortic aneurysm) without rupture (HCC) Procedures US ABD AORTA COMPLETE VAS LAB DUP-SCAN AORTA IVC ILIAC VASCL/BPGS COMPLETE Danya Irving MD [address] [place] [address] [facility] [place] [address] Referral ID Status Reason Start Date Expiration Date Visits Requested Visits Authorized [id number] Pending Review Auto-Generat ed Referral 04/11/2022 04/11/2023 1 [facility] Procedure (Routine) - Pending Review Specialty Diagnoses / Procedures Referred By Contac t Referred To Contact [facility] [place] Diagnoses PAD (peripheral artery disease) (HCC) 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) Procedures PVR LEG MEÑO VAS LAB NON-INVASIVE PHYSIOLOGIC STUDY EXTREMITY 3 LEVLS Maggie Young, LOSS PREVENTION AND SAFETY MANAGER 1 [facility] [address] [place] [id number] [facility] [address] [address] Referral ID Status Reason Start Date Expiration Date Visits Requested Visits Authorized [id number] Pending Review Auto-Generat ed Referral 2 09/30/2023 1 1 [facility] for referral (narrative)* Outpatient Procedure (Routine) - Authorized Specialty Diagnoses / Procedures Referred By Contac t Referred To Contact [facility] [place] Diagnoses Infrarenal abdominal aortic aneurysm (AAA) without rupture (HCC) Procedures US ABD AORTA COMPLETE VAS LAB DUP-SCAN AORTA IVC ILIAC VASCL/BPGS COMPLETE Maggie Young APRN.LOSS PREVENTION AND SAFETY MANAGER [address] [address] [facility] [address] [address] Referral ID Status Reason Start Date Expiration Date Visits Requested Visits Authorized [id number] Authorized Auto-Generat ed Referral 11/19/2024 11/19/2025 1 1 * Outpatient Procedure (Routine) - Authorized Specialty Diagnoses / Procedures Referred By Contac t Referred To Contact [facility] [place] Diagnoses PVD (peripheral vascular disease) (HCC) 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) Procedures PVR LEG W/EXC MEÑO VAS LAB N-INVAS PHYSIOLOGIC STD LXTR ART COMPL BI Maggie Young APRN.LOSS PREVENTION AND SAFETY MANAGER [address] [employer] [place] [address] [facility] [address] [address] Referral ID Status Reason Start Date Expiration Date Visits Requested Visits Authorized [id number] Authorized Auto-Generat ed Referral 11/19/2024 11/19/2025 1 1 * Outpatient Procedure (Routine) - Authorized Specialty Diagnoses / Procedures Referred By Contac t [facility] Diagnoses Carotid stenosis, asymptomatic, bilateral Procedures US CAROTID ARTERIES MEÑO VAS LAB DUPLEX SCAN EXTRACRANIAL ART COMPL BI STUDY Maggie Young, LOSS PREVENTION AND SAFETY MANAGER [address] [place] [address] [facility] [place] [address] [place] [address] Referral ID Status Reason Start Date Expiration Date Visits Requested Visits Authorized [id number] Authorized Auto-Generat ed Referral 11/19/2024 11/19/2025 1 1 [facility] Summary Purpose Family History No Family History Records Found Relationship Condition Age at Onset Recorded Date/T emelyn father Cardiac disease Unknown Hypertension Unknown mother Cerebrovascular accident (CVA) Unknown brother Cardiac disease Unknown Myocardial infarction Unknown brother Hypertension Unknown Advance Directives No Advanced Directives Records FoundDocuments on File Type Date Recorded Patient Conditioner Tumbler Expl anation Advance Directive(s) 03/20/2021 6:52 AM [...] Documents on File Type Date Recorded Patient Conditioner Tumbler Expl anation Advance Directive(s) 03/20/2021 6:52 AM [...] Comments Full Code Order Discussed With: Patient Advance Directive Response Recorded Date/ Time Advance Directives No April 06 6:49am Living Will No December 09 2:51pm Power of Director Talent Management No December 09, 2023 2:51pm Date Activated Date Inactivated Comments 12/28/2018 3:38 PM 01/02/2019 3:17 PM Question Answer Comments Full Code Order Discussed With: Patient Date Activated Date Inactivated Comments 12/22/2018 8:18 PM 12/28/2018 3:09 PM Question Answer Comments Full Code Order Discussed With: Patient Date Activated Date Inactivated Comments 12/28/2018 3:38 PM 01/02/2019 3:17 PM Question Answer Comments Full Code Order Discussed With: Patient Date Activated Date Inactivated Comments 12/22/2018 8:18 PM 12/28/2018 3:09 PM Question Answer Comments Full Code Order Discussed With: Patient Chief Complaint and Reason for Visit Chief Complaint 1 Y FU WEAKNESS Reason for Visit AAA (abdominal aorti c aneurysm) Essential (primary) hypertension Mixed hyperlipidemia Peripheral arterial occlusive disease H/O coronary artery bypass surgery Additional Source Comments (unrecognized sect ion and content) No Status Records FoundNo Status Records FoundNo Status Records FoundNo Status Records Found INFORMATION SOURCE (unrecogn ized section and content) DATE CREATED AUTHOR 03/21/2019 [facility] DATE CREATED AUTHOR AUTHOR'S ORGANIZ ATION 10/11/2024 [facility] DATE CREATED AUTHOR AUTHOR'S ORGANIZ ATION 01/16/2025 [facility] DATE CREATED AUTHOR AUTHOR'S ORGANIZ ATION 06/04/2025 [facility] Source Comments (unrecognize d section and content) In the event this informatio n is protected by the Federal Confidentiality of Alcohol and Drug Abuse Patient Records regulations: The Federal rules restrict any use of the information to criminally investigate or prosecute any alcohol or drug abuse patient.[facility] the event this information is protected by the Federal Confidentiality of Alcohol and Drug Abuse Patient Records regulations: The Federal rules restrict any use of the information to criminally investigate or prosecute any alcohol or drug abuse patient.[facility] the event this information is protected by the Federal Confidentiality of Alcohol and Drug Abuse Patient Records regulations: The Federal rules restrict any use of the information to criminally investigate or prosecute any alcohol or drug abuse patient.[facility] the event this information is protected by the Federal Confidentiality of Alcohol and Drug Abuse Patient Records regulations: The Federal rules restrict any use of the information to criminally investigate or prosecute any alcohol or drug abuse patient.[facility] the event this information is protected by the Federal Confidentiality of Alcohol and Drug Abuse Patient Records regulations: The Federal rules restrict any use of the information to criminally investigate or prosecute any alcohol or drug abuse patient.[facility] the event this information is protected by the Federal Confidentiality of Alcohol and Drug Abuse Patient Records regulations: The Federal rules restrict any use of the information to criminally investigate or prosecute any alcohol or drug abuse patient.[facility] the event this information is protected by the Federal Confidentiality of Alcohol and Drug Abuse Patient Records regulations: The Federal rules restrict any use of the information to criminally investigate or prosecute any alcohol or drug abuse patient.[facility] the event this information is protected by the Federal Confidentiality of Alcohol and Drug Abuse Patient Records regulations: The Federal rules restrict any use of the information to criminally investigate or prosecute any alcohol or drug abuse patient.[facility] the event this information is protected by the Federal Confidentiality of Alcohol and Drug Abuse Patient Records regulations: The Federal rules restrict any use of the information to criminally investigate or prosecute any alcohol or drug abuse patient.[facility] the event this information is protected by the Federal Confidentiality of Alcohol and Drug Abuse Patient Records regulations: The Federal rules restrict any use of the information to criminally investigate or prosecute any alcohol or drug abuse patient.[facility] the event this information is protected by the Federal Confidentiality of Alcohol and Drug Abuse Patient Records regulations: The Federal rules restrict any use of the information to criminally investigate or prosecute any alcohol or drug abuse patient.[facility] the event this information is protected by the Federal Confidentiality of Alcohol and Drug Abuse Patient Records regulations: The Federal rules restrict any use of the information to criminally investigate or prosecute any alcohol or drug abuse patient.[facility] the event this information is protected by the Federal Confidentiality of Alcohol and Drug Abuse Patient Records regulations: The Federal rules restrict any use of the information to criminally investigate or prosecute any alcohol or drug abuse patient.[facility] the event this information is protected by the Federal Confidentiality of Alcohol and Drug Abuse Patient Records regulations: The Federal rules restrict any use of the information to criminally investigate or prosecute any alcohol or drug abuse patient.[facility] Hospital[facility] the event this information is protected by the Federal Confidentiality of Alcohol and Drug Abuse Patient Records regulations: The Federal rules restrict any use of the information to criminally investigate or prosecute any alcohol or drug abuse patient.[facility] Hospital[facility] the event this information is protected by the Federal Confidentiality of Alcohol and Drug Abuse Patient Records regulations: The Federal rules restrict any use of the information to criminally investigate or prosecute any alcohol or drug abuse patient.[facility] Hospital[facility] the event this information is protected by the Federal Confidentiality of Alcohol and Drug Abuse Patient Records regulations: The Federal rules restrict any use of the information to criminally investigate or prosecute any alcohol or drug abuse patient.[facility] Hospital[facility] the event this information is protected by the Federal Confidentiality of Alcohol and Drug Abuse Patient Records regulations: The Federal rules restrict any use of the information to criminally investigate or prosecute any alcohol or drug abuse patient.[facility] HospitalIn the event this information is protected by the Federal Confidentiality of Alcohol and Drug Abuse Patient Records regulations: The Federal rules restrict any use of the information to criminally investigate or prosecute any alcohol or drug abuse patient.[facility] HospitalIn the event this information is protected by the Federal Confidentiality of Alcohol and Drug Abuse Patient Records regulations: The Federal rules restrict any use of the information to criminally investigate or prosecute any alcohol or drug abuse patient.[facility] HospitalIn the event this information is protected by the Federal Confidentiality of Alcohol and Drug Abuse Patient Records regulations: The Federal rules restrict any use of the information to criminally investigate or prosecute any alcohol or drug abuse patient.[facility] HospitalIn the event this information is protected by the Federal Confidentiality of Alcohol and Drug Abuse Patient Records regulations: The Federal rules restrict any use of the information to criminally investigate or prosecute any alcohol or drug abuse patient.[facility] HospitalIn the event this information is protected by the Federal Confidentiality of Alcohol and Drug Abuse Patient Records regulations: The Federal rules restrict any use of the information to criminally investigate or prosecute any alcohol or drug abuse patient.[facility] HospitalIn the event this information is protected by the Federal Confidentiality of Alcohol and Drug Abuse Patient Records regulations: The Federal rules restrict any use of the information to criminally investigate or prosecute any alcohol or drug abuse patient.[facility] HospitalIn the event this information is protected by the Federal Confidentiality of Alcohol and Drug Abuse Patient Records regulations: The Federal rules restrict any use of the information to criminally investigate or prosecute any alcohol or drug abuse patient.[facility] HospitalIn the event this information is protected by the Federal Confidentiality of Alcohol and Drug Abuse Patient Records regulations: The Federal rules restrict any use of the information to criminally investigate or prosecute any alcohol or drug abuse patient.[facility] HospitalIn the event this information is protected by the Federal Confidentiality of Alcohol and Drug Abuse Patient Records regulations: The Federal rules restrict any use of the information to criminally investigate or prosecute any alcohol or drug abuse patient.[facility] HospitalIn the event this information is protected by the Federal Confidentiality of Alcohol and Drug Abuse Patient Records regulations: The Federal rules restrict any use of the information to criminally investigate or prosecute any alcohol or drug abuse patient.[facility] HospitalIn the event this information is protected by the Federal Confidentiality of Alcohol and Drug Abuse Patient Records regulations: The Federal rules restrict any use of the information to criminally investigate or prosecute any alcohol or drug abuse patient.[facility] HospitalIn the event this information is protected by the Federal Confidentiality of Alcohol and Drug Abuse Patient Records regulations: The Federal rules restrict any use of the information to criminally investigate or prosecute any alcohol or drug abuse patient.[facility] HospitalIn the event this information is protected by the Federal Confidentiality of Alcohol and Drug Abuse Patient Records regulations: The Federal rules restrict any use of the information to criminally investigate or prosecute any alcohol or drug abuse patient.[facility] HospitalIn the event this information is protected by the Federal Confidentiality of Alcohol and Drug Abuse Patient Records regulations: The Federal rules restrict any use of the information to criminally investigate or prosecute any alcohol or drug abuse patient.[facility] HospitalIn the event this information is protected by the Federal Confidentiality of Alcohol and Drug Abuse Patient Records regulations: The Federal rules restrict any use of the information to criminally investigate or prosecute any alcohol or drug abuse patient.[facility] the event this information is protected by the Federal Confidentiality of Alcohol and Drug Abuse Patient Records regulations: The Federal rules restrict any use of the information to criminally investigate or prosecute any alcohol or drug abuse patient.[facility] Reason for Visit (unrecogniz ed section and content) Reason Comments Medication Request Reason Comments Peripheral Vascular Disease (PVD) Porfirio is here for 3 month follow up Carotid artery stenosis Reason Onset Date Comments Refill Request 05/16/2022 Reason Onset Date Comments Refill Request 05/21/2022 Reason Comments 6 Month Exam Reason Comments Peripheral Vascular Disease (PVD) Aneurysm Carotid artery stenosis Mian is here to r gailw testing Reason Onset Date Comments Refill Request 01/14/2023 Reason Comments Appointment Appointment Reason Comments Acute Visit Sore throat, chest c ongestion, productive cough, chills (no fever per pt) x2-3 days Reason Comments Peripheral Vascular Disease (PVD) Porfirio is here for follow up Reason Onset Date Comments Refill Request 10/04/2023 Reason Comments Chest Congestion Headache Fever Reason Comments Future Appointment Reason Comments Results Reason Comments ER F/U Reason Comments Follow Up Pneumonia Reason Comments Appointment Appointment Reason Comments Established Patient Follow Up Annual follow-up Peripheral Vascular Disease (PVD) Care Teams (unrecognized sec tion and content) Electronics Research Engineer Relationship Specialty Start Date End Date Andrea Smiley, DO [address] [facility] [place] [address] PCP - General Family Practice 11/16/14 Kj Galeasril S [address] [place] [address] Cardiology 01/07/19 Yohan Canela MD [address] [facility] [place] [address] General Surgery 04/14/20 Electronics Research Engineer Relationship Specialty Start Date End Date Andrea Smiley DO [address] [facility] [place] [address] PCP - General Family Practice 11/16/14 Adal Lenin S [address] [place] [address] Cardiology 01/07/19 Yohan Canela MD [address] [facility] [place] [address] General Surgery 04/14/20 Electronics Research Engineer Relationship Specialty Start Date End Date Andrea Smiley DO [address] [facility] [place] [address] PCP - General Family Practice 11/16/14 Adal, Lenin S [address] [place] [address] Cardiology 01/07/19 Yohan Canela MD [address] [facility] [place] [address] General Surgery 04/14/20 Electronics Research Engineer Relationship Specialty Start Date End Date Andrea Smiley, DO [address] [facility] [place] [address] PCP - General Family Practice 11/16/14 Adal, Golden S [address] [place] [address] Cardiology 01/07/19 Yohan Canela MD [address] [facility] [place] [address] General Surgery 04/14/20 Electronics Research Engineer Relationship Specialty Start Date End Date Andrea Smiley, DO [address] [facility] [place] [address] PCP - General Family Practice 11/16/14 Adal, Golden S [address] [facility] [address] [place] [address] Cardiology 01/07/19 Yohan Canela MD [address] [facility] [place] [address] General Surgery 04/14/20 Electronics Research Engineer Relationship Specialty Start Date End Date Andrea Smiley, DO [address] [facility] [place] [address] PCP - General Family Practice 11/16/14 Adal, Lenin S [address] [place] [address] Cardiology 01/07/19 Yohan Canela MD [address] [place] [address] General Surgery 04/14/20 Electronics Research Engineer Relationship Specialty Start Date End Date Andrea Smiley, DO [address] [place] [address] PCP - General Family Medicine 11/16/14 Adal, Lenin S [address] [place] [address] Cardiology 01/07/19 Yohan Canela MD [address] [place] [address] General Surgery 04/14/20 Electronics Research Engineer Relationship Specialty Start Date End Date Andrea Smiley, DO [address] [place] [address] PCP - General Family Medicine 11/16/14 Adal, Lenin S [address] [place] [address] Cardiology 01/07/19 Yohan Canela MD [address] [place] [address] General Surgery 04/14/20 Electronics Research Engineer Relationship Specialty Start Date End Date Andrea Smiley, DO [address] [place] [address] PCP - General Family Medicine 11/16/14 Adal, Lenin S [address] [place] [address] Cardiology 01/07/19 Yohan Canela MD [address] [place] [address] General Surgery 04/14/20 Electronics Research Engineer Relationship Specialty Start Date End Date Andrea Smiley DO [address] [place] [address] PCP - General Family Medicine 11/16/14 Adal, Golden S [address] [place] [address] Cardiology 01/07/19 Yohan Canela MD [address] [place] [address] General Surgery 04/14/20 Electronics Research Engineer Relationship Specialty Start Date End Date Andrea Smiley DO [address] [place] [address] PCP - General Family Medicine 11/16/14 Adal, Golden S [address] [place] [address] Cardiology 01/07/19 Yohan Canela MD [address] [place] [address] General Surgery 04/14/20 Electronics Research Engineer Relationship Specialty Start Date End Date Andrea Smiley DO [address] [facility] [place] [address] PCP - General Family Medicine 11/16/14 Adal, Golden S [address] [place] [address] Cardiology 01/07/19 Yohan Canela MD [address] [place] [address] General Surgery 04/14/20 Electronics Research Engineer Relationship Specialty Start Date End Date Andrea Smiley DO [address] [facility] [place] [address] PCP - General Family Medicine 11/16/14 Lenin Galeas [address] [facility] [address] [place] [address] Cardiology 01/07/19 Yohan Canela MD [address] [facility] [place] [address] General Surgery 04/14/20 Electronics Research Engineer Relationship Specialty Start Date End Date Andrea Smiley DO [address] [facility] [place] [address] PCP - General Family Medicine 11/16/14 Lenin Galeas MD [address] [facility] [address] [place] [address] Cardiology 01/07/19 Yohan Canela MD [address] [facility] [place] [address] General Surgery 04/14/20 Team Status: Active Member Role Status Dates Dr. Andrea Smiley , Family Provider Active Dr. Andrea Smiley , DO Primary Care Provider Active Team Status: Inactive Member Role Status Dates Dr. Andrea Smiley DO Primary Care Provider, Referr ing Provider Active Dr. Lenin Galeas MD Attending Provider Active Team Status: Inactive Member Role Status Dates Dr. Andrea Smiley DO Primary Care Provider Active Dr. Baldev Burch MD Emergency Provider Active Electronics Research Engineer Relationship Specialty Start Date End Date Andrea Smiley DO [address] [facility] [place] [address] PCP - General Family Medicine 11/16/14 Lenin Galeas MD [address] [place] [address] Cardiology 01/07/19 Yohan Canela MD [address] [place] [address] General Surgery 04/14/20 Electronics Research Engineer Relationship Specialty Start Date End Date Andrea Smiley DO [address] [facility] [place] [address] PCP - General Family Medicine 11/16/14 Lenin Galeas MD [address] [place] [address] Cardiology 01/07/19 Yohan Canela MD [address] [place] [address] General Surgery 04/14/20 Electronics Research Engineer Relationship Specialty Start Date End Date Andrea Smiley DO [address] [facility] [place] [address] PCP - General Family Medicine 11/16/14 Lenin Galeas MD [address] [place] [address] Cardiology 01/07/19 Yohan Canela MD [address] [place] [address] General Surgery 04/14/20 Electronics Research Engineer Relationship Specialty Start Date End Date Andrea Smiley DO [address] [place] [address] PCP - General Family Medicine 11/16/14 Lenin Galeas MD [address] [place] [address] Cardiology 01/07/19 Yohan Canela MD [address] [place] [address] General Surgery 04/14/20 Electronics Research Engineer Relationship Specialty Start Date End Date Andrea Smiley DO [address] [place] [address] PCP - General Family Medicine 11/16/14 Lenin Galeas MD [address] [place] [address] Cardiology 01/07/19 Yohan Canela MD [address] [place] [address] General Surgery 04/14/20 Electronics Research Engineer Relationship Specialty Start Date End Date Andrea Smiley DO [address] [place] [address] PCP - General Family Medicine 11/16/14 Lenin Galeas MD [address] [place] [address] Cardiology 01/07/19 Yohan Canela MD [address] [place] [address] General Surgery 04/14/20 Electronics Research Engineer Relationship Specialty Start Date End Date Andrea Smiley DO [address] [facility] [address] PCP - General Family Medicine 11/16/14 Lenin Galeas MD [address] [place] [address] Cardiology 01/07/19 Yohan Canela MD [address] [place] [address] General Surgery 04/14/20 Electronics Research Engineer Relationship Specialty Start Date End Date Andrea Smiley DO [address] [facility] [address] PCP - General Family Medicine 11/16/14 Lenin Galeas MD [address] [place] [address] Cardiology 01/07/19 Yohan Canela MD [address] [place] [address] General Surgery 04/14/20 Electronics Research Engineer Relationship Specialty Start Date End Date Andrea Smiley DO [address] [facility] [address] PCP - General Family Medicine 11/16/14 Lenin Galeas MD [address] [place] [address] Cardiology 01/07/19 Yohan Canela MD [address] [place] [address] General Surgery 04/14/20 Electronics Research Engineer Relationship Specialty Start Date End Date Andrea Smiley DO [address] [place] [address] PCP - General Family Medicine 11/16/14 Lenin Galeas MD [address] [place] [address] Cardiology 01/07/19 Yohan Canela MD [address] [place] [address] General Surgery 04/14/20 Electronics Research Engineer Relationship Specialty Start Date End Date Andrea Smiley DO [address] [place] [address] PCP - General Family Medicine 11/16/14 Lenin Galeas MD [address] [place] [address] Cardiology 01/07/19 Yohan Canela MD [address] [place] [address] General Surgery 04/14/20 Mami Cheng APRN.LOSS PREVENTION AND SAFETY MANAGER [address] [place] [address] [employer] [facility] 10/24/24 Chelsea [place]field APRN.LOSS PREVENTION AND SAFETY MANAGER [address] [place] [address] [employer]aton Teacher [facility] 10/24/24 Electronics Research Engineer Relationship Specialty Start Date End Date Andrea Smiley DO [address] [place] [address] PCP - General Family Medicine 11/16/14 Lenin Galeas MD [address] [place] [address] Cardiology 01/07/19 Yohan Canela MD [address] [place] [address] General Surgery 04/14/20 Mami Cheng APRN.LOSS PREVENTION AND SAFETY MANAGER [address] [facility] [place] [address] [facility] 10/24/24 Chelsea Hatfield APRN.LOSS PREVENTION AND SAFETY MANAGER [address] [facility] [place] [address] [facility] 10/24/24 Electronics Research Engineer Relationship Specialty Start Date End Date Andrea Smiley DO [address] [facility] [place] [address] PCP - General Family Medicine 11/16/14 Lenin Galeas MD [address] [place] [address] Cardiology 01/07/19 Yohan Canela MD [address] [place] [address] General Surgery 04/14/20 Mami Cheng MONORAIL HOOKER.LOSS PREVENTION AND SAFETY MANAGER [address] [place] [address] [employer] Teacher [facility] 10/24/24 Chelsea Hatfield APRN.LOSS PREVENTION AND SAFETY MANAGER [address] [place] [address] [employer]aton Teacher [facility] 10/24/24 Electronics Research Engineer Relationship Specialty Start Date End Date Andrea Smiley DO [address] [place] [address] PCP - General Family Medicine 11/16/14 Lenin Galeas MD [address] [place] [address] Cardiology 01/07/19 Yohan Canela MD [address] [place] [address] General Surgery 04/14/20 Mami Cheng, MONORAIL HOOKER.LOSS PREVENTION AND SAFETY MANAGER [address] [place] [address] [facility] 10/24/24 AlysiaChelsea, MONORAIL HOOKER.LOSS PREVENTION AND SAFETY MANAGER [address] [place] [address] [employer]aton Teacher [facility] 10/24/24 Electronics Research Engineer Relationship Specialty Start Date End Date Andrea Smiley DO [address] [place] [address] PCP - General Family Medicine 11/16/14 Lenin Galeas MD [address] [place] [address] Cardiology 01/07/19 Yohan Canela MD [address] [place] [address] General Surgery 04/14/20 Mami Cheng MONORAIL HOOKER.LOSS PREVENTION AND SAFETY MANAGER [address] [place] [address] [employer] [facility] 10/24/24 Chelsea Hatfield APRN.LOSS PREVENTION AND SAFETY MANAGER [address] [place] [address] [employer] [facility] 10/24/24 Electronics Research Engineer Relationship Specialty Start Date End Date Andrea Smiley DO [address] [place] [address] PCP - General Family Medicine 11/16/14 [place] [address] [place] [address] [place] [address] Cardiology 01/07/19 Yohan Canela MD [address] [place] [address] General Surgery 04/14/20 Mami Cheng MONORAIL HOOKER.LOSS PREVENTION AND SAFETY MANAGER [address] [place] [address] [employer] [facility] 10/24/24 Chelsea Hatfield APRN.LOSS PREVENTION AND SAFETY MANAGER [address] [place] [address] [employer] Teacher Family [facility] 10/24/24 Electronics Research Engineer Relationship Specialty Start Date End Date Andrea Smiley DO [address] [place], [place] [id number] PCP - General Family Medicine 11/16/14 Lenin Galeas MD [address] [id number] Cardiology 01/07/19 Yohan Canela MD [address] [address] General Surgery 04/14/20 Chelsea Hatfield APRN.LOSS PREVENTION AND SAFETY MANAGER [address] [place] [address] [employer] Teacher Family [facility] 10/24/24 Saige Rausch APRN.LOSS PREVENTION AND SAFETY MANAGER [address] [place] [address] [facility] Goals (unrecognized section and content) Goals may be documented in a n alternate section FOR RECORDS PERTAINING TO PATIENTS WHO ARE [...] BE BASED ON THE PRIMARY CLINICAL RECORDS. [employer] provides no warranty or guarantee of the accuracy or completeness of information in this document.
[2025-08-06 18:20] VITALS: BP 150/82; PULSE 80; RESP 18; TEMP 36.8; O2SAT 96
== END 2025-08-06 18:21 | disposition home or self-care (01) ==
PROVIDERS: Emergency Provider Emergency Medicine; PCP Student in an Organized Health Care Education/Training Program; Visit Provider Emergency Medicine
DX: S61.412A Laceration without foreign body of left hand, initial encounter (principal); W31.2XXA Contact with powered woodworking and forming machines, initial encounter; Z89.022 Acquired absence of left finger(s); I10 Essential (primary) hypertension; E78.2 Mixed hyperlipidemia; I25.2 Old myocardial infarction; I73.9 Peripheral vascular disease, unspecified; I71.40 Abdominal aortic aneurysm, without rupture, unspecified; I25.10 Atherosclerotic heart disease of native coronary artery without angina pectoris; Z95.1 Presence of aortocoronary bypass graft; Z79.02 Long term (current) use of antithrombotics/antiplatelets; Z79.899 Other long term (current) drug therapy; Z87.891 Personal history of nicotine dependence
CPT/HCPCS: 12002; 99283